=== PATIENT | female | born 1960 | race Caucasian/White ===

== ENCOUNTER 2017-01-06 10:32 | Emergency (ER) | payer OTHER ==
[~2017-01-06] VITALS: Ht 175.3 cm; Wt 92.1 kg
[~2017-01-06 10:32] MED LIST: ADVI200T PO; AMOX875T2 PO; CIPR500T89 PO; COLA100C3 PO; FLAG500T PO; HYDR-3713 PO; IRON65TA PO; LASI40TA PO; LEVO100T5 PO; METO-346 PO; MIRA33504 PO; PERC5TAB6 PO; POTA10CA PO; TESS100C PO
[2017-01-06] MEDS ORDERED: SERT1TAB16 (10:39)
[2017-01-06] MEDS ORDERED: KETOROLAC 30 MG/ML VIAL (J1885) IV ONE (11:00)
[2017-01-06] MEDS ORDERED: ONDANSETRON 4MG/2ML VIAL (J2405) IV ONE (11:00)
[2017-01-06] MEDS ORDERED: NS 1,000 ML IV ONE (11:00)
[2017-01-06] MEDS ORDERED: MORPHINE 2 MG/ML 1ML SYRINGE IV PRN (11:00)
[2017-01-06 11:27] LABS: BASO # 0.1 K/mm3 (0.0-0.2); EOS # 0.4 K/mm3 (0.0-0.50); EOS % 5.4 % (0.0-3.0); LARGE UNSTAINED CELL # 0.1 K/mm3 (0.0-0.4); LARGE UNSTAINED CELL % 1.5 % (0.0-4.0); LYMPH # 2.1 K/mm3 (1.5-4.5); LYMPH % 25.1 % (24.0-44.0); MEAN CORPUSCULAR HEMOGLOBIN 32.6 pg (27.0-33.0); MEAN CORPUSCULAR HGB CONC 33.8 g/dl (32.0-36.5); MEAN CORPUSCULAR VOLUME 96.3 fl (80.0-96.0); MONO # 0.4 K/mm3 (0.0-0.8); MONO % 4.3 % (0.0-5.0); NEUTROPHILS # 5.3 K/mm3 (1.8-7.7); NEUTROPHILS % 62.8 % (36.0-66.0); PLATELET COUNT, AUTOMATED 338 k/mm3 (150-450); RED CELL DISTRIBUTION WIDTH 12.6 % (11.5-14.5); WHITE BLOOD COUNT 8.5 K/mm3 (4.0-10.0)
[2017-01-06 11:29] LABS: INR 0.89
[2017-01-06 11:50] LABS: ALBUMIN 3.9 GM/DL (3.2-5.2); ALBUMIN/GLOBULIN RATIO 1.11 (1.00-1.93); ALKALINE PHOSPHATASE 152 U/L (45-117); ALT/SGPT 13 U/L (12-78); ANION GAP 8 MEQ/L (8-16); AST/SGOT 19 U/L (15-37); BILIRUBIN,DIRECT 0.1 MG/DL (0.0-0.2); BILIRUBIN,TOTAL 0.5 MG/DL (0.2-1.0); BLOOD UREA NITROGEN 7 MG/DL (7-18); CALCIUM LEVEL 9.5 MG/DL (8.5-10.1); CARBON DIOXIDE LEVEL 26 MEQ/L (21-32); CHLORIDE LEVEL 107 MEQ/L (98-107); CREATININE FOR GFR 0.63 MG/DL (0.55-1.02); GLOMERULAR FILTRATION RATE > 60.0 (>51); GLUCOSE, FASTING 94 MG/DL (70-105); POTASSIUM SERUM 3.7 MEQ/L (3.5-5.1); SODIUM LEVEL 141 MEQ/L (136-145); TOTAL PROTEIN 7.4 GM/DL (6.4-8.2)
[2017-01-06] MEDS ORDERED: ISOVUE-370 76% 100ML VIAL (Q9967) As Ordered ONE (12:07)
[2017-01-06] MEDS ORDERED: BENT20TA PO (13:20)
[2017-01-06] MEDS ORDERED: CIPR500T89 PO (13:20)
[2017-01-06 13:30] VITALS: BP 144/79
--- NOTE | 2017-01-06 13:52 | REP ---
CT ABDOMEN AND PELVIS WITH IV CONTRAST: TECHNIQUE: Axial contrast enhanced images from the lung bases to the pubic symphysis using 100 mL Isovue 370 intravenous contrast material with multiplanar reformations. Visualized lung bases demonstrate no evidence of infiltrate. Liver demonstrates a subcentimeter hypodense nodule in the right lobe which is unchanged since prior study of 02/19/2016 compatible with a tiny cyst or hemangioma. Gallbladder is grossly unremarkable. No biliary dilatation is seen. Spleen is unremarkable in appearance. Oval nodule in the left adrenal gland measures 2.9 cm in maximum diameter and is stable compatible with an adenoma. There is diffuse thickening of the right adrenal gland unchanged. Pancreas and kidneys appear normal. There is no hydronephrosis. There is no abdominal aortic aneurysm. There is no adenopathy, free air or free fluid. No bowel wall thickening is seen. There are diverticula of the sigmoid and left colon without evidence of acute diverticulitis. No pelvic mass is seen. Patient appears to have had a hysterectomy. Urinary bladder is not well distended and not well evaluated. IMPRESSION: Sigmoid and left colonic diverticulosis without evidence of acute diverticulitis. No free air or free fluid. Left adrenal adenoma. Stable thickening of the right adrenal gland. Signed by Jeromy Broussard MD 01/06/2017 07:49 P
== END 2017-01-06 13:40 | disposition home or self-care (01) ==
LOC: M ED 11:33
DX: R10.32 Left lower quadrant pain (principal); R11.0 Nausea; I10 Essential (primary) hypertension; Z87.19 Personal history of other diseases of the digestive system; Z79.899 Other long term (current) drug therapy; Z88.8 Allergy status to other drugs, medicaments and biological substances; F17.210 Nicotine dependence, cigarettes, uncomplicated
CPT/HCPCS: 74177; 80048; 80076; 81001; 83605; 83690; 85025; 85610; 85730; 96374; 96375; 99282; J1885; J2405; Q9967

== ENCOUNTER → 2017-01-13 | Outpatient (REF) | payer OTHER ==
[~2017-01-13] MED LIST changes: +BENT20TA PO; +SERT1TAB16
== END ==
LOC: M LAB REF 13:16
PROVIDERS: ATTEND Family Medicine Addiction Medicine
DX: R31.29 Other microscopic hematuria (principal)

== ENCOUNTER 2017-01-30 07:20 | Emergency (ER) | payer OTHER ==
[~2017-01-30] VITALS: Ht 175.3 cm; Wt 93.0 kg
[2017-01-30 09:27] LABS: BASO # 0.1 K/mm3 (0.0-0.2); BASO % 1.1 % (0.0-1.0); EOS # 0.2 K/mm3 (0.0-0.50); EOS % 2.8 % (0.0-3.0); LARGE UNSTAINED CELL # 0.1 K/mm3 (0.0-0.4); LARGE UNSTAINED CELL % 1.7 % (0.0-4.0); LYMPH % 27.1 % (24.0-44.0); MEAN CORPUSCULAR HGB CONC 34.1 g/dl (32.0-36.5); MONO # 0.5 K/mm3 (0.0-0.8); MONO % 7.1 % (0.0-5.0); NEUTROPHILS # 4.4 K/mm3 (1.8-7.7); NEUTROPHILS % 60.2 % (36.0-66.0); PLATELET COUNT, AUTOMATED 312 k/mm3 (150-450); RED CELL DISTRIBUTION WIDTH 12.5 % (11.5-14.5); WHITE BLOOD COUNT 7.2 K/mm3 (4.0-10.0)
[2017-01-30] MEDS ORDERED: KETOROLAC 30 MG/ML VIAL (J1885) IV ONE (09:30)
--- NOTE | 2017-01-30 09:32 | REP ---
Clinical: Chest pain . Comparison: 11/29/2014 . Findings: The mediastinum and cardiac silhouette are stable and within normal limits for portable technique. The lung gamboa are clear without acute consolidation, effusion, or pneumothorax. Skeletal structures are intact. Impression: Normal portable chest x-ray Signed by Johan Eagle MD 01/30/2017 09:23 A
[2017-01-30 09:48] LABS: ALBUMIN 3.4 GM/DL (3.2-5.2); ALKALINE PHOSPHATASE 136 U/L (45-117); ALT/SGPT 15 U/L (12-78); AMYLASE 45 U/L (25-115); ANION GAP 9 MEQ/L (8-16); AST/SGOT 22 U/L (15-37); BILIRUBIN,DIRECT < 0.1 MG/DL (0.0-0.2); BILIRUBIN,TOTAL 0.3 MG/DL (0.2-1.0); BLOOD UREA NITROGEN 13 MG/DL (7-18); CALCIUM LEVEL 8.5 MG/DL (8.5-10.1); CARBON DIOXIDE LEVEL 26 MEQ/L (21-32); CHLORIDE LEVEL 106 MEQ/L (98-107); CREATININE FOR GFR 0.56 MG/DL (0.55-1.02); GLOMERULAR FILTRATION RATE > 60.0 (>51); GLUCOSE, FASTING 96 MG/DL (70-105); SODIUM LEVEL 141 MEQ/L (136-145); TOTAL PROTEIN 6.5 GM/DL (6.4-8.2)
[2017-01-30 09:54] LABS: INR 0.9
--- NOTE | 2017-01-30 10:09 | REP ---
Clinical: Calf pain . Technique: Broussard scale and color Doppler evaluation using linear high frequency transducer. Findings: Ultrasound examination of the left lower extremity deep venous structures from the common femoral vein to the popliteal vein demonstrates normal compressibility flow and wave patterns in response to respiration and augmentation. There is no evidence for deep venous thrombosis. Impression: No evidence for deep venous thrombosis. Signed by Johan Eagle MD 01/30/2017 10:01 A
[2017-01-30 11:47] VITALS: BP 150/81
--- NOTE | 2017-01-30 15:14 | ECGEPIP ---
Stationary ECG Study [facility] - ED Test Date: 2017-01-30 Pat Name: PAULETTE MOORE Department: Room: - Gender: F Travel Consultant: scott : 1960 Requested By: Bailee Camargo Order Number: [id number] Reading MD: Bailee Camargo Measurements Intervals [place] Rate: 68 P: -36 TN: 136 QRS: 52 QRSD: 104 T: 43 QT: 386 QTc: 411 Interpretive Statements SINUS RHYTHM INCREASED RATE 02/02/16 21:23 Electronically Signed On 01-30-2017 15:14:16 EDT by Bailee Camargo
--- NOTE | 2017-01-30 15:25 | REP ---
Clinical: Hip pain. Technique: Neutral single view of the left hip. Comparison: 11/29/2014. Findings: Arthritic degenerative changes include increased sclerosis to the acetabulum with marginal osteophyte along the acetabular roof and mild joint space narrowing. There is associated cortical irregularity/enthesopathy along the greater trochanter of the femur. No acute fracture dislocation. Impression: Mild/early moderate arthritic degenerative changes. Signed by Johan Eagle MD 01/30/2017 10:03 A
== END 2017-01-30 12:44 | disposition home or self-care (01) ==
LOC: M ED 08:39
DX: F41.9 Anxiety disorder, unspecified (principal); R49.9 Unspecified voice and resonance disorder; M25.559 Pain in unspecified hip; M19.90 Unspecified osteoarthritis, unspecified site; R10.9 Unspecified abdominal pain; E03.9 Hypothyroidism, unspecified; F32.9 Major depressive disorder, single episode, unspecified; F17.210 Nicotine dependence, cigarettes, uncomplicated; Z79.899 Other long term (current) drug therapy

== ENCOUNTER → 2017-03-24 | Outpatient (CLI) | payer OTHER ==
[~2017-03-24] MED LIST changes: +BENT10CA PO; +CIPR-249 PO; -CIPR500T89 PO; -COLA100C3 PO; +COLA100C5 PO; +E-Z-GAS II EFFERVESCENT PACKET (SODIUM BICARB./CITRIC ACID/SIMETHICONE) As Ordered ONE; +E-Z-HD 98% w/w 340GM SUSP BTL As Ordered ONE; +E-Z-PAQUE 96% w/w SUSP 176GM BTL As Ordered ONE; +OMEP40CA2 PO; +PERC5TAB12 PO; -PERC5TAB6 PO; -SERT1TAB16; +SERT25TA88
--- NOTE | 2017-03-24 18:03 | REP ---
ESOPHAGRAM: The procedure was performed under the direct supervision of Dr. Leroy. The images were reviewed with Dr. Leroy. A single view PA chest x-ray is submitted as a airborne electronics analyst film. The superior mediastinal structures are midline. The heart size is within normal limits. The lungs are clear. Liquid barium and gas-producing granules were given in the erect position as well as liquid barium in the prone oblique position in order to perform a double-contrast esophagram examination. The oral and pharyngeal stage of deglutition are unremarkable. Note is made of osteophyte formation of the cervical spine from C5 to C7. This causes mild impression on the posterior esophagus. Esophageal transport is prompt and efficient and there is no esophagitis, stricture, mucosal ring, or hiatal hernia. There is gastroesophageal reflux demonstrated to the level of the thoracic inlet. IMPRESSION: There is osteophyte formation which causes mild impression on the posterior esophagus. There is gastroesophageal reflux demonstrated to the level of the thoracic inlet. Otherwise unremarkable double contrast esophagram examination. 56 seconds of fluoroscopic time was utilized for this procedure. Reviewed by TEAGAN Walker 03/25/2017 03:59 PEdited and Signed by Ozzie Leroy MD 03/25/2017 04:05 P
== END ==
LOC: M RAD 10:06
PROVIDERS: ATTEND Internal Medicine Gastroenterology
DX: R13.10 Dysphagia, unspecified (principal); K22.8 Other specified diseases of esophagus; K21.9 Gastro-esophageal reflux disease without esophagitis

== ENCOUNTER → 2017-03-27 | Outpatient (CLI) | payer OTHER ==
[~2017-03-27] VITALS: Ht 175.3 cm; Wt 93.0 kg
[~2017-03-27] MED LIST changes: -E-Z-GAS II EFFERVESCENT PACKET (SODIUM BICARB./CITRIC ACID/SIMETHICONE) As Ordered ONE; -E-Z-HD 98% w/w 340GM SUSP BTL As Ordered ONE; -E-Z-PAQUE 96% w/w SUSP 176GM BTL As Ordered ONE; +NS 1,000 ML IV ONE
--- NOTE | 2017-03-27 10:58 | ROOR ---
Patient Name: Maureen Gutierrez Procedure Date: 03/27/2017 10:40 AM Date of : 1960 Age: 56 Room: [facility] Gender: Female Note Status: Finalized Procedure: Upper GI endoscopy Indications: Oropharyngeal phase dysphagia, Suspected esophageal reflux, Laryngitis Providers: Scott TENA MD Referring MD: Rhett CHACKO MD Requesting Provider: Medicines: Monitored Anesthesia Care Complications: No immediate complications. Procedure: Pre-Anesthesia Assessment: - The heart rate, respiratory rate, oxygen saturations, blood pressure, adequacy of pulmonary ventilation, and response to care were monitored throughout the procedure. The Endoscope was introduced through the mouth, and advanced to the second part of duodenum. The upper GI endoscopy was accomplished without difficulty. The patient tolerated the procedure well. Findings: A small amount of food (residue) was found in the gastric antrum. The esophagus was normal. The stomach was normal. The examined duodenum was normal. No endoscopic abnormality was evident in the esophagus to explain the patient's complaint of dysphagia. It was decided, however, to proceed with dilation of the entire esophagus. The scope was withdrawn. Dilation was performed with a Pickard dilator with no resistance at 54 Fr. The dilation site was examined following endoscope reinsertion and showed no change. Impression: - A small amount of food (residue) in the stomach after 8 hour fast is c/w gastroparesis - Normal esophagus. - Normal stomach. - Normal examined duodenum. - No endoscopic esophageal abnormality to explain patient's dysphagia. Esophagus dilated with 54 F Pickard. - No specimens collected. Recommendation: - Continue present medications. - Gastroparesis diet: - Eat smaller, more frequent meals throughout the day. - Low fat diet. - Liquid/soft foods are tolerated better than solid foods. - Low fiber/well cooked vegetables are tolerated better than high fiber/fibrous foods/raw vegetables. - Avoid medications that inhibit gastric/intestinal motility such as narcotic medications. Scott Tena MD Scott TENA MD 03/27/2017 10:57:48 AM This report has been signed electronically. Number of Addenda: 0 Note Initiated On: 03/27/2017 10:40 AM Estimated Blood Loss: Estimated blood loss: none.
[2017-03-27 11:27] VITALS: BP 116/62
== END | disposition home or self-care (01) ==
LOC: M OPP 09:08
PROVIDERS: ATTEND Internal Medicine Gastroenterology
DX: R13.12 Dysphagia, oropharyngeal phase (principal); J04.0 Acute laryngitis; I10 Essential (primary) hypertension; E03.9 Hypothyroidism, unspecified; R00.1 Bradycardia, unspecified; K58.9 Irritable bowel syndrome, unspecified; R12 Heartburn; M19.90 Unspecified osteoarthritis, unspecified site; R21 Rash and other nonspecific skin eruption; Z20.1 Contact with and (suspected) exposure to tuberculosis; Z87.442 Personal history of urinary calculi; F17.210 Nicotine dependence, cigarettes, uncomplicated; Z88.8 Allergy status to other drugs, medicaments and biological substances; Z79.899 Other long term (current) drug therapy; Z80.0 Family history of malignant neoplasm of digestive organs; Z80.8 Family history of malignant neoplasm of other organs or systems

== ENCOUNTER → 2017-10-20 | Outpatient (CLI) | payer OTHER ==
[2017-10-20 08:48] LABS: APPEARANCE, URINE HAZY (CLEAR); BACTERIA, URINE AUTO NEGATIVE (NEGATIVE); BILIRUBIN, URINE AUTO NEGATIVE (NEGATIVE); BLOOD, URINE BLOOD 2+ (NEGATIVE); COLOR, URINE YELLOW (YELLOW); GLUCOSE, URINE (UA) AUTO NEGATIVE (NEGATIVE); KETONE, URINE AUTO NEGATIVE (NEGATIVE); LEUKOCYTE ESTERASE, URINE AUTO NEGATIVE (NEGATIVE); MUCUS, URINE SMALL (NEGATIVE); NITRITE, URINE AUTO NEGATIVE (NEGATIVE); PROTEIN, URINE AUTO NEGATIVE (NEGATIVE); RBC, URINE AUTO 5 /HPF (0-3); SPECIFIC GRAVITY URINE AUTO 1.019 (1.002-1.035); SQUAMOUS EPITHELIAL CELL UR AU 2 /HPF (0-6); UROBILINOGEN, URINE AUTO 0.2 mg/dL (0.0-2.0); WBC, URINE AUTO 1 /HPF (0-3)
[2017-10-20 09:01] LABS: ESTIMATED AVERAGE GLUCOSE 114 MG/DL (60-110); HEMOGLOBIN A1c 5.6 %
[2017-10-20 09:47] LABS: VITAMIN B12 LEVEL 405 PG/ML (247-911)
[2017-10-20 09:48] LABS: FOLATE 2.8 NG/ML (>5.4)
[2017-10-21 11:13] LABS: HEPATITIS B SURFACE ANTIBODY NEGATIVE (POSITIVE)
== END ==
LOC: M LAB 07:41
DX: R41.89 Other symptoms and signs involving cognitive functions and awareness (principal)
CPT/HCPCS: 82746

== ENCOUNTER → 2017-11-09 | Outpatient (REF) | payer OTHER, MEDICAID ==
[2017-11-09 19:07] LABS: ANION GAP 7 MEQ/L (8-16); BLOOD UREA NITROGEN 10 MG/DL (7-18); CALCIUM LEVEL 8.7 MG/DL (8.5-10.1); CARBON DIOXIDE LEVEL 28 MEQ/L (21-32); CHLORIDE LEVEL 106 MEQ/L (98-107); CREATININE FOR GFR 0.69 MG/DL (0.55-1.30); GLOMERULAR FILTRATION RATE > 60.0 (>51); GLUCOSE, FASTING 93 MG/DL (70-100); POTASSIUM SERUM 4.2 MEQ/L (3.5-5.1); SODIUM LEVEL 141 MEQ/L (136-145)
== END ==
LOC: M LAB REF 17:37
DX: R31.29 Other microscopic hematuria (principal)

== ENCOUNTER → 2017-11-09 | Outpatient (REF) | payer OTHER, MEDICAID ==
[2017-11-09 19:01] LABS: APPEARANCE, URINE CLEAR (CLEAR); BACTERIA, URINE AUTO NEGATIVE (NEGATIVE); BILIRUBIN, URINE AUTO NEGATIVE (NEGATIVE); BLOOD, URINE BLOOD 1+ (NEGATIVE); COLOR, URINE YELLOW (YELLOW); GLUCOSE, URINE (UA) AUTO NEGATIVE (NEGATIVE); KETONE, URINE AUTO NEGATIVE (NEGATIVE); LEUKOCYTE ESTERASE, URINE AUTO NEGATIVE (NEGATIVE); MUCUS, URINE SMALL (NEGATIVE); NITRITE, URINE AUTO NEGATIVE (NEGATIVE); PROTEIN, URINE AUTO NEGATIVE (NEGATIVE); RBC, URINE AUTO 1 /HPF (0-3); SPECIFIC GRAVITY URINE AUTO 1.014 (1.002-1.035); SQUAMOUS EPITHELIAL CELL UR AU 1 /HPF (0-6); UROBILINOGEN, URINE AUTO 0.2 mg/dL (0.0-2.0); WBC, URINE AUTO 1 /HPF (0-3)
== END ==
LOC: M LAB REF 17:15
DX: R31.29 Other microscopic hematuria (principal)

== ENCOUNTER → 2017-12-08 | Outpatient (REF) | payer OTHER ==
[2017-12-08 13:15] LABS: APPEARANCE, URINE HAZY (CLEAR); BACTERIA, URINE AUTO NEGATIVE (NEGATIVE); BILIRUBIN, URINE AUTO NEGATIVE (NEGATIVE); BLOOD, URINE BLOOD 1+ (NEGATIVE); COLOR, URINE YELLOW (YELLOW); GLUCOSE, URINE (UA) AUTO NEGATIVE (NEGATIVE); KETONE, URINE AUTO NEGATIVE (NEGATIVE); LEUKOCYTE ESTERASE, URINE AUTO NEGATIVE (NEGATIVE); MUCUS, URINE SMALL (NEGATIVE); NITRITE, URINE AUTO NEGATIVE (NEGATIVE); PROTEIN, URINE AUTO NEGATIVE (NEGATIVE); RBC, URINE AUTO 1 /HPF (0-3); SPECIFIC GRAVITY URINE AUTO 1.015 (1.002-1.035); SQUAMOUS EPITHELIAL CELL UR AU 1 /HPF (0-6); UROBILINOGEN, URINE AUTO 0.2 mg/dL (0.0-2.0); WBC, URINE AUTO 1 /HPF (0-3)
== END ==
LOC: M SMT 12:51
DX: R31.29 Other microscopic hematuria (principal)

== ENCOUNTER → 2018-02-11 | Outpatient (CLI) | payer OTHER ==
[2018-02-11 11:33] LABS: ANION GAP 7 MEQ/L (8-16); BLOOD UREA NITROGEN 6 MG/DL (7-18); CALCIUM LEVEL 8.9 MG/DL (8.5-10.1); CARBON DIOXIDE LEVEL 28 MEQ/L (21-32); CHLORIDE LEVEL 105 MEQ/L (98-107); CREATININE FOR GFR 0.64 MG/DL (0.55-1.30); GLOMERULAR FILTRATION RATE > 60.0 (>51); GLUCOSE, FASTING 95 MG/DL (70-100); POTASSIUM SERUM 3.5 MEQ/L (3.5-5.1); SODIUM LEVEL 140 MEQ/L (136-145)
[2018-02-11 14:36] LABS: FOLATE 3.8 NG/ML (>5.4)
== END ==
LOC: M RAD 08:47
DX: G90.09 Other idiopathic peripheral autonomic neuropathy (principal)
CPT/HCPCS: 70551

== ENCOUNTER → 2018-02-18 | Outpatient (REF) | payer OTHER ==
[2018-02-18 18:51] LABS: ESTIMATED AVERAGE GLUCOSE 111 MG/DL (60-110); HEMOGLOBIN A1c 5.5 %
[2018-02-18 18:53] LABS: VITAMIN B12 LEVEL 702 PG/ML
[2018-02-18 18:54] LABS: ALBUMIN 4.3 GM/DL (3.2-5.2); ALBUMIN/GLOBULIN RATIO 1.08 (1.00-1.93); ALKALINE PHOSPHATASE 197 U/L (45-117); ALT/SGPT 16 U/L (12-78); ANION GAP 10 MEQ/L (8-16); AST/SGOT 17 U/L (7-37); BILIRUBIN,TOTAL 0.4 MG/DL (0.2-1.0); BLOOD UREA NITROGEN 14 MG/DL (7-18); CALCIUM LEVEL 9.7 MG/DL (8.5-10.1); CARBON DIOXIDE LEVEL 27 MEQ/L (21-32); CHLORIDE LEVEL 101 MEQ/L (98-107); CREATININE FOR GFR 0.86 MG/DL (0.55-1.30); FREE T4 0.84 NG/DL (0.76-1.46); GLOMERULAR FILTRATION RATE > 60.0 (>51); GLUCOSE, FASTING 107 MG/DL (70-100); SODIUM LEVEL 138 MEQ/L (136-145); TOTAL PROTEIN 8.3 GM/DL (6.4-8.2)
[2018-02-18 18:55] LABS: ERYTHROCYTE SEDIMENTATION RATE 13 mm/hr (0-30)
[2018-02-18 19:03] LABS: RHEUMATOID FACTOR QUANT < 10.0 IU/ML (<15.0)
[2018-02-22 13:05] LABS: ALBUMIN 4.79 GM/DL (3.29-5.55); ALBUMIN % 57.7 % (55.8-66.1); ALPHA-1-GLOBULIN % 4.5 % (2.9-4.9); ALPHA-1-GLOBULINS 0.37 GM/DL (0.17-0.41); ALPHA-2-GLOBULINS % 12.1 % (7.1-11.8); BETA-1-GLOBULINS 0.54 GM/DL (0.28-0.60); BETA-1-GLOBULINS % 6.5 % (4.7-7.2); BETA-2-GLOBULINS % 4.8 % (3.2-6.5); GAMMA GLOBULIN % 14.4 % (11.1-18.8)
[2018-02-24 08:06] LABS: ANTINUCLEAR ANTIBODIES DIRECT Negative (Negative); VITAMIN B1 LEVEL WHOLE BLOOD 86.4 nmol/L (66.5-200.0); VITAMIN B6,PYRIDOXAL PHOSPHATE 2.7 ug/L (2.0-32.8); VITAMIN E(ALPHA TOCOPHEROL) 10.7 mg/L (7.0-25.1); VITAMIN E(GAMMA TOCOPHEROL) 1.7 mg/L (0.5-5.5)
== END ==
LOC: M LABNEURO 13:47
DX: G43.909 Migraine, unspecified, not intractable, without status migrainosus (principal); G62.9 Polyneuropathy, unspecified

== ENCOUNTER 2018-03-08 08:36 | Emergency (ER) | payer OTHER ==
[2018-03-08 10:04] LABS: BASO # 0.1 10^3/uL (0.0-0.2); BASO % 0.8 % (0.0-1.0); EOS # 0.1 10^3/uL (0.0-0.50); EOS % 1.1 % (0.0-3.0); HEMOGLOBIN 14.2 g/dl (12.0-15.5); IMMATURE GRANULOCYTE % 0.5 % (0-3.0); LYMPH # 1.8 10^3/uL (1.5-4.5); LYMPH % 14.8 % (24.0-44.0); MEAN CORPUSCULAR HEMOGLOBIN 31.3 pg (27.0-33.0); MEAN CORPUSCULAR HGB CONC 33.8 g/dl (32.0-36.5); MEAN CORPUSCULAR VOLUME 92.5 fl (80.0-96.0); MONO # 0.7 10^3/uL (0.0-0.8); NEUTROPHILS # 9.3 10^3/uL (1.8-7.7); NEUTROPHILS % 76.8 % (36.0-66.0); PLATELET COUNT, AUTOMATED 325 10^3/uL (150-450); RED BLOOD COUNT 4.54 10^6/uL (4.00-5.40); RED CELL DISTRIBUTION WIDTH 12.6 % (11.5-14.5); WHITE BLOOD COUNT 12.1 10^3/uL (4.0-10.0)
[2018-03-08 10:37] LABS: INR 0.94; PROTHROMBIN TIME 12.7 SECONDS (12.1-14.4)
[2018-03-08 10:38] LABS: PARTIAL THROMBOPLASTIN TIME 30.3 SECONDS (25.4-37.6)
[2018-03-08 10:53] LABS: ALBUMIN 4.1 GM/DL (3.2-5.2); ALBUMIN/GLOBULIN RATIO 1.03 (1.00-1.93); ALKALINE PHOSPHATASE 214 U/L (45-117); ALT/SGPT 17 U/L (12-78); ANION GAP 9 MEQ/L (8-16); AST/SGOT 17 U/L (7-37); BILIRUBIN,DIRECT 0.1 MG/DL (0.0-0.2); BILIRUBIN,TOTAL 0.5 MG/DL (0.2-1.0); BLOOD UREA NITROGEN 11 MG/DL (7-18); CALCIUM LEVEL 9.2 MG/DL (8.5-10.1); CARBON DIOXIDE LEVEL 25 MEQ/L (21-32); CHLORIDE LEVEL 105 MEQ/L (98-107); CK-MB VALUE MASS 1.1 NG/ML (<3.6); CPK CREATINE PHOSPHOKINASE 89 U/L (26-192); CREATININE FOR GFR 0.88 MG/DL (0.55-1.30); GLOMERULAR FILTRATION RATE > 60.0 (>51); GLUCOSE, FASTING 125 MG/DL (70-100); LIPASE 79 U/L (73-393); MB/CK RELATIVE INDEX 1.23 (< OR =4); POTASSIUM SERUM 3.7 MEQ/L (3.5-5.1); SODIUM LEVEL 139 MEQ/L (136-145); TOTAL PROTEIN 8.1 GM/DL (6.4-8.2); TROPONIN I < 0.02 NG/ML (< 0.10)
[2018-03-08] MEDS: ASPIRIN 81 MG CHEW TABLET PO (10:57)
[2018-03-08] MEDS: NITROGLYCERIN 0.4 MG SUBL TABLET SL (10:59)
[2018-03-08 12:21] LABS: KETONE, URINE AUTO RFX NEGATIVE (NEGATIVE); LEUKOCYTE ESTERASE UR AUTO RFX NEGATIVE (NEGATIVE); MUCUS, URINE RFX MODERATE (NEGATIVE); NITRITE, URINE AUTO RFX NEGATIVE (NEGATIVE); RBC, URINE AUTO RFX 2 /HPF (0-3); SPECIFIC GRAVITY UR AUTO RFX 1.023 (1.002-1.035); SQUAM EPITHELIAL CELL UR AURFX 1 /HPF (0-6); WBC, URINE AUTO RFX 2 /HPF (0-3)
[2018-03-08] MEDS ORDERED: ISOVUE-370 76% 100ML VIAL (Q9967) As Ordered (13:12)
== END 2018-03-08 14:30 | disposition home or self-care (01) ==
LOC: M ED 08:36
DX: R07.89 Other chest pain (principal); R06.02 Shortness of breath; R11.2 Nausea with vomiting, unspecified; I10 Essential (primary) hypertension; E07.9 Disorder of thyroid, unspecified; M51.9 Unspecified thoracic, thoracolumbar and lumbosacral intervertebral disc disorder; Z79.899 Other long term (current) drug therapy; Z79.890 Hormone replacement therapy; Z88.8 Allergy status to other drugs, medicaments and biological substances; Z87.891 Personal history of nicotine dependence
CPT/HCPCS: Q9967

== ENCOUNTER → 2018-03-09 | Outpatient (REF) | payer OTHER ==
[2018-03-09 18:13] LABS: CHOLESTEROL LEVEL 284 MG/DL (<200); CHOLESTEROL RISK RATIO 3.736 (<5); HDL CHOLESTEROL 76 MG/DL (>40); LDL CHOLESTEROL 187.8 MG/DL (<100); NON-HDL-C 208 MG/DL; TRIGLYCERIDES LEVEL 101 MG/DL (<150)
== END ==
LOC: M LAB REF 17:21
DX: Z13.220 Encounter for screening for lipoid disorders (principal)
CPT/HCPCS: 80061

== ENCOUNTER → 2018-05-13 | Outpatient (CLI) | payer OTHER, MEDICAID | LOC: M PAIN 14:00 | DX: G89.29 Other chronic pain (principal); M50.10 Cervical disc disorder with radiculopathy, unspecified cervical region; M79.1 Myalgia; M54.5 Low back pain; M51.16 Intervertebral disc disorders with radiculopathy, lumbar region; F32.9 Major depressive disorder, single episode, unspecified; F41.9 Anxiety disorder, unspecified; E03.9 Hypothyroidism, unspecified; K31.84 Gastroparesis; Z87.442 Personal history of urinary calculi; M32.9 Systemic lupus erythematosus, unspecified; F17.210 Nicotine dependence, cigarettes, uncomplicated; Z79.82 Long term (current) use of aspirin; Z79.899 Other long term (current) drug therapy; Z88.8 Allergy status to other drugs, medicaments and biological substances | CPT/HCPCS: G0463 ==

== ENCOUNTER → 2018-05-14 | Outpatient (CLI) | payer OTHER, MEDICAID ==
[~2018-05-14] MED LIST changes: -ADVI200T PO; -AMOX875T2 PO; -BENT10CA PO; -BENT20TA PO; +BUPIVACAINE HCL 0.25% 10 ML VIAL As Ordered; +BUPIVACAINE HCL 0.25% 30 ML VIAL As Ordered; -CIPR-249 PO; -COLA100C5 PO; -FLAG500T PO; -HYDR-3713 PO; -IRON65TA PO; -LASI40TA PO; -LEVO100T5 PO; -METO-346 PO; -MIRA33504 PO; -NS 1,000 ML IV ONE; -OMEP40CA2 PO; -PERC5TAB12 PO; -POTA10CA PO; -SERT25TA88; -TESS100C PO; +TRIAMCINOLONE ACETONIDE SUSP 40 MG/ML VIAL (J3301) As Ordered; +diazePAM 5 MG TAB As Ordered; +oxyCODONE 5MG TAB As Ordered
== END ==
LOC: M PAIN 10:15
DX: M79.1 Myalgia (principal); M54.2 Cervicalgia; M25.512 Pain in left shoulder; F32.9 Major depressive disorder, single episode, unspecified; F41.9 Anxiety disorder, unspecified; E03.9 Hypothyroidism, unspecified; K31.84 Gastroparesis; K40.90 Unilateral inguinal hernia, without obstruction or gangrene, not specified as recurrent; F17.200 Nicotine dependence, unspecified, uncomplicated; Z79.82 Long term (current) use of aspirin; Z79.899 Other long term (current) drug therapy; Z88.8 Allergy status to other drugs, medicaments and biological substances
CPT/HCPCS: J3301

== ENCOUNTER → 2018-06-03 | Outpatient (CLI) | payer OTHER, MEDICAID | LOC: M PAIN 09:30 | DX: M50.10 Cervical disc disorder with radiculopathy, unspecified cervical region (principal); M79.1 Myalgia; F32.9 Major depressive disorder, single episode, unspecified; F41.9 Anxiety disorder, unspecified; E03.9 Hypothyroidism, unspecified; K31.84 Gastroparesis; I67.82 Cerebral ischemia; Z79.82 Long term (current) use of aspirin; Z79.899 Other long term (current) drug therapy; Z88.8 Allergy status to other drugs, medicaments and biological substances; Z87.39 Personal history of other diseases of the musculoskeletal system and connective tissue; Z87.891 Personal history of nicotine dependence | CPT/HCPCS: G0463 ==

== ENCOUNTER → 2018-08-10 | Outpatient (REF) | payer OTHER, MEDICAID ==
[2018-08-10 19:40] LABS: BASO # 0.1 10^3/uL (0.0-0.2); BASO % 1.1 % (0.0-1.0); EOS # 0.2 10^3/uL (0.0-0.50); EOS % 2.1 % (0.0-3.0); HEMATOCRIT 40.4 % (36.0-47.0); HEMOGLOBIN 13.4 g/dl (12.0-15.5); IMMATURE GRANULOCYTE % 0.4 % (0-3.0); LYMPH # 1.9 10^3/uL (1.5-4.5); LYMPH % 21.3 % (24.0-44.0); MEAN CORPUSCULAR HEMOGLOBIN 31.9 pg (27.0-33.0); MEAN CORPUSCULAR HGB CONC 33.2 g/dl (32.0-36.5); MEAN CORPUSCULAR VOLUME 96.2 fl (80.0-96.0); MONO # 0.5 10^3/uL (0.0-0.8); NEUTROPHILS # 6.2 10^3/uL (1.8-7.7); NEUTROPHILS % 69.1 % (36.0-66.0); PLATELET COUNT, AUTOMATED 380 10^3/uL (150-450); RED CELL DISTRIBUTION WIDTH 12.7 % (11.5-14.5)
[2018-08-10 19:59] LABS: ESTIMATED AVERAGE GLUCOSE 114 MG/DL (60-110); HEMOGLOBIN A1c 5.6 %
[2018-08-10 20:01] LABS: ANION GAP 9 MEQ/L (8-16); BLOOD UREA NITROGEN 14 MG/DL (7-18); CALCIUM LEVEL 8.9 MG/DL (8.5-10.1); CARBON DIOXIDE LEVEL 28 MEQ/L (21-32); CHLORIDE LEVEL 103 MEQ/L (98-107); CREATININE FOR GFR 0.86 MG/DL (0.55-1.30); GLOMERULAR FILTRATION RATE > 60.0 (>51); GLUCOSE, FASTING 102 MG/DL (70-100); POTASSIUM SERUM 4.4 MEQ/L (3.5-5.1); SODIUM LEVEL 140 MEQ/L (136-145)
[2018-08-10 20:02] LABS: ALBUMIN 3.8 GM/DL (3.2-5.2); ALBUMIN/GLOBULIN RATIO 1.03 (1.00-1.93); ALKALINE PHOSPHATASE 197 U/L (45-117); ALT/SGPT 21 U/L (12-78); AST/SGOT 19 U/L (7-37); BILIRUBIN,TOTAL 0.2 MG/DL (0.2-1.0); CHOLESTEROL LEVEL 308 MG/DL (<200); CHOLESTEROL RISK RATIO 5.049 (<5); FOLATE 3.2 NG/ML; HDL CHOLESTEROL 61 MG/DL (>40); LDL CHOLESTEROL 207 MG/DL (<100); NON-HDL-C 247 MG/DL; TOTAL 25(OH) VITAMIN D 9.1 NG/ML (30.0-100.0); TOTAL PROTEIN 7.5 GM/DL (6.4-8.2); TRIGLYCERIDES LEVEL 201 MG/DL (<150); VITAMIN B12 LEVEL 543 PG/ML
== END ==
LOC: M LAB REF 19:17
DX: R31.29 Other microscopic hematuria (principal); E03.9 Hypothyroidism, unspecified; Z13.220 Encounter for screening for lipoid disorders
CPT/HCPCS: 82746

== ENCOUNTER → 2018-10-11 | Outpatient (CLI) | payer OTHER, MEDICAID ==
[~2018-10-11] MED LIST changes: +ADVI200T PO; +AMLO5TAB6 PO; +AMOX875T2 PO; +BENT10CA PO; +BENT20TA PO; -BUPIVACAINE HCL 0.25% 10 ML VIAL As Ordered; -BUPIVACAINE HCL 0.25% 30 ML VIAL As Ordered; +CIPR-249 PO; +COLA100C5 PO; +FLAG500T PO; +HYDR-3713 PO; +IRON65TA PO; +KLOR10TA76 PO; +LASI40TA9 PO; +LEVO100T5 PO; +METO-346 PO; +MIRA33504 PO; +OMEP40CA2 PO; +PERC5TAB12 PO; +SERT25TA88; +TESS100C PO; -TRIAMCINOLONE ACETONIDE SUSP 40 MG/ML VIAL (J3301) As Ordered; -diazePAM 5 MG TAB As Ordered; -oxyCODONE 5MG TAB As Ordered
--- NOTE | 2018-10-23 23:55 | ECWPNPC ---
PATIENT NAME: PAULETTE MOORE : 1960 GENDER: FEMALE VISIT DATE: 10/11/2018 DISCHARGE DATE: 10/11/18 1545 VISIT LOCKED DATE TIME: PHYSICIAN: DENA GILLETTE MD RESOURCE: DENA GILLETTE MD REASON FOR APPOINTMENT 1. PRE PROC F/U PER DR Mercer HISTORY OF PRESENT ILLNESS HISTORY OF PRESENT ILLNESS: PAIN THE PATIENT DESCRIBES THE PAIN... 58 YEAR OLD FEMALE PATIENT WITH A HISTORY OF CHRONIC LOW BACK AND NECK PAIN. THE PATIENT DESCRIBES THE PAIN ACHING, SHARP, AND CONTINUOUS WITH A PAIN SCORE OF 8-10/10 DEPENDING ON PHYSICAL ACTIVITY. THE PATIENT HAD A TRIGGER POINT INJECTION OVER HER NECK AND SAYS THAT IT HELPED, BUT THE PAIN IN HER LOW BACK HAS INCREASED. THE PATIENT SAYS HER PAIN STARTS IN HER LOW BACK AREA AND RADIATES DOWN HER LEFT LEG WITH SOME NUMBNESS. THE PATIENT SAYS THAT WALKING FOR AN EXTENDED PERIOD OF TIME INCREASES HER PAIN. PATIENT DENIES UNEXPLAINABLE WEIGHT LOSS, FEVER, CHILLS, NEW CHANGES ON HER URINARY OR BOWEL CONTROL. FALL RISK SCREENING: SCREENING :NO FALLS IN THE PAST YEAR CURRENT MEDICATIONS TAKING LEVOTHYROXINE SODIUM 75 MCG TABLET 1 TABLET ON AN EMPTY STOMACH IN THE MORNING ORALLY ONCE A DAY TAKING SERTRALINE HCL 25 MG TABLET 1 TABLET ORALLY ONCE A DAY TAKING ASPIR-81 81 MG TABLET DELAYED RELEASE 1 TABLET ORALLY ONCE A DAY TAKING LIPITOR 40 MG TABLET 1 TABLET ORALLY ONCE A DAY TAKING TIZANIDINE HCL 4 MG TABLET 1 TABLET NEEDED ORALLY THREE TIMES A DAY TAKING ZONISAMIDE 100 MG CAPSULE 1 CAPSULE ORALLY ONCE A DAY TAKING OMEPRAZOLE 40 MG CAPSULE DELAYED RELEASE 1 CAPSULE ORALLY ONCE A DAY NEEDEED TAKING AMLODIPINE BESYLATE 5 MG TABLET 1 TABLET ORALLY BID TAKING GABAPENTIN 100 MG TABLET ORALLY TID TAKING TYLENOL 8 HOUR ARTHRITIS PAIN 650 MG TABLET EXTENDED RELEASE 2 TABLETS NEEDED ORALLY EVERY 8 HRS NOT-TAKING AUGMENTIN 875-125 MG TABLET 1 TABLET ORALLY EVERY 12 HRS NOT-TAKING TRAMADOL HCL 50 MG TABLET 1 TABLET NEEDED ORALLY TID NOT-TAKING CHANTIX 1 MG TABLET 1 TABLET ORALLY TWICE A DAY NOT-TAKING NICOTINE 14 MG/24HR PATCH 24 HOUR 1 PATCH TO SKIN TRANSDERMAL ONCE A DAY NOT-TAKING BACTRIM DS 800-160 MG TABLET 1 TABLET ORALLY DIRECTED- 1 HOUR PRIOR TO CYSTOSCOPY DISCONTINUED ESTRACE 0.1 MG/GM CREAM DIRECTED VAGINAL APPLY MILO, THURSDAY AND THURSDAY 5 CC IN THE [facility] MEDICATION LIST REVIEWED AND RECONCILED WITH THE PATIENT PAST MEDICAL HISTORY DEPRESSION/ ANXIETY HYPOTHYROIDISM MICROSCOPIC HEMATURIA GASTROPARESIS SYNDROM DIVERTICULITIS HISTORY OF KIDNEY STONES LUPUS INGUINAL HERNIA 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 1 SON(S) - HEALTHY. SOCIAL HISTORY GENERAL: TOBACCO USE ARE YOU A:FORMER SMOKER HOW LONG HAS IT BEEN SINCE YOU LAST SMOKED?1-3 MONTHS LUNG CANCER SCREENING SMOKING STATUS: PT IS CURRENTYLY TAKING CHANTIX AND USING NICODERM THIS NURSE DID COUNCEL ON NOT WEARING THE PATCH AND SMOKING FOR THE RISK OF STROKE ALCOHOL SCREENING DID YOU HAVE A DRINK CONTAINING ALCOHOL IN THE PAST YEAR?NO POINTS0 INTERPRETATIONNEGATIVE RECREATIONAL DRUG USE SMOKING STATUS: PT IS CURRENTYLY TAKING CHANTIX AND USING NICODERM THIS NURSE DID COUNCEL ON NOT WEARING THE PATCH AND SMOKING FOR THE RISK OF STROKE. CAFFEINE CAFFEINE USE?YES DRINKS COCOLA DAILY FOR CAFFEINE LATTER DAY LATTER DAY TEMPLE LANGUAGE LANGUAGES SPOKEN:THAI EDUCATION LEVEL OF EDUCATION:NOT FINISHED COLLEGE DIET: DISABLED. EXERCISE: DISABLED MEDITERRANEAN DIET ..LOTS OI FISH. MARITAL STATUS: DISABLED MEDITERRANEAN DIET ..LOTS OI FISH, WALKS BUT THE PAIN IS PROHIBITING. OTHERS AT HOME: DISABLED MEDITERRANEAN DIET ..LOTS OI FISH, WALKS BUT THE PAIN IS PROHIBITING, SINGLE. IMMUNIZATION PROGRAM DISABLED MEDITERRANEAN DIET ..LOTS OI FISH, WALKS BUT THE PAIN IS PROHIBITING, SINGLE LIVES ALONE. PAIN CLINIC PFS, CLERGY, PUBLIC HEALTH REFERRALS PFS REFERRAL NEEDED?NO CLERGY REFERRAL NEEDED?NO PUBLIC HEALTH REFERRAL NEEDED?NO WAS THE PROVIDER NOTIFIED OF ANY PERTINENT INFO?NO HAS THE PATIENT BEEN EDUCATED REGARDING HIS/HER PLAN OF CARE?YES HAS THE PATIENT BEEN EDUCATED REGARDING PAIN, THE RISK FOR PAIN, THE IMPORTANCE OF EFFECTIVE PAIN MANAGEMENT, AND THE PAIN ASSESSMENT PROCESS?YES HOUSING: PFS REFERRAL NEEDED? NO, CLERGY REFERRAL NEEDED? NO, PUBLIC HEALTH REFERRAL NEEDED? NO, WAS THE PROVIDER NOTIFIED OF ANY PERTINENT INFO? NO, HAS THE PATIENT BEEN EDUCATED REGARDING HIS/HER PLAN OF CARE? YES, HAS THE PATIENT BEEN EDUCATED REGARDING PAIN, THE RISK FOR PAIN, THE IMPORTANCE OF EFFECTIVE PAIN MANAGEMENT, AND THE PAIN ASSESSMENT PROCESS? YES. ADVANCE DIRECTIVE ADVANCE DIRECTIVE DISCUSSED WITH PATIENT:YES DECLINED REVIEWED WITH 05/14/18 Slim HASSAN. HOSPITALIZATION/MAJOR DIAGNOSTIC PROCEDURE THYRIOD ISSUES 02/2016 SURGERY RELATED CHILD REVIEW OF SYSTEMS REVIEWED BY: PROVIDER: DENA GILLETTE MD . CONSTITUTIONAL: ANY CHANGE IN YOUR MEDICAL CONDITION? NO . CHILLS NO . FEVER NO . INFECTION: DO YOU HAVE NEW INFECTIONS? NO . DO YOU HAVE HISTORY OF MRSA? NO . MUSCULOSKELETAL: ANY NEW PATTERNS OF PAIN OR NUMBNESS? YES, LBP, LEFT HIP AND LEFT LEG PAIN X 7-8 WEEKS . GASTROENTEROLOGY: ANY NEW CHANGE IN BOWEL CONTROL? NO . GENITOURINARY: ANY NEW CHANGE IN BLADDER CONTROL? NO . IS THERE A CHANCE YOU COULD BE ? NO . HEMATOLOGY/LYMPH: DO YOU TAKE ANY BLOOD THINNERS? (FOR EXAMPLE- COUMADIN, PLAVIX, AGGRENOX, PLATEL, PRADAXA, OR XARELTO) NO . WHEN WAS YOUR LAST DOSE? DATE: TIME: . NEUROLOGY: HAVE YOU FALLEN IN THE PAST 12 MONTHS? YES, LAST WEEK FELL DOWN ICY STAIRS, PT DENIES INJURIES . ANY NEW EXTREMITY NUMBNESS OR WEAKNESS? YES, LEFT HIP AND LEFT LEG PAIN . CARDIOLOGY: DO YOU HAVE A PACEMAKER OR DEFIBRILLATOR? NO . RESPIRATORY: HAVE YOU BEEN SICK IN THE PAST WEEK? NO . FEVER NO . FLU LIKE SYMPTOMS? NO . COUGH NO . INTEGUMENTARY: DO YOU HAVE ANY RASHES OR OPEN SORES? NO . ALLERGIC/IMMUNO: ARE YOU ALLERGIC TO IV DYE? NO . ANY NEW ALLERGIES? NO . PSYCHIATRIC: DO YOU HAVE THOUGHTS OF HURTING YOURSELF OR SOMEONE ELSE? NO . ARE YOU ABUSED, NEGLECTED, OR IN AN UNSAFE ENVIRONMENT? NO . ENDOCRINOLOGY: ARE YOU DIABETIC? NO . OTHER: DO YOU NEED ANY PRESCRIPTIONS? YES, TO DISCUSS WITH DR GILLETTE . IF YES, PLEASE LIST: ____ . ANY NEW PROBLEMS WITH YOUR MEDICATIONS? NO . WHEN DID YOU LAST EAT? ____ . WHEN DID YOU LAST DRINK? ____ . WHAT DID YOU LAST DRINK? ____ . NAME OF PERSON DRIVING YOU HOME? ____ . DO YOU HAVE ANY OTHER QUESTIONS OR CONCERNS NO . VITAL SIGNS WT 253.6 LBS, HT 67 IN, BMI 39.72 INDEX, BP 139/91 MM HG, HR 100 /MIN, RR 18 /MIN, TEMP 96.1 F, OXYGEN SAT % 96%, NA INITIALS SC 14:22, REVIEWED BY: EM. EXAMINATION GENERAL EXAMINATION: PATIENT IS ALERT O X 3 AND COOPERATIVE. ANTALGIC GAIT. PATIENT IS IN A FLEXED POSITION. PRESENCE OF TRIGGER POINTS AND BANDS OF TISSUE WITH RESTRICTION OF MOVEMENT OF THE BACK. LEFT LEG IS WEAKER AT EXTENSION AND FLEXION. ASSESSMENTS MYALGIA, OTHER SITE - M79.18 (PRIMARY) TREATMENT MYALGIA, OTHER SITE CLINICAL NOTES: WE DISCUSSED SEVERAL ISSUES WITH MRS. MOORE'S PAIN MANAGEMENT CASE. DUE TO THE TRIGGER POINTS, BANDS OF TISSUE, AND RESTRICTION OF MOVEMENT, I WOULD LIKE TO MOVE FORWARD WITH A TRIGGER POINT INJECTION AT THIS TIME. WE DISCUSSED THE BENEFITS, RISKS, AND ALTERNATIVES OF THE INJECTION AND THE PATIENT WOULD LIKE TO PROCEED. I WILL GIVE THE PATIENT SOMA FOR A FEW DAYS FOLLOWING THE INJECTION FOR POST PROCEDURE PAIN. THE PATIENT WILL CONSIDER A LUMBAR EPIDURAL IN THE FUTURE. THE PATIENT WILL FOLLOW UP 3 WEEKS AFTER THE INJECTION. INSTRUCTIONS WERE GIVEN, QUESTIONS WERE ANSWERED, PATIENT REPORTS UNDERSTANDING AND AGREES WITH THE PLAN. I, YOUSUF LOWRY, DOCUMENTED THE ABOVE INFORMATION ACTING A SCRIBE FOR DR. GILLETTE. I HAVE REVIEWED THE ABOVE DOCUMENT, WRITTEN BY YOUSUF BLACKMONIBCarole AND I VERIFY THAT IT IS ACCURATE. PROCEDURE CODES FA211 ESTABILISHED PATIENT [facility] FACILITY CHARGE G8427 CURRENT MEDS W/DOSAGES DOCUMENTED G8730 PAIN ASSESS POS TOOL F/U PLAN DOC DISPOSITION & COMMUNICATION FOLLOW UP 3 WEEKS ELECTRONICALLY SIGNED BY DENA GILLETTE MD, MD ON 10/23/2018 AT 06:12 PM EST DISCLAIMER : THIS IS A VISIT SUMMARY EXTRACTED FROM THE [facility] CHART. IT IS NOT A COPY OF THE [facility] PROGRESS NOTE. RUBEND
== END ==
LOC: M PAIN 14:15
PROVIDERS: ATTEND Anesthesiology
DX: M79.18 Myalgia, other site (principal); M54.5 Low back pain; M54.2 Cervicalgia; E03.9 Hypothyroidism, unspecified; K31.84 Gastroparesis; F32.9 Major depressive disorder, single episode, unspecified; F41.9 Anxiety disorder, unspecified; Z79.82 Long term (current) use of aspirin; Z79.899 Other long term (current) drug therapy; Z88.8 Allergy status to other drugs, medicaments and biological substances; Z87.39 Personal history of other diseases of the musculoskeletal system and connective tissue; Z86.79 Personal history of other diseases of the circulatory system; Z87.891 Personal history of nicotine dependence

== ENCOUNTER → 2018-11-10 | Outpatient (REF) | payer OTHER, MEDICAID ==
[2018-11-10 19:07] LABS: BASO # 0.1 10^3/uL (0.0-0.2); BASO % 1.4 % (0.0-1.0); EOS # 0.2 10^3/uL (0.0-0.50); EOS % 2.2 % (0.0-3.0); HEMATOCRIT 40.5 % (36.0-47.0); HEMOGLOBIN 13.2 g/dl (12.0-15.5); LYMPH # 2.8 10^3/uL (1.5-4.5); LYMPH % 29.3 % (24.0-44.0); MEAN CORPUSCULAR HEMOGLOBIN 31.2 pg (27.0-33.0); MEAN CORPUSCULAR HGB CONC 32.6 g/dl (32.0-36.5); MEAN CORPUSCULAR VOLUME 95.7 fl (80.0-96.0); MONO # 0.7 10^3/uL (0.0-0.8); MONO % 6.9 % (0.0-5.0); NEUTROPHILS # 5.7 10^3/uL (1.8-7.7); NEUTROPHILS % 59.8 % (36.0-66.0); PLATELET COUNT, AUTOMATED 386 10^3/uL (150-450); RED BLOOD COUNT 4.23 10^6/uL (4.00-5.40); WHITE BLOOD COUNT 9.5 10^3/uL (4.0-10.0)
[2018-11-10 19:23] LABS: ALBUMIN 3.8 GM/DL (3.2-5.2); ALT/SGPT 21 U/L (12-78); BILIRUBIN,TOTAL 0.2 MG/DL (0.2-1.0); BLOOD UREA NITROGEN 10 MG/DL (7-18); CALCIUM LEVEL 8.6 MG/DL (8.5-10.1); CARBON DIOXIDE LEVEL 26 MEQ/L (21-32); CHLORIDE LEVEL 105 MEQ/L (98-107); CHOLESTEROL LEVEL 269 MG/DL (<200); CHOLESTEROL RISK RATIO 4.409 (<5); CREATININE FOR GFR 0.74 MG/DL (0.55-1.30); FREE T4 0.75 NG/DL (0.76-1.46); GLOMERULAR FILTRATION RATE > 60.0 (>51); GLUCOSE, FASTING 101 MG/DL (70-100); HDL CHOLESTEROL 61 MG/DL (>40); LDL CHOLESTEROL 152 MG/DL (<100); NON-HDL-C 208 MG/DL; POTASSIUM SERUM 3.8 MEQ/L (3.5-5.1); SODIUM LEVEL 139 MEQ/L (136-145); TOTAL 25(OH) VITAMIN D 5.5 NG/ML (30.0-100.0); TOTAL PROTEIN 7.4 GM/DL (6.4-8.2); TRIGLYCERIDES LEVEL 282 MG/DL (<150)
[2018-11-10 19:25] LABS: HEMOGLOBIN A1c 5.7 %
[2018-11-10 20:37] LABS: APPEARANCE, URINE CLEAR (CLEAR); BACTERIA, URINE AUTO NEGATIVE (NEGATIVE); BILIRUBIN, URINE AUTO NEGATIVE (NEGATIVE); BLOOD, URINE BLOOD NEGATIVE (NEGATIVE); COLOR, URINE YELLOW (YELLOW); GLUCOSE, URINE (UA) AUTO NEGATIVE (NEGATIVE); KETONE, URINE AUTO NEGATIVE (NEGATIVE); LEUKOCYTE ESTERASE, URINE AUTO NEGATIVE (NEGATIVE); MUCUS, URINE SMALL (NEGATIVE); NITRITE, URINE AUTO NEGATIVE (NEGATIVE); PROTEIN, URINE AUTO NEGATIVE (NEGATIVE); RBC, URINE AUTO 0 /HPF (0-3); SPECIFIC GRAVITY URINE AUTO 1.009 (1.002-1.035); SQUAMOUS EPITHELIAL CELL UR AU 1 /HPF (0-6); UROBILINOGEN, URINE AUTO 0.2 mg/dL (0.0-2.0); WBC, URINE AUTO 1 /HPF (0-3)
[2018-11-13 00:07] LABS: Lyme Disease IgG/IgM Antibodie <0.91 ISR (0.00-0.90); Lyme Disease IgM Ab Quantitati <0.80 index (0.00-0.79)
== END ==
LOC: M LAB REF 16:46
PROVIDERS: ATTEND Family Medicine
DX: Z13.228 Encounter for screening for other metabolic disorders (principal); Z00.01 Encounter for general adult medical examination with abnormal findings

== ENCOUNTER → 2019-02-18 | Outpatient (CLI) | payer OTHER, MEDICAID ==
--- NOTE | 2019-02-26 23:12 | ECWPNPC ---
PATIENT NAME: PAULETTE MOORE : 1960 GENDER: FEMALE VISIT DATE: 02/18/2019 DISCHARGE DATE: 02/18/19 1341 VISIT LOCKED DATE TIME: PHYSICIAN: DENA GILLETTE MD RESOURCE: DENA GILLETTE MD REASON FOR APPOINTMENT 1. INCREASED PAIN HISTORY OF PRESENT ILLNESS HISTORY OF PRESENT ILLNESS: PAIN THE PATIENT DESCRIBES THE PAIN... 58 YEAR OLD FEMALE PATIENT WITH A HISTORY OF CHRONIC LOW BACK AND LEG PAIN. THE PATIENT DESCRIBES THE PAIN ACHING, STABBING, SHOOTING, SHARP, SEVER, "BROKEN BONES", DAILY, NIGHTLY, AND CONTINUOUS WITH A PAIN SCORE OF 6-9/10 DEPENDING ON PHYSICAL ACTIVITY. THE PATIENT SAYS THE PAIN STARTS IN HER LOW BACK AND RADIATES TO HER HIP AND DOWN THE SIDES OF BOTH LEGS, BUT MAINLY THE LEFT LEG IS AFFECTED. THE PATIENT STATES HER FAMILY HAS A HISTORY OF MS AND SHE PLANS TO GET CHECKED FOR THIS CONDITION. THE PATIENT SAYS THE PAIN IS AFFECTING HER ABILITY TO PERFORM HER DAILY ACTIVITIES SUCH STANDING FOR MORE THAN A FEW MINUTES, WALKING UPRIGHT, WALKING TO THE GROCERY STORE, AND EXERCISING. THE PATIENT SAYS THE PAIN CAUSES HER TO WALK HUNCHED OVER. THE PATIENT SAYS SHE IS GAINING WEIGHT AND LOSING STRENGTH DUE TO INACTIVITY AND INABILITY TO PERFORM ANY PHYSICAL ACTIVITY. PATIENT DENIES UNEXPLAINABLE WEIGHT LOSS, FEVER, CHILLS, NEW CHANGES ON HER URINARY OR BOWEL CONTROL. FALL RISK SCREENING: SCREENING :NO FALLS REPORTED IN THE LAST YEAR CURRENT MEDICATIONS TAKING LEVOTHYROXINE SODIUM 75 MCG TABLET 1 TABLET ON AN EMPTY STOMACH IN THE MORNING ORALLY ONCE A DAY TAKING SERTRALINE HCL 25 MG TABLET 1 TABLET ORALLY ONCE A DAY TAKING ASPIR-81 81 MG TABLET DELAYED RELEASE 1 TABLET ORALLY ONCE A DAY TAKING LIPITOR 40 MG TABLET 1 TABLET ORALLY ONCE A DAY TAKING TIZANIDINE HCL 4 MG TABLET 1 TABLET NEEDED ORALLY THREE TIMES A DAY TAKING AMLODIPINE BESYLATE 10 MG TABLET 1 TABLET ORALLY BID TAKING GABAPENTIN 100 MG TABLET ORALLY TID TAKING TYLENOL 8 HOUR ARTHRITIS PAIN 650 MG TABLET EXTENDED RELEASE 2 TABLETS NEEDED ORALLY EVERY 8 HRS TAKING HYDROCHLOROTHIAZIDE 12.5 MG CAPSULE 1 CAPSULE IN THE MORNING ORALLY ONCE A DAY TAKING MECLIZINE HCL 25 MG TABLET CHEWABLE 1 TABLET NEEDED ORALLY ONCE A DAY TAKING NORTRIPTYLINE HCL 25 MG CAPSULE 1 CAPSULE ORALLY ONCE A DAY NOT-TAKING ZONISAMIDE 100 MG CAPSULE 1 CAPSULE ORALLY ONCE A DAY NOT-TAKING OMEPRAZOLE 40 MG CAPSULE DELAYED RELEASE 1 CAPSULE ORALLY ONCE A DAY NEEDEED NOT-TAKING AUGMENTIN 875-125 MG TABLET 1 TABLET ORALLY EVERY 12 HRS NOT-TAKING TRAMADOL HCL 50 MG TABLET 1 TABLET NEEDED ORALLY TID NOT-TAKING CHANTIX 1 MG TABLET 1 TABLET ORALLY TWICE A DAY NOT-TAKING NICOTINE 14 MG/24HR PATCH 24 HOUR 1 PATCH TO SKIN TRANSDERMAL ONCE A DAY NOT-TAKING BACTRIM DS 800-160 MG TABLET 1 TABLET ORALLY DIRECTED- 1 HOUR PRIOR TO CYSTOSCOPY MEDICATION LIST REVIEWED AND RECONCILED WITH THE PATIENT PAST MEDICAL HISTORY DEPRESSION/ ANXIETY HYPOTHYROIDISM MICROSCOPIC HEMATURIA GASTROPARESIS SYNDROM DIVERTICULITIS HISTORY OF KIDNEY STONES LUPUS INGUINAL HERNIA 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 1 SON(S) - HEALTHY. SOCIAL HISTORY GENERAL: TOBACCO USE ARE YOU A:FORMER SMOKER HOW LONG HAS IT BEEN SINCE YOU LAST SMOKED?1-3 MONTHS IMMUNIZATION PROGRAM DISABLED MEDITERRANEAN DIET ..LOTS OI FISH, WALKS BUT THE PAIN IS PROHIBITING, SINGLE LIVES ALONE. OTHERS AT HOME: DISABLED MEDITERRANEAN DIET ..LOTS OI FISH, WALKS BUT THE PAIN IS PROHIBITING, SINGLE. HOUSING: PFS REFERRAL NEEDED? NO, CLERGY REFERRAL NEEDED? NO, PUBLIC HEALTH REFERRAL NEEDED? NO, WAS THE PROVIDER NOTIFIED OF ANY PERTINENT INFO? NO, HAS THE PATIENT BEEN EDUCATED REGARDING HIS/HER PLAN OF CARE? YES, HAS THE PATIENT BEEN EDUCATED REGARDING PAIN, THE RISK FOR PAIN, THE IMPORTANCE OF EFFECTIVE PAIN MANAGEMENT, AND THE PAIN ASSESSMENT PROCESS? YES. EDUCATION LEVEL OF EDUCATION:NOT FINISHED COLLEGE DIET: DISABLED. LANGUAGE LANGUAGES SPOKEN:FILIPINO RECREATIONAL DRUG USE DRUG USE?NO EXERCISE: DISABLED MEDITERRANEAN DIET ..LOTS OI FISH. LUNG CANCER SCREENING SMOKING STATUS: PT IS CURRENTYLY TAKING CHANTIX AND USING NICODERM THIS NURSE DID COUNCEL ON NOT WEARING THE PATCH AND SMOKING FOR THE RISK OF STROKE PAIN CLINIC PFS, CLERGY, PUBLIC HEALTH REFERRALS PFS REFERRAL NEEDED?NO CLERGY REFERRAL NEEDED?NO PUBLIC HEALTH REFERRAL NEEDED?NO WAS THE PROVIDER NOTIFIED OF ANY PERTINENT INFO?NO HAS THE PATIENT BEEN EDUCATED REGARDING HIS/HER PLAN OF CARE?YES HAS THE PATIENT BEEN EDUCATED REGARDING PAIN, THE RISK FOR PAIN, THE IMPORTANCE OF EFFECTIVE PAIN MANAGEMENT, AND THE PAIN ASSESSMENT PROCESS?YES LATEX QUESTIONNAIRE LATEX ALLERGY : HAVE YOU EVER DEVELOPED ANY TYPE OF REACTION AFTER HANDLING LATEX PRODUCTS SUCH RUBBER GLOVES, CONDOMS, DIAPHRAGMS, BALLOONS, SOCKS, OR UNDERWEAR?NO LATEX ALLERGY : HAVE YOU EVER DEVELOPED ANY TYPE OF REACTION DURING OR AFTER DENTAL APPOINTMENT, VAGINAL/RECTAL EXAMINATION, SURGICAL PROCEDURE, OR ANY OTHER EXPOSURE?NO LATEX RISK : HAVE YOU EVER HAD ANY DIFFICULTY BREATHING OR HIVES AFTER EATING OR HANDLING ANY FRUITS, OR VEGETABLES; SUCH KIWI, BANANAS, STONE FRUITS, OR CHESTNUTSNO LATEX RISK : DO YOU HAVE A PREVIOUS PERSONAL HISTORY OF MORE THAN NINE SURGERIES, SPINA BIFIDA, OR REPEATED CATHERTIZATIONS? NO LATEX RISK : ARE YOU FREQUENTLY EXPOSED TO LATEX PRODUCTS IN YOUR OCCUPATION?NO DATE ASKED : 02/18/2019 CAFFEINE CAFFEINE USE?YES DRINKS COCOLA DAILY FOR CAFFEINE ADVANCE DIRECTIVE ADVANCE DIRECTIVE DISCUSSED WITH PATIENT:YES DECLINED 02/18/19 AMISH AMISH BUDDHIST MARITAL STATUS: DISABLED MEDITERRANEAN DIET ..LOTS OI FISH, WALKS BUT THE PAIN IS PROHIBITING. ALCOHOL SCREENING DID YOU HAVE A DRINK CONTAINING ALCOHOL IN THE PAST YEAR?NO POINTS0 INTERPRETATIONNEGATIVE REVIEWED WITH 05/14/18 1020 LASREVIEWED WITH PT 02/18/19 1305 BV. HOSPITALIZATION/MAJOR DIAGNOSTIC PROCEDURE THYRIOD ISSUES 02/2016 SURGERY RELATED CHILD REVIEW OF SYSTEMS REVIEWED BY: PROVIDER: DENA GILLETTE MD . CONSTITUTIONAL: ANY CHANGE IN YOUR MEDICAL CONDITION? NO . CHILLS NO . FEVER NO . INFECTION: DO YOU HAVE NEW INFECTIONS? YES, PT HAS HAD EAR INFECTION FOR A FEW WEEKS, CURRENTLY SEEING PRIMARY DOCTOR REGARDING THIS . DO YOU HAVE HISTORY OF MRSA? NO . MUSCULOSKELETAL: ANY NEW PATTERNS OF PAIN OR NUMBNESS? NO . GASTROENTEROLOGY: ANY NEW CHANGE IN BOWEL CONTROL? NO . GENITOURINARY: ANY NEW CHANGE IN BLADDER CONTROL? NO . IS THERE A CHANCE YOU COULD BE ? NO . HEMATOLOGY/LYMPH: DO YOU TAKE ANY BLOOD THINNERS? (FOR EXAMPLE- COUMADIN, PLAVIX, AGGRENOX, PLATEL, PRADAXA, OR XARELTO) NO . WHEN WAS YOUR LAST DOSE? DATE: TIME: . NEUROLOGY: HAVE YOU FALLEN IN THE PAST 12 MONTHS? YES, PT STATES SHE HAS HAD A FEW FALLS THIS PAST WINTER DUE TO WEAKNESS IN LEGS. DENIES ANY INJURIES OR ED VISIT WITH ANY FALL . ANY NEW EXTREMITY NUMBNESS OR WEAKNESS? NO . CARDIOLOGY: DO YOU HAVE A PACEMAKER OR DEFIBRILLATOR? NO . RESPIRATORY: HAVE YOU BEEN SICK IN THE PAST WEEK? NO . FEVER NO . FLU LIKE SYMPTOMS? NO . COUGH NO . INTEGUMENTARY: DO YOU HAVE ANY RASHES OR OPEN SORES? NO . ALLERGIC/IMMUNO: ARE YOU ALLERGIC TO IV DYE? NO . ANY NEW ALLERGIES? NO . PSYCHIATRIC: DO YOU HAVE THOUGHTS OF HURTING YOURSELF OR SOMEONE ELSE? NO . ARE YOU ABUSED, NEGLECTED, OR IN AN UNSAFE ENVIRONMENT? NO . ENDOCRINOLOGY: ARE YOU DIABETIC? NO, PT STATES SHE IS PRE-DIABETIC . OTHER: DO YOU NEED ANY PRESCRIPTIONS? NO . IF YES, PLEASE LIST: ____ . ANY NEW PROBLEMS WITH YOUR MEDICATIONS? NO . WHEN DID YOU LAST EAT? ____ . WHEN DID YOU LAST DRINK? ____ . WHAT DID YOU LAST DRINK? ____ . NAME OF PERSON DRIVING YOU HOME? ____ . DO YOU HAVE ANY OTHER QUESTIONS OR CONCERNS NO . VITAL SIGNS WT 258 LBS, HT 67 IN, BMI 40.40 INDEX, BP 120/100 MANUAL, HR 96 /MIN, RR 18 /MIN, TEMP 96.7 F, OXYGEN SAT % 100%, NA INITIALS AW 1249, REVIEWED BY: LET NURSE KNOW ABOUT BP. EXAMINATION GENERAL EXAMINATION: PATIENT IS ALERT O X 3 AND COOPERATIVE. ANTALGIC GAIT. PATIENT REMAINS IN FLEXED POSITION. LEFT LEG IS WEAKER AT EXTENSION AND FLEXION. MRI OF THE LUMBAR SPINE DONE ON 03/19/2018 SHOWS BULGING DISCS AT L4-L5 AND L5-S1 LEVELS, SEVERE SPINAL STENOSIS, AND NERVE COMPRESSION. ASSESSMENTS INTERVERTEBRAL DISC DISORDER WITH RADICULOPATHY OF LUMBAR REGION - M51.16 (PRIMARY) INTERVERTEBRAL DISC DISORDER WITH RADICULOPATHY OF LUMBOSACRAL REGION - M51.17 TREATMENT INTERVERTEBRAL DISC DISORDER WITH RADICULOPATHY OF LUMBAR REGION CLINICAL NOTES: WE DISCUSSED SEVERAL ISSUES WITH MS. MOORE'S PAIN MANAGEMENT CASE. DUE TO THE LUMBAR RADICULOPATHY, I WOULD LIKE TO MOVE FORWARD WITH A LUMBAR EPIDURAL STEROID INJECTION AT THIS TIME. WE DISCUSSED THE BENEFITS, RISKS, AND ALTERNATIVES OF THE INJECTION AND THE PATIENT WOULD LIKE TO PROCEED. THE PATIENT WILL FOLLOW UP IN SEVERAL WEEKS AFTER THE INJECTION. INSTRUCTIONS WERE GIVEN, QUESTIONS WERE ANSWERED, PATIENT REPORTS UNDERSTANDING AND AGREES WITH THE PLAN. I, ENRRIQUE SAUCEDO, DOCUMENTED THE ABOVE INFORMATION ACTING A SCRIBE FOR DR. GILLETTE. I HAVE REVIEWED THE ABOVE DOCUMENT, WRITTEN BY ENRRIQUE BLACKMONIBCarole AND I VERIFY THAT IT IS ACCURATE. . OTHERS NOTES: WHAT IS LUMBAR EPIDURAL INJECTION? MATERIAL WAS PRINTED,LUMBAR EPIDURAL INJECTION: YOUR PROCEDURE MATERIAL WAS PRINTED. PREVENTIVE MEDICINE PAIN CLINIC TEACHING: PROCEDURE TEACHING PT GIVEN WRITTEN AND VERBAL EDUCATION ON LUMBAR EPIDURAL INJECTION. PT ALSO GIVEN WRITTEN AND VERBAL PREPROCEDURE INSTRUCTIONS. PT VERBALIZES UNDERSTANDING OF ALL EDUCATION AND INSTRUCTIONS. HUONG DAVID 02/18/2019 1:33:18 PM > . PROCEDURE CODES FA211 ESTABILISHED PATIENT [facility] FACILITY CHARGE G8427 CURRENT MEDS W/DOSAGES DOCUMENTED G8730 PAIN ASSESS POS TOOL F/U PLAN DOC DISPOSITION & COMMUNICATION FOLLOW UP 3 WEEKS (REASON: LESI) ELECTRONICALLY SIGNED BY DENA GILLETTE MD, MD ON 02/26/2019 AT 07:00 PM EDT DISCLAIMER : THIS IS A VISIT SUMMARY EXTRACTED FROM THE [employer] CHART. IT IS NOT A COPY OF THE [employer] PROGRESS NOTE. DANIELE
== END ==
LOC: M PAIN 12:30
PROVIDERS: ATTEND Anesthesiology
DX: M51.16 Intervertebral disc disorders with radiculopathy, lumbar region (principal); M51.17 Intervertebral disc disorders with radiculopathy, lumbosacral region; G89.29 Other chronic pain; Z86.59 Personal history of other mental and behavioral disorders; E03.9 Hypothyroidism, unspecified; Z86.2 Personal history of diseases of the blood and blood-forming organs and certain disorders involving the immune mechanism; Z87.891 Personal history of nicotine dependence; Z88.8 Allergy status to other drugs, medicaments and biological substances; E66.01 Morbid (severe) obesity due to excess calories; Z68.41 Body mass index [BMI] 40.0-44.9, adult; Z79.82 Long term (current) use of aspirin; Z79.899 Other long term (current) drug therapy

== ENCOUNTER → 2019-03-29 | Outpatient (CLI) | payer OTHER, MEDICAID ==
[~2019-03-29] MED LIST changes: +ISOVUE-M 200 41% 20ML VIAL (Q9966) As Ordered ONE; +LIDOCAINE 1% SDV INJ 30 ML VIAL As Ordered ONE; +diazePAM 5 MG TAB As Ordered ONE; +methylPREDNISolone SUSP 40 MG/ML (DEPO-medrol) VIAL (J1030) As Ordered ONE; +oxyCODONE 5MG TAB As Ordered ONE
--- NOTE | 2019-03-29 16:57 | REP ---
C-ARM VIEWS LUMBAR SPINE: CLINICAL HISTORY: Pain. Three C-Arm views performed during injection by Dr. Landa. Needle is seen at L4-5. 22 seconds fluoroscopy time utilized. Electronically Signed by Jeromy Broussard MD 03/30/2019 10:08 A
--- NOTE | 2019-04-09 00:42 | ECWPNPC ---
PATIENT NAME: PAULETTE MOORE : 1960 GENDER: FEMALE VISIT DATE: 03/29/2019 DISCHARGE DATE: 03/29/19 152 VISIT LOCKED DATE TIME: PHYSICIAN: DENA GILLETTE MD RESOURCE: DENA GILLETTE MD REASON FOR APPOINTMENT 1. LESI HISTORY OF PRESENT ILLNESS HISTORY OF PRESENT ILLNESS: PAIN THE PATIENT DESCRIBES THE PAIN... FALL RISK SCREENING: SCREENING :NO FALLS REPORTED IN THE LAST YEAR CURRENT MEDICATIONS TAKING LEVOTHYROXINE SODIUM 75 MCG TABLET 1 TABLET ON AN EMPTY STOMACH IN THE MORNING ORALLY ONCE A DAY, NOTES: 03/28/19@2199 TAKING SERTRALINE HCL 25 MG TABLET 1 TABLET ORALLY ONCE A DAY, NOTES: 03/28/19 TAKING ASPIR-81 81 MG TABLET DELAYED RELEASE 1 TABLET ORALLY ONCE A DAY, NOTES: 03/28/19 TAKING TIZANIDINE HCL 4 MG TABLET 1 TABLET NEEDED ORALLY THREE TIMES A DAY, NOTES: 03/28/19 TAKING AMLODIPINE BESYLATE 10 MG TABLET 1 TABLET ORALLY BID, NOTES: 03/28/19@999 TAKING GABAPENTIN 100 MG TABLET ORALLY TID, NOTES: 03/28/19 TAKING TYLENOL 8 HOUR ARTHRITIS PAIN 650 MG TABLET EXTENDED RELEASE 2 TABLETS NEEDED ORALLY EVERY 8 HRS, NOTES: 03/28/19 TAKING HYDROCHLOROTHIAZIDE 12.5 MG CAPSULE 1 CAPSULE IN THE MORNING ORALLY ONCE A DAY, NOTES: 03/28/19@999 TAKING NORTRIPTYLINE HCL 25 MG CAPSULE 1 CAPSULE ORALLY ONCE A DAY, NOTES: 03/28/19 NOT-TAKING LIPITOR 40 MG TABLET 1 TABLET ORALLY ONCE A DAY, NOTES: 3 MONTHS AGO NOT-TAKING MECLIZINE HCL 25 MG TABLET CHEWABLE 1 TABLET NEEDED ORALLY ONCE A DAY, NOTES: 2 WEEKS AGO NOT-TAKING OMEPRAZOLE 40 MG CAPSULE DELAYED RELEASE 1 CAPSULE ORALLY ONCE A DAY NEEDEED, NOTES: 3 MONTHS AGO DISCONTINUED ZONISAMIDE 100 MG CAPSULE 1 CAPSULE ORALLY ONCE A DAY DISCONTINUED AUGMENTIN 875-125 MG TABLET 1 TABLET ORALLY EVERY 12 HRS DISCONTINUED TRAMADOL HCL 50 MG TABLET 1 TABLET NEEDED ORALLY TID DISCONTINUED CHANTIX 1 MG TABLET 1 TABLET ORALLY TWICE A DAY DISCONTINUED NICOTINE 14 MG/24HR PATCH 24 HOUR 1 PATCH TO SKIN TRANSDERMAL ONCE A DAY DISCONTINUED BACTRIM DS 800-160 MG TABLET 1 TABLET ORALLY DIRECTED- 1 HOUR PRIOR TO CYSTOSCOPY MEDICATION LIST REVIEWED AND RECONCILED WITH THE PATIENT PAST MEDICAL HISTORY DEPRESSION/ ANXIETY HYPOTHYROIDISM MICROSCOPIC HEMATURIA GASTROPARESIS SYNDROM DIVERTICULITIS HISTORY OF KIDNEY STONES LUPUS INGUINAL HERNIA 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 1 SON(S) - HEALTHY. SISTER HAS BREAST CANCER. SOCIAL HISTORY GENERAL: TOBACCO USE ARE YOU A:FORMER SMOKER HOW LONG HAS IT BEEN SINCE YOU LAST SMOKED?1-3 MONTHS IMMUNIZATION PROGRAM DISABLED MEDITERRANEAN DIET ..LOTS OI FISH, WALKS BUT THE PAIN IS PROHIBITING, SINGLE LIVES ALONE. OTHERS AT HOME: DISABLED MEDITERRANEAN DIET ..LOTS OI FISH, WALKS BUT THE PAIN IS PROHIBITING, SINGLE. HOUSING: PFS REFERRAL NEEDED? NO, CLERGY REFERRAL NEEDED? NO, PUBLIC HEALTH REFERRAL NEEDED? NO, WAS THE PROVIDER NOTIFIED OF ANY PERTINENT INFO? NO, HAS THE PATIENT BEEN EDUCATED REGARDING HIS/HER PLAN OF CARE? YES, HAS THE PATIENT BEEN EDUCATED REGARDING PAIN, THE RISK FOR PAIN, THE IMPORTANCE OF EFFECTIVE PAIN MANAGEMENT, AND THE PAIN ASSESSMENT PROCESS? YES. EDUCATION LEVEL OF EDUCATION:NOT FINISHED COLLEGE DIET: REGULAR. LANGUAGE LANGUAGES SPOKEN:SAUDI ARABIAN RECREATIONAL DRUG USE DRUG USE?NO EXERCISE: DISABLED MEDITERRANEAN DIET ..LOTS OI FISH. LUNG CANCER SCREENING SMOKING STATUS: PT IS CURRENTYLY TAKING CHANTIX AND USING NICODERM THIS NURSE DID COUNCEL ON NOT WEARING THE PATCH AND SMOKING FOR THE RISK OF STROKE PAIN CLINIC PFS, CLERGY, PUBLIC HEALTH REFERRALS PFS REFERRAL NEEDED?NO CLERGY REFERRAL NEEDED?NO PUBLIC HEALTH REFERRAL NEEDED?NO WAS THE PROVIDER NOTIFIED OF ANY PERTINENT INFO?NO HAS THE PATIENT BEEN EDUCATED REGARDING HIS/HER PLAN OF CARE?YES HAS THE PATIENT BEEN EDUCATED REGARDING PAIN, THE RISK FOR PAIN, THE IMPORTANCE OF EFFECTIVE PAIN MANAGEMENT, AND THE PAIN ASSESSMENT PROCESS?YES LATEX QUESTIONNAIRE LATEX ALLERGY : HAVE YOU EVER DEVELOPED ANY TYPE OF REACTION AFTER HANDLING LATEX PRODUCTS SUCH RUBBER GLOVES, CONDOMS, DIAPHRAGMS, BALLOONS, SOCKS, OR UNDERWEAR?NO LATEX ALLERGY : HAVE YOU EVER DEVELOPED ANY TYPE OF REACTION DURING OR AFTER DENTAL APPOINTMENT, VAGINAL/RECTAL EXAMINATION, SURGICAL PROCEDURE, OR ANY OTHER EXPOSURE?NO LATEX RISK : HAVE YOU EVER HAD ANY DIFFICULTY BREATHING OR HIVES AFTER EATING OR HANDLING ANY FRUITS, OR VEGETABLES; SUCH KIWI, BANANAS, STONE FRUITS, OR CHESTNUTSNO LATEX RISK : DO YOU HAVE A PREVIOUS PERSONAL HISTORY OF MORE THAN NINE SURGERIES, SPINA BIFIDA, OR REPEATED CATHERIZATIONS? NO LATEX RISK : ARE YOU FREQUENTLY EXPOSED TO LATEX PRODUCTS IN YOUR OCCUPATION?NO DATE ASKED : 03/29/2019 CAFFEINE CAFFEINE USE?YES DRINKS COCOLA DAILY FOR CAFFEINE ADVANCE DIRECTIVE ADVANCE DIRECTIVE DISCUSSED WITH PATIENT:YES HCP INFORMATION GIVEN TO PT. ANGLICAN ANGLICAN JAINISM MARITAL STATUS: DISABLED MEDITERRANEAN DIET ..LOTS OI FISH, WALKS BUT THE PAIN IS PROHIBITING. ALCOHOL SCREENING DID YOU HAVE A DRINK CONTAINING ALCOHOL IN THE PAST YEAR?NO POINTS0 INTERPRETATIONNEGATIVE OCCUPATION: DISABLED. REVIEWED WITH 05/14/18 1020 LASREVIEWED WITH PT 02/18/19 1305 BV. HOSPITALIZATION/MAJOR DIAGNOSTIC PROCEDURE THYRIOD ISSUES 02/2016 SURGERY RELATED CHILD REVIEW OF SYSTEMS REVIEWED BY: PROVIDER: . CONSTITUTIONAL: ANY CHANGE IN YOUR MEDICAL CONDITION? NO . CHILLS NO . FEVER NO . INFECTION: DO YOU HAVE NEW INFECTIONS? NO . DO YOU HAVE HISTORY OF MRSA? NO . MUSCULOSKELETAL: ANY NEW PATTERNS OF PAIN OR NUMBNESS? NO . GASTROENTEROLOGY: ANY NEW CHANGE IN BOWEL CONTROL? NO . GENITOURINARY: ANY NEW CHANGE IN BLADDER CONTROL? YES,BEING REFERRED TO AN UROLIGIST . IS THERE A CHANCE YOU COULD BE ? NO . HEMATOLOGY/LYMPH: DO YOU TAKE ANY BLOOD THINNERS? (FOR EXAMPLE- COUMADIN, PLAVIX, AGGRENOX, PLATEL, PRADAXA, OR XARELTO) NO . WHEN WAS YOUR LAST DOSE? DATE: TIME: . NEUROLOGY: HAVE YOU FALLEN IN THE PAST 12 MONTHS? YES, ON ICE . ANY NEW EXTREMITY NUMBNESS OR WEAKNESS? NO . CARDIOLOGY: DO YOU HAVE A PACEMAKER OR DEFIBRILLATOR? NO . RESPIRATORY: HAVE YOU BEEN SICK IN THE PAST WEEK? NO . FEVER NO . FLU LIKE SYMPTOMS? NO . COUGH NO . INTEGUMENTARY: DO YOU HAVE ANY RASHES OR OPEN SORES? NO . ALLERGIC/IMMUNO: ARE YOU ALLERGIC TO IV DYE? NO . ANY NEW ALLERGIES? NO . PSYCHIATRIC: DO YOU HAVE THOUGHTS OF HURTING YOURSELF OR SOMEONE ELSE? NO . ARE YOU ABUSED, NEGLECTED, OR IN AN UNSAFE ENVIRONMENT? NO . ENDOCRINOLOGY: ARE YOU DIABETIC? NO . OTHER: DO YOU NEED ANY PRESCRIPTIONS? NO . IF YES, PLEASE LIST: ____ . ANY NEW PROBLEMS WITH YOUR MEDICATIONS? NO . WHEN DID YOU LAST EAT? ____03/28/19 . WHEN DID YOU LAST DRINK? ____0400 . WHAT DID YOU LAST DRINK? ____WATER . NAME OF PERSON DRIVING YOU HOME? ____[employer]XI WITH NEIGHBOR GABRIELLE . DO YOU HAVE ANY OTHER QUESTIONS OR CONCERNS NO . VITAL SIGNS WT 250 LBS, HT 67 IN, BMI 39.15 INDEX, BP 123/85 MM HG, HR 80 /MIN, RR 18 /MIN, TEMP 95.3 F, OXYGEN SAT % 99%, SAFE IN ENV? (Y/N) YES, NA INITIALS AW 1048, REVIEWED BY: VD. ASSESSMENTS INTERVERTEBRAL DISC DISORDER WITH RADICULOPATHY OF LUMBAR REGION - M51.16 (PRIMARY) TREATMENT INTERVERTEBRAL DISC DISORDER WITH RADICULOPATHY OF LUMBAR REGION [facility] FLUORO GUIDE SPINE INJECTION (PAIN)[id number] PROCEDURES PRE PROCEDURE DIAGNOSIS LUMBAR DISC DISORDER WITH RADICULOPATHY POST PROCEDURE DIAGNOSIS LUMBAR DISC DISORDER WITH RADICULOPATHY PROCEDURE LUMBAR EPIDURAL STEROID INJECTION UNDER FLUOROSCOPIC GUIDANCE SURGEON DR. DENA GILLETTE PRODUCT SAFETY TESTER NONE ANESTHESIA LOCAL PRE PROCEDURE NOTE THE PATIENT HAS A HISTORY OF CHRONIC LOW BACK PAIN. I EVALUATE THE PATIENT AND REVIEWED THE CHART. I WENT OVER THE RISKS, ALTERNATIVES, AND BENEFITS ASSOCIATED WITH THIS PROCEDURE. THE PATIENT WOULD LIKE TO PROCEED AND GIVE CONSENT TO PERFORMED THE PROCEDURE. THE PATIENT DENIES UNEXPLAINABLE WEIGHT LOSS, FEVER, CHILLS, OR NEW CHANGES IN URINARY OR BOWEL CONTROL. DESCRIPTION OF PROCEDURE THE PATIENT WAS BROUGHT TO THE PROCEDURE ROOM AND PLACED IN THE PRONE POSITION. THE LUMBOSACRAL AREA WAS CLEANED WITH BETADINE SOLUTION AND DRAPED ASEPTICALLY. THE PROCEDURE WAS DONE UNDER STERILE CONDITIONS. I CHECKED LATERALITY AND THE LEVEL WHERE THE PROCEDURE WAS GOING TO BE PERFORMED WITH THE PATIENT AND THE SUPPORTING STAFF AT THE MOMENT OF THE TIME OUT IN THE PROCEDURE ROOM. UNDER FLUOROSCOPIC GUIDANCE, THE TARGET POINT WAS SELECTED AT THE INTERLAMINAR LEVEL OF L4-L5. LIDOCAINE WAS USED TO NUMB THE SKIN AND THE SUBCUTANEOUS TISSUE BELOW IT. EPIDURAL TUOHY NEEDLE, 17-GAUGE, WAS ADVANCED UNDER FLUOROSCOPIC GUIDANCE AND FOLLOWING PATIENT FEEDBACK UNTIL THE EPIDURAL SPACE WAS REACHED, 7 CM DEEP INTO THE SKIN BY THE LOSS OF RESISTANCE TECHNIQUE. ISOVUE M-200 DYE WAS INJECTED SHOWING ADEQUATE SPREAD OF THE DYE. THEN, A SOLUTION OF 3 ML OF NORMAL SALINE WITH DEPO-MEDROL 60 MG WAS INJECTED SLOWLY FOLLOWING PATIENT FEEDBACK. THERE WAS NO EVIDENCE OF BLOOD, PARESTHESIA OR CEREBROSPINAL FLUID DURING THE PROCEDURE. THE PATIENT WAS SENT TO THE RECOVERY ROOM. THE PATIENT WAS MOVING THE EXTREMITIES AND DOING WELL. THERE WAS NO COMPLICATION DURING THE PROCEDURE. FLUOROSCOPY TIME WAS 22 SECONDS. POST PROCEDURE NOTE THE PATIENT WILL BE SEEN IN A FOLLOW UP IN THE NEXT FEW WEEKS. INSTRUCTIONS WERE GIVEN, QUESTIONS WERE ANSWERED, AND THE PATIENT EXPRESSED UNDERSTANDING AND AGREES WITH THE PLAN. I, YOUSUF LOWRY, DOCUMENTED THE ABOVE INFORMATION ACTING A SCRIBE FOR DR. GILLETTE. I HAVE REVIEWED THE ABOVE DOCUMENT, WRITTEN BY YOUSUF HERNANDEZ AND I VERIFY THAT IT IS ACCURATE. PROCEDURE CODES 6045F RADXPS IN END [id number] PXD [id number] LUMBAR/SACRAL W/ IMAGING DISPOSITION & COMMUNICATION FOLLOW UP 2 WEEKS ELECTRONICALLY SIGNED BY DENA GILLETTE MD, MD ON 04/08/2019 AT 01:25 PM EDT DISCLAIMER : THIS IS A VISIT SUMMARY EXTRACTED FROM THE [employer] CHART. IT IS NOT A COPY OF THE [employer] PROGRESS NOTE. MTDD
== END ==
LOC: M PAIN 11:00
PROVIDERS: ATTEND Anesthesiology
DX: M51.16 Intervertebral disc disorders with radiculopathy, lumbar region (principal); F32.9 Major depressive disorder, single episode, unspecified; F41.9 Anxiety disorder, unspecified; E03.9 Hypothyroidism, unspecified; Z87.442 Personal history of urinary calculi; K31.84 Gastroparesis; R31.29 Other microscopic hematuria; M32.9 Systemic lupus erythematosus, unspecified; Z90.710 Acquired absence of both cervix and uterus; K40.90 Unilateral inguinal hernia, without obstruction or gangrene, not specified as recurrent; Z87.891 Personal history of nicotine dependence; Z88.8 Allergy status to other drugs, medicaments and biological substances
CPT/HCPCS: 62323; J1030; Q9966

== ENCOUNTER → 2019-04-25 | Outpatient (CLI) | payer OTHER, MEDICAID ==
[~2019-04-25] MED LIST changes: -ISOVUE-M 200 41% 20ML VIAL (Q9966) As Ordered ONE; -LIDOCAINE 1% SDV INJ 30 ML VIAL As Ordered ONE; -diazePAM 5 MG TAB As Ordered ONE; -methylPREDNISolone SUSP 40 MG/ML (DEPO-medrol) VIAL (J1030) As Ordered ONE; -oxyCODONE 5MG TAB As Ordered ONE
--- NOTE | 2019-04-27 01:38 | ECWPNPC ---
PATIENT NAME: PAULETTE MOORE : 1960 GENDER: FEMALE VISIT DATE: 04/25/2019 DISCHARGE DATE: 04/25/19 1140 VISIT LOCKED DATE TIME: PHYSICIAN: WOLFGANG DYSON RESOURCE: WOLFGANG DYSON REASON FOR APPOINTMENT 1. POST PROC HISTORY OF PRESENT ILLNESS HISTORY OF PRESENT ILLNESS: PAIN THE PATIENT DESCRIBES THE PAIN... 58 YEAR OLD FEMALE IN FOR POST LESI FOLLOW UP. SHE REPORTS THE PROCEDURE HELPED FOR ABOUT 2 WEEKS AND THAT THEN THE PAIN RETURNED. SHE RATES HER PAIN AT A 9-10/10 AND DESCRIBES IT ACHING, SHARP, STABBING, AND SHOOTING. FALL RISK SCREENING: SCREENING :NO FALLS REPORTED IN THE LAST YEAR CURRENT MEDICATIONS TAKING LEVOTHYROXINE SODIUM 75 MCG TABLET 1 TABLET ON AN EMPTY STOMACH IN THE MORNING ORALLY ONCE A DAY TAKING SERTRALINE HCL 25 MG TABLET 1 TABLET ORALLY ONCE A DAY TAKING ASPIR-81 81 MG TABLET DELAYED RELEASE 1 TABLET ORALLY ONCE A DAY TAKING TIZANIDINE HCL 4 MG TABLET 1 TABLET NEEDED ORALLY THREE TIMES A DAY TAKING AMLODIPINE BESYLATE 10 MG TABLET 1 TABLET ORALLY BID TAKING GABAPENTIN 100 MG TABLET ORALLY TID TAKING HYDROCHLOROTHIAZIDE 12.5 MG CAPSULE 1 CAPSULE IN THE MORNING ORALLY ONCE A DAY TAKING NORTRIPTYLINE HCL 25 MG CAPSULE 1 CAPSULE ORALLY ONCE A DAY TAKING ACETAMINOPHEN 325 MG TABLET 1-2 TABS ORALLY EVERY 4 HRS NEEDED NOT-TAKING TYLENOL 8 HOUR ARTHRITIS PAIN 650 MG TABLET EXTENDED RELEASE 2 TABLETS NEEDED ORALLY EVERY 8 HRS NOT-TAKING LIPITOR 40 MG TABLET 1 TABLET ORALLY ONCE A DAY NOT-TAKING MECLIZINE HCL 25 MG TABLET CHEWABLE 1 TABLET NEEDED ORALLY ONCE A DAY NOT-TAKING OMEPRAZOLE 40 MG CAPSULE DELAYED RELEASE 1 CAPSULE ORALLY ONCE A DAY NEEDEED MEDICATION LIST REVIEWED AND RECONCILED WITH THE PATIENT PAST MEDICAL HISTORY DEPRESSION/ ANXIETY HYPOTHYROIDISM MICROSCOPIC HEMATURIA GASTROPARESIS SYNDROM DIVERTICULITIS HISTORY OF KIDNEY STONES LUPUS INGUINAL HERNIA 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 1 SON(S) - HEALTHY. SISTER HAS BREAST CANCER. SOCIAL HISTORY GENERAL: TOBACCO USE ARE YOU A:FORMER SMOKER HOW LONG HAS IT BEEN SINCE YOU LAST SMOKED?1-3 MONTHS IMMUNIZATION PROGRAM DISABLED MEDITERRANEAN DIET ..LOTS OI FISH, WALKS BUT THE PAIN IS PROHIBITING, SINGLE LIVES ALONE. EDUCATION LEVEL OF EDUCATION:NOT FINISHED COLLEGE DIET: REGULAR. LANGUAGE LANGUAGES SPOKEN:[place] DOMESTIC VIOLENCE DO YOU FEEL SAFE IN YOUR ENVIRONMENT?YES RECREATIONAL DRUG USE DRUG USE?NO LEARNING BARRIERS / SPECIAL NEEDS BARRIERS TO LEARNING?NO HEARING IMPAIRED?NO VISION IMPAIRED?YES :CORRECTIVE LENSES COGNITIVELY IMPAIRED?YES : HAS MEMORY PROBLEMS, STATE SHE "ZONES OUT" READINESS TO LEARN?YES LEARNING PREFERENCES?NO LEARNING CAPABILITIES PRESENT?YES EMOTIONAL BARRIERS?NO SPECIAL DEVICES?NO SOLUTIONS SPECIALIST NEEDED?NO LUNG CANCER SCREENING SMOKING STATUS: PT IS CURRENTYLY TAKING CHANTIX AND USING NICODERM THIS NURSE DID COUNCEL ON NOT WEARING THE PATCH AND SMOKING FOR THE RISK OF STROKE PAIN CLINIC PFS, CLERGY, PUBLIC HEALTH REFERRALS HAS THE PATIENT BEEN EDUCATED REGARDING HIS/HER PLAN OF CARE?YES HAS THE PATIENT BEEN EDUCATED REGARDING PAIN, THE RISK FOR PAIN, THE IMPORTANCE OF EFFECTIVE PAIN MANAGEMENT, AND THE PAIN ASSESSMENT PROCESS?YES LATEX QUESTIONNAIRE LATEX ALLERGY : HAVE YOU EVER DEVELOPED ANY TYPE OF REACTION AFTER HANDLING LATEX PRODUCTS SUCH RUBBER GLOVES, CONDOMS, DIAPHRAGMS, BALLOONS, SOCKS, OR UNDERWEAR?NO LATEX ALLERGY : HAVE YOU EVER DEVELOPED ANY TYPE OF REACTION DURING OR AFTER DENTAL APPOINTMENT, VAGINAL/RECTAL EXAMINATION, SURGICAL PROCEDURE, OR ANY OTHER EXPOSURE?NO LATEX RISK : HAVE YOU EVER HAD ANY DIFFICULTY BREATHING OR HIVES AFTER EATING OR HANDLING ANY FRUITS, OR VEGETABLES; SUCH KIWI, BANANAS, STONE FRUITS, OR CHESTNUTSNO LATEX RISK : DO YOU HAVE A PREVIOUS PERSONAL HISTORY OF MORE THAN NINE SURGERIES, SPINA BIFIDA, OR REPEATED CATHERIZATIONS? NO LATEX RISK : ARE YOU FREQUENTLY EXPOSED TO LATEX PRODUCTS IN YOUR OCCUPATION?NO DATE ASKED : 04/25/2019 CAFFEINE CAFFEINE USE?YES DRINKS COCOLA DAILY FOR CAFFEINE ADVANCE DIRECTIVE ADVANCE DIRECTIVE DISCUSSED WITH PATIENT:YES 04/25/19 PT DOES NOT HAVE ANY ADVANCED DIRECTIVES. SHE HAS HCP INFORMATION ALREADY. HELP OFFERED IN COMPLETING FORM NEEDED ADVENTISM ADVENTISM SABIANIST MARITAL STATUS: SINGLE. ALCOHOL SCREENING DID YOU HAVE A DRINK CONTAINING ALCOHOL IN THE PAST YEAR?NO POINTS0 INTERPRETATIONNEGATIVE OCCUPATION: DISABLED. REVIEWED WITH 05/14/18 1020 LASREVIEWED WITH PT 02/18/19 1305 BV. HOSPITALIZATION/MAJOR DIAGNOSTIC PROCEDURE DIVERTICULISTIS 02/2016 SURGERY RELATED CHILD REVIEW OF SYSTEMS REVIEWED BY: PROVIDER: SHYAM TRUJILLO . CONSTITUTIONAL: ANY CHANGE IN YOUR MEDICAL CONDITION? NO . CHILLS NO . FEVER NO . INFECTION: DO YOU HAVE NEW INFECTIONS? NO . DO YOU HAVE HISTORY OF MRSA? NO . MUSCULOSKELETAL: ANY NEW PATTERNS OF PAIN OR NUMBNESS? YES, NUMBNESS LEFT LEG X 2 WEEKS . GASTROENTEROLOGY: ANY NEW CHANGE IN BOWEL CONTROL? NO . GENITOURINARY: ANY NEW CHANGE IN BLADDER CONTROL? NO . IS THERE A CHANCE YOU COULD BE ? NO . HEMATOLOGY/LYMPH: DO YOU TAKE ANY BLOOD THINNERS? (FOR EXAMPLE- COUMADIN, PLAVIX, AGGRENOX, PLATEL, PRADAXA, OR XARELTO) NO . WHEN WAS YOUR LAST DOSE? DATE: TIME: . NEUROLOGY: HAVE YOU FALLEN IN THE PAST 12 MONTHS? YES, SEVERAL TIMES--LOSES HER BALANCE. NO INJURIES . ANY NEW EXTREMITY NUMBNESS OR WEAKNESS? NO . CARDIOLOGY: DO YOU HAVE A PACEMAKER OR DEFIBRILLATOR? NO . RESPIRATORY: HAVE YOU BEEN SICK IN THE PAST WEEK? NO . FEVER NO . FLU LIKE SYMPTOMS? NO . COUGH NO . INTEGUMENTARY: DO YOU HAVE ANY RASHES OR OPEN SORES? NO . ALLERGIC/IMMUNO: ARE YOU ALLERGIC TO IV DYE? NO . ANY NEW ALLERGIES? NO . PSYCHIATRIC: DO YOU HAVE THOUGHTS OF HURTING YOURSELF OR SOMEONE ELSE? NO . ARE YOU ABUSED, NEGLECTED, OR IN AN UNSAFE ENVIRONMENT? NO . ENDOCRINOLOGY: ARE YOU DIABETIC? YES, BORDERLINE . OTHER: DO YOU NEED ANY PRESCRIPTIONS? YES . IF YES, PLEASE LIST: ANYTHING TO HELP THE PAIN . ANY NEW PROBLEMS WITH YOUR MEDICATIONS? NO . WHEN DID YOU LAST EAT? ____ . WHEN DID YOU LAST DRINK? ____ . WHAT DID YOU LAST DRINK? ____ . NAME OF PERSON DRIVING YOU HOME? ____ . DO YOU HAVE ANY OTHER QUESTIONS OR CONCERNS NO . VITAL SIGNS WT 246.8 LBS, HT 67 IN, BMI 38.65 INDEX, BP 136/98 MM HG, HR 89 /MIN, RR 18 /MIN, TEMP 97.0 F, OXYGEN SAT % 98%, SAFE IN ENV? (Y/N) Y, NA INITIALS SD 10:48, REVIEWED BY: AD. EXAMINATION GENERAL EXAMINATION: GENERALNO ACUTE DISTRESS, WELL NOURISHED AND HYDRATED. PSYCHAPPROPRIATE MOOD AND AFFECT . LUNGS:DIMINISHED NO ADVENTITIOUS SOUNDS NOTED. HEART:NO MURMURS, REGULAR RATE AND RHYTHM. BACK:POINT TENDER ALONG LOWER LUMBAR SPINE, SURROUNDING SKIN SHOWS NO ERYTHEMA, INCREASED WARMTH, ECCHYMOSIS, AND OR SKIN ERUPTIONS. + SLR ON THE RIGHT. MUSCULOSKELETAL:EQUAL STRENGTH OF THE LOWER EXTREMITIES BILATERALLY.. ASSESSMENTS INTERVERTEBRAL DISC DISORDER WITH RADICULOPATHY OF LUMBAR REGION - M51.16 (PRIMARY) TREATMENT INTERVERTEBRAL DISC DISORDER WITH RADICULOPATHY OF LUMBAR REGION NOTES: LESI L4-L5. CLINICAL NOTES: 58 YEAR OLD FEMALE IN FOR POST LESI FOLLOW UP. GIVEN PRESENTING SYMPTOMS AND RESULTS OF PHYSICAL EXAMINATION RECOMMENDED POTENTIAL INCREASE OF GABAPENTIN (WILL CONSULT WITH PCP GIVEN THEY PRESCRIBED INITIALLY) AND REPEAT LESI. PATIENT HAS EXPRESSED UNDERSTANDING OF AND WAS IN AGREEMENT WITH TREATMENT PLAN. GIVEN TIME TO ASK QUESTIONS AND EXPRESS CONCERNS. PREVENTIVE MEDICINE PAIN CLINIC TEACHING: PROCEDURE TEACHING PT. DECLINED PRINTED INFORMATION ON LUMBAR EPIDURAL STEROID INJECTION STATING SHE HAS HAD IT AND IS FAMILIAR WITH THE PROCEDURE. PRINTED PRE-PROCEDURE INSTRUCTIONS GIVEN TO AND REVIEWED WITH PT AND SHE VERBALIZED UNDERSTANDING. AD. PROCEDURE CODES FA211 ESTABILISHED PATIENT [facility] CHARGE DISPOSITION & COMMUNICATION FOLLOW UP POST PROCEDURE (PLEASE TRY TO SCHEDULE 3 MOS FROM PREVIOUS LESI (REASON: LESI L4-L5) ELECTRONICALLY SIGNED BY NICANOR GARCIA ON 04/26/2019 AT 09:21 AM EDT DISCLAIMER : THIS IS A VISIT SUMMARY EXTRACTED FROM THE [employer] CHART. IT IS NOT A COPY OF THE [employer] PROGRESS NOTE. DANIELE
== END ==
LOC: M PAIN 10:30
PROVIDERS: ATTEND Family Medicine
DX: M51.16 Intervertebral disc disorders with radiculopathy, lumbar region (principal); Z86.59 Personal history of other mental and behavioral disorders; E03.9 Hypothyroidism, unspecified; M79.18 Myalgia, other site; F17.210 Nicotine dependence, cigarettes, uncomplicated; Z88.8 Allergy status to other drugs, medicaments and biological substances; Z79.82 Long term (current) use of aspirin; Z79.899 Other long term (current) drug therapy

== ENCOUNTER → 2019-06-07 | Outpatient (REF) | payer OTHER, MEDICAID ==
[2019-06-07 19:28] LABS: BASO # 0.1 10^3/uL (0.0-0.2); BASO % 1.1 % (0.0-1.0); EOS # 0.1 10^3/uL (0.0-0.5); EOS % 1.3 % (0.0-3.0); HEMOGLOBIN 13.3 g/dl (12.0-15.5); LYMPH % 21.2 % (24.0-44.0); MEAN CORPUSCULAR HEMOGLOBIN 32.8 pg (27.0-33.0); MEAN CORPUSCULAR HGB CONC 33.3 g/dl (32.0-36.5); MEAN CORPUSCULAR VOLUME 98.8 fl (80.0-96.0); MONO # 0.6 10^3/uL (0.0-0.8); MONO % 6.7 % (0.0-5.0); NEUTROPHILS # 6.5 10^3/uL (1.5-8.5); NEUTROPHILS % 69.4 % (36.0-66.0); RED BLOOD COUNT 4.05 10^6/uL (4.00-5.40); WHITE BLOOD COUNT 9.3 10^3/uL (4.0-10.0)
[2019-06-07 19:41] LABS: ALBUMIN 3.9 GM/DL (3.2-5.2); ALT/SGPT 23 U/L (12-78); BILIRUBIN,TOTAL 0.5 MG/DL (0.2-1.0); BLOOD UREA NITROGEN 12 MG/DL (7-18); CALCIUM LEVEL 8.9 MG/DL (8.5-10.1); CARBON DIOXIDE LEVEL 24 MEQ/L (21-32); CHLORIDE LEVEL 104 MEQ/L (98-107); CHOLESTEROL LEVEL 282 MG/DL (<200); CHOLESTEROL RISK RATIO 4.086 (<5); CREATININE FOR GFR 0.93 MG/DL (0.55-1.30); FREE T4 0.74 NG/DL (0.76-1.46); GLOMERULAR FILTRATION RATE > 60.0 (>51); GLUCOSE, FASTING 134 MG/DL (70-100); HDL CHOLESTEROL 69 MG/DL (>40); LDL CHOLESTEROL 180 MG/DL (<100); NON-HDL-C 213 MG/DL; POTASSIUM SERUM 3.6 MEQ/L (3.5-5.1); SODIUM LEVEL 138 MEQ/L (136-145); TOTAL 25(OH) VITAMIN D 6.6 NG/ML (30.0-100.0); TOTAL PROTEIN 7.4 GM/DL (6.4-8.2); TRIGLYCERIDES LEVEL 164 MG/DL (<150)
[2019-06-07 19:44] LABS: HEMOGLOBIN A1c 5.6 %
== END ==
LOC: M LAB REF 17:00
PROVIDERS: ATTEND Family Medicine
DX: E55.9 Vitamin D deficiency, unspecified (principal); R73.03 Prediabetes; E78.5 Hyperlipidemia, unspecified; E03.9 Hypothyroidism, unspecified

== ENCOUNTER → 2019-06-15 | Outpatient (CLI) | payer OTHER, MEDICAID | LOC: M PAIN 13:30 | PROVIDERS: ATTEND Family Medicine | DX: M51.16 Intervertebral disc disorders with radiculopathy, lumbar region (principal); F41.9 Anxiety disorder, unspecified; F32.9 Major depressive disorder, single episode, unspecified; R31.29 Other microscopic hematuria; K31.84 Gastroparesis; Z87.442 Personal history of urinary calculi; L93.0 Discoid lupus erythematosus; M79.18 Myalgia, other site; G89.29 Other chronic pain; I67.82 Cerebral ischemia; Z87.891 Personal history of nicotine dependence; Z79.82 Long term (current) use of aspirin; Z79.899 Other long term (current) drug therapy; Z88.8 Allergy status to other drugs, medicaments and biological substances ==

== ENCOUNTER → 2019-07-27 | Outpatient (CLI) | payer OTHER, MEDICAID ==
[~2019-07-27] MED LIST changes: -OMEP40CA2 PO; +OMEP40CA97 PO; +SERT25TA21; -SERT25TA88
--- NOTE | 2019-07-29 01:15 | ECWPNPC ---
PATIENT NAME: PAULETTE MOORE : 1960 GENDER: FEMALE VISIT DATE: 07/27/2019 DISCHARGE DATE: 07/27/19 1354 VISIT LOCKED DATE TIME: PHYSICIAN: WOLFGANG DYSON RESOURCE: WOLFGANG DYSON REASON FOR APPOINTMENT 1. 4 WEEKS,MEDICATION CHANGE HISTORY OF PRESENT ILLNESS HISTORY OF PRESENT ILLNESS: PAIN THE PATIENT DESCRIBES THE PAIN... 59-YEAR-OLD FEMALE IN FOR CHRONIC PAIN FOLLOW-UP. AT LAST CLINIC VISIT HER GABAPENTIN WAS INCREASED AND SHE REPORTS TODAY THAT THIS HAS BEEN EFFECTIVE IN HELPING TO MANAGE HER SYMPTOMS. SHE RATES HER PAIN CURRENTLY AT AN 8 OUT OF 10 AND DESCRIBES IT ACHING, SHARP, BURNING, STABBING, AND TENDER. SHE FURTHER STATES THE PAIN WAKES HER FROM SLEEP IS INTERMITTENT HAPPENING MOSTLY AT NIGHT. PATIENT HAS A TRIGGER POINT INJECTIONS OF HER BILATERAL NECK AND SHOULDER IN THE PAST AND FEELS THIS HAS BEEN HELPFUL IN ALLEVIATING HER SYMPTOMS. FALL RISK SCREENING: SCREENING :NO FALLS REPORTED IN THE LAST YEAR CURRENT MEDICATIONS TAKING LEVOTHYROXINE SODIUM 75 MCG TABLET 1 TABLET ON AN EMPTY STOMACH IN THE MORNING ORALLY ONCE A DAY TAKING SERTRALINE HCL 25 MG TABLET 1 TABLET ORALLY ONCE A DAY TAKING ASPIR-81 81 MG TABLET DELAYED RELEASE 1 TABLET ORALLY ONCE A DAY TAKING TIZANIDINE HCL 4 MG TABLET 1 TABLET NEEDED ORALLY THREE TIMES A DAY TAKING AMLODIPINE BESYLATE 10 MG TABLET 1 TABLET ORALLY BID TAKING HYDROCHLOROTHIAZIDE 12.5 MG CAPSULE 1 CAPSULE IN THE MORNING ORALLY ONCE A DAY TAKING NORTRIPTYLINE HCL 25 MG CAPSULE 1 CAPSULE ORALLY ONCE A DAY TAKING ACETAMINOPHEN 325 MG TABLET 1-2 TABS ORALLY EVERY 4 HRS NEEDED TAKING GABAPENTIN 300 MG CAPSULE 1 CAPSULE ORALLY TID NOT-TAKING TYLENOL 8 HOUR ARTHRITIS PAIN 650 MG TABLET EXTENDED RELEASE 2 TABLETS NEEDED ORALLY EVERY 8 HRS NOT-TAKING LIPITOR 40 MG TABLET 1 TABLET ORALLY ONCE A DAY NOT-TAKING MECLIZINE HCL 25 MG TABLET CHEWABLE 1 TABLET NEEDED ORALLY ONCE A DAY NOT-TAKING OMEPRAZOLE 40 MG CAPSULE DELAYED RELEASE 1 CAPSULE ORALLY ONCE A DAY NEEDEED MEDICATION LIST REVIEWED AND RECONCILED WITH THE PATIENT PAST MEDICAL HISTORY DEPRESSION/ ANXIETY HYPOTHYROIDISM MICROSCOPIC HEMATURIA GASTROPARESIS SYNDROM DIVERTICULITIS HISTORY OF KIDNEY STONES LUPUS INGUINAL HERNIA 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 1 SON(S) - HEALTHY. SISTER HAS BREAST CANCER. SOCIAL HISTORY GENERAL: TOBACCO USE ARE YOU A:FORMER SMOKER HOW LONG HAS IT BEEN SINCE YOU LAST SMOKED?1-3 MONTHS IMMUNIZATION PROGRAM DISABLED MEDITERRANEAN DIET ..LOTS OI FISH, WALKS BUT THE PAIN IS PROHIBITING, SINGLE LIVES ALONE. EDUCATION LEVEL OF EDUCATION:NOT FINISHED COLLEGE DIET: REGULAR. LANGUAGE LANGUAGES SPOKEN:INDONESIAN DOMESTIC VIOLENCE DO YOU FEEL SAFE IN YOUR ENVIRONMENT?YES RECREATIONAL DRUG USE DRUG USE?NO LEARNING BARRIERS / SPECIAL NEEDS BARRIERS TO LEARNING?NO HEARING IMPAIRED?NO VISION IMPAIRED?YES COGNITIVELY IMPAIRED?YES :CORRECTIVE LENSES : HAS MEMORY PROBLEMS, STATE SHE "ZONES OUT" READINESS TO LEARN?YES LEARNING PREFERENCES?NO LEARNING CAPABILITIES PRESENT?YES EMOTIONAL BARRIERS?NO SPECIAL DEVICES?NO LAP MAKER NEEDED?NO LUNG CANCER SCREENING SMOKING STATUS: PT IS CURRENTYLY TAKING CHANTIX AND USING NICODERM THIS NURSE DID COUNCEL ON NOT WEARING THE PATCH AND SMOKING FOR THE RISK OF STROKE PAIN CLINIC PFS, CLERGY, PUBLIC HEALTH REFERRALS HAS THE PATIENT BEEN EDUCATED REGARDING HIS/HER PLAN OF CARE?YES HAS THE PATIENT BEEN EDUCATED REGARDING PAIN, THE RISK FOR PAIN, THE IMPORTANCE OF EFFECTIVE PAIN MANAGEMENT, AND THE PAIN ASSESSMENT PROCESS?YES LATEX QUESTIONNAIRE LATEX ALLERGY : HAVE YOU EVER DEVELOPED ANY TYPE OF REACTION AFTER HANDLING LATEX PRODUCTS SUCH RUBBER GLOVES, CONDOMS, DIAPHRAGMS, BALLOONS, SOCKS, OR UNDERWEAR?NO LATEX ALLERGY : HAVE YOU EVER DEVELOPED ANY TYPE OF REACTION DURING OR AFTER DENTAL APPOINTMENT, VAGINAL/RECTAL EXAMINATION, SURGICAL PROCEDURE, OR ANY OTHER EXPOSURE?NO DATE ASKED : 04/25/2019 LATEX RISK : HAVE YOU EVER HAD ANY DIFFICULTY BREATHING OR HIVES AFTER EATING OR HANDLING ANY FRUITS, OR VEGETABLES; SUCH KIWI, BANANAS, STONE FRUITS, OR CHESTNUTSNO LATEX RISK : DO YOU HAVE A PREVIOUS PERSONAL HISTORY OF MORE THAN NINE SURGERIES, SPINA BIFIDA, OR REPEATED CATHERIZATIONS? NO LATEX RISK : ARE YOU FREQUENTLY EXPOSED TO LATEX PRODUCTS IN YOUR OCCUPATION?NO CAFFEINE CAFFEINE USE?YES DRINKS COCOLA DAILY FOR CAFFEINE ADVANCE DIRECTIVE ADVANCE DIRECTIVE DISCUSSED WITH PATIENT:YES PT DOES NOT HAVE ANY ADVANCED DIRECTIVES. SHE HAS HCP INFORMATION ALREADY. HELP OFFERED IN COMPLETING FORM NEEDED, DECLINED 07/27/19 1321 PACKET GIVEN, PT STATES SHE WILL TAKE HOME AND FILL UT AND BRING BACK, DECLINES ASSISTANCE FILLING OUT PAPERWORK NLJ ANABAPTIST ANABAPTIST BAPTISM MARITAL STATUS: SINGLE. ALCOHOL SCREENING DID YOU HAVE A DRINK CONTAINING ALCOHOL IN THE PAST YEAR?NO POINTS0 INTERPRETATIONNEGATIVE OCCUPATION: DISABLED. REVIEWED WITH 05/14/18 1020 LASREVIEWED WITH PT 02/18/19 1305 BV REVIEWED WITH PATIENT 06/15/19 LAS REVIEWED WITH PATIENT 07/27/19 1312 NLJ. HOSPITALIZATION/MAJOR DIAGNOSTIC PROCEDURE DIVERTICULISTIS 02/2016 SURGERY RELATED CHILD REVIEW OF SYSTEMS REVIEWED BY: PROVIDER: SHYAM VICK-Radha . CONSTITUTIONAL: ANY CHANGE IN YOUR MEDICAL CONDITION? NO . CHILLS NO . FEVER NO . INFECTION: DO YOU HAVE NEW INFECTIONS? NO . DO YOU HAVE HISTORY OF MRSA? NO . MUSCULOSKELETAL: ANY NEW PATTERNS OF PAIN OR NUMBNESS? NO- STATES PAIN IS BETTER AFTER INCRESE IN GABAPENTIIN . GASTROENTEROLOGY: ANY NEW CHANGE IN BOWEL CONTROL? NO . GENITOURINARY: ANY NEW CHANGE IN BLADDER CONTROL? NO . IS THERE A CHANCE YOU COULD BE ? NO . HEMATOLOGY/LYMPH: DO YOU TAKE ANY BLOOD THINNERS? (FOR EXAMPLE- COUMADIN, PLAVIX, AGGRENOX, PLATEL, PRADAXA, OR XARELTO) NO . WHEN WAS YOUR LAST DOSE? DATE: TIME: . NEUROLOGY: HAVE YOU FALLEN IN THE PAST 12 MONTHS? YES- STATES SHE FELL INTO A FENCE ABOUT 4 NIGHTS AGO, STATES NO INJURY . ANY NEW EXTREMITY NUMBNESS OR WEAKNESS? NO . CARDIOLOGY: DO YOU HAVE A PACEMAKER OR DEFIBRILLATOR? NO . RESPIRATORY: HAVE YOU BEEN SICK IN THE PAST WEEK? NO . FEVER NO . FLU LIKE SYMPTOMS? NO . COUGH NO . INTEGUMENTARY: DO YOU HAVE ANY RASHES OR OPEN SORES? NO . ALLERGIC/IMMUNO: ARE YOU ALLERGIC TO IV DYE? NO . ANY NEW ALLERGIES? NO . PSYCHIATRIC: DO YOU HAVE THOUGHTS OF HURTING YOURSELF OR SOMEONE ELSE? NO . ARE YOU ABUSED, NEGLECTED, OR IN AN UNSAFE ENVIRONMENT? NO . ENDOCRINOLOGY: ARE YOU DIABETIC? NO . OTHER: DO YOU NEED ANY PRESCRIPTIONS? NO . IF YES, PLEASE LIST: ____ . ANY NEW PROBLEMS WITH YOUR MEDICATIONS? NO . WHEN DID YOU LAST EAT? ____ . WHEN DID YOU LAST DRINK? ____ . WHAT DID YOU LAST DRINK? ____ . NAME OF PERSON DRIVING YOU HOME? ____ . DO YOU HAVE ANY OTHER QUESTIONS OR CONCERNS NO . VITAL SIGNS WT 235.6 LBS, HT 67 IN, BMI 36.90 INDEX, BP 141/76 MM HG, HR 96 /MIN, RR 18 /MIN, TEMP 96.9 F, OXYGEN SAT % 98%, SAFE IN ENV? (Y/N) YES, REVIEWED BY: STANISLAW. EXAMINATION GENERAL EXAMINATION: GENERALNO ACUTE DISTRESS, WELL NOURISHED AND HYDRATED. PSYCHAPPROPRIATE MOOD AND AFFECT . NECK:POINT TENDER BILATERAL NECK AND SHOULDERS, SURROUNDING SKIN SHOWS NO ERYTHEMA, ECCHYMOSIS, INCREASED WARMTH, AND/OR SKIN ERUPTIONS NOTED. . LUNGS:CLEAR TO AUSCULTATION BILATERALLY, NO WHEEZES, RHONCHI, RALES. HEART:NO MURMURS, REGULAR RATE AND RHYTHM. ASSESSMENTS MYALGIA, OTHER SITE - M79.18 (PRIMARY) TREATMENT MYALGIA, OTHER SITE NOTES: BILATERAL NECK AND SHOULDER TPI. CLINICAL NOTES: 59-YEAR-OLD FEMALE IN FOR CHRONIC PAIN FOLLOW-UP. GIVEN PRESENTING SYMPTOMS AND RESULTS OF PHYSICAL EXAMINATION RECOMMENDED TPI OF BILATERAL NECK AND SHOULDERS WITH POST PROCEDURAL FOLLOW-UP. PATIENT HAS EXPRESSED UNDERSTANDING OF AND WAS IN AGREEMENT WITH TREATMENT PLAN. GIVEN TIME TO ASK QUESTIONS AND EXPRESS CONCERNS. PREVENTIVE MEDICINE PAIN CLINIC TEACHING: PROCEDURE TEACHING TRIGGER POINT INJECTION PREOCEDURE INFORMATION PRINTED AND REVIEWED WITH PT WELL PRE PROCEDURE INSTRUCTIONS, PT VERBALIZES UNDERSTANDING 07/27/19 1348 NLJ. PROCEDURE CODES FA211 ESTABILISHED PATIENT [facility] CHARGE DISPOSITION & COMMUNICATION FOLLOW UP POSTPROCEDURE (REASON: BILATERAL NECK AND SHOULDER TPI) ELECTRONICALLY SIGNED BY NICANOR GARCIA ON 07/28/2019 AT 01:15 PM EST DISCLAIMER : THIS IS A VISIT SUMMARY EXTRACTED FROM THE [employer] CHART. IT IS NOT A COPY OF THE [employer] PROGRESS NOTE. DANIELE
== END ==
LOC: M PAIN 13:00
PROVIDERS: ATTEND Family Medicine
DX: M79.18 Myalgia, other site (principal); Z86.59 Personal history of other mental and behavioral disorders; E03.9 Hypothyroidism, unspecified; Z87.891 Personal history of nicotine dependence; Z88.8 Allergy status to other drugs, medicaments and biological substances; Z79.82 Long term (current) use of aspirin; Z79.899 Other long term (current) drug therapy

== ENCOUNTER → 2019-09-16 | Outpatient (CLI) | payer OTHER, MEDICAID | LOC: M PAIN 13:00 | PROVIDERS: ATTEND Anesthesiology | DX: Z53.20 Procedure and treatment not carried out because of patient's decision for unspecified reasons (principal) ==

== ENCOUNTER 2019-10-31 12:45 | Emergency (ER) | payer MEDICAID, OTHER ==
[2019-10-31] MEDS ORDERED: ZOLO25TA PO (14:05)
[2019-10-31] MEDS ORDERED: ZONI100C17 PO (14:05)
[2019-10-31] MEDS ORDERED: TIZA4CAP6 PO (14:05)
[2019-10-31] MEDS ORDERED: GABA-843 PO (14:06)
[2019-10-31] MEDS ORDERED: ECOT81TA5 PO (14:06)
--- NOTE | 2019-10-31 14:28 | REP ---
Bilateral rib series: There are no rib fractures or other rib abnormalities. PA chest: Comparison is the PA and lateral chest dated 03/08/2018. There is no pneumothorax, hemothorax or pulmonary contusion. The lung gamboa are clear. The cardiac size is normal. The mitchel, mediastinum, and skeletal structures are unremarkable. Impression: Negative PA chest. There is no interval change. Electronically Signed by Jeromy Gore MD 10/31/2019 02:19 P
[2019-10-31] MEDS ORDERED: IBUP-1022 PO (14:58)
[2019-10-31] MEDS ORDERED: MAPA500C PO (14:58)
[2019-10-31 15:02] VITALS: BP 145/91
== END 2019-10-31 15:04 | disposition home or self-care (01) ==
LOC: M ED 12:45
DX: R07.81 Pleurodynia (principal); S06.0X9A Concussion with loss of consciousness of unspecified duration, initial encounter; W10.9XXA Fall (on) (from) unspecified stairs and steps, initial encounter; Y92.099 Unspecified place in other non-institutional residence as the place of occurrence of the external cause; Y93.9 Activity, unspecified; Y99.9 Unspecified external cause status; M79.673 Pain in unspecified foot; M54.9 Dorsalgia, unspecified; M25.512 Pain in left shoulder; K57.32 Diverticulitis of large intestine without perforation or abscess without bleeding; E03.9 Hypothyroidism, unspecified; F41.9 Anxiety disorder, unspecified; F32.9 Major depressive disorder, single episode, unspecified; I10 Essential (primary) hypertension; F03.90 Unspecified dementia, unspecified severity, without behavioral disturbance, psychotic disturbance, mood disturbance, and anxiety; R51 Headache; F17.200 Nicotine dependence, unspecified, uncomplicated; Z79.82 Long term (current) use of aspirin; Z79.899 Other long term (current) drug therapy; Z88.8 Allergy status to other drugs, medicaments and biological substances

== ENCOUNTER 2020-02-08 19:26 | Emergency (ER) | payer OTHER ==
[~2020-02-08] VITALS: Ht 172.7 cm; Wt 95.5 kg
[~2020-02-08 19:26] MED LIST changes: +AMLO1TAB24 PO; -AMLO5TAB6 PO; +ECOT81TA5 PO; +GABA-282 PO; +IBUP-1022 PO; +MAPA500C PO; +TIZA4CAP6 PO; +ZOLO25TA PO; +ZONI100C17 PO
[2020-02-08 20:42] LABS: HEMATOCRIT 39.4 % (36.0-47.0); HEMOGLOBIN 12.9 g/dl (12.0-15.5); MEAN CORPUSCULAR HEMOGLOBIN 30.9 pg (27.0-33.0); MEAN CORPUSCULAR HGB CONC 32.7 g/dl (32.0-36.5); MEAN CORPUSCULAR VOLUME 94.3 fl (80.0-96.0); PLATELET COUNT, AUTOMATED 325 10^3/uL (150-450); RED BLOOD COUNT 4.18 10^6/uL (4.00-5.40); WHITE BLOOD COUNT 11.5 10^3/uL (4.0-10.0)
[2020-02-08 21:08] LABS: AMPHETAMINES LEVEL URINE NEGATIVE (NEGATIVE); BARBITURATES URINE NEGATIVE (NEGATIVE); BENZODIAZEPINES URINE NEGATIVE (NEGATIVE); CANNABINOIDS URINE POSITIVE (NEGATIVE); COCAINE METABOLITE URINE NEGATIVE (NEGATIVE); METHADONE URINE NEGATIVE (NEGATIVE); OPIATES URINE NEGATIVE (NEGATIVE); PHENCYCLIDINE URINE NEGATIVE (NEGATIVE)
[2020-02-08 21:23] LABS: ACETAMINOPHEN LEVEL < 2.0 UG/ML (10.0-30.0); ALBUMIN 3.9 GM/DL (3.2-5.2); ALT/SGPT 28 U/L (12-78); BILIRUBIN,DIRECT 0.1 MG/DL (0.0-0.2); BILIRUBIN,TOTAL 0.3 MG/DL (0.2-1.0); BLOOD UREA NITROGEN 9 MG/DL (7-18); CALCIUM LEVEL 8.9 MG/DL (8.5-10.1); CARBON DIOXIDE LEVEL 30 MEQ/L (21-32); CHLORIDE LEVEL 105 MEQ/L (98-107); CREATININE FOR GFR 0.85 MG/DL (0.55-1.30); ETHYL ALCOHOL (ETHANOL) < 0.003 % (0.000-0.010); GLOMERULAR FILTRATION RATE > 60.0 (>51); GLUCOSE, FASTING 107 MG/DL (70-100); POTASSIUM SERUM 3.3 MEQ/L (3.5-5.1); SALICYLATE LEVEL 2.5 MG/DL (5.0-30.0); SODIUM LEVEL 140 MEQ/L (136-145); TOTAL PROTEIN 7.3 GM/DL (6.4-8.2)
[2020-02-09 00:01] LABS: FREE T4 0.74 NG/DL (0.76-1.46)
[2020-02-09 10:28] VITALS: BP 130/68
--- NOTE | 2020-02-09 14:38 | ECGEPIP ---
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
== END 2020-02-09 10:33 ==
LOC: M ED 19:26
DX: F29 Unspecified psychosis not due to a substance or known physiological condition (principal); K57.92 Diverticulitis of intestine, part unspecified, without perforation or abscess without bleeding; E03.9 Hypothyroidism, unspecified; F17.200 Nicotine dependence, unspecified, uncomplicated; Z79.82 Long term (current) use of aspirin; Z79.899 Other long term (current) drug therapy; Z88.8 Allergy status to other drugs, medicaments and biological substances
CPT/HCPCS: 80048; 80076; 80307; 81001; 84439; 84443; 85027; 93005; 99284; G0480; U0002

== ENCOUNTER 2021-04-20 08:33 | Emergency (ER) | payer OTHER ==
[~2021-04-20] VITALS: Ht 170.2 cm; Wt 72.4 kg
[~2021-04-20 08:33] MED LIST changes: +OMEP40CA4 PO; -OMEP40CA97 PO
[2021-04-20 09:59] LABS: BASO # 0.1 10^3/uL (0.0-0.2); BASO % 0.5 % (0.0-1.0); EOS # 0.1 10^3/uL (0.0-0.5); EOS % 0.8 % (0.0-3.0); HEMATOCRIT 36.8 % (36.0-47.0); HEMOGLOBIN 12.2 g/dl (12.0-15.5); LYMPH # 2.1 10^3/uL (1.5-5.0); LYMPH % 21.9 % (24.0-44.0); MEAN CORPUSCULAR HEMOGLOBIN 31.9 pg (27.0-33.0); MEAN CORPUSCULAR HGB CONC 33.2 g/dl (32.0-36.5); MEAN CORPUSCULAR VOLUME 96.3 fl (80.0-96.0); MONO # 0.6 10^3/uL (0.0-0.8); MONO % 5.6 % (2.0-8.0); NEUTROPHILS % 71.1 % (36.0-66.0); PLATELET COUNT, AUTOMATED 311 10^3/uL (150-450); RED BLOOD COUNT 3.82 10^6/uL (4.00-5.40); WHITE BLOOD COUNT 9.8 10^3/uL (4.0-10.0)
[2021-04-20 10:35] LABS: ALBUMIN 3.6 GM/DL (3.2-5.2); ALT/SGPT 15 U/L (12-78); BILIRUBIN,DIRECT 0.1 MG/DL (0.0-0.2); BILIRUBIN,TOTAL 0.4 MG/DL (0.2-1.0); BLOOD UREA NITROGEN 8 MG/DL (7-18); CALCIUM LEVEL 9.3 MG/DL (8.5-10.1); CARBON DIOXIDE LEVEL 33 MEQ/L (21-32); CHLORIDE LEVEL 103 MEQ/L (98-107); GLOMERULAR FILTRATION RATE > 60.0 (>51); GLUCOSE, FASTING 87 MG/DL (70-100); LIPASE 52 U/L (73-393); POTASSIUM SERUM 3.3 MEQ/L (3.5-5.1); SODIUM LEVEL 142 MEQ/L (136-145); TOTAL PROTEIN 6.6 GM/DL (6.4-8.2)
[2021-04-20 10:51] VITALS: BP 132/79
== END 2021-04-20 10:57 | disposition home or self-care (01) ==
LOC: M ED 08:33
DX: R10.9 Unspecified abdominal pain (principal); G61.0 Guillain-Barre syndrome; D35.00 Benign neoplasm of unspecified adrenal gland; F17.200 Nicotine dependence, unspecified, uncomplicated; Z79.82 Long term (current) use of aspirin; Z79.899 Other long term (current) drug therapy; Z88.8 Allergy status to other drugs, medicaments and biological substances

== ENCOUNTER 2021-05-27 20:08 | Inpatient (IN) | payer MEDICAID, OTHER ==
[~2021-05-27] VITALS: Ht 172.7 cm; Wt 68.2 kg
[~2021-05-27 20:08] MED LIST changes: -KLOR10TA76 PO; +POTA-136 PO
[2021-05-27 21:30] LABS: HEMATOCRIT 40.7 % (36.0-47.0); HEMOGLOBIN 13.6 g/dl (12.0-15.5); MEAN CORPUSCULAR HEMOGLOBIN 32.1 pg (27.0-33.0); MEAN CORPUSCULAR HGB CONC 33.4 g/dl (32.0-36.5); PLATELET COUNT, AUTOMATED 274 10^3/uL (150-450); RED BLOOD COUNT 4.24 10^6/uL (4.00-5.40); WHITE BLOOD COUNT 8.9 10^3/uL (4.0-10.0)
[2021-05-27 21:49] LABS: ACETAMINOPHEN LEVEL < 2.0 UG/ML (10.0-30.0); ALT/SGPT 14 U/L (12-78); BILIRUBIN,DIRECT 0.2 MG/DL (0.0-0.2); BILIRUBIN,TOTAL 0.9 MG/DL (0.2-1.0); BLOOD UREA NITROGEN 8 MG/DL (7-18); CALCIUM LEVEL 10.2 MG/DL (8.5-10.1); CARBON DIOXIDE LEVEL 33 MEQ/L (21-32); CHLORIDE LEVEL 103 MEQ/L (98-107); CREATININE FOR GFR 0.84 MG/DL (0.55-1.30); ETHYL ALCOHOL (ETHANOL) < 0.003 % (0.000-0.010); GLOMERULAR FILTRATION RATE > 60.0 (>51); GLUCOSE, FASTING 121 MG/DL (70-100); POTASSIUM SERUM 3.2 MEQ/L (3.5-5.1); SALICYLATE LEVEL < 1.7 MG/DL (5.0-30.0); SODIUM LEVEL 140 MEQ/L (136-145); TOTAL PROTEIN 7.1 GM/DL (6.4-8.2)
[2021-05-27 22:01] LABS: AMPHETAMINES LEVEL URINE NEGATIVE (NEGATIVE); BARBITURATES URINE NEGATIVE (NEGATIVE); BENZODIAZEPINES URINE NEGATIVE (NEGATIVE); CANNABINOIDS URINE POSITIVE (NEGATIVE); COCAINE METABOLITE URINE NEGATIVE (NEGATIVE); METHADONE URINE NEGATIVE (NEGATIVE); OPIATES URINE NEGATIVE (NEGATIVE); PHENCYCLIDINE URINE NEGATIVE (NEGATIVE)
[2021-05-28] MEDS: LEVOTHYROXINE 100MCG TABLET (0.1MG) PO SCH (07:58)
[2021-05-28] MEDS: ASPIRIN 81 MG CHEW TABLET PO SCH (08:57)
[2021-05-28] MEDS: tiZANidine 4 MG TAB PO SCH ×3 (08:57→20:26)
[2021-05-28] MEDS: GABAPENTIN 300 MG CAP PO SCH ×3 (08:57→20:26)
[2021-05-28] MEDS: SERTRALINE HCL 25 MG TABLET PO SCH (08:58)
[2021-05-28] MEDS: amLODIPine 5 MG TAB PO SCH (09:00)
[2021-05-28 12:14] LABS: RSV AMPLIFICATION NEGATIVE (NEGATIVE)
[2021-05-28] MEDS ORDERED: POTASSIUM CHLORIDE 10MEQ SR TABLET PO ONE (13:10)
[2021-05-28] MEDS ORDERED: HOME MED LIST COMPLETE! XX SCH (13:45)
[2021-05-28] MEDS ORDERED: MOM 30ML SUSPENSION UDC PO PRN (14:30)
[2021-05-28] MEDS ORDERED: ACETAMINOPHEN TAB 650MG DOSE (2X325MG) PO PRN (14:30)
[2021-05-28] MEDS ORDERED: QUEtiapine FUMARATE 50MG TAB PO ONE (14:30)
[2021-05-28] MEDS ORDERED: MAALOX 30 ML SUSP *UDC PO PRN (14:30)
[2021-05-28] MEDS ORDERED: QUEtiapine FUMARATE 50MG TAB PO PRN (15:10)
--- NOTE | 2021-05-28 15:45 | MHIPNPDOC ---
[facility] Progress Note Progress Note DATE OF SERVICE: 05/28/21 Patient presented bizarre and disorganized with grandiose delusions, grossly psychotic and communicative PSA needs admission. Vital Signs Vital Signs Date Time Temp Pulse Resp B/P (MAP) Pulse Ox O2 Delivery O2 Flow Rate FiO2 05/28/21 15:07 97.8 61 18 111/54 (73) 99 05/28/21 12:11 Room Air Laboratory Data 24H Labs Laboratory Tests 2 05/27/21 20:50: Nucleated Red Blood Cells % (auto) 0.0, Anion Gap 4L, Glomerular Filtration Rate > 60.0, Calcium Level 10.2H, Total Bilirubin 0.9, Direct Bilirubin 0.2, Aspartate Amino Transf (AST/SGOT) 16, Alanine Aminotransferase (ALT/SGPT) 14, Alkaline Phosphatase 118H, Total Protein 7.1, Albumin 4.0, Albumin/Globulin Ratio 1.3, Thyroid Stimulating Hormone (TSH) 8.790H, Salicylates Level < 1.7L, Urine Opiates Screen NEGATIVE, Urine Methadone Screen NEGATIVE, Acetaminophen Level < 2.0L, Urine Barbiturates Screen NEGATIVE, Urine Phencyclidine Screen NEGATIVE, Urine Amphetamines Screen NEGATIVE, Urine Benzodiazepines Screen NEGATIVE, Urine Cocaine Metabolite Screen NEGATIVE, Urine Cannabinoids Screen POSITIVEH, Ethyl Alcohol Level < 0.003 05/28/21 11:14: Coronavirus (COVID-19)(PCR) NEGATIVE, Influenza Type A (RT-PCR) NEGATIVE, Influenza Type B (RT-PCR) NEGATIVE, Respiratory Syncytial Virus (PCR) NEGATIVE CBC/BMP Laboratory Tests 05/27/21 20:50 Current Medications Current Medications Medications (Trade) Dose Ordered Sig/Rylan Route PRN Reason Start Time Stop Time Status Last Admin Dose Admin Acetaminophen (Tylenol Tab) 650 mg Q6HP PRN PO HEADACHE or MILD DISCOMFORT 05/28/21 14:30 Al Hydrox/Mg Hydrox/Simethicone (Mylanta) 30 ml Q4HP PRN PO HEARTBURN/INDIGESTION 05/28/21 14:30 Amlodipine Besylate (Norvasc) 5 mg DAILY PO 05/28/21 09:00 05/28/21 09:00 Aspirin (Aspirin Chewable) 81 mg DAILY PO 05/28/21 09:00 05/28/21 08:57 Gabapentin (Neurontin) 300 mg TID PO 05/28/21 09:00 05/28/21 08:57 Home Med (Home Med List Complete!) ASDIRECTED XX 05/28/21 13:45 05/28/21 13:45 DC Levothyroxine Sodium (Synthroid) 100 mcg DAILY@06 PO 05/28/21 06:00 05/28/21 07:58 Magnesium Hydroxide (Milk Of Magnesia) 30 ml DAILYPRN PRN PO CONSTIPATION 05/28/21 14:30 Quetiapine Fumarate (SEROquel) 50 mg Q6HP PRN PO ANXIETY/AGITATION 05/28/21 15:10 Sertraline HCl (Zoloft) 25 mg DAILY PO 05/28/21 09:00 05/28/21 08:58 Tizanidine HCl (Zanaflex) 4 mg TID PO 05/28/21 09:00 05/28/21 08:57 Trazodone HCl (Desyrel) 50 mg QHSP PRN PO INSOMNIA 05/28/21 14:30 Allergies Coded Allergies: MARIO Inhibitors (Verified Adverse Reaction, Intermediate, COUGH, 05/27/21) COUGH duloxetine (Verified Adverse Reaction, Intermediate, HALLUCINATIONS, ) HALLUCINATIONS DENISE GODOY MD May 28, 2021 15:45
[2021-05-28 16:21] VITALS: BP 128/59
[2021-05-28] MEDS: traZODone 50 MG TAB PO PRN (20:26)
[2021-05-29] MEDS: LEVOTHYROXINE 100MCG TABLET (0.1MG) PO SCH (05:53)
[2021-05-29] MEDS: SERTRALINE HCL 25 MG TABLET PO SCH (08:40)
[2021-05-29] MEDS: GABAPENTIN 300 MG CAP PO SCH ×3 (08:40→20:19)
[2021-05-29] MEDS: tiZANidine 4 MG TAB PO SCH ×3 (08:40→20:19)
[2021-05-29] MEDS: ASPIRIN 81 MG CHEW TABLET PO SCH (08:40)
[2021-05-29] MEDS: amLODIPine 5 MG TAB PO SCH (08:44)
[2021-05-29] MEDS ORDERED: FLUBLOK(EGG FREE)(QUAD)INFLUENZA VACC 0.5ML SYRINGE 18YRS & OLDER IM ONE (09:00)
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
[2021-05-29 16:02] VITALS: BP 123/63
[2021-05-29 16:06] LABS: APPEARANCE, URINE CLEAR (CLEAR); BACTERIA, URINE AUTO NEGATIVE (NEGATIVE); BILIRUBIN, URINE AUTO NEGATIVE (NEGATIVE); BLOOD, URINE BLOOD NEGATIVE (NEGATIVE); COLOR, URINE YELLOW (YELLOW); GLUCOSE, URINE (UA) AUTO NEGATIVE (NEGATIVE); KETONE, URINE AUTO TRACE mg/dL (NEGATIVE); LEUKOCYTE ESTERASE, URINE AUTO 1+ (NEGATIVE); MUCUS, URINE SMALL (NEGATIVE); NITRITE, URINE AUTO NEGATIVE (NEGATIVE); PROTEIN, URINE AUTO NEGATIVE (NEGATIVE); RBC, URINE AUTO 1 /HPF (0-3); SPECIFIC GRAVITY URINE AUTO 1.028 (1.002-1.035); SQUAMOUS EPITHELIAL CELL UR AU 4 /HPF (0-6); UROBILINOGEN, URINE AUTO 0.2 mg/dL (0.0-2.0); WBC, URINE AUTO 2 /HPF (0-3)
[2021-05-29 16:18] LABS: BLOOD UREA NITROGEN 13 MG/DL (7-18); CALCIUM LEVEL 9.1 MG/DL (8.5-10.1); CARBON DIOXIDE LEVEL 32 MEQ/L (21-32); CHLORIDE LEVEL 105 MEQ/L (98-107); CREATININE FOR GFR 0.88 MG/DL (0.55-1.30); FREE T4 0.86 NG/DL (0.76-1.46); GLOMERULAR FILTRATION RATE > 60.0 (>51); GLUCOSE, FASTING 102 MG/DL (70-100); POTASSIUM SERUM 4.4 MEQ/L (3.5-5.1); SODIUM LEVEL 140 MEQ/L (136-145)
[2021-05-29] MEDS: traZODone 50 MG TAB PO PRN (20:19)
[2021-05-29] MEDS ORDERED: QUEtiapine FUMARATE 50MG TAB PO SCH (21:00)
[2021-05-30] MEDS: LEVOTHYROXINE 100MCG TABLET (0.1MG) PO SCH (05:47)
[2021-05-30 06:39] VITALS: BP 137/63
[2021-05-30 09:00] VITALS: BP 106/56
[2021-05-30] MEDS: amLODIPine 5 MG TAB PO SCH (09:00)
[2021-05-30] MEDS: ASPIRIN 81 MG CHEW TABLET PO SCH (09:32)
[2021-05-30] MEDS: GABAPENTIN 300 MG CAP PO SCH ×2 (09:32→15:36)
[2021-05-30] MEDS: tiZANidine 4 MG TAB PO SCH ×2 (09:33→15:36)
[2021-05-30] MEDS: SERTRALINE HCL 25 MG TABLET PO SCH (09:33)
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
[2021-05-30 18:49] VITALS: BP 100/60
--- NOTE | 2021-05-31 07:25 | ECGEPIP ---
[facility] Test Date: 2021-05-30 Pat Name: PAULETTE MOORE Department: Room: [place] [address] Gender: Female Borematic Operator: ZEINAB : 1960 Requested By: FANI Koch Order Number: [id number] Reading MD: Holly Shannon Measurements Intervals [place] Rate: 49 P: 38 NH: 122 QRS: 71 QRSD: 98 T: 63 QT: 440 QTc: 397 Interpretive Statements Sinus bradyca/ATRIAL BIGEMINY SUSPECTED RHYTHM CHANGE C/W 02/08/20 Electronically Signed on 05-31-2021 7:25:33 EDT by Holly Shannon
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
== END 2021-05-30 22:09 | disposition short-term general hospital (02) | DRG 751 ==
LOC: M ED 20:08 → M ED INP 05-28 14:29 → M PSY 05-28 16:06
PROVIDERS: ADMIT Student in an Organized Health Care Education/Training Program; ATTEND Psychiatry & Neurology Psychiatry
DX: F29 Unspecified psychosis not due to a substance or known physiological condition (principal); F17.210 Nicotine dependence, cigarettes, uncomplicated; F12.10 Cannabis abuse, uncomplicated; Z88.8 Allergy status to other drugs, medicaments and biological substances; R00.1 Bradycardia, unspecified; I10 Essential (primary) hypertension; E03.9 Hypothyroidism, unspecified; Z90.49 Acquired absence of other specified parts of digestive tract; Z90.79 Acquired absence of other genital organ(s); N80.9 Endometriosis, unspecified; E87.6 Hypokalemia; R26.81 Unsteadiness on feet; Z20.822 Contact with and (suspected) exposure to COVID-19; Z56.0 Unemployment, unspecified

== ENCOUNTER 2021-05-30 19:41 | Observation (INO) | payer MEDICAID ==
[~2021-05-30] VITALS: Ht 172.7 cm; Wt 67.7 kg
[2021-05-30] MEDS ORDERED: NS 1,000 ML IV SCH (19:45)
--- NOTE | 2021-05-30 19:56 | HPEPDOC ---
[facility] Medical History & Physical Date of Admission May 30, 2021 Date of Service: May 30, 2021 History and Physical CHIEF COMPLAINT: Bradycardia HISTORY OF PRESENT ILLNESS: 58-year-old transferred from [facility] with Paranoid delusions with some visual hallucinations having been found to have sinus bradycardia with low BP and unsteady gait. Admitted for observation to medical service. Suspected to be medication induced. REVIEW OF SYSTEMS: 10 point review of systems completed and negative except as in HPI. ALLERGIES: See chart PAST MEDICAL/SURGICAL HISTORY: Hypertension Hypothyroidism Endometriosis History of kidney stones History of GI bleed Hysterectomy Appendectomy SOCIAL HISTORY: Drinks alcohol socially Cannabis use FAMILY HISTORY: Mother DM PHYSICAL EXAMINATION: Constitutional: Awake and alert ENT: Sclera are clear. Mucosa is moist. Respiratory: Lungs CTA bilaterally. Cardiovascular: Sinus bradycardia Gastrointestinal: Abdomen is soft, non distended, non tender, BS present. Musculoskeletal: No edema. Neurologic: No focal neurological deficit. Mental Status: A&O x3 LABORATORY DATA: As noted above IMAGING: None MICROBIOLOGY: Please see below. ASSESSMENT: 58-year-old transferred from [facility] with Paranoid delusions with some visual hallucinations having been found to have sinus bradycardia with low BP and unsteady gait. Admitted for observation to medical service. Suspected to be medication induced. PLAN: # Symptomatic bradycardia: hypotensive, unsteady on feet. Likely from medications, hold gabapentin and tizanidine. Ok for sertraline and Zoloft for now. IVFs. Tele monitoring. Repeat EKG in AM. PT eval. # Hypotension: IVFs. Monitor on tele. Hold antihypertensives. Obtain orthostats. # Paranoid delusions with some visual hallucinations: per psych # Hypothyroidism: continue 100mg levothyroxine. # HTN: currently borderline BP. Hold amlodipine. Start IVFs. # DVT ppx: lovenox Dispo: back to [facility] once medically stable A [facility] Hospitalist Home Medications No Active Prescriptions or Reported Meds Allergies Coded Allergies: MARIO Inhibitors (Verified Adverse Reaction, Intermediate, COUGH, 05/27/21) COUGH duloxetine (Verified Adverse Reaction, Intermediate, HALLUCINATIONS, 05/27/21) HALLUCINATIONS MARITZA GURROLA MD May 30, 2021 19:56
[2021-05-30] MEDS ORDERED: HOME MED LIST COMPLETE! XX SCH (20:00)
[2021-05-30 22:11] VITALS: BP 112/56
[2021-05-30 22:59] LABS: HEMATOCRIT 33.4 % (36.0-47.0); HEMOGLOBIN 10.9 g/dl (12.0-15.5); MEAN CORPUSCULAR HEMOGLOBIN 32.6 pg (27.0-33.0); MEAN CORPUSCULAR HGB CONC 32.6 g/dl (32.0-36.5); PLATELET COUNT, AUTOMATED 172 10^3/uL (150-450); RED BLOOD COUNT 3.34 10^6/uL (4.00-5.40); WHITE BLOOD COUNT 7.1 10^3/uL (4.0-10.0)
[2021-05-30 23:23] LABS: BLOOD UREA NITROGEN 19 MG/DL (7-18); CARBON DIOXIDE LEVEL 30 MEQ/L (21-32); CHLORIDE LEVEL 105 MEQ/L (98-107); GLOMERULAR FILTRATION RATE > 60.0 (>51); GLUCOSE, FASTING 96 MG/DL (70-100); POTASSIUM SERUM 4.4 MEQ/L (3.5-5.1); SODIUM LEVEL 139 MEQ/L (136-145)
[2021-05-31 00:30] VITALS: BP_SYST 112; BP_SYST 113; BP_DIAS 56; BP_DIAS 57
[2021-05-31 06:00] VITALS: BP 125/60
[2021-05-31 06:42] LABS: HEMATOCRIT 33.5 % (36.0-47.0); HEMOGLOBIN 10.9 g/dl (12.0-15.5); MEAN CORPUSCULAR HEMOGLOBIN 32.2 pg (27.0-33.0); MEAN CORPUSCULAR HGB CONC 32.5 g/dl (32.0-36.5); MEAN CORPUSCULAR VOLUME 99.1 fl (80.0-96.0); PLATELET COUNT, AUTOMATED 181 10^3/uL (150-450); RED BLOOD COUNT 3.38 10^6/uL (4.00-5.40)
[2021-05-31 07:09] LABS: BLOOD UREA NITROGEN 17 MG/DL (7-18); CALCIUM LEVEL 9.1 MG/DL (8.5-10.1); CARBON DIOXIDE LEVEL 31 MEQ/L (21-32); CHLORIDE LEVEL 107 MEQ/L (98-107); CREATININE FOR GFR 0.78 MG/DL (0.55-1.30); GLOMERULAR FILTRATION RATE > 60.0 (>51); GLUCOSE, FASTING 80 MG/DL (70-100); POTASSIUM SERUM 4.4 MEQ/L (3.5-5.1); SODIUM LEVEL 141 MEQ/L (136-145)
--- NOTE | 2021-05-31 07:33 | ECGEPIP ---
[facility] Test Date: 2021-05-31 Pat Name: PAULETTE MOORE Department: Room: [place] [address] Gender: Female Hand Surgeon: gianna : 1960 Requested By: MARITZA Jin Order Number: [id number] Reading MD: Holly Shannon Measurements Intervals [place] Rate: 58 P: 56 SC: 136 QRS: 65 QRSD: 98 T: 43 QT: 404 QTc: 396 Interpretive Statements Sinus bradycardia// GENERALIZED LOW VOLT NEW // PACS ABSENT C/W 05/30/21 NEW STTW ABN PROB NONSPECIFIC Electronically Signed on 05-31-2021 7:33:46 EDT by Holly Shannon
[2021-05-31] MEDS ORDERED: ENOXAPARIN 40MG/0.4ML SYRINGE (J1650 PER 10MG) SC SCH (09:00)
[2021-05-31 14:00] VITALS: BP 121/59
--- NOTE | 2021-05-31 14:21 | DS.PDOC ---
Discharge Summary General Date of Admission May 30, 2021 at 22:13 Date of Discharge 05/31/21 Discharge Summary PROCEDURES PERFORMED DURING STAY: [None]. DISCHARGE DIAGNOSES: Sinus bradycardia Secondary diagnosis: History of hypertension now resolved Subclinical hypothyroidism Endometriosis History of kidney stones History of GI bleed Hysterectomy Appendectomy COMPLICATIONS/CHIEF COMPLAINT: Bradycardia. HOSPITAL COURSE: 58-year-old was transferred from [facility] to [facility] for sinus bradycardia with low BP and unsteady gait. Was admitted for observation to medical service. Observation overnight and telemetry shows sinus bradycardia lowest in mid 40s during sleep as symptomatic. Patient does report that she was not alert when she was young and her pulse has always been low for the past 30 years. EKG sinus bradycardia without any signs of acute ischemia. Her blood pressure was normal without any orthostatic drop. No gait instability was noted here. Her symptoms from last night was thought to be most like related to medication. Chart review shows that she has lost 25 kg in the past 1 year. I think with her weight loss her blood pressure has improved and she does not need any blood pressure medication at this time. Her TSH shows that she is has subclinical hypothyroidism and not sure if she was taking her Synthroid at home or not. If she was taking Synthroid at home regularly her dose should be reduced to half. If she was not taking any Synthroid at home she does not need it at this time. DISCHARGE MEDICATIONS: Please see below. ALLERGIES: Please see below. PHYSICAL EXAMINATION ON DISCHARGE: VITAL SIGNS: Please see below. GENERAL: Awake alert oriented x3 lying down in bed in no acute distress HEENT: Normocephalic atraumatic moist mucous membranes anicteric eyes NECK: Supple no JVD CARDIOVASCULAR EXAMINATION: S1-S2 regular rate reduced no rub murmur gallop RESPIRATORY EXAMINATION: Bilateral vesicular breath sounds no added sounds ABDOMINAL EXAMINATION: Soft nontender bowel sounds regular EXTREMITIES: No edema LABORATORY DATA: Please see below. ACTIVITY: [As tolerated]. DIET: Regular DISCHARGE PLAN: Inpatient mental health DISCHARGE CONDITION: [Stable]. TIME SPENT ON DISCHARGE: 35 minutes. Vital Signs/I&Os Vital Signs Date Time Temp Pulse Resp B/P (MAP) Pulse Ox O2 Delivery O2 Flow Rate FiO2 05/31/21 06:00 97.9 58 18 125/60 (81) 97 Room Air I&O- Last 24 Hours up to 6 AM 05/31/21 05:59 Intake Total 150 ml Output Total 0 ml Balance 150 ml Laboratory Data Labs 24H Laboratory Tests 2 05/30/21 22:47: Nucleated Red Blood Cells % (auto) 0.0, Anion Gap 4L, Glomerular Filtration Rate > 60.0, Calcium Level 9.0 05/31/21 05:58: Nucleated Red Blood Cells % (auto) 0.0, Anion Gap 3L, Glomerular Filtration Rate > 60.0, Calcium Level 9.1 CBC/BMP Laboratory Tests 05/30/21 22:47 05/31/21 05:58 Discharge Medications No Active Prescriptions or Reported Meds Allergies Coded Allergies: MARIO Inhibitors (Verified Adverse Reaction, Intermediate, COUGH, 05/27/21) COUGH duloxetine (Verified Adverse Reaction, Intermediate, HALLUCINATIONS, 05/27/21) HALLUCINATIONS Argenis Dugan MD May 31, 2021 14:21
--- NOTE | 2021-05-31 17:05 | MHIPNPDOC ---
[facility] Progress Note Progress Note DATE OF SERVICE: 05/31/21 Patient was evaluated, she is still delusional, she has been medically cleared by Medicine, can go back to [facility] Vital Signs Vital Signs Date Time Temp Pulse Resp B/P (MAP) Pulse Ox O2 Delivery O2 Flow Rate FiO2 05/31/21 14:00 97.6 55 17 121/59 (79) 99 Room Air Laboratory Data 24H Labs Laboratory Tests 2 05/30/21 22:47: Nucleated Red Blood Cells % (auto) 0.0, Anion Gap 4L, Glomerular Filtration Rate > 60.0, Calcium Level 9.0 05/31/21 05:58: Nucleated Red Blood Cells % (auto) 0.0, Anion Gap 3L, Glomerular Filtration Rate > 60.0, Calcium Level 9.1 CBC/BMP Laboratory Tests 05/30/21 22:47 05/31/21 05:58 Current Medications Current Medications Medications (Trade) Dose Ordered Sig/Rylan Route PRN Reason Start Time Stop Time Status Last Admin Dose Admin Enoxaparin Sodium (Lovenox) 40 mg DAILY SC 05/31/21 09:00 05/31/21 10:11 Home Med (Home Med List Complete!) ASDIRECTED XX 05/30/21 20:00 05/30/21 22:14 DC Sodium Chloride 1,000 ml @ 120 mls/hr Q8H20M IV 05/30/21 19:45 05/31/21 10:10 DC 05/31/21 00:38 Allergies Coded Allergies: MARIO Inhibitors (Verified Adverse Reaction, Intermediate, COUGH, 05/27/21) COUGH duloxetine (Verified Adverse Reaction, Intermediate, HALLUCINATIONS, 05/27/21) HALLUCINATIONS GINI KRUEGER MD May 31, 2021 17:05
== END 2021-05-31 18:15 ==
LOC: INTOOBSV 22:13 → M MSPAV 22:13
PROVIDERS: ADMIT Family Medicine; ATTEND Family Medicine
DX: R00.1 Bradycardia, unspecified (principal); E03.9 Hypothyroidism, unspecified; N80.9 Endometriosis, unspecified; Z88.8 Allergy status to other drugs, medicaments and biological substances; Z79.899 Other long term (current) drug therapy
CPT/HCPCS: 36415; 80048; 85027; 93005; 96360; 96361; 96372; 97116; 97161; J1650

== ENCOUNTER 2021-05-31 14:48 | Inpatient (IN) | payer MEDICAID ==
[~2021-05-31] VITALS: Ht 172.7 cm; Wt 74.5 kg
[2021-05-31] MEDS ORDERED: MOM 30ML SUSPENSION UDC PO PRN (17:05)
[2021-05-31] MEDS ORDERED: MAALOX 30 ML SUSP *UDC PO PRN (17:05)
[2021-05-31] MEDS ORDERED: HOME MED LIST COMPLETE! XX SCH (19:20)
[2021-05-31] MEDS: QUEtiapine FUMARATE 25 MG TAB PO SCH (20:19)
[2021-05-31] MEDS: ACETAMINOPHEN TAB 650MG DOSE (2X325MG) PO PRN (20:21)
[2021-06-01 06:00] VITALS: BP 120/52
[2021-06-01] MEDS: LEVOTHYROXINE 100MCG TABLET (0.1MG) PO SCH (06:10)
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
[2021-06-01 19:01] VITALS: BP 120/74
[2021-06-01] MEDS: GABAPENTIN 100 MG CAP PO SCH (20:31)
[2021-06-01] MEDS: QUEtiapine FUMARATE 25 MG TAB PO SCH (20:31)
[2021-06-02 06:00] VITALS: BP 112/50
[2021-06-02] MEDS: LEVOTHYROXINE 100MCG TABLET (0.1MG) PO SCH (06:25)
--- NOTE | 2021-06-02 11:44 | MHIPNPDOC ---
[facility] Progress Note Progress Note DATE OF SERVICE: 06/02/21 HISTORY: Patient is a 60 -year-old , female, who was admitted to [facility] a few days ago and shortly after she became hypotensive and bradycardic. She was transferred to the Medical floor for treatment and yesterday she was discharged from the Medical floor because she was medically clear. When this writer editor spoke with her, she said that she would not oppse to go back to [facility] even when she was still very worried about " a whole bunch of homeless people living at her house" ( she was still delusional). Her medications were adjusted once re admitted. Please refer to previous notes for previous history VITAL SIGNS: See below. NEW TEST RESULTS: See below CURRENT MEDICATIONS: See below. MENTAL STATUS EXAMINATION: General Appearance: well groomed, ds/not appear stated age (appears to be older), hospital scrubs/clothing Build: thin Demeanor: average Eye Contact: average Activity: calm, cooperative Behavior: cooperative Speech: clear, spontaneous Mood: anxious ( about the people she says are living in her house) Affect: anxious, congruent with mood Thought Process: incoherent Thought Content (Delusions): persecutory, bizarre, paranoia, delusions Thought Content (Other): preoccupied, ideas of reference, appears paranoid, has bizarre delusions about "mean people" living at her house Thought Content (Aggressive): none reported Perception (Hallucinations): none reported Perception (Other): none reported Cognition (Impairment of): none reported Cognition(Intelligence Est.): average Oriented: Awake, Alert (She's not fully oriented to date and time) Insight: poor Judgment: Poor Psychosis: Associations, Psychotic Perceptions Diagnoses 1. Unspecified psychotic disorder 2. R/O delusional disorder ASSESSMENT: She is still psychotic, today she will recieve Abilify 5 mgs PO BID. I'm slowly increasing it because her blood pressure and heart rate tend to get low. MANAGEMENT PLAN: Continue with the same treatment plan TIME SPENT: 20 minutes. Vital Signs Vital Signs Date Time Temp Pulse Resp B/P (MAP) Pulse Ox O2 Delivery O2 Flow Rate FiO2 06/02/21 06:00 98.6 62 16 112/50 (70) 97 Current Medications Current Medications Medications (Trade) Dose Ordered Sig/Rylan Route PRN Reason Start Time Stop Time Status Last Admin Dose Admin Acetaminophen (Tylenol Tab) 650 mg Q6HP PRN PO HEADACHE or MILD DISCOMFORT 05/31/21 17:05 05/31/21 20:21 Al Hydrox/Mg Hydrox/Simethicone (Mylanta) 30 ml Q4HP PRN PO HEARTBURN/INDIGESTION 05/31/21 17:05 Aripiprazole (AbiLIFY) 5 mg DAILY PO 06/01/21 09:00 06/02/21 09:17 Gabapentin (Neurontin) 100 mg QHS PO 06/01/21 21:00 06/01/21 20:31 Home Med (Home Med List Complete!) ASDIRECTED XX 05/31/21 19:20 05/31/21 19:22 DC Levothyroxine Sodium (Synthroid) 100 mcg DAILY@06 PO 06/01/21 06:00 06/02/21 06:25 Magnesium Hydroxide (Milk Of Magnesia) 30 ml DAILYPRN PRN PO CONSTIPATION 05/31/21 17:05 Miscellaneous (Unresolved Clarification Entry) SEE LABEL COMMENTS DAILY@2100 XX 05/31/21 21:00 06/01/21 22:28 DC 05/31/21 21:00 Quetiapine Fumarate (SEROquel) 25 mg QHS PO 05/31/21 21:00 06/01/21 20:31 Allergies Coded Allergies: MARIO Inhibitors (Verified Adverse Reaction, Intermediate, COUGH, 05/27/21) COUGH duloxetine (Verified Adverse Reaction, Intermediate, HALLUCINATIONS, 05/27/21) HALLUCINATIONS GINI KRUEGER MD Jun 02, 2021 11:37
[2021-06-02 16:55] VITALS: BP 112/53
[2021-06-02] MEDS: GABAPENTIN 100 MG CAP PO SCH (20:25)
[2021-06-02] MEDS: QUEtiapine FUMARATE 25 MG TAB PO SCH (20:26)
[2021-06-03] MEDS: LEVOTHYROXINE 100MCG TABLET (0.1MG) PO SCH (05:28)
[2021-06-03 06:11] VITALS: BP 120/56
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
[2021-06-03] MEDS: ACETAMINOPHEN TAB 650MG DOSE (2X325MG) PO PRN ×2 (09:28→20:58)
[2021-06-03 16:25] VITALS: BP 140/71
[2021-06-03] MEDS: GABAPENTIN 100 MG CAP PO SCH (20:56)
[2021-06-03] MEDS: QUEtiapine FUMARATE 25 MG TAB PO SCH (20:56)
[2021-06-04] MEDS: LEVOTHYROXINE 100MCG TABLET (0.1MG) PO SCH (05:38)
[2021-06-04 05:53] VITALS: BP 102/60
[2021-06-04] MEDS: ACETAMINOPHEN TAB 650MG DOSE (2X325MG) PO PRN (09:13)
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
[2021-06-04] MEDS: GABAPENTIN 100 MG CAP PO SCH ×3 (10:22→21:02)
[2021-06-04 16:06] VITALS: BP 138/67
[2021-06-04] MEDS: QUEtiapine FUMARATE 25 MG TAB PO SCH (21:01)
[2021-06-05] MEDS: LEVOTHYROXINE 100MCG TABLET (0.1MG) PO SCH (05:48)
[2021-06-05 06:51] VITALS: BP 128/60
[2021-06-05] MEDS: GABAPENTIN 100 MG CAP PO SCH ×3 (08:18→20:16)
--- NOTE | 2021-06-05 12:21 | MHIPNPDOC ---
[facility] Progress Note Progress Note DATE OF SERVICE: 06/05/21 HISTORY: Patient is a 60 -year-old , female, who was admitted to [facility] a few days ago and shortly after she became hypotensive and bradycardic. She was transferred to the Medical floor for treatment and yesterday she was discharged from the Medical floor because she was medically clear. When this program writer spoke with her, she said that she would not oppse to go back to [facility] even when she was still very worried about " a whole bunch of homeless people living at her house" ( she was still delusional). Her medications were adjusted once re admitted. Please refer to previous notes for previous history VITAL SIGNS: See below. NEW TEST RESULTS: See below CURRENT MEDICATIONS: See below. MENTAL STATUS EXAMINATION: General Appearance: well groomed, ds/not appear stated age (appears to be older), hospital scrubs/clothing Build: thin Demeanor: cooperatibe/pleasant Eye Contact: average Activity: calm, cooperative Behavior: cooperative Speech: clear, spontaneous, conversant Mood: euthymic Affect: euthymic Thought Process: delusional Thought Content (Delusions): delusions Thought Content (Other): preoccupied,continues to have has delusions about people living at her house and making methamphetamine in the basement Thought Content (Aggressive): none reported Perception (Hallucinations): none reported Perception (Other): none reported Cognition (Impairment of): none reported Cognition(Intelligence Est.): average Oriented: Awake, Alert (She's not fully oriented to date and time) Insight: fair Judgment: fair Psychosis: fixed delusions Diagnoses 1. Unspecified psychotic disorder 2. R/O delusional disorder ASSESSMENT: Patient is pleasant and cooperative. She has a lengthy conversation about the scuttlebutt between male and female peers on the unit. She denies depression and anxiety and is social with peers, attends group and participates in the milieu. She has no complaints about sleep or appetite. Denies auditory hallucinations. Continues with her fixed delusions. Encouraged patient to accept case management services and when this is completed we will discharge patient. She is requesting to be moved to a new apartment. Have reinforced with patient that hospital staff cannot provide this service but case management can be utilized. MANAGEMENT PLAN: Continue with medications and supportive therapy. Will discharge when stable. TIME SPENT: 25 minutes. Vital Signs Vital Signs Date Time Temp Pulse Resp B/P (MAP) Pulse Ox O2 Delivery O2 Flow Rate FiO2 06/05/21 06:51 97.5 58 18 128/60 (82) 98 Room Air Current Medications Current Medications Medications (Trade) Dose Ordered Sig/Rylan Route PRN Reason Start Time Stop Time Status Last Admin Dose Admin Acetaminophen (Tylenol Tab) 650 mg Q6HP PRN PO HEADACHE or MILD DISCOMFORT 05/31/21 17:05 06/04/21 10:07 DC 06/04/21 09:13 Al Hydrox/Mg Hydrox/Simethicone (Mylanta) 30 ml Q4HP PRN PO HEARTBURN/INDIGESTION 05/31/21 17:05 Aripiprazole (AbiLIFY) 5 mg BID PO 06/02/21 21:00 06/05/21 08:19 Aripiprazole (AbiLIFY) 5 mg DAILY PO 06/01/21 09:00 06/02/21 11:42 DC 06/02/21 09:17 Gabapentin (Neurontin) 100 mg QHS PO 06/01/21 21:00 06/04/21 10:07 DC 06/03/21 20:56 Gabapentin (Neurontin) 100 mg TID PO 06/04/21 09:00 06/05/21 08:18 Home Med (Home Med List Complete!) ASDIRECTED XX 05/31/21 19:20 05/31/21 19:22 DC Ibuprofen (Advil) 600 mg Q6HP PRN PO MODERATE PAIN (PS 5-7) 06/04/21 10:05 Levothyroxine Sodium (Synthroid) 100 mcg DAILY@06 PO 06/01/21 06:00 06/05/21 05:48 Magnesium Hydroxide (Milk Of Magnesia) 30 ml DAILYPRN PRN PO CONSTIPATION 05/31/21 17:05 Miscellaneous (Unresolved Clarification Entry) SEE LABEL COMMENTS DAILY@2100 XX 05/31/21 21:00 06/01/21 22:28 DC 05/31/21 21:00 Quetiapine Fumarate (SEROquel) 25 mg QHS PO 05/31/21 21:00 06/04/21 21:01 Allergies Coded Allergies: MARIO Inhibitors (Verified Adverse Reaction, Intermediate, COUGH, 05/27/21) COUGH duloxetine (Verified Adverse Reaction, Intermediate, HALLUCINATIONS, 05/27/21) HALLUCINATIONS MELGAR,SHANTI STEMHOLE BORER Jun 05, 2021 12:21
[2021-06-05 16:14] VITALS: BP 145/65
[2021-06-05] MEDS: IBUPROFEN 600MG TAB PO PRN (20:16)
[2021-06-05] MEDS: QUEtiapine FUMARATE 25 MG TAB PO SCH (20:16)
[2021-06-06] MEDS: LEVOTHYROXINE 100MCG TABLET (0.1MG) PO SCH (05:39)
[2021-06-06 06:52] VITALS: BP 146/66
[2021-06-06] MEDS: GABAPENTIN 100 MG CAP PO SCH ×3 (08:35→20:16)
[2021-06-06 14:00] VITALS: BP 158/74
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
[2021-06-06 16:00] VITALS: BP 158/74
[2021-06-06] MEDS: IBUPROFEN 600MG TAB PO PRN (20:16)
[2021-06-06] MEDS: QUEtiapine FUMARATE 25 MG TAB PO SCH (20:16)
[2021-06-07] MEDS: LEVOTHYROXINE 100MCG TABLET (0.1MG) PO SCH (05:48)
[2021-06-07 06:17] VITALS: BP 105/51
[2021-06-07] MEDS: GABAPENTIN 100 MG CAP PO SCH ×3 (08:38→20:25)
[2021-06-07] MEDS: IBUPROFEN 600MG TAB PO PRN ×2 (08:39→20:25)
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
[2021-06-07 16:11] VITALS: BP 125/59
[2021-06-07] MEDS: QUEtiapine FUMARATE 25 MG TAB PO SCH (20:25)
[2021-06-08] MEDS: LEVOTHYROXINE 100MCG TABLET (0.1MG) PO SCH (05:47)
[2021-06-08 06:13] VITALS: BP 141/62
[2021-06-08] MEDS: GABAPENTIN 100 MG CAP PO SCH ×3 (09:12→20:24)
[2021-06-08] MEDS: IBUPROFEN 600MG TAB PO PRN (11:43)
[2021-06-08 16:28] VITALS: BP 123/58
[2021-06-08] MEDS: QUEtiapine FUMARATE 25 MG TAB PO SCH (20:24)
[2021-06-09] MEDS: LEVOTHYROXINE 100MCG TABLET (0.1MG) PO SCH (05:54)
[2021-06-09 05:59] VITALS: BP 132/50
[2021-06-09] MEDS: GABAPENTIN 100 MG CAP PO SCH ×3 (08:56→20:44)
[2021-06-09] MEDS: IBUPROFEN 600MG TAB PO PRN (08:57)
[2021-06-09 16:32] VITALS: BP 127/60
[2021-06-09] MEDS: QUEtiapine FUMARATE 25 MG TAB PO SCH (20:44)
[2021-06-10] MEDS: LEVOTHYROXINE 100MCG TABLET (0.1MG) PO SCH (05:50)
[2021-06-10 07:07] VITALS: BP 142/74
[2021-06-10] MEDS: GABAPENTIN 100 MG CAP PO SCH ×3 (09:27→20:17)
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
[2021-06-10 17:38] VITALS: BP 152/72
[2021-06-10 17:41] VITALS: BP 152/72
[2021-06-10] MEDS: ARIPiprazole 10 MG TAB PO SCH (20:17)
[2021-06-10] MEDS: QUEtiapine FUMARATE 25 MG TAB PO SCH (20:17)
[2021-06-11 06:00] VITALS: BP 135/61
[2021-06-11] MEDS: LEVOTHYROXINE 100MCG TABLET (0.1MG) PO SCH (06:05)
[2021-06-11] MEDS ORDERED: QUET1TAB17 PO (09:15)
[2021-06-11] MEDS ORDERED: LEVO100T5 PO (09:15)
[2021-06-11] MEDS ORDERED: GABA-1171 PO (09:15)
[2021-06-11] MEDS ORDERED: ABIL10TA9 PO (09:15)
[2021-06-11] MEDS: GABAPENTIN 100 MG CAP PO SCH ×3 (09:24→20:10)
[2021-06-11] MEDS: ARIPiprazole 10 MG TAB PO SCH ×2 (09:24→20:10)
--- NOTE | 2021-06-11 19:00 | HPEPDOC ---
General Date of Admission May 31, 2021 at 18:50 Date of Service: Jun 01, 2021 Chief Complaint The patient is a 60-year-old female admitted with a reason for visit of Unspecified Psychotic D/O. Source: Patient History of Present Illness 60 year old male was admitted to [facility] initially on 05/28/21 for unspecified psychotic disorder, Marihuana use disorder. While in Mental health she was noted to be bradycardic and was having low bps and difficulty in ambulating so was transferred to Medicine for evaluation. She was monitored on telemetry and found to have asymptomatic sinus bradycardia with lowest in 40s during sleep. EKG was normal with sinus bradycardia. She was given some IVF and her blood pressures were normal. Her symptoms were felt to be medication related and had resolved. She was transferred back to [facility] for her psychosis , persistent delusions. Home Medications Scheduled Aripiprazole (Abilify) 10 Mg Tablet, 20 MG PO QHS for Psychosis Gabapentin (Gabapentin) 100 Mg Capsule, 100 MG PO TID for Nerve Pain Levothyroxine Sodium (Levothyroxine Sodium) 100 Mcg Tablet, 100 MCG PO DAILY@06 for Thyroid Take one tablet in the morning one hour before breakfast. Quetiapine Fumarate (Quetiapine Fumarate) 25 Mg Tablet, 25 MG PO QHS for Sleep Take one tablet at bedtime Allergies Coded Allergies: MARIO Inhibitors (Verified Adverse Reaction, Intermediate, COUGH, 05/27/21) COUGH duloxetine (Verified Adverse Reaction, Intermediate, HALLUCINATIONS, 05/27/21) HALLUCINATIONS Past Medical History Medical History H/O Hypertension. H/O Hypothyroidism. Endometriosis. History of GI bleed and polyps on colonoscopy. History of kidney stones. Sinus bradycardia Surgical History Hysterectomy. Appendectomy. Family History Mother had type 2 diabetes and osteoporosis. Social History * Smoker: Denies Alcohol: occationally Drugs: marijuana A-FIB/CHADSVASC A-FIB History Current/History of A-Fib/PAF?: No Review of Systems Constitutional: Denies: Chills, Fever, Night Sweats Eyes: Denies: Pain, Vision change ENT: Denies: Head Aches, Ear Pain, Dysphagia Skin: Denies: Rash, Lesions, Breakdown Pulmonary: Denies: Dyspnea, Cough Cardiovascular: Denies: Chest Pain, Palpitations, Orthopnea, Paroxysmal Noc. Dyspnea, Lt Headedness Gastrointestinal: Denies: Nausea, Vomiting, Abdominal Pain, Diarrhea Genitourinary: Denies: Dysuria, Frequency, Incontinence, Retention Physical Examination General Exam: Positive: Alert, Cooperative, No Acute Distress Eye Exam: Positive: PERRLA, Conjunctiva & lids normal, EOMI; Negative: Sclera icteric ENT Exam: Positive: Atraumatic, Mucous membr. moist/pink, Pharynx Normal Neck Exam: Positive: Supple; Negative: JVD, thyromegaly Chest Exam: Positive: Clear to auscultation, Normal air movement Heart Exam: Positive: Rate Normal, Regular Rhythm, Normal S1, Normal S2; Negative: Murmurs, Rubs Abdomen Exam: Positive: Normal bowel sounds, Soft; Negative: Tenderness Extremity Exam: Positive: Normal pulses; Negative: Clubbing, Cyanosis, Edema Assessment/Plan 60 year old male was admitted to [facility] initially on 05/28/21 for unspecified psychotic disorder, Marihuana use disorder. While in Mental health she was noted to be bradycardic and was having low bps and difficulty in ambulating so was transferred to Medicine for evaluation. She was monitored on telemetry and found to have asymptomatic sinus bradycardia with lowest in 40s during sleep. EKG was normal with sinus bradycardia. She was given some IVF and her blood pressures were normal. Her symptoms were felt to be medication related and had resolved. She was transferred back to [facility] for her psychosis , persistent delusions. Psychosis/persistent delusion As per [facility] you Hypotension Now resolved Thought to be due to medications gabapentin and tizanidine. Tizanidine was stopped. Gabapentin dose was reduced from 300 tid to 100 tid. Sinus bradycardia As symptomatic Patient is not on any medication that can cause bradycardia. Hypothyroid Continue Synthroid 100 MCG for now Recheck TSH in 2-week and adjust dose. Plan / VTE VTE Prophylaxis Ordered?: No (Fully ambulatory) Argenis Dugan MD Jun 01, 2021 07:31
[2021-06-11 19:20] VITALS: BP 133/62
[2021-06-11] MEDS: QUEtiapine FUMARATE 25 MG TAB PO SCH (20:10)
[2021-06-12] MEDS: LEVOTHYROXINE 100MCG TABLET (0.1MG) PO SCH (05:45)
[2021-06-12 06:00] VITALS: BP 143/66
[2021-06-12] MEDS: GABAPENTIN 100 MG CAP PO SCH (08:44)
[2021-06-12] MEDS: ARIPiprazole 10 MG TAB PO SCH (08:44)
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
== END 2021-06-12 13:10 | disposition home or self-care (01) | DRG 751 ==
LOC: M PSY 18:50
PROVIDERS: ADMIT Psychiatry & Neurology Psychiatry; ATTEND Psychiatry & Neurology Psychiatry
DX: F29 Unspecified psychosis not due to a substance or known physiological condition (principal); F22 Delusional disorders; Z88.8 Allergy status to other drugs, medicaments and biological substances; F17.210 Nicotine dependence, cigarettes, uncomplicated; F12.10 Cannabis abuse, uncomplicated; I10 Essential (primary) hypertension; E03.9 Hypothyroidism, unspecified; Z90.49 Acquired absence of other specified parts of digestive tract; Z90.79 Acquired absence of other genital organ(s); N80.9 Endometriosis, unspecified; R26.81 Unsteadiness on feet; I95.9 Hypotension, unspecified; R00.1 Bradycardia, unspecified

== ENCOUNTER 2021-06-22 01:58 | Emergency (ER) | payer MEDICAID, OTHER ==
[~2021-06-22] VITALS: Ht 175.3 cm; Wt 74.6 kg
[~2021-06-22 01:58] MED LIST changes: +ABIL10TA9 PO; +GABA-1171 PO; +QUET1TAB17 PO
--- OUTSIDE RECORDS SUMMARY | 2021-06-22 02:07 | CCD ---
Author Author [facility] Address Unknown Phone Unavailable Support Name Relationship Address Phone THOMPSONJOCELYNE Next Of Kin Unknown Allan Thompson Next Of Kin Unknown Unavailable SULEMAN THOMPSON Next Of Kin [address] [place] [id number] Danette LUU, Scott Next Of Kin [address] [place] [id number] Vega VICK, Johana Next Of Kin [address] [place] [address] Tonia Whelan Next Of Kin [address] [place] [phone] NO, CONTACT Next Of Kin [address] [place] [address] Joanne LUU, Paulette Next Of Kin [address] [place] [phone] Rhett Dawson MD Next Of Kin [address] [place] [address] DISABLED Next Of Kin Unknown Unavailable UE Next Of Kin Unknown Unavailable UMER STAHL Next Of Kin [address] [place] [address] [place] [address] VAL STAHL Next Of Kin [address] [place] [phone] TRINA STAHL Next Of Kin [address] [place] [phone] STREAM Next Of Kin [address] [id number] SULEMAN THOMPSON ECON [address] [place] [phone] Unavailable NO EMERGENCY, CONTACT E[place] [address] [place] [address] Unavailable no, [place] [id number] Care Team Providers Care Assembling Motor Builder Name Role Phone Tomas Palominoja LABORATORY CHEMICAL ASSISTANT Unavailable Unavailable Kocan, J Geno LABORATORY CHEMICAL ASSISTANT Unavailable Unavailable Kocan, J Geno LABORATORY CHEMICAL ASSISTANT Unavailable Unavailable Kocan, J Geno LABORATORY CHEMICAL ASSISTANT Unavailable Unavailable Kocan, J Geno LABORATORY CHEMICAL ASSISTANT Unavailable Unavailable Kocan, J Geno LABORATORY CHEMICAL ASSISTANT Unavailable Unavailable Kocan, J Geno LABORATORY CHEMICAL ASSISTANT Unavailable Unavailable Kocan, J Geno LABORATORY CHEMICAL ASSISTANT Unavailable Unavailable Kocan, J Geno LABORATORY CHEMICAL ASSISTANT Unavailable Unavailable Kocan, J Geno LABORATORY CHEMICAL ASSISTANT Unavailable Unavailable Kocan, J Geno LABORATORY CHEMICAL ASSISTANT Unavailable Unavailable Kocan, J Geno LABORATORY CHEMICAL ASSISTANT Unavailable Unavailable Kocan, J Geno LABORATORY CHEMICAL ASSISTANT Unavailable Unavailable Tameka, Ivan MD Unavailable Unavailable Tameka, Ivan MD Unavailable Unavailable Tameka, Ivan MD Unavailable Unavailable Tameka, Ivan MD Unavailable Unavailable Tameka, Ivan MD Unavailable Unavailable Tameka, Ivan MD Unavailable Unavailable Tameka, Ivan MD Unavailable Unavailable Tameka, Ivan MD Unavailable Unavailable Tameka, Ivan MD Unavailable Unavailable Tameka, Ivan MD Unavailable Unavailable Tameka, Ivan MD Unavailable Unavailable Tameka, Ivan MD Unavailable Unavailable Tameka, Ivan MD Unavailable Unavailable Tameka, Ivan MD Unavailable Unavailable Tameka, Ivan MD Unavailable Unavailable Tameka, Ivan MD Unavailable Unavailable Tameka, Ivan MD Unavailable Unavailable Tameka, Ivan MD Unavailable Unavailable Tameka, Ivan MD Unavailable Unavailable Tameka, Ivan MD Unavailable Unavailable Tameka, Ivan MD Unavailable Unavailable Tameka, Ivan MD Unavailable Unavailable Tameka, Ivan MD Unavailable Unavailable Tameka, Ivan MD Unavailable Unavailable Tameka, Ivan MD Unavailable Unavailable Tameka, Ivan MD Unavailable Unavailable Tameka, Ivan MD Unavailable Unavailable Tameka, Ivan MD Unavailable Unavailable Tameka, Ivan MD Unavailable Unavailable Tameka, Ivan MD Unavailable Unavailable Tameka, Ivan MD Unavailable Unavailable Tameka, Ivan MD Unavailable Unavailable Tameka, Ivan MD Unavailable Unavailable Tameka, Ivan MD Unavailable Unavailable Tameka, Ivan MD Unavailable Unavailable Tameka, Ivan MD Unavailable Unavailable Tameka, Ivan MD Unavailable Unavailable Tameka, Ivan MD Unavailable Unavailable Tameka, Ivan MD Unavailable Unavailable Tameka, Ivan MD Unavailable Unavailable Tameka, Ivan MD Unavailable Unavailable Tameka, Ivan MD Unavailable Unavailable Tameka, Ivan MD Unavailable Unavailable Tameka, Ivan MD Unavailable Unavailable Taemka, Ivan MD Unavailable Unavailable Tameka, Ivan MD Unavailable Unavailable Tameka, Ivan MD Unavailable Unavailable Tameka, Ivan MD Unavailable Unavailable Tameka, Ivan MD Unavailable Unavailable Tameka, Ivan MD Unavailable Unavailable Tameka, Ivan MD Unavailable Unavailable Tameka, Ivan MD Unavailable Unavailable Tameka, Ivan MD Unavailable Unavailable Tameka, Ivan MD Unavailable Unavailable Tameka, Ivan MD Unavailable Unavailable Tameka, Ivan MD Unavailable Unavailable Tameka, Ivan MD Unavailable Unavailable Tameka, Ivan MD Unavailable Unavailable Tameka, Ivan MD Unavailable Unavailable Tameka, Ivan MD Unavailable Unavailable Tameka, Ivan MD Unavailable Unavailable Tameka, Ivan MD Unavailable Unavailable Jane Dawson MD Unavailable Unavailable Jane Dawson MD Unavailable Unavailable Jane Dawson MD Unavailable Unavailable Jane Dawson MD Unavailable Unavailable Jane Dawson MD Unavailable Unavailable Jane Dawson MD Unavailable Unavailable Jane Dawson MD Unavailable Unavailable Jane Dawson MD Unavailable Unavailable Jane Dawson MD Unavailable Unavailable Jane Dawson MD Unavailable Unavailable Jane Dawson MD Unavailable Unavailable Jane Dawson MD Unavailable Unavailable Jane Dawson MD Unavailable Unavailable Jane Dawson MD Unavailable Unavailable Jane Dawson MD Unavailable Unavailable Jane Dawson MD Unavailable Unavailable Jane Dawson MD Unavailable Unavailable Jane Dawson MD Unavailable Unavailable Jane Dawson MD Unavailable Unavailable Jane Dawson MD Unavailable Unavailable Jane Dawson MD Unavailable Unavailable Jane Dawson MD Unavailable Unavailable Jane Dawson MD Unavailable Unavailable Jane Dawson MD Unavailable Unavailable Jane Dawson MD Unavailable Unavailable Jane Dawson MD Unavailable Unavailable Jane Dawson MD Unavailable Unavailable Jane Dawson MD Unavailable Unavailable Jane Dawson MD Unavailable Unavailable Jane Dawson MD Unavailable Unavailable Jane Dawson MD Unavailable Unavailable Jane Dawson MD Unavailable Unavailable Jane Dawson MD Unavailable Unavailable Jane Dawson MD Unavailable Unavailable Jane Dawson MD Unavailable Unavailable Jane Dawson MD Unavailable Unavailable Jane Dawson MD Unavailable Unavailable Jane Dawson MD Unavailable Unavailable Jane Dawson MD Unavailable Unavailable Jane Dawson MD Unavailable Unavailable Jane Dawson MD Unavailable Unavailable Jane Dawson MD Unavailable Unavailable Jane Dawson MD Unavailable Unavailable Jane Dawson MD Unavailable Unavailable Jane Dawson MD Unavailable Unavailable Jane Dawson MD Unavailable Unavailable Jane Dawson MD Unavailable Unavailable Jane Dawson MD Unavailable Unavailable Jane Dawson MD Unavailable Unavailable Jane Dawson MD Unavailable Unavailable Jane Dawson MD Unavailable Unavailable Jane Dawson MD Unavailable Unavailable Jane Dawson MD Unavailable Unavailable Jane Dawson MD Unavailable Unavailable Jane Dawson MD Unavailable Unavailable Jane Dawson MD Unavailable Unavailable Jane Dawson MD Unavailable Unavailable Jane Dawson MD Unavailable Unavailable Jane Dawson MD Unavailable Unavailable Jane Dawson MD Unavailable Unavailable Jane Dawson MD Unavailable Unavailable Jane Dawson MD Unavailable Unavailable Jane Dawson MD Unavailable Unavailable Jane Dawson MD Unavailable Unavailable Jane Dawson MD Unavailable Unavailable Jane Dawson MD Unavailable Unavailable Jane Dawson MD Unavailable Unavailable Jane Dawson MD Unavailable Unavailable Jane Dawson MD Unavailable Unavailable Jane Dawson MD Unavailable Unavailable Jane Dawson MD Unavailable Unavailable Jane Dawson MD Unavailable Unavailable Jane Dawson MD Unavailable Unavailable Jane Dawson MD Unavailable Unavailable Jane Dawson MD Unavailable Unavailable Jane Dawson MD Unavailable Unavailable Jane Dawson MD Unavailable Unavailable Jane Dawson MD Unavailable Unavailable Jane Dawson MD Unavailable Unavailable Jane Dawson MD Unavailable Unavailable Jane Dawson MD Unavailable Unavailable Jane Dawson MD Unavailable Unavailable Jane Dawson MD Unavailable Unavailable Jane Dawson MD Unavailable Unavailable Jane Dawson MD Unavailable Unavailable Jane Dawson MD Unavailable Unavailable Jane Dawson MD Unavailable Unavailable Jane Dawson MD Unavailable Unavailable Jane Dawson MD Unavailable Unavailable Jane Dawson MD Unavailable Unavailable Jane Dawson MD Unavailable Unavailable Jane Dawson MD Unavailable Unavailable Jane Dawson MD Unavailable Unavailable Jane Dawson MD Unavailable Unavailable Jane Dawson MD Unavailable Unavailable Jane Dawson MD Unavailable Unavailable Jane Dawson MD Unavailable Unavailable Jane Dawson MD Unavailable Unavailable Jane Dawson MD Unavailable Unavailable Jane Dawson MD Unavailable Unavailable Jane Dawson MD Unavailable Unavailable Jane Dawson MD Unavailable Unavailable Jane Dawson MD Unavailable Unavailable Jane Dawson MD Unavailable Unavailable Jane Dawson MD Unavailable Unavailable Jane Dawson MD Unavailable Unavailable Jane Dawson MD Unavailable Unavailable Jane Dawson MD Unavailable Unavailable Jane Dawson MD Unavailable Unavailable Jane Dawson MD Unavailable Unavailable Jane Dawson MD Unavailable Unavailable Jane Dawson MD Unavailable Unavailable Jane Dawson MD Unavailable Unavailable Jane Dawson MD Unavailable Unavailable Jane Dawson MD Unavailable Unavailable Jane Dawson MD Unavailable Unavailable Jane Dawson MD Unavailable Unavailable Jane Dawson MD Unavailable Unavailable Jane Dawson MD Unavailable Unavailable Jane Dawson MD Unavailable Unavailable Jane Dawson MD Unavailable Unavailable Jane Dawson MD Unavailable Unavailable Jane Dawson MD Unavailable Unavailable Jane Dawson MD Unavailable Unavailable Jane Dawson MD Unavailable Unavailable Jane Dawson MD Unavailable Unavailable Jane Dawson MD Unavailable Unavailable Jane Dawson MD Unavailable Unavailable Jane Dawson MD Unavailable Unavailable Jane Dawson MD Unavailable Unavailable Jane Dawson MD Unavailable Unavailable Jane Dawson MD Unavailable Unavailable Jane Dawson MD Unavailable Unavailable Jane Dawson MD Unavailable Unavailable Jane Dawson MD Unavailable Unavailable Jane Dawson MD Unavailable Unavailable Jane Dawson MD Unavailable Unavailable Jane Dawson MD Unavailable Unavailable Jane Dawson MD Unavailable Unavailable Jane Dawson MD Unavailable Unavailable Jane Dawson MD Unavailable Unavailable Jane Dawson MD Unavailable Unavailable Jane Dawson MD Unavailable Unavailable Jane Dawson MD Unavailable Unavailable Jane Dawson MD Unavailable Unavailable Jane Dawson MD Unavailable Unavailable Jane Dawson MD Unavailable Unavailable Jane Dawson MD Unavailable Unavailable Jane Dawson MD Unavailable Unavailable Jane Dawson MD Unavailable Unavailable Jane Dawson MD Unavailable Unavailable Jane Dawson MD Unavailable Unavailable Jane Dawson MD Unavailable Unavailable Jane Dawson MD Unavailable Unavailable Jane Dawson MD Unavailable Unavailable Jane Dawson MD Unavailable Unavailable Jane Dawson MD Unavailable Unavailable Jane Dawson MD Unavailable Unavailable Jane Dawson MD Unavailable Unavailable Jane Dawson MD Unavailable Unavailable Jane Dawson MD Unavailable Unavailable Jane Dawson MD Unavailable Unavailable Jane Dawson MD Unavailable Unavailable Jane Dawson MD Unavailable Unavailable Jane Dawson MD Unavailable Unavailable Jane Dawson MD Unavailable Unavailable Jane Dawson MD Unavailable Unavailable Jane Dawson MD Unavailable Unavailable Jane Dawson MD Unavailable Unavailable Jane Dawson MD Unavailable Unavailable Jane Dawson MD Unavailable Unavailable Jane Dawson MD Unavailable Unavailable Jane Dawson MD Unavailable Unavailable Jane Dawson MD Unavailable Unavailable Jane Dawson MD Unavailable Unavailable Jane Dawson MD Unavailable Unavailable Jane Dawson MD Unavailable Unavailable Jane Dawson MD Unavailable Unavailable Jane Dawson MD Unavailable Unavailable Jane Dawson MD Unavailable Unavailable Jane Dawson MD Unavailable Unavailable Jane Dawson MD Unavailable Unavailable Jane Dawson MD Unavailable Unavailable Jane Dawson MD Unavailable Unavailable Jane Dawson MD Unavailable Unavailable Jane Dawson MD Unavailable Unavailable Annabel Barone MD Unavailable Unavailable Annabel Barone MD Unavailable Unavailable Annabel Barone MD Unavailable Unavailable Barone, A Nik MD Unavailable Unavailable Barone, A Nik MD Unavailable Unavailable Barone, A Nik MD Unavailable Unavailable Barone, A Nik MD Unavailable Unavailable Barone, A Nik MD Unavailable Unavailable Barone, A Nik MD Unavailable Unavailable Barone, A Nik MD Unavailable Unavailable Barone, A Nik MD Unavailable Unavailable Barone, A Nik MD Unavailable Unavailable Barone, A Nik MD Unavailable Unavailable Barone, A Nik MD Unavailable Unavailable Barone, A Nik MD Unavailable Unavailable Barone, A Nik MD Unavailable Unavailable Barone, A Nik MD Unavailable Unavailable Barone, A Nik MD Unavailable Unavailable Barone, A Nik MD Unavailable Unavailable Barone, A Nik MD Unavailable Unavailable Barone, A Nik MD Unavailable Unavailable Barone, A Nik MD Unavailable Unavailable Barone, A Nik MD Unavailable Unavailable Barone, A Nik MD Unavailable Unavailable Barone, A Nik MD Unavailable Unavailable Barone, A Nik MD Unavailable Unavailable Barone, A Nik MD Unavailable Unavailable Barone, A Nik MD Unavailable Unavailable Barone, A Nik MD Unavailable Unavailable Barone, A Nik MD Unavailable Unavailable Barone, A Nik MD Unavailable Unavailable Barone, A Nik MD Unavailable Unavailable Barone, A Nik MD Unavailable Unavailable Barone, A Nik MD Unavailable Unavailable Barone, A Nik MD Unavailable Unavailable Barone, A Nik MD Unavailable Unavailable Barone, A Nik MD Unavailable Unavailable Barone, A Nik MD Unavailable Unavailable Barone, A Nik MD Unavailable Unavailable Barone, A Nik MD Unavailable Unavailable Barone, A Nik MD Unavailable Unavailable Barone, A Nik MD Unavailable Unavailable Barone, A Nik MD Unavailable Unavailable Barone, A Nik MD Unavailable Unavailable Barone, A Nik MD Unavailable Unavailable Barone, A Nik MD Unavailable Unavailable Barone, A Nik MD Unavailable Unavailable Barone, A Nik MD Unavailable Unavailable Barone, A Nik MD Unavailable Unavailable Barone, A Nik MD Unavailable Unavailable Barone, A Nik MD Unavailable Unavailable Barone, A Nik MD Unavailable Unavailable Barone, A Nik MD Unavailable Unavailable Barone, A Nik MD Unavailable Unavailable Barone, A Nik MD Unavailable Unavailable Barone, A Nik MD Unavailable Unavailable Barone, A Nik MD Unavailable Unavailable Barone, A Nik MD Unavailable Unavailable Barone, A Nik MD Unavailable Unavailable Barone, A Nik MD Unavailable Unavailable Barone, A Nik MD Unavailable Unavailable Barone, A Nik MD Unavailable Unavailable Barone, A Nik MD Unavailable Unavailable Barone, A Nik MD Unavailable Unavailable Barone, A Nik MD Unavailable Unavailable Barone, A Nik MD Unavailable Unavailable Barone, A Nik MD Unavailable Unavailable Barone, A Nik MD Unavailable Unavailable Barone, A Nik MD Unavailable Unavailable Barone, A Nik MD Unavailable Unavailable Barone, A Nik MD Unavailable Unavailable Barone, A Nik MD Unavailable Unavailable Barone, A Nik MD Unavailable Unavailable Barone, A Nik MD Unavailable Unavailable Barone, A Nik MD Unavailable Unavailable Barone, A Nik MD Unavailable Unavailable Barone, A Nik MD Unavailable Unavailable Barone, A Nik MD Unavailable Unavailable Barone, A Nik MD Unavailable Unavailable Barone, A Nik MD Unavailable Unavailable Barone, A Nik MD Unavailable Unavailable Barone, A Nik MD Unavailable Unavailable Barone, A Nik MD Unavailable Unavailable Barone, A Nik MD Unavailable Unavailable Penobscot, K Ava PMH-ASSET PROTECTION PROFESSIONAL Unavailable Unavailable Iliana, K Ava PMH-ASSET PROTECTION PROFESSIONAL Unavailable Unavailable Iliana, K Ava PMH-ASSET PROTECTION PROFESSIONAL Unavailable Unavailable Iliana, K Ava PMH-ASSET PROTECTION PROFESSIONAL Unavailable Unavailable [place], K Ava PMH-ASSET PROTECTION PROFESSIONAL Unavailable Unavailable Iliana, K Ava PMH-ASSET PROTECTION PROFESSIONAL Unavailable Unavailable Iliana, K Ava PMH-ASSET PROTECTION PROFESSIONAL Unavailable Unavailable Iliana, K Ava PMH-ASSET PROTECTION PROFESSIONAL Unavailable Unavailable Re-disclosure Warning The records that you are about to access may contain information from federally-assisted alcohol or drug abuse programs. If such information is present, then the following federally mandated warning applies: This information has been disclosed to you from records protected by federal confidentiality rules (42 CFR part 2). The federal rules prohibit you from making any further disclosure of this information unless further disclosure is expressly permitted by the written consent of the person to whom it pertains or as otherwise permitted by 42 CFR part 2. A general authorization for the release of medical or other information is NOT sufficient for this purpose. The Federal rules restrict any use of the information to criminally investigate or prosecute any alcohol or drug abuse patient.The records that you are about to access may contain highly sensitive health information, the redisclosure of which is protected by Article 27-F of the [place] State Public Health law. If you continue you may have access to information: Regarding HIV / AIDS; Provided by facilities licensed or operated by the [facility] Office of Mental Health; or Provided by the [facility] Office for People With Developmental Disabilities. If such information is present, then the following [facility] mandated warning applies: This information has been disclosed to you from confidential records which are protected by state law. State law prohibits you from making any further disclosure of this information without the specific written consent of the person to whom it pertains, or as otherwise permitted by law. Any unauthorized further disclosure in violation of state law may result in a fine or senior living sentence or both. A general authorization for the release of medical or other information is NOT sufficient authorization for further disc losure. Allergies and Adverse Reactions Type Description Substance Reaction Status Data Source(s ) Propensity to adverse reactions to substance MARIO Inhibitors MARIO Inhibitors Cough Active [facility] ([facility]) Propensity to adverse reactions DULOXETINE HCL Duloxetine Hcl Active [facility] Drug allergy DULOXETINE HCL DULOXETINE HCL [facility] Propensity to adverse reactions MARIO INHIBITORS MARIO INHIBITORS [facility] Family History Family Member Name Family Member Gender Family Member Status Date o f Status Description Data Source(s) Unknown Unknown Problem [facility] ([facility]) Encounters Encounter Providers Location Date Indications Data Source(s ) Outpatient Attender: Geno CORCORAN [email or web address] 10/10/2020 1 0:40:57 AM EST [facility] Outpatient Attender: Geno CORCORAN [email or web address] 2020 12:00:00 AM EST - 09/12/2020 02:43:34 PM EST [facility] Outpatient Attender: Nik Barone MD 08/23/2020 12:00:00 AM [facility] Outpatient Referrer: Rhett Dawson MD 08/06/2020 12:00 :00 AM EST Encounter for screening mammogram for malignant neoplasm of breast [facility] Encounter for screening mammogram for ma lignant neoplasm of breast Outpatient Attender: Nik Barone MD 07/31/2020 12:00:00 AM EST [facility] Outpatient Attender: Ivan English MD Main office - [place] 07/23/2020 11:45:00 AM EST [facility] ([facility] Outpatient Attender: Ava Barrientos [facility]-ASSET PROTECTION PROFESSIONAL Emmanuel Count y [facility] 07/17/2020 02:30:00 AM EST - 07/17/2020 02:30:00 AM EST [facility] ([facility]) Attender: Ava Barrientos PM-ASSET PROTECTION PROFESSIONAL 07/17/2020 12: 00:00 AM EST [facility] ([facility]) Outpatient Attender: Nik Barone MD 07/05/2020 12:00:00 AM [facility] Outpatient Attender: Ava Barrientos [facility]-ASSET PROTECTION PROFESSIONAL Emmanuel Ferreira y [facility] 06/20/2020 01:00:00 AM EDT - 06/20/2020 01:00:00 AM EDT [facility] ([facility]) Attender: Ava Barrientos PM-ASSET PROTECTION PROFESSIONAL 06/20/2020 12: 00:00 AM EDT [facility] ([facility]) Outpatient Attender: Rhett Dawson MD FP 06/19/2020 11:22:02 AM EDT [facility] Outpatient Attender: Rhett Dawson MD FP 06/18/2020 10:51:02 AM EDT [facility] Outpatient Attender: Rhett Dawson MD FP 05/26/2020 12:02:10 AM EDT [facility] Outpatient Attender: Rhett Dawson MD FP 05/25/2020 11:14:01 AM EDT [facility] Outpatient Attender: Rhett Dawson MD FP 05/25/2020 09:26:01 AM EDT [facility] Outpatient Attender: Rhett Dawson MD FP 05/25/2020 09:19:00 AM EDT [facility] Outpatient Attender: Rhett Dawson MD FP 05/25/2020 09:17:00 AM EDT [facility] Outpatient Attender: Rhett Dawson MD FP 05/24/2020 12:54:01 PM EDT [facility] Outpatient Attender: Rhett Dawson MD FP 05/24/2020 12:10:01 PM EDT [facility] Outpatient Attender: Rhett Dawson MD FP 05/17/2020 02:50:01 PM EDT [facility] Outpatient Attender: Ava Barrientos [facility] Kelly 05/15/2020 02:00:00 AM EDT - 05/15/2020 02:00:00 AM EDT [facility] ([facility]) Attender: Ava Barrientos PM-ASSET PROTECTION PROFESSIONAL 05/15/2020 12: 00:00 AM EDT [facility] ([facility]) Outpatient Attender: Ivan English MD Main office - [place] 05/01/2020 11:15:00 AM EDT [facility] ([facility]) Outpatient Attender: Rhett CLEVELAND 04/27/2020 09:47:00 AM EDT [facility] Outpatient [email or web address] 07/16/2019 01:04:07 PM EST [facility] Functional Status Immunizations Vaccine Date Status Description Data Source(s) COVID-19 VACCINE Moderna 12/10/2020 12:00:00 AM EDT completed [facility] Vaccine Series Complete: NOThis Data was Submitted to [facility] Via [employer]. Medications Medication Brand Name Start Date Product Form Dose Route Admi nistrative Instructions Pharmacy Instructions Status Indications Reaction Description Data Source(s) gabapentin 100 MG Oral Capsule gabapentin (NEURONTIN) 100 MG capsule gabapentin (NEURONTIN) 100 MG capsule 09/11/2020 12:00:00 AM EST 1 {capsule} Oral active Take 1 capsule by mouth 3 (three ) times a day [facility] Sertraline 50 MG Oral Tablet sertraline (ZOLOFT) 50 MG tablet sertraline (ZOLOFT) 50 MG tablet 09/11/2020 12:00:00 AM EST 1 {tbl} Oral active Take 1 tablet by mouth daily [facility] Nortriptyline 25 MG Oral Capsule nortriptyline (PAMELO R) 25 MG capsule nortriptyline (PAMELOR) 25 MG capsule 09/11/2020 12:00:00 AM EST 1 {capsule} Oral active Take 1 capsule by mo [facility] daily [facility] zonisamide 100 MG Oral Capsule zonisamide (ZONEGRAN) 1 00 MG capsule zonisamide (ZONEGRAN) 100 MG capsule 09/11/2020 12:00:00 AM EST 1 {capsule} Oral active Take 1 capsule by mouth daily [facility] tramadol hydrochloride 50 MG Oral Tablet traMADol (ULT USHA) 50 MG tablet traMADol (ULTRAM) 50 MG tablet 08/16/2020 12:00:00 AM EST 1 {tbl} Oral active Take 1 tablet by mouth daily as needed [facility] tizanidine 4 MG Oral Tablet tiZANidine (ZANAFLEX) 4 MG tablet tiZANidine (ZANAFLEX) 4 MG tablet 08/06/2020 12:00:00 AM EST 4 mg Oral active Take 4 mg by mouth 3 (three) times a day [facility] tramadol hydrochloride 50 MG Oral Tablet Tramadol HCL 07/23/2020 12:00:00 AM EST ORAL active [facility] ([facility]) Levothyroxine Sodium 0.1 MG Oral Tablet levothyroxine (SYNTHROID, LEVOTHROID) 100 MCG tablet levothyroxine (SYNTHROID, LEVOTHROID) 100 MCG tablet 1 09/19/2019 12:00:00 AM EST 100 ug Oral active Take 100 mcg by mouth daily [facility] Sertraline 50 MG Oral Tablet sertraline 07/17/2020 12:00:00 AM EST 50 mg by mouth completed <td ID="Medica tionRxNorm_1">988579</td><td ID="MedicationMedication_1">sertraline</td><td ID="MedicationRoute_1">by mouth</td><td ID="MedicationRouteConcept_1">T91444</td><td ID="MedicationStartDate_1">07/17/2020</td><td ID="MedicationStopDate_1"></td><td ID="MedicationDosageFrequency_1">once a day</td><td ID="MedicationDuration_1"></td><td ID="MedicationFormulaStrength_1">50 mg</td><td ID="MedicationDosageForm_1">tablet</td><td ID="MedicationDosageFormCode_1"></td><td ID="MedicationDosageDescription_1"></td><td ID="MedicationMedicationId_1">[id number]</td><td ID="MedicationAccount_1">[id number]</td><td ID="MedicationNpid_1">[id number]</td><td ID="MedicationAuthorFirstName_1">Ava</td><td ID="MedicationAuthorLastName_1">Iliana</td><td ID="MedicationTaxonomyCode_1">[id number]</td><td ID="MedicationTaxonomyDesc_1">Psychiatric/Mental Health</td><td ID="MedicationPhoneNumber_1">[phone]</td> [facility] ([facility]) Sertraline 50 MG Oral Tablet sertraline 07/17/2020 12:00:00 AM EST 50 mg completed <td ID="Medicati onRxNorm_2">[id number]</td><td ID="MedicationMedication_2">sertraline</td><td ID="MedicationRoute_2"></td><td ID="MedicationRouteConcept_2"></td><td ID="MedicationStartDate_2">07/17/2020</td><td ID="MedicationStopDate_2">07/17/2020</td><td ID="MedicationDosageFrequency_2"></td><td ID="MedicationDuration_2"></td><td ID="MedicationFormulaStrength_2">50 mg</td><td ID="MedicationDosageForm_2">tablet</td><td ID="MedicationDosageFormCode_2"></td><td ID="MedicationDosageDescription_2"></td><td ID="MedicationMedicationId_2">[id number]</td><td ID="MedicationAccount_2">[id number]</td><td ID="MedicationNpid_2"></td><td ID="MedicationAuthorFirstName_2"></td><td ID="MedicationAuthorLastName_2"></td><td ID="MedicationTaxonomyCode_2"></td><td ID="MedicationTaxonomyDesc_2"></td><td ID="MedicationPhoneNumber_2"></td> [facility] ([facility]) 25 mg 05/18/2020 12:00:00 AM EDT capsule 30 TAKE ONE CAPSULE BY MOUTH EVERY DAY TAKE ONE CAPSULE BY MOUTH EVERY DAY SOLD: 05/18/2020 [facility] Sertraline 50 MG Oral Tablet sertraline 05/15/2020 12:00:00 AM EDT 50 mg by mouth completed <td ID="Medica tionRxNorm_2">[id number]</td><td ID="MedicationMedication_2">sertraline</td><td ID="MedicationRoute_2">by mouth</td><td ID="MedicationRouteConcept_2">B85070</td><td ID="MedicationStartDate_2">05/15/2020</td><td ID="MedicationStopDate_2">07/14/2020</td><td ID="MedicationDosageFrequency_2">every morning</td><td ID="MedicationDuration_2">30</td><td ID="MedicationFormulaStrength_2">50 mg</td><td ID="MedicationDosageForm_2">tablet</td><td ID="MedicationDosageFormCode_2"></td><td ID="MedicationDosageDescription_2"> </td><td ID="MedicationMedicationId_2">[id number]</td><td ID="MedicationAccount_2">[id number]</td><td ID="MedicationNpid_2">[id number]</td><td ID="MedicationAuthorFirstName_2">Ava</td><td ID="MedicationAuthorLastName_2">Iliana</td><td ID="MedicationTaxonomyCode_2">[id number]</td><td ID="MedicationTaxonomyDesc_2">Psychiatric/Mental Health</td><td ID="MedicationPhoneNumber_2">[phone]</td> [facility] ([facility]) Amlodipine 10 MG Oral Tablet amLODIPine (NORVASC) 10 M G tablet amLODIPine (NORVASC) 10 MG tablet 04/27/2020 12:00:00 AM EDT 10 mg Oral active Take 1 tablet (10 mg total) by mouth daily [facility] Sertraline 25 MG Oral Tablet sertraline 03/05/2020 12:00:00 AM EDT 25 mg completed <td ID="Medicati onRxNorm_1">[id number]</td><td ID="MedicationMedication_1">sertraline</td><td ID="MedicationRoute_1"></td><td ID="MedicationRouteConcept_1"></td><td ID="MedicationStartDate_1">03/05/2020</td><td ID="MedicationStopDate_1">05/15/2020</td><td ID="MedicationDosageFrequency_1"></td><td ID="MedicationDuration_1"></td><td ID="MedicationFormulaStrength_1">25 mg</td><td ID="MedicationDosageForm_1">tablet</td><td ID="MedicationDosageFormCode_1"></td><td ID="MedicationDosageDescription_1"></td><td ID="MedicationMedicationId_1">[id number]</td><td ID="MedicationAccount_1">[id number]</td><td ID="MedicationNpid_1">[id number]</td><td ID="MedicationAuthorFirstName_1">Ava</td><td ID="MedicationAuthorLastName_1">[place]</td><td ID="MedicationTaxonomyCode_1">[id number]</td><td ID="MedicationTaxonomyDesc_1">Psychiatric/Mental Health</td><td ID="MedicationPhoneNumber_1">[phone]</td> [facility] ([facility]) Hydrochlorothiazide 12.5 MG Oral Tablet hydrochlorothiazide (HYDRODIURIL) 12.5 MG tablet hydrochlorothiazide (HYDRODIURIL) 12.5 MG tablet 01/26 12:00:00 AM EDT 1 {tbl} Oral aborted Take 1 tablet b y mouth daily [facility] atorvastatin 10 MG Oral Tablet atorvastatin (LIPITOR) 10 MG tablet atorvastatin (LIPITOR) 10 MG tablet 05/19/2018 12:00:00 AM EDT 1 {tbl} Oral aborted Take 1 tablet by mouth daily [facility] Levothyroxine Sodium 0.075 MG Oral Tablet levothyroxin e (LEVO-T) 75 MCG tablet levothyroxine (LEVO-T) 75 MCG tablet 06/18/2016 12:00:00 AM EDT 1 { tbl} Oral aborted Take 1 tablet by mouth da marissa [facility] Insurance Providers Payer name Policy type / Coverage type Policy ID Covered green party ID Covered green party's relationship to oconnell Policy Oconnell Plan Information Medicaid S [id number] S [id number] Managed Care - Community Plan [facility] P [id number] S [id number] [facility] COMMUNITY [facility]AN [facility] [id number] SP [id number] Medicaid S [id number] S [id number] Managed Care - Community Plan [facility] P [id number] S [id number] [facility] COMMUNITY [facility]AN [facility] [id number] SP [id number] Medicaid S [id number] S [id number] Managed Care - [facility] Community Plan P [id number] S [id number] Managed Care - Community Plan [facility] P [id number] S [id number] Medicaid S [id number] S [id number] Managed Care - [facility] Community Plan P [id number] S [id number] Medicaid S [id number] S [id number] [facility] I [id number] Self [id number] [facility] I [id number] Self [id number] [facility] MEDICAID [id number] Alondra [id number] [facility] MEDICAID [id number] xxxxxxxxx [id number] ANSI-Medicaid [id number] [facility] [place] [place] Health Maintenance Organization (HMO) [id number] Self [id number] [facility] Health Maintenance Organization (O) [id number] Self [id number] MEDICAID [id number] SP [id number] [facility] Health Maintenance Organization (HMO) [id number] Self [id number] [facility] Health Maintenance Organization (O) [id number] Self [id number] MEDICAID M [id number] S [id number] [facility] Health Maintenance Organization (O) [id number] Self MEDICAID [id number] SP [id number] SELF PAY UNAVAILABLE SP UNAVAILA BLE [facility] [id number] SP [id number] SELF PAY ONLY UNAVAILABLE UNAV AILABLE [facility] [id number] SP [id number] [employer] COMMUNITY PLAN MCDO [id number] SP [id number] [facility] O [id number] S [id number] [employer] COMMUNITY PLAN MCDO [id number] SP [id number] MEDICAID [id number] SP [id number] MEDICAID M [id number] S [id number] ANSI-Medicaid [id number] ANSI-Medicaid [id number] ANSI-Medicaid [id number] ANSI-Medicaid [id number] ANSI-Medicaid [id number] ANSI-Medicaid [id number] ANSI-Medicaid [id number] ANSI-Medicaid [id number] ANSI-Medicaid [id number] Problems, Conditions, and Diagnoses Code Display Name Description Problem Type Effective Dates Data Source(s) R94.31 Abnormal electrocardiogram [ECG] [EKG] A bnormal electrocardiogram (ECG) (EKG) Diagnosis 09/12/2020 11:19:45 AM EST [facility] R55 Syncope and collapse Syncope and collapse Diagnosis 09/12/2020 11:19:45 AM EST [facility] R07.9 Chest pain, unspecified Chest pain, unspecified Diagno sis 09/12/2020 11:19:45 AM EST [facility] Z72.0 Tobacco use Tobacco use Diagnosis 09/12/2020 11:19:45 AM [facility] I05.9 Rheumatic mitral valve disease, unspecif ied Rheumatic mitral valve disease, unspecif Diagnosis 09/12/2020 11:19:45 AM [facility] E78.5 Hyperlipidemia, unspecified Hyperlipidemia, unspecifie d Diagnosis 09/12/2020 11:19:45 AM [facility] E03.9 Hypothyroidism, unspecified Hypothyroidism, unspecifie d Diagnosis 09/12/2020 11:19:45 AM [facility] I10 Essential (primary) hypertension Essential (primary) h ypertension Diagnosis 09/12/2020 11:19:45 AM [facility] Z12.31 Encounter for screening mammogram for ma lignant neoplasm of breast Encounter for screening mammogram for malignant neoplasm of breast Diagnosis 08/06/2020 01:33:19 PM [facility] F43.23 Adjustment disorder with mixed anxiety a nd depressed mood Adjustment Disorder, With mixed anxiety and depressed mood Condition 2019 12:00:00 AM EST [facility] ([facility]) Surgeries/Procedures Procedure Description Date Indications Data Source(s) [facility] Telemed E/M Lvl 3--Est pt 07/17/2020 12:00:00 AM EST - 07/17/2020 12:00:00 AM EST [facility] ([facility]) Telemed A/O 30" 07/17/2020 12:00:00 AM EST [facility] ([facility]) [facility] Telemed E/M Lvl 3--Est pt 07/17/2020 12:00:[address] [facility] ([facility]) [facility] Telemed E/M Lvl 3--Est pt 06/20/2020 12:00:00 AM EDT - 06/20/2020 12:00:00 AM EDT [facility] ([facility]) [facility] Telemed E/M Lvl 3--Est pt 06/20/2020 12:00:00 AM E DT [facility] ([facility]) [facility] Telemed E/M Lvl 3--Est pt 05/15/2020 12:00:00 AM EDT - 05/15/2020 12:00:00 AM EDT [facility] ([facility]) Telemed A/O 30" 05/15/2020 12:00:00 AM EDT [facility] ([facility]) [facility] Telemed E/M Lvl 3--Est pt 05/15/2020 12:00:00 AM E DT [facility] ([facility]) Results ID Date Data Source [id number] 05/28/2021 11:14:00 AM EDT [facility] Name Value Range Interpretation Code Description Data Cammie rce(s) Supporting Document(s) SARS coronavirus 2 RNA [Presence] in Res piratory specimen by ELBA with probe detection NEGATIVE [facility] This lab was ordered by [facility] a nd reported by [facility]. ID Date Data Source [id number] 08/13/2020 04:21:06 PM EST [facility] MAMMO DIGITAL SCREENING BILATERAL [id number] INAL RESULTInterpreted by:Luciano Ceja MDBILATERAL DIGITAL MAMMOGRAM WITH COMPUTER-AIDED DETECTIONHISTORY: Screening mammogram. The patient reports her mother (52) and maternal grandmother (late 50s) diagnosed with breast cancer. Patient denies prior breast procedures. [facility] RISK ASSESSMENT MODEL: - 5 year calculated risk: 2.7% - Average patient 5 year risk: 1.7% - Lifetime risk: 15.1% - Average patient lifetime risk: 9.5%COMPARISON: Mammograms dated 12/15/2017 and 06/08/2010LAST REPORTED CLINICAL BREAST EXAM: UnknownTECHNIQUE: C raniocaudal and mediolateral oblique digital mammograms were obtained with tomosynthesis. Computer-aided detection was utilized. Exam was performed on the mobile unit.FINDINGS: There are scattered areas of fibroglandular density (category B). An asymmetric density in the right upper outer quadrant appears stable. No abnormal mass, calcification or architectural distortion is seen. No significant change from prior studies is noted.IMPRESSION: 1. Benign mammogram. 2. No evidence for malignancy. 3. Recommend routine followup examination in one year. BI-RADS 2 - BENIGN FINDINGSThis document has been electronically signed by Luciano Ceja MD on 08/13/2020 4:18 PM Name Value Range Interpretation Code Description Data Cammie rce(s) Supporting Document(s) ID Date Data Source [id number] 05/25/2020 09:35:19 AM EDT [facility] Measurements & CalculationsHeight: 67 inches (5 ft. 7 in.) 170.18 cm Weight: 202 pounds 91.82 kg Body Mass Index (BMI): 31.75BMI Interpretation: ObeseBody Surface Area (BSA): 2.03Weight Management Education Done (Nutrition/Physical Activity)Vital SignsTemperature: 97.7F 36.50C tympanic Pulse Rate: 90 beats/minuteRespiratory Rate: 12 respirations/minuteBlood Pressure: 112/60 left arm sitting manualO2 Saturation: 95% room air sittingVital Signs performed by: Luisa Russell MA, May 25, 2020 10:01 AMVital Signs performed by: Luisa Russell MA, May 25, 2020 10:01 AMInitial Intake Information From: patientRoom #: 14Infectious Disease / Travel ScreeningRecent travel for you or any close contacts? NoHave you had any close contact with anyone diagnosed with or under investigation for COVID-19 (coronavirus)? NoFever? NoRespiratory symptoms: cough, cold, congestion, shortness of breath, difficulty breathing? NoLoss of smell? NoLoss of taste? NoSmoking, Tobacco, Vaping or Smoke Exposure StatusSmoke Status: current every day smokerTobacco Use: YesAdv to Quit: YesDo you vape? NoPassive Smoke Exposure: YesMenstrual HistoryAny possibility of ? NoComments: total hysterectomyHealthcare HistorySince your last office visit...Have you been admitted to the hospital? Yes - MH inpatient in [facility] you been to an emergency room (ER) or urgent care clinic? No - before hospitilizationHave you seen another healthcare provider? Yes - Dr Contreras, Dr villegas, Dr fatimaHave you seen a dentist? Yes - no teethDental exam date reported today: 07/2016Intake performed by: Luisa Russell MA, May 25, 2020 9:43 AMRate Your HealthIn general, would you say your health is? PoorPain AssessmentAre you currently having any pain which... You would like your provider to address? Yes Affects your activity level? NoDepression Screening - PHQ-2Over the last two weeks, have you... Had little interest or pleasure in doing things? Not at all Been feeling down, depressed, or hopeless? Not at all PHQ-2 Score: 0Food InsecurityWithin the past year...Did you worry whether your food would run out before you got money to buy more? Never trueWas there a time when the food you bought didn't last and you didn't have money to get more? Never truePain AssessmentPain ScaleNumeric Rating Scale: 9 / 10Location: Lower legsDuration: chronicFrequency: DailyCharacter/Quality: aching, burning, sharp, dull, pinching and stingingIs the pain radiating? YesTo what body part(s) is the pain radiating? from feet upScreening, Brief Intervention, & Referral to Treatment (SBIRT)Pre-Screening Questions How many times have you have 4 or more drinks in a day? 0How many times have you used an illegal drug or used a prescription medication for a non-medical reason? 0Performed by: Luisa Russell MA, May 25, 2020 9:44 AMPatient History Medical History:TBIDiverticulitisHypothyroidismPartiallly collapsed bladdergastroparesisperipheral neuropathySurgical History:AppendectomyLaporscopyHysterectomyFamily History:Heart disease (Mother)Cancer - Colorectal (Mother)Father- Liver disease, Hep Calzheimers- motherSocial/Personal History: Advised to Quit/Tobacco Education: YesChief Complaintfollow-up [facility] / [facility] hospitalization room 14History of Present Illness (HPI)59 YO female here for follow up hospital discharge / [facility]. Patient wishes to discuss pain. She has been seeeing neurology for a while for chronic upper and lower back and leg pain. Gets muscle spasms sometimes as well. They have her on muscle relaxers for this. 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 Brings in multiple pill bottles today from different prescribers.HPI performed by: Rhett Dawson MD, May 25, 2020 10:13 AMTransitions of Care InboundProblem ReviewProblem List was reviewed and/or updated during this visit.Medication Reconciliation & ReviewMedication List was reviewed and/or updated during this visit, including review of any [id number] medications, herbal therapies, and/or supplements.Allergy ReviewAllergy List was reviewed and/or updated during this visit.Adult Preventive CareProvider Calculated and Reviewed all Clinical Protocols for patient today. Screening Tobacco Screening: Smoking Status: current every day smoker (05/25/2020) Tobacco Use: Currently (05/25/2020) Advised to Quit: Yes (05/25/2020)Labs/Meds/Other Counseling- Nutrition and Physical Activity:BMI Interpretation: Obese (05/25/2020) Counseling: Done (05/25/2020) Physical Activity: Done (05/25/2020)Cancer Screening Mammogram Reviewed: Previous Comments: been couple years ago [facility], will get records (02/24/2020)Review of Systems General: Denies chills, dizziness, fatigue, fever. Cardiovascular: Denies chest pain. Respiratory: Denies shortness of breath. Physical ExamGeneral Appearance: well nourished, well hydrated, no acute distressRespiratory, Auscultation: clear to auscultation bilaterally; no rales, rhonchi, or wheezesRespiratory, Effort: no intercostal retractions or use of accessory musclesCardiovascular, Auscultation: S1, S2 audible; no murmur, rub, or gallop; RRRPeripheral Circulation: no clubbing, cyanosis, edema, or varicositiesGait & Station: normalSkin, Inspection: no rashes, lesions, or ulcerationsOrientation: oriented to time, place, and personMood & Affect: no depression, anxiety, or agitationJudgment & Insight: intactCare Management Plan Transitions of CareInboundRate Your HealthIn general, would you say your health is? 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 Had Prevnar 13 a year ago. Will give Upazruxas20 and will defer discussion of flu shot to neuro due to history of [place].I am going to defer her questions about the gabapentin to them. She will give them a call.Recheck 3 months and sooner as needed. Plan developed in collabora tion with patient and/or familyMedications:ZONEGRAN 100 MG ORAL CAPSULETIZANIDINE HCL 4 MG ORAL TABLETLEVO-T 100 MCG ORAL TABLETPAMELOR 25 MG ORAL CAPSULESERTRALINE HCL 50 MG ORAL TABLETASPIRIN EC 81 MG ORAL TABLET DELAYED RELEASEAMLODIPINE BESYLATE 10 MG ORAL TABLET (AMLODIPINE BESYLATE)GABAPENTIN 100 MG ORAL CAPSULEMedication Changes:Removed:QUETIAPINE FUMARATE 25 MG ORAL TABLET-take one tab po at bedtime once daily, ATORVASTATIN CALCIUM 40 MG ORAL TABLET-take one tablet every other day for a month and then once dailyChanged:From: ORAL SERTRALINE HCL 25 MG ORAL TABLET Qty: [id number] Refills: 30[Tablet] To: SERTRALINE HCL 50 MG ORAL TABLET-once a dayAllergies:* CYMBALTA (Critical)MARIO INHIBITORS (Mild)Orders:Pneumovax 23 [CPT-09719] Adult - Ofc Vst, EST, Level III [CPT-28347] 73403 - Immo Admin (over 19 yrs), 1st Vaccine [CPT-89164] The patient was counseled by the physician on immunizations due, and on the risks and benefits of immunizations.Vaccines Administered/Entered:Vaccination Group: Pneumococcal [id number]: 1Vaccination: [id number] - AdulltMfr / Lot# / Exp.Date: / [id number] 1Amt. Given / Route / Site: 0.5 mL / IM / Left DeltoidNDC / CVX: [id number] / 33Administer ed Date: 05/25/2020 11:10VFC Eligibility: Not VFC EligibleVIS Date: 07/06/2019VIS Given / VIS Given On: Yes / 05/25/2020Comments: Administered by: Yesica Castillo Name Value Range Interpretation Code Description Data Cammie rce(s) Supporting Document(s) Procedure Social History Code Duration Value Status Description Data Source(s ) Alcohol intake 09/22/2020 12:00:00 AM EST Never completed [facility] Smoking 09/22/2020 12:00:00 AM EST Current every day smoker co mpleted Current every day smoker [facility] Smoking 08/06/2020 12:00:00 AM EST Unknown if ever smoked comp leted Unknown if ever smoked [facility] Smoking 07/17/2020 12:00:00 AM EST Unknown if ever smoked comp leted Unknown if ever smoked [facility] ([facility]) Smoking 06/20/2020 12:00:00 AM EDT Unknown if ever smoked comp leted Unknown if ever smoked [facility] ([facility]) Smoking 05/15/2020 12:00:00 AM EDT Unknown if ever smoked comp leted Unknown if ever smoked [facility] ([facility]) Vital Signs ID Date Data Source UNK Name Value Range Interpretation Code Description Data Source(s) Body height 0.00 in Normal (applies to non-numeric resu lts) 0.00 in [facility] ([facility]) Body weight Measured 0.00 lbs Normal (applies to n on-numeric results) 0.00 lbs [facility] ([facility]) Body mass index (BMI) [Ratio] 0.00 kg/m2 No rmal (applies to non-numeric results) 0.00 kg/m2 [facility] ([facility]) Systolic blood pressure 0 mm[Hg] Normal (applies t o non-numeric results) 0 mm[Hg] [facility] Diastolic blood pressure 0 mm[Hg] Normal (applies to non-numeric results) 0 mm[Hg] [facility] ([facility]) Body height 0.00 in Normal (applies to non-numeric resu lts) 0.00 in [facility] ([facility]) Systolic blood pressure 0 mm[Hg] Normal (applies t o non-numeric results) 0 mm[Hg] [facility] ([facility]) Diastolic blood pressure 0 mm[Hg] Normal (applies to non-numeric results) 0 mm[Hg] [facility] Body weight Measured 0.00 lbs Normal (applies to n on-numeric results) 0.00 lbs [facility] Body mass index (BMI) [Ratio] 0.00 kg/m2 No rmal (applies to non-numeric results) 0.00 kg/m2 [facility] ([facility]) ID Date Data Source [id number] 08/13/2020 04:21:06 PM [facility] Name Value Range Interpretation Code Description Data Source(s) WEIGHT RECORDED 210 lb 210 lb [facility] Body height Measured 69 in 69 in [facility] Patient Treatment Plan of Care Planned Activity Planned Date Details Description Data Source (s) zonisamide 100 MG Oral Capsule 09/11/2020 12:00:00 AM [facility] Sertraline 50 MG Oral Tablet 09/11/2020 12:00:00 AM [facility] Nortriptyline 25 MG Oral Capsule 09/11/2020 12:00:00 AM [facility] gabapentin 100 MG Oral Capsule 09/11/2020 12:00:00 AM [facility] tramadol hydrochloride 50 MG Oral Tablet 08/16/2020 12:00:00 AM EST [facility] tizanidine 4 MG Oral Tablet 08/06/2020 12:00:00 AM EST [facility] Levothyroxine Sodium 0.1 MG Oral Tablet 07/20/2020 12:00:00 AM EST [facility] Amlodipine 10 MG Oral Tablet 04/27/2020 12:00:00 AM EDT [facility] Hydrochlorothiazide 12.5 MG Oral Tablet 01/26/2019 12:00:00 AM EDT [facility] atorvastatin 10 MG Oral Tablet 05/19/2018 12:00:00 AM EDT [facility] Levothyroxine Sodium 0.075 MG Oral Tablet 06/18/2016 12:00:00 AM ED T [facility]
--- OUTSIDE RECORDS SUMMARY | 2021-06-22 07:33 | CCD ---
Author Author [facility] Address Unknown Phone Unavailable Support Name Relationship Address Phone THOMPSONJOCELYNE Next Of Kin Unknown Allan Thompson Next Of Kin Unknown Unavailable SULEMAN THOMPSON Next Of Kin [address] [place] [phone] Danette LUU, Scott Next Of Kin [address] [place] [address] Vega VICK, Johana Next Of Kin [address] [place] [address] Tonia Whelan Next Of Kin [address] [place] [phone] NO, CONTACT Next Of Kin [address] [place] [address] Joanne LUU, Paulette Next Of Kin [address] [place] [phone] Rhett Dawson MD Next Of Kin [address] [place] [address] DISABLED Next Of Kin Unknown Unavailable UE Next Of Kin Unknown Unavailable UMER STAHL Next Of Kin [address] [place] [address] [place] [address] VAL STAHL Next Of Kin [address] [place] [address] TRINA STAHL Next Of Kin [address] [place] [address] STREAM Next Of Kin [address] [place] [phone] SULEMAN THOMPSON ECON [address] [place] [address] Unavailable NO EMERGENCY, CONTACT [place] [address] [place] [address] Unavailable no, [place] [address] Care Team Providers Care Restorative Aide Name Role Phone Tomas Palominoja KINDER TEACHER Unavailable Unavailable Kocan, J Geno KINDER TEACHER Unavailable Unavailable Kocan, J Geno KINDER TEACHER Unavailable Unavailable Kocan, J Geno KINDER TEACHER Unavailable Unavailable Kocan, J Geno KINDER TEACHER Unavailable Unavailable Kocan, J Geno KINDER TEACHER Unavailable Unavailable Kocan, J Geno KINDER TEACHER Unavailable Unavailable Kocan, J Geno KINDER TEACHER Unavailable Unavailable Kocan, J Geno KINDER TEACHER Unavailable Unavailable Kocan, J Geno KINDER TEACHER Unavailable Unavailable Kocan, J Geno KINDER TEACHER Unavailable Unavailable Kocan, J Geno KINDER TEACHER Unavailable Unavailable Kocan, J Geno KINDER TEACHER Unavailable Unavailable Tameka, Ivan MD Unavailable Unavailable [...] Unavailable Tameka, Ivan MD Unavailable Unavailable Tameka, Iavn MD Unavailable Unavailable Tameka, Ivan MD Unavailable [...] Unavailable Unavailable Jane Dawson MD Unavailable Unavailable Jnae Dawson MD Unavailable Unavailable Jane Dawson MD [...] Unavailable Barone, A Nik MD Unavailable Unavailable Proctor, K Ava PMH-COTTON EXPERT Unavailable Unavailable Iliana, K Ava PMH-COTTON EXPERT Unavailable Unavailable Iliana, K Ava PMH-COTTON EXPERT Unavailable Unavailable Iliana, K Ava PMH-COTTON EXPERT Unavailable Unavailable Proctor, K Ava PMH-COTTON EXPERT Unavailable Unavailable Iliana, K Ava PMH-COTTON EXPERT Unavailable Unavailable Iliana, K Ava PMH-COTTON EXPERT Unavailable Unavailable Iliana, K Ava PMH-COTTON EXPERT Unavailable Unavailable Re-disclosure Warning The records that [...] is protected by Article 27-F of the [place] State Public Health law. If you continue you may have access to information: Regarding HIV / AIDS; Provided by facilities licensed or operated by the [facility] Office of Mental Health; or Provided by the [facility] Office for People With Developmental Disabilities. If such information is present, then the following [facility] mandated warning applies: This information has [...] law may result in a fine or detention sentence or both. A general authorization for the release of medical or other information is NOT sufficient authorization for further disc losure. Allergies and Adverse Reactions Type Description Substance Reaction Status Data Source(s ) Propensity to adverse reactions to substance MARIO Inhibitors MARIO Inhibitors Cough Active [facility] ([facility]) Propensity to adverse reactions DULOXETINE HCL Duloxetine Hcl Active [facility] Drug allergy DULOXETINE HCL DULOXETINE HCL [facility] Propensity to adverse reactions MARIO INHIBITORS MARIO INHIBITORS [facility] Family History Family Member Name Family Member Gender Family Member Status Date o f Status Description Data Source(s) Unknown Unknown Problem [facility] ([facility]) Encounters Encounter Providers Location Date Indications Data Source(s ) Outpatient Attender: Geno CORCORAN SJP.HANK-SJP.HANK 10/10/2020 1 0:40:57 AM EST [facility] Outpatient Attender: Geno CORCORAN SJP.HANK-SJP.HANK 2020 12:00:00 AM EST - 09/12/2020 02:43:[address] [facility] Outpatient Attender: Nik Barone MD 08/23/2020 12:00:00 AM [facility] Outpatient Referrer: Rhett Dawson MD 08/06/2020 12:00 :00 AM EST Encounter for screening mammogram for malignant neoplasm of breast [facility] Encounter for screening mammogram for ma lignant neoplasm of breast Outpatient Attender: Nik Barone MD 07/31/2020 12:00:00 AM EST [facility] Outpatient Attender: Ivan English MD Main office - [place] 07/23/2020 11:45:00 AM EST [facility] ([facility] Outpatient Attender: Ava Barrientos [facility] Emmanuel Count y Correction 07/17/2020 02:30:00 AM EST - 07/17/2020 02:30:00 AM EST [facility] ([facility]) Attender: Ava Barrientos PM-COTTON EXPERT 07/17/2020 12: 00:00 AM EST [facility] ([facility]) Outpatient Attender: Nik Barone MD 07/05/2020 12:00:00 AM [facility] Outpatient Attender: Ava Barrientos [facility] Emmanuel Ferreira y Correction 06/20/2020 01:00:00 AM EDT - 06/20/2020 01:00:00 AM EDT [facility] ([facility]) Attender: Ava Barrientos PM-COTTON EXPERT 06/20/2020 12: 00:00 AM EDT [facility] ([facility]) Outpatient Attender: Rhett Dawson MD FP 06/19/2020 11:22:02 AM EDT [facility] Outpatient Attender: Rhett Dawson MD FP 06/18/2020 10:51:02 AM EDT [facility] Outpatient Attender: Rhett Dawson MD FP 05/26/2020 12:02:10 AM EDT [facility] Outpatient Attender: Rhett Dawson MD FP 05/25/2020 11:14:01 AM EDT [facility] Outpatient Attender: Rhett Dawson MD FP 05/25/2020 09:26:01 AM EDT [facility] Outpatient Attender: Rhett Dawson MD FP 05/25/2020 09:19:00 AM EDT [facility] Outpatient Attender: Rhett Dawson MD FP 05/25/2020 09:17:00 AM EDT [facility] Outpatient Attender: Rhett Dawson MD FP 05/24/2020 12:54:01 PM EDT [facility] Outpatient Attender: Rhett Dawson MD FP 05/24/2020 12:10:01 PM EDT [facility] Outpatient Attender: Rhett Dawson MD FP 05/17/2020 02:50:01 PM EDT [facility] Outpatient Attender: Ava Barrientos [facility] 05/15/2020 02:00:00 AM EDT - 05/15/2020 02:00:00 AM EDT [facility] ([facility]) Attender: Ava Barrientos PM-COTTON EXPERT 05/15/2020 12: 00:00 AM EDT [facility] ([facility]) Outpatient Attender: Ivan English MD Main office - [place] 05/01/2020 11:15:00 AM EDT [facility] ([facility] TERE[facility]undy) Outpatient Attender: Rhett CLEVELAND 04/27/2020 09:47:00 AM EDT [facility] Outpatient SJP.CT-SJP.SYR 07/16/2019 01:04:07 PM EST [facility] Functional Status Immunizations Vaccine Date Status Description Data Source(s) COVID-19 VACCINE Moderna 12/10/2020 12:00:00 AM EDT completed [facility] Vaccine Series Complete: NOThis Data was Submitted to [facility] Via [employer]. Medications Medication Brand Name Start Date Product Form Dose Route Admi nistrative Instructions Pharmacy Instructions Status Indications Reaction Description Data Source(s) gabapentin 100 MG Oral Capsule gabapentin (NEURONTIN) 100 MG capsule gabapentin (NEURONTIN) 100 MG capsule 09/11/2020 12:00:00 AM EST 1 {capsule} Oral active Take 1 capsule by mouth 3 (three ) times a day [facility] Sertraline 50 MG Oral Tablet sertraline (ZOLOFT) 50 MG tablet sertraline (ZOLOFT) 50 MG tablet 09/11/2020 12:00:00 AM EST 1 {tbl} Oral active Take 1 tablet by mouth daily [facility] Nortriptyline 25 MG Oral Capsule nortriptyline (PAMELO R) 25 MG capsule nortriptyline (PAMELOR) 25 MG capsule 09/11/2020 12:00:00 AM EST 1 {capsule} Oral active Take 1 capsule by mo [facility] daily [facility] zonisamide 100 MG Oral Capsule zonisamide (ZONEGRAN) 1 00 MG capsule zonisamide (ZONEGRAN) 100 MG capsule 09/11/2020 12:00:00 AM EST 1 {capsule} Oral active Take 1 capsule by mouth daily [facility] tramadol hydrochloride 50 MG Oral Tablet traMADol (ULT USHA) 50 MG tablet traMADol (ULTRAM) 50 MG tablet 08/16/2020 12:00:00 AM EST 1 {tbl} Oral active Take 1 tablet by mouth daily as needed [facility] tizanidine 4 MG Oral Tablet tiZANidine (ZANAFLEX) 4 MG tablet tiZANidine (ZANAFLEX) 4 MG tablet 08/06/2020 12:00:00 AM EST 4 mg Oral active Take 4 mg by mouth 3 (three) times a day [facility] tramadol hydrochloride 50 MG Oral Tablet Tramadol HCL 07/23/2020 12:00:00 AM EST ORAL active [facility] ([facility]) Levothyroxine Sodium 0.1 MG Oral Tablet levothyroxine (SYNTHROID, LEVOTHROID) 100 MCG tablet levothyroxine (SYNTHROID, LEVOTHROID) 100 MCG tablet 1 09/19/2019 12:00:00 AM EST 100 ug Oral active Take 100 mcg by mouth daily [facility] Sertraline 50 MG Oral Tablet sertraline 07/17/2020 12:00:00 AM EST 50 mg by mouth completed <td ID="Medica tionRxNorm_1">881631</td><td ID="MedicationMedication_1">sertraline</td><td ID="MedicationRoute_1">by mouth</td><td ID="MedicationRouteConcept_1">I51389</td><td ID="MedicationStartDate_1">07/17/2020</td><td ID="MedicationStopDate_1"></td><td ID="MedicationDosageFrequency_1">once a day</td><td ID="MedicationDuration_1"></td><td ID="MedicationFormulaStrength_1">50 mg</td><td ID="MedicationDosageForm_1">tablet</td><td ID="MedicationDosageFormCode_1"></td><td ID="MedicationDosageDescription_1"></td><td ID="MedicationMedicationId_1">[id number]</td><td ID="MedicationAccount_1">[id number]</td><td ID="MedicationNpid_1">[id number]</td><td ID="MedicationAuthorFirstName_1">Ava</td><td ID="MedicationAuthorLastName_1">Iliana</td><td ID="MedicationTaxonomyCode_1">[id number]</td><td ID="MedicationTaxonomyDesc_1">Psychiatric/Mental Health</td><td ID="MedicationPhoneNumber_1">[phone]</td> [facility] ([facility]) Sertraline 50 MG Oral Tablet sertraline 07/17/2020 12:00:00 AM EST 50 mg completed <td ID="Medicati onRxNorm_2">[id number]</td><td ID="MedicationMedication_2">sertraline</td><td ID="MedicationRoute_2"></td><td ID="MedicationRouteConcept_2"></td><td ID="MedicationStartDate_2">07/17/2020</td><td ID="MedicationStopDate_2">07/17/2020</td><td ID="MedicationDosageFrequency_2"></td><td ID="MedicationDuration_2"></td><td ID="MedicationFormulaStrength_2">50 mg</td><td ID="MedicationDosageForm_2">tablet</td><td ID="MedicationDosageFormCode_2"></td><td ID="MedicationDosageDescription_2"></td><td ID="MedicationMedicationId_2">[id number]</td><td ID="MedicationAccount_2">[id number]</td><td ID="MedicationNpid_2"></td><td ID="MedicationAuthorFirstName_2"></td><td ID="MedicationAuthorLastName_2"></td><td ID="MedicationTaxonomyCode_2"></td><td ID="MedicationTaxonomyDesc_2"></td><td ID="MedicationPhoneNumber_2"></td> [facility] ([facility]) 25 mg 05/18/2020 12:00:00 AM EDT capsule 30 TAKE ONE CAPSULE BY MOUTH EVERY DAY TAKE ONE CAPSULE BY MOUTH EVERY DAY SOLD: 05/18/2020 [facility] Sertraline 50 MG Oral Tablet sertraline 05/15/2020 12:00:00 AM EDT 50 mg by mouth completed <td ID="Medica tionRxNorm_2">555645</td><td ID="MedicationMedication_2">sertraline</td><td ID="MedicationRoute_2">by mouth</td><td ID="MedicationRouteConcept_2">K48457</td><td ID="MedicationStartDate_2">05/15/2020</td><td ID="MedicationStopDate_2">07/14/2020</td><td ID="MedicationDosageFrequency_2">every morning</td><td ID="MedicationDuration_2">30</td><td ID="MedicationFormulaStrength_2">50 mg</td><td ID="MedicationDosageForm_2">tablet</td><td ID="MedicationDosageFormCode_2"></td><td ID="MedicationDosageDescription_2"> </td><td ID="MedicationMedicationId_2">[id number]</td><td ID="MedicationAccount_2">[id number]</td><td ID="MedicationNpid_2">[id number]</td><td ID="MedicationAuthorFirstName_2">Ava</td><td ID="MedicationAuthorLastName_2">Iliana</td><td ID="MedicationTaxonomyCode_2">[id number]</td><td ID="MedicationTaxonomyDesc_2">Psychiatric/Mental Health</td><td ID="MedicationPhoneNumber_2">[phone]</td> [facility] ([facility]) Amlodipine 10 MG Oral Tablet amLODIPine (NORVASC) 10 M G tablet amLODIPine (NORVASC) 10 MG tablet 04/27/2020 12:00:00 AM EDT 10 mg Oral active Take 1 tablet (10 mg total) by mouth daily [facility] Sertraline 25 MG Oral Tablet sertraline 03/05/2020 12:00:00 AM EDT 25 mg completed <td ID="Medicati onRxNorm_1">[id number]</td><td ID="MedicationMedication_1">sertraline</td><td ID="MedicationRoute_1"></td><td ID="MedicationRouteConcept_1"></td><td ID="MedicationStartDate_1">03/05/2020</td><td ID="MedicationStopDate_1">05/15/2020</td><td ID="MedicationDosageFrequency_1"></td><td ID="MedicationDuration_1"></td><td ID="MedicationFormulaStrength_1">25 mg</td><td ID="MedicationDosageForm_1">tablet</td><td ID="MedicationDosageFormCode_1"></td><td ID="MedicationDosageDescription_1"></td><td ID="MedicationMedicationId_1">[id number]</td><td ID="MedicationAccount_1">[id number]</td><td ID="MedicationNpid_1">[id number]</td><td ID="MedicationAuthorFirstName_1">Ava</td><td ID="MedicationAuthorLastName_1">Proctor</td><td ID="MedicationTaxonomyCode_1">[id number]</td><td ID="MedicationTaxonomyDesc_1">Psychiatric/Mental Health</td><td ID="MedicationPhoneNumber_1">[phone]</td> [facility] ([facility]) Hydrochlorothiazide 12.5 MG Oral Tablet hydrochlorothiazide (HYDRODIURIL) 12.5 MG tablet hydrochlorothiazide (HYDRODIURIL) 12.5 MG tablet 01/26 12:00:00 AM EDT 1 {tbl} Oral aborted Take 1 tablet b y mouth daily [facility] atorvastatin 10 MG Oral Tablet atorvastatin (LIPITOR) 10 MG tablet atorvastatin (LIPITOR) 10 MG tablet 05/19/2018 12:00:00 AM EDT 1 {tbl} Oral aborted Take 1 tablet by mouth daily [facility] Levothyroxine Sodium 0.075 MG Oral Tablet levothyroxin e (LEVO-T) 75 MCG tablet levothyroxine (LEVO-T) 75 MCG tablet 06/18/2016 12:00:00 AM EDT 1 { tbl} Oral aborted Take 1 tablet by mouth da marissa [facility] Insurance Providers Payer name Policy type / Coverage type Policy ID Covered democrat ID Covered democrat's relationship to oconnell Policy Oconnell Plan Information Medicaid S [id number] S [id number] Managed Care - Community Plan [facility] P [id number] S [id number] [facility] [id number] SP [id number] Medicaid S [id number] S [id number] Managed Care - Community Plan [facility] P [id number] S [id number] [facility] [id number] SP [id number] Medicaid S [id number] S [id number] Managed Care - [facility] Community Plan P [id number] S [id number] Managed Care - Community Plan [facility] P [id number] S [id number] Medicaid S [id number] S [id number] Managed Care - [facility] Community Plan P [id number] S [id number] Medicaid S [id number] S [id number] [facility] I [id number] Self [id number] [facility] I [id number] Self [id number] [facility] MEDICAID [id number] Alondra [id number] [facility] MEDICAID [id number] xxxxxxxxx [id number] ANSI-Medicaid [id number] [facility] [place] [place] Health Maintenance Organization (HMO) [id number] Self [id number] [facility] Health Maintenance Organization (HMO) [id number] Self [id number] MEDICAID [id number] SP [id number] [facility] Health Maintenance Organization (HMO) [id number] Self [id number] [facility] Health Maintenance Organization (HMO) [id number] Self [id number] MEDICAID M [id number] S [id number] [facility] Health Maintenance Organization (HMO) [id number] Self MEDICAID [id number] SP [id number] SELF PAY UNAVAILABLE SP UNAVAILA BLE [employer] MCDO [id number] SP [id number] SELF PAY ONLY UNAVAILABLE UNAV AILABLE [facility] JAYNE [id number] SP [id number] [facility] JAYNE [id number] SP [id number] [facility](MCAID) O [id number] S [id number] UN COMMUNITY PLAN MCDO [id number] SP [id number] MEDICAID [id number] SP [id number] MEDICAID M [id number] S [id number] ANSI-Medicaid [id number] ANSI-Medicaid [id number] ANSI-Medicaid [id number] ANSI-Medicaid [id number] ANSI-Medicaid [id number] ANSI-Medicaid [id number] ANSI-Medicaid [id number] ANSI-Medicaid [id number] ANSI-Medicaid [id number] Problems, Conditions, and Diagnoses Code Display Name Description Problem Type Effective Dates Data Source(s) R94.31 Abnormal electrocardiogram [ECG] [EKG] A bnormal electrocardiogram (ECG) (EKG) Diagnosis 09/12/2020 11:19:45 AM EST [facility] R55 Syncope and collapse Syncope and collapse Diagnosis 09/12/2020 11:19:45 AM EST [facility] R07.9 Chest pain, unspecified Chest pain, unspecified Diagno sis 09/12/2020 11:19:45 AM EST [facility] Z72.0 Tobacco use Tobacco use Diagnosis 09/12/2020 11:19:45 AM [facility] I05.9 Rheumatic mitral valve disease, unspecif ied Rheumatic mitral valve disease, unspecif Diagnosis 09/12/2020 11:19:45 AM [facility] E78.5 Hyperlipidemia, unspecified Hyperlipidemia, unspecifie d Diagnosis 09/12/2020 11:19:45 AM [facility] E03.9 Hypothyroidism, unspecified Hypothyroidism, unspecifie d Diagnosis 09/12/2020 11:19:45 AM [facility] I10 Essential (primary) hypertension Essential (primary) h ypertension Diagnosis 09/12/2020 11:19:45 AM [facility] Z12.31 Encounter for screening mammogram for ma lignant neoplasm of breast Encounter for screening mammogram for malignant neoplasm of breast Diagnosis 08/06/2020 01:33:19 PM [facility] F43.23 Adjustment disorder with mixed anxiety a nd depressed mood Adjustment Disorder, With mixed anxiety and depressed mood Condition 2019 12:00:00 AM EST [facility] ([facility]) Surgeries/Procedures Procedure Description Date Indications Data Source(s) [facility] Telemed E/M Lvl 3--Est pt 07/17/2020 12:00:00 AM EST - 07/17/2020 12:00:00 AM EST [facility] ([facility]) Telemed A/O 30" 07/17/2020 12:00:00 AM EST [facility] ([facility]) [facility] Telemed E/M Lvl 3--Est pt 07/17/2020 12:00:[address] [facility] ([facility]) [facility] Telemed E/M Lvl 3--Est pt 06/20/2020 12:00:00 AM EDT - 06/20/2020 12:00:00 AM EDT [facility] ([facility]) [facility] Telemed E/M Lvl 3--Est pt 06/20/2020 12:00:00 AM E DT [facility] ([facility]) [facility] Telemed E/M Lvl 3--Est pt 05/15/2020 12:00:00 AM EDT - 05/15/2020 12:00:00 AM EDT [facility] ([facility]) Telemed A/O 30" 05/15/2020 12:00:00 AM EDT [facility] ([facility]) [facility] Telemed E/M Lvl 3--Est pt 05/15/2020 12:00:00 AM E DT [facility] ([facility]) Results ID Date Data Source [id number] 05/28/2021 11:14:00 AM EDT [facility] Name Value Range Interpretation Code Description Data Cammie rce(s) Supporting Document(s) SARS coronavirus 2 RNA [Presence] in Res piratory specimen by ELBA with probe detection NEGATIVE [facility] This lab was ordered by [facility] a nd reported by [facility]. ID Date Data Source [id number] 08/13/2020 04:21:06 PM EST [facility] MAMMO DIGITAL SCREENING BILATERAL [id number] INAL RESULTInterpreted by:Luciano Ceja MDBILATERAL DIGITAL MAMMOGRAM [...] rce(s) Supporting Document(s) ID Date Data Source [id number] 05/25/2020 09:35:19 AM EDT [facility] Measurements & CalculationsHeight: 67 inches (5 [...] the hospital? Yes - MH inpatient in [facility] you been to an emergency room (ER) [...] Advised to Quit/Tobacco Education: YesChief Complaintfollow-up [facility] / [facility] hospitalization room 14History of Present Illness (HPI)59 YO female here for follow up hospital discharge / [facility]. Patient wishes to discuss pain. [...] her to see a pain specialist in [place] for this.She has been on gabapentin in [...] during this visit, including review of any [id number] medications, herbal therapies, and/or supplements.Allergy ReviewAllergy List [...] Previous Comments: been couple years ago at [facility], will get records (02/24/2020)Review of Systems General: [...] lower limb affecting unspecified side (ICD- 728.87) (KAX82-U22.10) Assessment: Instructions: Tethered cord and possible [place].Seeing neurology for this and they are referring her to a Pain specialist.She will follow up with them as scheduled.I am going to defer her questions about the gabapentin to them. 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 Had Prevnar 13 a year ago. Will give [id number] and will defer discussion of flu shot to neuro due to history of [place].I am going to defer her questions about [...] SERTRALINE HCL 25 MG ORAL TABLET Qty: [id number] Refills: 30[Tablet] To: SERTRALINE HCL 50 MG ORAL TABLET-once a dayAllergies:* CYMBALTA (Critical)MARIO INHIBITORS (Mild)Orders:Pneumovax 23 [CPT-82349] Adult - Ofc Vst, EST, Level III [CPT-30548] 86877 - Immo Admin (over 19 yrs), 1st Vaccine [CPT-85594] The patient was counseled by the physician on immunizations due, and on the risks and benefits of immunizations.Vaccines Administered/Entered:Vaccination Group: Pneumococcal [id number]: 1Vaccination: [id number] - AdulltMfr / Lot# / Exp.Date: / [id number] 1Amt. Given / Route / Site: 0.5 mL / IM / Left DeltoidNDC / CVX: [id number] / 33Administer ed Date: 05/25/2020 11:10VFC Eligibility: Not VFC EligibleVIS Date: 07/06/2019VIS Given / VIS Given On: Yes / 05/25/2020Comments: Administered by: Yesica Castillo Name Value Range Interpretation Code Description Data Cammie rce(s) Supporting Document(s) Procedure Social History Code Duration Value Status Description Data Source(s ) Alcohol intake 09/22/2020 12:00:00 AM EST [facility] completed [facility] [facility] Sm[facility] 09/22/2020 12:00:00 AM EST Current every day smoker co mpleted Current every day smoker [facility] Smoking 08/06/2020 12:00:00 AM EST Unknown if ever smoked comp leted Unknown if ever smoked [facility] Smoking 07/17/2020 12:00:00 AM EST Unknown if ever smoked comp leted Unknown if ever smoked [facility] ([facility]) Smoking 06/20/2020 12:00:00 AM EDT Unknown if ever smoked comp leted Unknown if ever smoked [facility] ([facility]) Smoking 05/15/2020 12:00:00 AM EDT Unknown if ever smoked comp leted Unknown if ever smoked [facility] ([facility]) Vital Signs ID Date Data Source UNK Name Value Range Interpretation Code Description Data Source(s) Body height 0.00 in Normal (applies to non-numeric resu lts) 0.00 in [facility] ([facility]) Body weight Measured 0.00 lbs Normal (applies to n on-numeric results) 0.00 lbs [facility] ([facility]) Body mass index (BMI) [Ratio] 0.00 kg/m2 No rmal (applies to non-numeric results) 0.00 kg/m2 [facility] ([facility]) Systolic blood pressure 0 mm[Hg] Normal (applies t o non-numeric results) 0 mm[Hg] [facility] ([facility]) Diastolic blood pressure 0 mm[Hg] Normal (applies to non-numeric results) 0 mm[Hg] [facility] ([facility]) Body height 0.00 in Normal (applies to non-numeric resu lts) 0.00 in [facility] ([facility]) Body weight Measured 0.00 lbs Normal (applies to n on-numeric results) 0.00 lbs [facility] ([facility]) Body mass index (BMI) [Ratio] 0.00 kg/m2 No rmal (applies to non-numeric results) 0.00 kg/m2 [facility] ([facility]) Systolic blood pressure 0 mm[Hg] Normal (applies t o non-numeric results) 0 mm[Hg] [facility] ([facility]) Diastolic blood pressure 0 mm[Hg] Normal (applies to non-numeric results) 0 mm[Hg] [facility] ([facility]) ID Date Data Source [id number] 08/13/2020 04:21:06 PM [facility] Name Value Range Interpretation Code Description Data Source(s) WEIGHT RECORDED 210 lb 210 lb [facility] Body height Measured [address] [facility] Patient Treatment Plan of Care Planned Activity Planned Date Details Description Data Source (s) zonisamide 100 MG Oral Capsule 09/11/2020 12:00:00 AM [facility] Sertraline 50 MG Oral Tablet 09/11/2020 12:00:00 AM [facility] Nortriptyline 25 MG Oral Capsule 09/11/2020 12:00:00 AM [facility] gabapentin 100 MG Oral Capsule 09/11/2020 12:00:00 AM [facility] tramadol hydrochloride 50 MG Oral Tablet 08/16/2020 12:00:00 AM EST [facility] tizanidine 4 MG Oral Tablet 08/06/2020 12:00:00 AM EST [facility] Levothyroxine Sodium 0.1 MG Oral Tablet 07/20/2020 12:00:00 AM EST [facility] Amlodipine 10 MG Oral Tablet 04/27/2020 12:00:00 AM EDT [facility] Hydrochlorothiazide 12.5 MG Oral Tablet 01/26/2019 12:00:00 AM EDT [facility] atorvastatin 10 MG Oral Tablet 05/19/2018 12:00:00 AM EDT [facility] Levothyroxine Sodium 0.075 MG Oral Tablet 06/18/2016 12:00:00 AM ED T [facility]
[2021-06-22] MEDS ORDERED: ACETAMINOPHEN 325 MG TAB PO ONE (07:50)
[2021-06-22] MEDS ORDERED: IBUPROFEN 600MG TAB PO ONE (07:50)
[2021-06-22 09:01] VITALS: BP 105/51
[2021-06-22] MEDS ORDERED: NAPR-837 PO (09:33)
== END 2021-06-22 10:00 | disposition home or self-care (01) ==
LOC: M ED 01:58
DX: M54.9 Dorsalgia, unspecified (principal); F17.200 Nicotine dependence, unspecified, uncomplicated; G61.0 Guillain-Barre syndrome; Z86.73 Personal history of transient ischemic attack (TIA), and cerebral infarction without residual deficits; F03.90 Unspecified dementia, unspecified severity, without behavioral disturbance, psychotic disturbance, mood disturbance, and anxiety; R00.1 Bradycardia, unspecified; K57.32 Diverticulitis of large intestine without perforation or abscess without bleeding; K31.84 Gastroparesis; Z87.442 Personal history of urinary calculi; E03.9 Hypothyroidism, unspecified; F41.9 Anxiety disorder, unspecified; F32.9 Major depressive disorder, single episode, unspecified; R44.3 Hallucinations, unspecified; Z79.899 Other long term (current) drug therapy; Z88.8 Allergy status to other drugs, medicaments and biological substances

== ENCOUNTER 2021-06-27 01:58 | Emergency (ER) | payer OTHER ==
[~2021-06-27] VITALS: Ht 172.7 cm; Wt 77.9 kg
[~2021-06-27 01:58] MED LIST changes: +NAPR-837 PO
--- OUTSIDE RECORDS SUMMARY | 2021-06-27 02:07 | CCD ---
Author Author [facility] Address Unknown Phone Unavailable Support Name Relationship Address Phone THOMPSONJOCELYNE Next Of Kin Unknown Allan Thompson Next Of Kin Unknown Unavailable SULEMAN THOMPSON Next Of Kin [address] [place] [phone] Danette LUU, Scott Next Of Kin [address] [place] [address] Vega VICK, Johana Next Of Kin [address] [place] [address] Tonia Whelan Next Of Kin [address] [place] [phone] NO, CONTACT Next Of Kin [address] [place] [address] Joanne LUU, Paulette Next Of Kin [address] [place] [phone] Rhett Dawson MD Next Of Kin [address] [place] [address] DISABLED Next Of Kin Unknown Unavailable UE Next Of Kin Unknown Unavailable UMER STAHL Next Of Kin [address] [place] [address] [place] [address] VAL STAHL Next Of Kin [address] [place] [address] TRINA STAHL Next Of Kin [address] [place] [address] STREAM Next Of Kin [address] [phone] SULEMAN THOMPSON ECON [address] [place] [address] Unavailable NO EMERGENCY, CONTACT [place] [address] [place] [address] Unavailable no, [place] [address] Care Team Providers Care Truck Jumper Name Role Phone Tomas Palominoja ASSOCIATE DIRECTOR CAREER SERVICES Unavailable Unavailable Kocan, J Geno ASSOCIATE DIRECTOR CAREER SERVICES Unavailable Unavailable Kocan, J Geno ASSOCIATE DIRECTOR CAREER SERVICES Unavailable Unavailable Kocan, J Geno ASSOCIATE DIRECTOR CAREER SERVICES Unavailable Unavailable Kocan, J Geno ASSOCIATE DIRECTOR CAREER SERVICES Unavailable Unavailable Kocan, J Geno ASSOCIATE DIRECTOR CAREER SERVICES Unavailable Unavailable Kocan, J Geno ASSOCIATE DIRECTOR CAREER SERVICES Unavailable Unavailable Kocan, J Geno ASSOCIATE DIRECTOR CAREER SERVICES Unavailable Unavailable Kocan, J Geno ASSOCIATE DIRECTOR CAREER SERVICES Unavailable Unavailable Kocan, J Geno ASSOCIATE DIRECTOR CAREER SERVICES Unavailable Unavailable Kocan, J Geno ASSOCIATE DIRECTOR CAREER SERVICES Unavailable Unavailable Kocan, J Geno ASSOCIATE DIRECTOR CAREER SERVICES Unavailable Unavailable Kocan, J Geno ASSOCIATE DIRECTOR CAREER SERVICES Unavailable Unavailable Tameka, Ivan MD Unavailable Unavailable [...] Unavailable Unavailable Jane Dawson MD Unavailable Unavailable Dawson, Jane Delaney MD Unavailable Unavailable Dawson, Jane Delaney MD Unavailable Unavailable Dawson, Jane Dleaney MD Unavailable Unavailable Dawson, Jane Delaney MD Unavailable Unavailable Dawson, Jane Delaney MD Unavailable Unavailable Dawson, Jane Delaney MD Unavailable Unavailable Dawson, Jane Delaney MD Unavailable Unavailable Dawson, Jane Delaney MD Unavailable Unavailable Dawson, Jane Delaney MD Unavailable Unavailable Dawson, Jane Delaney MD Unavailable Unavailable Dawson, Jane Delaney MD Unavailable Unavailable Dawson, Jane Delaney MD Unavailable Unavailable Dawson, Jane Delaney MD Unavailable Unavailable Dawson, Jane Delaney MD Unavailable Unavailable Dawson, Jane Delaney MD Unavailable Unavailable Dawson, Jane Delaney MD Unavailable Unavailable Dawson, Jane Delaney MD Unavailable Unavailable Dawson, Jane Delaney MD Unavailable Unavailable Dawson, Jane Delaney MD Unavailable Unavailable Dawson, Jane Delaney MD Unavailable Unavailable Dawson, Jane Delaney MD Unavailable Unavailable Dawson, Jane Delaney MD Unavailable Unavailable Dawson, Jane Delaney MD Unavailable Unavailable Dawson, Jane Delaney MD Unavailable Unavailable Dawson, Jane Delaney MD Unavailable Unavailable Dawson, Jane Delaney MD Unavailable Unavailable Dawson, Jane Delaney MD Unavailable Unavailable Dawson, Jane Delaney MD Unavailable Unavailable Dawson, Jane Delaney MD Unavailable Unavailable Dawson, Jane Delaney MD Unavailable Unavailable Dawson, Jane Delaney MD Unavailable Unavailable Dawson, Jane Delaney MD Unavailable Unavailable Dawson, Jane Delaney MD Unavailable Unavailable Dawson, Jane Delaney MD Unavailable Unavailable Dawson, Jane Delaney MD Unavailable Unavailable Dawson, Jane Delaney MD Unavailable Unavailable Dawson, Jane Delaney MD Unavailable Unavailable Dawson, Jane Delaney MD Unavailable Unavailable Dawson, Jane Delaney MD Unavailable Unavailable Dawson, Jane Delaney MD Unavailable Unavailable Dawson, Jane Delaney MD Unavailable Unavailable Dawson, Jane Delaney MD Unavailable Unavailable Dawson, Jane Delaney MD Unavailable Unavailable Dawson, Jane Delaney MD Unavailable Unavailable Dawson, Jane Delaney MD Unavailable Unavailable Barone, Annabel Zaragoza MD Unavailable Unavailable Barone, A Nik LUU Unavailable Unavailable Barone, Annabel Zaragoza MD Unavailable Unavailable Barone, Annabel Zaragoza MD Unavailable Unavailable Barone, Annabel Nik MD Unavailable Unavailable Barone, A Nik Unavailable Unavailable Barone, A Nik Unavailable Unavailable Barone, A Nik Unavailable Unavailable Barone, A Nik Unavailable Unavailable Barone, A Nik Unavailable Unavailable Barone, A Nik Unavailable Unavailable Barone, A Nik Unavailable Unavailable Barone, A Nik Unavailable Unavailable Barone, A Nik Unavailable Unavailable Barone, A Nik Unavailable Unavailable Barone, A Nik Unavailable Unavailable Barone, A Nik Unavailable Unavailable Barone, A Nik Unavailable Unavailable Barone, A Nik Unavailable Unavailable Barone, A Nik Unavailable Unavailable Barone, A Nik Unavailable Unavailable Barone, A Nik Unavailable Unavailable Barone, A Nik MD Unavailable [...] Unavailable Barone, A Nik MD Unavailable Unavailable Abrone, A Nik MD Unavailable Unavailable Barone, A Nik MD Unavailable Unavailable Barone, A Nik MD Unavailable Unavailable Barone, A Nik MD Unavailable Unavailable Barone, A Nik MD Unavailable Unavailable Barone, A Nik MD Unavailable Unavailable Barone, A Nik MD Unavailable Unavailable Barone, A Nik MD Unavailable Unavailable Samir, Jane Delaney MD Unavailable Unavailable SamirJane MD Unavailable Unavailable Jane Dawson MD Unavailable [...] Unavailable Unavailable Jane Dawson MD Unavailable Unavailable Samir, Jane Delaney MD Unavailable Unavailable Samir, Jane Delaney MD Unavailable Unavailable Samir, aJne Delaney MD Unavailable Unavailable Samir, Jane Delaney MD Unavailable Unavailable Samir, Jane Delaney MD Unavailable Unavailable Samir, Jane Delaney MD Unavailable Unavailable Dawson, Jane Delaney MD Unavailable Unavailable Samir, Jane Delaney MD Unavailable Unavailable Samir, Jane Delaney MD Unavailable Unavailable Dawson, Jane Delaney MD Unavailable Unavailable Dawson, Jane Delaney MD Unavailable Unavailable Dawson, Jane Delaney MD Unavailable Unavailable Dawson, Jane Delaney MD Unavailable Unavailable Dawson, Jane Delaney MD Unavailable Unavailable Dawson, Jane Delaney MD Unavailable Unavailable Dawson, Jane Delaney MD Unavailable Unavailable Dawson, Jane Delaney MD Unavailable Unavailable Samir, Jane Delaney MD Unavailable Unavailable [place], K Ava [facility] Unavailable Unavailable Iliana, K Ava [facility] Unavailable Unavailable Iliana, K Ava [facility] Unavailable Unavailable Iliana, K Ava [facility] Unavailable Unavailable [place], K Ava [facility] Unavailable Unavailable Iliana, K Ava [facility] Unavailable Unavailable Iliana, K Ava [facility] Unavailable Unavailable Iliana, K Ava [facility] Unavailable Unavailable Re-disclosure Warning The records that [...] is protected by Article 27-F of the [facility] Public Health law. If you continue you may have access to information: Regarding HIV / AIDS; Provided by facilities licensed or operated by the [facility] Office of Mental Health; or Provided by the [facility] Office for People With Developmental Disabilities. If such information is present, then the following [facility] mandated warning applies: This information has [...] law may result in a fine or half-way sentence or both. A general authorization for the release of medical or other information is NOT sufficient authorization for further disc losure. Allergies and Adverse Reactions Type Description Substance Reaction Status Data Source(s ) Propensity to adverse reactions to substance MARIO Inhibitors MARIO Inhibitors Cough Active [facility] ([facility]) Propensity to adverse reactions DULOXETINE HCL Duloxetine Hcl Active [facility] Drug allergy DULOXETINE HCL DULOXETINE HCL [facility] Propensity to adverse reactions MARIO INHIBITORS MARIO INHIBITORS [facility] Family History Family Member Name Family Member Gender Family Member Status Date o f Status Description Data Source(s) Unknown Unknown Problem [facility] ([facility]) Encounters Encounter Providers Location Date Indications Data Source(s ) Outpatient Attender: Geno CORCORAN SJP.HANK-SJP.HANK 10/10/2020 1 0:40:57 AM EST [facility] Outpatient Attender: Geno CORCORAN SJP.HANK-SJP.HANK 2020 12:00:00 AM EST - 09/12/2020 02:43:34 PM EST [facility] Outpatient Attender: Nik Barone MD 08/23/2020 12:00:[address] [facility] Outpatient Referrer: Rhett Dawson MD 08/06/2020 12:00 :00 AM EST Encounter for screening mammogram for malignant neoplasm of breast [facility] Encounter for screening mammogram for ma lignant neoplasm of breast Outpatient Attender: Nik Barone MD 07/31/2020 12:00:00 AM EST [facility] Outpatient Attender: Ivan English MD Main office - [place] 07/23/2020 11:45:00 AM EST [facility] ([facility] Outpatient Attender: Ava Barrientos [facility] 07/17/2020 02:30:00 AM EST - 07/17/2020 02:30:00 AM EST [facility] ([facility]) Attender: Ava Barrientos [facility] 07/17/2020 12: 00:00 AM EST [facility] ([facility]) Outpatient Attender: Nik Barone MD 07/05/2020 12:00:00 AM [facility] Outpatient Attender: Ava Barrientos [facility] 06/20/2020 01:00:00 AM EDT - 06/20/2020 01:00:00 AM EDT [facility] ([facility]) Attender: Ava Barrientos [facility] 06/20/2020 12: 00:00 AM EDT [facility] ([facility]) Outpatient Attender: Rhett Dawson MD FP 06/19/2020 11:22:02 AM EDT [facility] Outpatient Attender: Rhett Dawson MD FP 06/18/2020 10:51:02 AM EDT [facility] Outpatient Attender: Rhett Dawson MD FP 05/26/2020 12:02:10 AM EDT [facility] Outpatient Attender: Rhett Dawson MD FP 05/25/2020 11:14:01 AM EDT [facility] Outpatient Attender: Rhett Dawson MD FP 05/25/2020 09:26:01 AM EDT [facility] Outpatient Attender: Rhett Dawson MD FP 05/25/2020 09:19:00 AM EDT [facility] Outpatient Attender: Rhett Dawson MD FP 05/25/2020 09:17:00 AM EDT [facility] Outpatient Attender: Rhett Dawsno MD FP 05/24/2020 12:54:01 PM EDT [facility] Outpatient Attender: Rhett Dawson MD FP 05/24/2020 12:10:01 PM EDT [facility] Outpatient Attender: Rhett Dawson MD FP 05/17/2020 02:50:01 PM EDT [facility] Outpatient Attender: Ava Barrientos [facility] 05/15/2020 02:00:00 AM EDT - 05/15/2020 02:00:00 AM EDT [facility] ([facility]) Attender: Ava Barrientos [facility] 05/15/2020 12: 00:00 AM EDT [facility] ([facility]) Outpatient Attender: Ivan English MD Main office - [place] 05/01/2020 11:15:00 AM EDT [facility] ([facility]) Outpatient Attender: Rhett CLEVELAND 04/27/2020 09:47:00 AM EDT [facility] Outpatient SJP.CT-SJP.SYR 07/16/2019 01:04:07 PM EST [facility] Functional Status Immunizations Vaccine Date Status Description Data Source(s) COVID-19 VACCINE Moderna 12/10/2020 12:00:00 AM EDT completed [facility] Vaccine Series Complete: NOThis Data was Submitted to [facility] Via [employer]. Medications Medication Brand Name Start Date Product Form Dose Route Admi nistrative Instructions Pharmacy Instructions Status Indications Reaction Description Data Source(s) gabapentin 100 MG Oral Capsule gabapentin (NEURONTIN) 100 MG capsule gabapentin (NEURONTIN) 100 MG capsule 09/11/2020 12:00:00 AM EST 1 {capsule} Oral active Take 1 capsule by mouth 3 (three ) times a day [facility] Sertraline 50 MG Oral Tablet sertraline (ZOLOFT) 50 MG tablet sertraline (ZOLOFT) 50 MG tablet 09/11/2020 12:00:00 AM EST 1 {tbl} Oral active Take 1 tablet by mouth daily [facility] Nortriptyline 25 MG Oral Capsule nortriptyline (PAMELO R) 25 MG capsule nortriptyline (PAMELOR) 25 MG capsule 09/11/2020 12:00:00 AM EST 1 {capsule} Oral active Take 1 capsule by mo [facility] daily [facility] zonisamide 100 MG Oral Capsule zonisamide (ZONEGRAN) 1 00 MG capsule zonisamide (ZONEGRAN) 100 MG capsule 09/11/2020 12:00:00 AM EST 1 {capsule} Oral active Take 1 capsule by mouth daily [facility] tramadol hydrochloride 50 MG Oral Tablet traMADol (ULT USHA) 50 MG tablet traMADol (ULTRAM) 50 MG tablet 08/16/2020 12:00:00 AM EST 1 {tbl} Oral active Take 1 tablet by mouth daily as needed [facility] tizanidine 4 MG Oral Tablet tiZANidine (ZANAFLEX) 4 MG tablet tiZANidine (ZANAFLEX) 4 MG tablet 08/06/2020 12:00:00 AM EST 4 mg Oral active Take 4 mg by mouth 3 (three) times a day [facility] tramadol hydrochloride 50 MG Oral Tablet Tramadol HCL 07/23/2020 12:00:00 AM EST ORAL active [facility] ([facility]) Levothyroxine Sodium 0.1 MG Oral Tablet levothyroxine (SYNTHROID, LEVOTHROID) 100 MCG tablet levothyroxine (SYNTHROID, LEVOTHROID) 100 MCG tablet 1 09/19/2019 12:00:00 AM EST 100 ug Oral active Take 100 mcg by mouth daily [facility] Sertraline 50 MG Oral Tablet sertraline 07/17/2020 12:00:00 AM EST 50 mg by mouth completed <td ID="Medica tionRxNorm_1">398896</td><td ID="MedicationMedication_1">sertraline</td><td ID="MedicationRoute_1">by mouth</td><td ID="MedicationRouteConcept_1">Y61134</td><td ID="MedicationStartDate_1">07/17/2020</td><td ID="MedicationStopDate_1"></td><td ID="MedicationDosageFrequency_1">once a day</td><td ID="MedicationDuration_1"></td><td ID="MedicationFormulaStrength_1">50 mg</td><td ID="MedicationDosageForm_1">tablet</td><td ID="MedicationDosageFormCode_1"></td><td ID="MedicationDosageDescription_1"></td><td ID="MedicationMedicationId_1">[id number]</td><td ID="MedicationAccount_1">[id number]</td><td ID="MedicationNpid_1">[id number]</td><td ID="MedicationAuthorFirstName_1">Ava</td><td ID="MedicationAuthorLastName_1">Iliana</td><td ID="MedicationTaxonomyCode_1">[id number]</td><td ID="MedicationTaxonomyDesc_1">Psychiatric/Mental Health</td><td ID="MedicationPhoneNumber_1">[phone]</td> [facility] ([facility]) Sertraline 50 MG Oral Tablet sertraline 07/17/2020 12:00:00 AM EST 50 mg completed <td ID="Medicati onRxNorm_2">[id number]</td><td ID="MedicationMedication_2">sertraline</td><td ID="MedicationRoute_2"></td><td ID="MedicationRouteConcept_2"></td><td ID="MedicationStartDate_2">07/17/2020</td><td ID="MedicationStopDate_2">07/17/2020</td><td ID="MedicationDosageFrequency_2"></td><td ID="MedicationDuration_2"></td><td ID="MedicationFormulaStrength_2">50 mg</td><td ID="MedicationDosageForm_2">tablet</td><td ID="MedicationDosageFormCode_2"></td><td ID="MedicationDosageDescription_2"></td><td ID="MedicationMedicationId_2">[id number]</td><td ID="MedicationAccount_2">[id number]</td><td ID="MedicationNpid_2"></td><td ID="MedicationAuthorFirstName_2"></td><td ID="MedicationAuthorLastName_2"></td><td ID="MedicationTaxonomyCode_2"></td><td ID="MedicationTaxonomyDesc_2"></td><td ID="MedicationPhoneNumber_2"></td> [facility] ([facility]) 25 mg 05/18/2020 12:00:00 AM EDT capsule 30 TAKE ONE CAPSULE BY MOUTH EVERY DAY TAKE ONE CAPSULE BY MOUTH EVERY DAY SOLD: 05/18/2020 [facility] Sertraline 50 MG Oral Tablet sertraline 05/15/2020 12:00:00 AM EDT 50 mg by mouth completed <td ID="Medica tionRxNorm_2">[id number]</td><td ID="MedicationMedication_2">sertraline</td><td ID="MedicationRoute_2">by mouth</td><td ID="MedicationRouteConcept_2">[id number]</td><td ID="MedicationStartDate_2">05/15/2020</td><td ID="MedicationStopDate_2">07/14/2020</td><td ID="MedicationDosageFrequency_2">every morning</td><td ID="MedicationDuration_2">30</td><td ID="MedicationFormulaStrength_2">50 mg</td><td ID="MedicationDosageForm_2">tablet</td><td ID="MedicationDosageFormCode_2"></td><td ID="MedicationDosageDescription_2"> </td><td ID="MedicationMedicationId_2">[id number]</td><td ID="MedicationAccount_2">[id number]</td><td ID="MedicationNpid_2">[id number]</td><td ID="MedicationAuthorFirstName_2">Ava</td><td ID="MedicationAuthorLastName_2">Iliana</td><td ID="MedicationTaxonomyCode_2">[id number]</td><td ID="MedicationTaxonomyDesc_2">Psychiatric/Mental Health</td><td ID="MedicationPhoneNumber_2">[phone]</td> [facility] ([facility]) Sertraline 25 MG Oral Tablet sertraline 03/05/2020 12:00:00 AM EDT 25 mg completed <td ID="Medicati onRxNorm_1">[id number]</td><td ID="MedicationMedication_1">sertraline</td><td ID="MedicationRoute_1"></td><td ID="MedicationRouteConcept_1"></td><td ID="MedicationStartDate_1">03/05/2020</td><td ID="MedicationStopDate_1">05/15/2020</td><td ID="MedicationDosageFrequency_1"></td><td ID="MedicationDuration_1"></td><td ID="MedicationFormulaStrength_1">25 mg</td><td ID="MedicationDosageForm_1">tablet</td><td ID="MedicationDosageFormCode_1"></td><td ID="MedicationDosageDescription_1"></td><td ID="MedicationMedicationId_1">[id number]</td><td ID="MedicationAccount_1">[id number]</td><td ID="MedicationNpid_1">[id number]</td><td ID="MedicationAuthorFirstName_1">Ava</td><td ID="MedicationAuthorLastName_1">[place]</td><td ID="MedicationTaxonomyCode_1">[id number]</td><td ID="MedicationTaxonomyDesc_1">Psychiatric/Mental Health</td><td ID="MedicationPhoneNumber_1">[phone]</td> [facility] ([facility]) Hydrochlorothiazide 12.5 MG Oral Tablet hydrochlorothiazide (HYDRODIURIL) 12.5 MG tablet hydrochlorothiazide (HYDRODIURIL) 12.5 MG tablet 01/26 12:00:00 AM EDT 1 {tbl} Oral aborted Take 1 tablet b y mouth daily [facility] atorvastatin 10 MG Oral Tablet atorvastatin (LIPITOR) 10 MG tablet atorvastatin (LIPITOR) 10 MG tablet 05/19/2018 12:00:00 AM EDT 1 {tbl} Oral aborted Take 1 tablet by mouth daily [facility] Levothyroxine Sodium 0.075 MG Oral Tablet levothyroxin e (LEVO-T) 75 MCG tablet levothyroxine (LEVO-T) 75 MCG tablet 06/18/2016 12:00:00 AM EDT 1 { tbl} Oral aborted Take 1 tablet by mouth da marissa [facility] Insurance Providers Payer name Policy type / Coverage type Policy ID Covered republican ID Covered republican's relationship to oconnell Policy Oconnell Plan Information Medicaid S [id number] S [id number] Managed Care - Community Plan [facility] P [id number] S [id number] [facility] [id number] SP [id number] Medicaid S [id number] S [id number] Managed Care - Community Plan [facility] P [id number] S [id number] [facility] [id number] SP [id number] Medicaid S [id number] S [id number] Managed Care - [facility] Community Plan P [id number] S [id number] Managed Care - Community Plan [facility] P [id number] S [id number] Medicaid S [id number] S [id number] Managed Care - [facility] Community Plan P [id number] S [id number] Medicaid S [id number] S [id number] [facility] I [id number] Self [id number] [facility] I [id number] Self [id number] [facility] MEDICAID [id number] Alondra [id number] [facility] MEDICAID [id number] xxxxxxxxx [id number] [facility] [id number] [facility]/Community [facility] Health Maintenance Organization (HMO) [id number] Self [id number] [facility] Health Maintenance Organization (O) [id number] Self [id number] MEDICAID [id number] SP [id number] [facility] Health Maintenance Organization (HMO) [id number] Self [id number] [facility] Health Maintenance Organization (O) [id number] Self [id number] MEDICAID M [id number] S [id number] [facility] Health Maintenance Organization (HMO) [id number] Self MEDICAID [id number] SP [id number] SELF PAY UNAVAILABLE SP UNAVAILA BLE [employer] PLAN MCDO [id number] SP [id number] SELF PAY ONLY UNAVAILABLE UNAV AILABLE [facility] [id number] SP [id number] [facility] [id number] SP [id number] [facility] O [id number] S [id number] UN COMMUNITY PLAN MCDO [id number] SP [id number] MEDICAID [id number] SP [id number] MEDICAID M [id number] S [id number] ANSI-Medicaid [id number] ANSI-Medicaid [id number] ANSI-Medicaid [id number] ANSI-Medicaid [id number] ANSI-Medicaid [id number] ANSI-Medicaid [id number] ANSI-Medicaid [id number] ANSI-Medicaid [id number] ANSI-Medicaid [id number] Problems, Conditions, and Diagnoses Code Display Name Description Problem Type Effective Dates Data Source(s) R94.31 Abnormal electrocardiogram [ECG] [EKG] A bnormal electrocardiogram (ECG) (EKG) Diagnosis 09/12/2020 11:19:45 AM EST [facility] R55 Syncope and collapse Syncope and collapse Diagnosis 09/12/2020 11:19:45 AM EST [facility] R07.9 Chest pain, unspecified Chest pain, unspecified Diagno sis 09/12/2020 11:19:45 AM EST [facility] Z72.0 Tobacco use Tobacco use Diagnosis 09/12/2020 11:19:45 AM EST [facility] I05.9 Rheumatic mitral valve disease, unspecif ied Rheumatic mitral valve disease, unspecif Diagnosis 09/12/2020 11:19:45 AM [facility] E78.5 Hyperlipidemia, unspecified Hyperlipidemia, unspecifie d Diagnosis 09/12/2020 11:19:45 AM [facility] E03.9 Hypothyroidism, unspecified Hypothyroidism, unspecifie d Diagnosis 09/12/2020 11:19:45 AM [facility] I10 Essential (primary) hypertension Essential (primary) h ypertension Diagnosis 09/12/2020 11:19:45 AM [facility] Z12.31 Encounter for screening mammogram for ma lignant neoplasm of breast Encounter for screening mammogram for malignant neoplasm of breast Diagnosis 08/06/2020 01:33:[address] [facility] F43.23 Adjustment disorder with mixed anxiety a nd depressed mood Adjustment Disorder, With mixed anxiety and depressed mood Condition 2019 12:00:00 AM EST [facility] ([facility]) Surgeries/Procedures Procedure Description Date Indications Data Source(s) [facility] Telemed E/M Lvl 3--Est pt 07/17/2020 12:00:00 AM EST - 07/17/2020 12:00:00 AM EST [facility] ([facility]) Telemed A/O 30" 07/17/2020 12:00:00 AM EST [facility] ([facility]) [facility] Telemed E/M Lvl 3--Est pt 07/17/2020 12:00:[address] [facility] ([facility]) [facility] Telemed E/M Lvl 3--Est pt 06/20/2020 12:00:00 AM EDT - 06/20/2020 12:00:00 AM EDT [facility] ([facility]) [facility] Telemed E/M Lvl 3--Est pt 06/20/2020 12:00:00 AM E DT [facility] ([facility]) [facility] Telemed E/M Lvl 3--Est pt 05/15/2020 12:00:00 AM EDT - 05/15/2020 12:00:00 AM EDT [facility] ([facility]) Telemed A/O 30" 05/15/2020 12:00:00 AM EDT [facility] ([facility]) [facility] Telemed E/M Lvl 3--Est pt 05/15/2020 12:00:00 AM E DT [facility] ([facility]) Results ID Date Data Source [id number] 05/28/2021 11:14:00 AM EDT [facility] Name Value Range Interpretation Code Description Data Cammie rce(s) Supporting Document(s) SARS coronavirus 2 RNA [Presence] in Res piratory specimen by ELBA with probe detection NEGATIVE [facility] This lab was ordered by [facility] a nd reported by [facility]. ID Date Data Source [id number] 08/13/2020 04:21:06 PM EST [facility] MAMMO DIGITAL SCREENING BILATERAL [id number] INAL RESULTInterpreted by:Luciano Ceja MDBILATERAL DIGITAL MAMMOGRAM [...] rce(s) Supporting Document(s) ID Date Data Source [id number] 05/25/2020 09:35:19 AM EDT [facility] Measurements & CalculationsHeight: 67 inches (5 [...] been admitted to the hospital? Yes - inpatient in [facility] you been to an emergency room (ER) or urgent care clinic? No - before hospitilizationHave you seen another healthcare provider? Yes - Dr Contreras, Dr villegas, Dr fatimaHaedwin you seen a dentist? Yes - no [...] Advised to Quit/Tobacco Education: YesChief Complaintfollow-up [facility] / [facility] hospitalization room 14History of Present Illness (HPI)59 YO female here for follow up hospital discharge / [facility]. Patient wishes to discuss pain. She has been seeeing neurology for a while for chronic upper and lower back and leg pain. Gets muscle spasms sometimes as well. They have her on muscle relaxers for this. 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 Had Prevnar 13 a year ago. Will give [id number] and will defer discussion of flu shot to neuro due to history of Umaña-Tsaile.I am going to defer her questions about [...] SERTRALINE HCL 25 MG ORAL TABLET Qty: [id number] Refills: 30[Tablet] To: SERTRALINE HCL 50 MG ORAL TABLET-once a dayAllergies:* CYMBALTA (Critical)MARIO INHIBITORS (Mild)Orders:Pneumovax 23 [CPT-42807] Adult - Ofc Vst, EST, Level III [CPT-02948] 33469 - Immo Admin (over 19 yrs), 1st Vaccine [CPT-15437] The patient was counseled by the physician on immunizations due, and on the risks and benefits of immunizations.Vaccines Administered/Entered:Vaccination Group: Pneumococcal [id number]: 1Vaccination: [id number] - AdulltMfr / Lot# / Exp.Date: [facility] / [id number] 1Amt. Given / Route / Site: 0.5 mL / IM / Left DeltoidNDC / CVX: [id number] / 33Administer ed Date: 05/25/2020 11:10VFC Eligibility: Not VFC EligibleVIS Date: 07/06/2019VIS Given / VIS Given On: 05/25/2020Comments: Administered by: Yesica Castillo Name Value Range Interpretation Code Description Data Cammie rce(s) Supporting Document(s) Procedure Social History Code Duration Value Status Description Data Source(s ) Alcohol intake 09/22/2020 12:00:00 AM EST Never completed [facility] Smoking 09/22/2020 12:00:00 AM EST Current every day smoker co mpleted Current every day smoker [facility] Smoking 08/06/2020 12:00:00 AM EST Unknown if ever smoked comp leted Unknown if ever smoked [facility] Smoking 07/17/2020 12:00:00 AM EST Unknown if ever smoked comp leted Unknown if ever smoked [facility] ([facility]) Smoking 06/20/2020 12:00:00 AM EDT Unknown if ever smoked comp leted Unknown if ever smoked [facility] ([facility]) Smoking 05/15/2020 12:00:00 AM EDT Unknown if ever smoked comp leted Unknown if ever smoked [facility] ([facility]) Vital Signs ID Date Data Source UNK Name Value Range Interpretation Code Description Data Source(s) Body height 0.00 in Normal (applies to non-numeric resu lts) 0.00 in [facility] ([facility]) Body weight Measured 0.00 lbs Normal (applies to n on-numeric results) 0.00 lbs [facility] ([facility]) Body mass index (BMI) [Ratio] 0.00 kg/m2 No rmal (applies to non-numeric results) 0.00 kg/m2 [facility] ([facility]) Systolic blood pressure 0 mm[Hg] Normal (applies t o non-numeric results) 0 mm[Hg] [facility] ([facility]) Diastolic blood pressure 0 mm[Hg] Normal (applies to non-numeric results) 0 mm[Hg] [facility] ([facility]) Body height 0.00 in Normal (applies to non-numeric resu lts) 0.00 in [facility] ([facility]) Systolic blood pressure 0 mm[Hg] Normal (applies t o non-numeric results) 0 mm[Hg] [facility] ([facility]) Body weight Measured 0.00 lbs Normal (applies to n on-numeric results) 0.00 lbs [facility] ([facility]) Diastolic blood pressure 0 mm[Hg] Normal (applies to non-numeric results) 0 mm[Hg] [facility] ([facility]) Body mass index (BMI) [Ratio] 0.00 kg/m2 No rmal (applies to non-numeric results) 0.00 kg/m2 [facility] ([facility]) ID Date Data Source [id number] 08/13/2020 04:21:06 PM [facility] Name Value Range Interpretation Code Description Data Source(s) WEIGHT RECORDED 210 lb 210 lb [facility] Body height Measured 69 in 69 in [facility] Patient Treatment Plan of Care Planned Activity Planned Date Details Description Data Source (s) zonisamide 100 MG Oral Capsule 09/11/2020 12:00:00 AM [facility] Sertraline 50 MG Oral Tablet 09/11/2020 12:00:00 AM [facility] Nortriptyline 25 MG Oral Capsule 09/11/2020 12:00:00 AM [facility] gabapentin 100 MG Oral Capsule 09/11/2020 12:00:00 AM [facility] tramadol hydrochloride 50 MG Oral Tablet 08/16/2020 12:00:00 AM [facility] tizanidine 4 MG Oral Tablet 08/06/2020 12:00:00 AM [facility] Levothyroxine Sodium 0.1 MG Oral Tablet 07/20/2020 12:00:00 AM EST [facility] Hydrochlorothiazide 12.5 MG Oral Tablet 01/26/2019 12:00:00 AM EDT [facility] atorvastatin 10 MG Oral Tablet 05/19/2018 12:00:00 AM EDT [facility] Levothyroxine Sodium 0.075 MG Oral Tablet 06/18/2016 12:00:00 AM ED T [facility]
--- OUTSIDE RECORDS SUMMARY | 2021-06-27 04:09 | CCD ---
Author Author [facility] Organization [facility] Address Unknown Phone Unavailable Support Name Relationship Address Phone JAY JOCELYNE Next Of Kin Unknown Allan Thompson Next Of Kin Unknown Unavailable SULEMAN THOMPSON Next Of Kin [address] [place] [address] Danette LUU, Scott Next Of Kin [address] [place] [address] Johana Graham Next Of Kin [address] [place] [address] Tonia Whelan Next Of Kin [address] [place] [address] [phone] NO, CONTACT Next Of Kin [address] [place] [address] Paulette Rubio MD Next Of Kin [address] [place] [address] [phone] Rhett Dawson MD Next Of Kin [address] [place] [address] DISABLED Next Of Kin Unknown Unavailable UE Next Of Kin Unknown Unavailable UMER STAHL Next Of Kin [address] [place] [phone] [place] [address] VAL STAHL Next Of Kin [address] [place], [place] [phone] TRINA STAHL Next Of Kin [address] [place] [address] STREAM Next Of Kin [address] [place] [address] SULEMAN THOMPSON ECON [address] [place] [address] Unavailable NO EMERGENCY, CONTACT ECON [address] [place] [address] Unavailable no, [place] [address] Care Team Providers Care Edger Operator Name Role Phone Komakayla, Tomas Geno VEHICLE ASSEMBLER Unavailable Unavailable Kocan, J Geno VEHICLE ASSEMBLER Unavailable Unavailable Kocan, J Geno VEHICLE ASSEMBLER Unavailable Unavailable Kocan, J Geno VEHICLE ASSEMBLER Unavailable Unavailable Kocan, J Geno VEHICLE ASSEMBLER Unavailable Unavailable Kocan, J Geno VEHICLE ASSEMBLER Unavailable Unavailable Kocan, J Geno VEHICLE ASSEMBLER Unavailable Unavailable Kocan, J Geno VEHICLE ASSEMBLER Unavailable Unavailable Kocan, J Geno VEHICLE ASSEMBLER Unavailable Unavailable Kocan, J Geno VEHICLE ASSEMBLER Unavailable Unavailable Kocan, J Geno VEHICLE ASSEMBLER Unavailable Unavailable Kocan, J Geno VEHICLE ASSEMBLER Unavailable Unavailable Kocan, J Geno VEHICLE ASSEMBLER Unavailable Unavailable Tameka, Ivan MD Unavailable Unavailable [...] Unavailable Unavailable Tameka, Ivan MD Unavailable Unavailable Tameak, Ivan MD Unavailable Unavailable Tameka, Ivan MD [...] Barone, Annabel Nik MD Unavailable Unavailable Barone, Annabel Zaragoza MD Unavailable Unavailable Barone, Annabel Nik MD Unavailable Unavailable Barone, A Nik Unavailable Unavailable Barone, Annabel Nik MD Unavailable Unavailable Barone, Annabel Zaragoza MD Unavailable Unavailable Barone, Annabel AllenNik Unavailable Unavailable Barone, A Nik Unavailable Unavailable Barone, A Nik Unavailable Unavailable Barone, A Nik Unavailable Unavailable Barone, A Nik LUU Unavailable Unavailable Barone, A Nik MD Unavailable Unavailable Barone, A Nik LUU Unavailable Unavailable Barone, Annabel Zaragoza MD Unavailable Unavailable Barone, A Nik LUU Unavailable Unavailable Barone, A Nik Unavailable Unavailable [...] Unavailable Barone, A Nik MD Unavailable Unavailable Braone, A Nik MD Unavailable Unavailable Barone, A Nik MD Unavailable Unavailable Barone, A Nik MD Unavailable Unavailable Baroen, A Nik MD Unavailable Unavailable Barone, A [...] Unavailable Samir, Jane Delaney MD Unavailable Unavailable Saimr, Jane Delaney MD Unavailable Unavailable Jane Dawson MD Unavailable [...] Unavailable Unavailable Jane Dawson MD Unavailable Unavailable Jaen Dawson MD Unavailable Unavailable Jane Dawson MD [...] Unavailable Samir, Jane Delaney MD Unavailable Unavailable [place], K Ava PMH-CLINICAL RESEARCH SPEC Unavailable Unavailable [place], K Ava PMH-CLINICAL RESEARCH SPEC Unavailable Unavailable Iliana, K Ava PMH-CLINICAL RESEARCH SPEC Unavailable Unavailable [place], K Ava PMH-CLINICAL RESEARCH SPEC Unavailable Unavailable [place], K Ava PMH-CLINICAL RESEARCH SPEC Unavailable Unavailable [place], K Ava PMH-CLINICAL RESEARCH SPEC Unavailable Unavailable [place], K Ava PMH-CLINICAL RESEARCH SPEC Unavailable Unavailable [place], K Ava PMH-CLINICAL RESEARCH SPEC Unavailable Unavailable Re-disclosure Warning The records that [...] is protected by Article 27-F of the [place] State Public Health law. If you continue you may have access to information: Regarding HIV / AIDS; Provided by facilities licensed or operated by the [facility] of Mental Health; or Provided by the [facility] Office for People With Developmental Disabilities. If such information is present, then the following [facility] mandated warning applies: This information has been [...] law may result in a fine or mcfp sentence or both. A general authorization for the release of medical or other information is NOT sufficient authorization for further disc losure. Allergies and Adverse Reactions Type Description Substance Reaction Status Data Source(s ) Propensity to adverse reactions to substance MARIO Inhibitors MARIO Inhibitors Cough Active [facility] ([facility]) Propensity to adverse reactions DULOXETINE HCL Duloxetine Hcl Active [facility] Drug allergy DULOXETINE HCL DULOXETINE HCL [facility] Propensity to adverse reactions MARIO INHIBITORS MARIO INHIBITORS [facility] Family History Family Member Name Family Member Gender Family Member Status Date o f Status Description Data Source(s) Unknown Unknown Problem [facility] ([facility]) Encounters Encounter Providers Location Date Indications Data Source(s ) Outpatient Attender: Geno CORCORAN SJP.HANK-SJP.HANK 10/10/2020 1 0:40:57 AM EST [facility] Outpatient Attender: Geno CORCORAN SJP.HANK-SJP.HANK 2020 12:00:00 AM EST - 09/12/2020 02:43:34 PM EST [facility] Outpatient Attender: Nik Barone MD 08/23/2020 12:00:00 AM [facility] Outpatient Referrer: Rhett Dawson MD 08/06/2020 12:00 :00 AM EST Encounter for screening mammogram for malignant neoplasm of breast [facility] Encounter for screening mammogram for ma lignant neoplasm of breast Outpatient Attender: Nik Barone MD 07/31/2020 12:00:00 AM [facility] Outpatient Attender: Ivan English MD Main office - [place] 07/23/2020 11:45:00 AM EST [facility] ([facility] Outpatient Attender: Ava Barrientos [facility]-CLINICAL RESEARCH SPEC [facility] 07/17/2020 02:30:00 AM EST - 07/17/2020 02:30:00 AM EST [facility] ([facility]) Attender: Ava Barrientos PM-CLINICAL RESEARCH SPEC 07/17/2020 12: 00:00 AM EST [facility] ([facility]) Outpatient Attender: Nik Barone MD 07/05/2020 12:00:00 AM [facility] Outpatient Attender: Ava Barrientos [facility]-CLINICAL RESEARCH SPEC [facility] 06/20/2020 01:00:00 AM EDT - 06/20/2020 01:00:00 AM EDT [facility] ([facility]) Attender: Ava Barrientos [facility]-CLINICAL RESEARCH SPEC 06/20/2020 12: 00:00 AM EDT [facility] ([facility]) Outpatient Attender: Rhett Dawson MD FP 06/19/2020 11:22:02 AM EDT [facility] Outpatient Attender: Rhett Dawson MD FP 06/18/2020 10:51:02 AM EDT [facility] Outpatient Attender: Rhett Dawson MD FP 05/26/2020 12:02:10 AM EDT [facility] Outpatient Attender: Rhett Dawson MD FP 05/25/2020 11:14:01 AM EDT [facility] Outpatient Attender: Rhett Dawson MD FP 05/25/2020 09:26:01 AM EDT [facility] Outpatient Attender: Rhett Dawson MD FP 05/25/2020 09:19:00 AM EDT [facility] Outpatient Attender: Rhett Dawson MD FP 05/25/2020 09:17:00 AM EDT [facility] Outpatient Attender: Rhett Dawson MD FP 05/24/2020 12:54:01 PM EDT [facility] Outpatient Attender: Rhett Dawson MD FP 05/24/2020 12:10:01 PM EDT [facility] Outpatient Attender: Rhett Dawson MD FP 05/17/2020 02:50:01 PM EDT [facility] Outpatient Attender: Ava Barrientos [facility] 05/15/2020 02:00:00 AM EDT - 05/15/2020 02:00:00 AM EDT [facility] ([facility]) Attender: Ava Barrientos PM-CLINICAL RESEARCH SPEC 05/15/2020 12: 00:00 AM EDT [facility] ([facility]) Outpatient Attender: Ivan English MD Main office - [place] 05/01/2020 11:15:00 AM EDT MED[facility] ([facility] TERE[facility] Ferguson) Outpatient Attender: Rhett CLEVELAND 04/27/2020 09:47:00 AM EDT [facility] Outpatient SJP.CT-SJP.SYR 07/16/2019 01:04:07 PM EST [facility] Functional Status Immunizations Vaccine Date Status Description Data Source(s) COVID-19 VACCINE Moderna 12/10/2020 12:00:00 AM EDT completed NY[facility]IS Vaccine Series Complete: NOThis Data was Submitted to [facility] Via [employer]. Medications Medication Brand Name Start Date Product Form Dose Route Admi nistrative Instructions Pharmacy Instructions Status Indications Reaction Description Data Source(s) gabapentin 100 MG Oral Capsule gabapentin (NEURONTIN) 100 MG capsule gabapentin (NEURONTIN) 100 MG capsule 09/11/2020 12:00:00 AM EST 1 {capsule} Oral active Take 1 capsule by mouth 3 (three ) times a day [facility] Sertraline 50 MG Oral Tablet sertraline (ZOLOFT) 50 MG tablet sertraline (ZOLOFT) 50 MG tablet 09/11/2020 12:00:00 AM EST 1 {tbl} Oral active Take 1 tablet by mouth daily [facility] Nortriptyline 25 MG Oral Capsule nortriptyline (PAMELO R) 25 MG capsule nortriptyline (PAMELOR) 25 MG capsule 09/11/2020 12:00:00 AM EST 1 {capsule} Oral active Take 1 capsule by mo uth daily [facility] zonisamide 100 MG Oral Capsule zonisamide (ZONEGRAN) 1 00 MG capsule zonisamide (ZONEGRAN) 100 MG capsule 09/11/2020 12:00:00 AM EST 1 {capsule} Oral active Take 1 capsule by mouth daily [facility] tramadol hydrochloride 50 MG Oral Tablet traMADol (ULT USHA) 50 MG tablet traMADol (ULTRAM) 50 MG tablet 08/16/2020 12:00:00 AM EST 1 {tbl} Oral active Take 1 tablet by mouth daily as needed [facility] tizanidine 4 MG Oral Tablet tiZANidine (ZANAFLEX) 4 MG tablet tiZANidine (ZANAFLEX) 4 MG tablet 08/06/2020 12:00:00 AM EST 4 mg Oral active Take 4 mg by mouth 3 (three) times a day [facility] tramadol hydrochloride 50 MG Oral Tablet Tramadol HCL 07/23/2020 12:00:00 AM EST ORAL active [facility] ([facility]) Levothyroxine Sodium 0.1 MG Oral Tablet levothyroxine (SYNTHROID, LEVOTHROID) 100 MCG tablet levothyroxine (SYNTHROID, LEVOTHROID) 100 MCG tablet 1 09/19/2019 12:00:00 AM EST 100 ug Oral active Take 100 mcg by mouth daily [facility] Sertraline 50 MG Oral Tablet sertraline 07/17/2020 12:00:00 AM EST 50 mg by mouth completed <td ID="Medica tionRxNorm_1">426322</td><td ID="MedicationMedication_1">sertraline</td><td ID="MedicationRoute_1">by mouth</td><td ID="MedicationRouteConcept_1">H70189</td><td ID="MedicationStartDate_1">07/17/2020</td><td ID="MedicationStopDate_1"></td><td ID="MedicationDosageFrequency_1">once a day</td><td ID="MedicationDuration_1"></td><td ID="MedicationFormulaStrength_1">50 mg</td><td ID="MedicationDosageForm_1">tablet</td><td ID="MedicationDosageFormCode_1"></td><td ID="MedicationDosageDescription_1"></td><td ID="MedicationMedicationId_1">[id number]</td><td ID="MedicationAccount_1">[id number]</td><td ID="MedicationNpid_1">[id number]</td><td ID="MedicationAuthorFirstName_1">Ava</td><td ID="MedicationAuthorLastName_1">Iliana</td><td ID="MedicationTaxonomyCode_1">[id number]</td><td ID="MedicationTaxonomyDesc_1">Psychiatric/Mental Health</td><td ID="MedicationPhoneNumber_1">[phone]</td> [facility] ([facility]) Sertraline 50 MG Oral Tablet sertraline 07/17/2020 12:00:00 AM EST 50 mg completed <td ID="Medicati onRxNorm_2">280099</td><td ID="MedicationMedication_2">sertraline</td><td ID="MedicationRoute_2"></td><td ID="MedicationRouteConcept_2"></td><td ID="MedicationStartDate_2">07/17/2020</td><td ID="MedicationStopDate_2">07/17/2020</td><td ID="MedicationDosageFrequency_2"></td><td ID="MedicationDuration_2"></td><td ID="MedicationFormulaStrength_2">50 mg</td><td ID="MedicationDosageForm_2">tablet</td><td ID="MedicationDosageFormCode_2"></td><td ID="MedicationDosageDescription_2"></td><td ID="MedicationMedicationId_2">[id number]</td><td ID="MedicationAccount_2">[id number]</td><td ID="MedicationNpid_2"></td><td ID="MedicationAuthorFirstName_2"></td><td ID="MedicationAuthorLastName_2"></td><td ID="MedicationTaxonomyCode_2"></td><td ID="MedicationTaxonomyDesc_2"></td><td ID="MedicationPhoneNumber_2"></td> [facility] ([facility]) 25 mg 05/18/2020 12:00:00 AM EDT capsule 30 TAKE ONE CAPSULE BY MOUTH EVERY DAY TAKE ONE CAPSULE BY MOUTH EVERY DAY SOLD: 05/18/2020 [facility] Sertraline 50 MG Oral Tablet sertraline 05/15/2020 12:00:00 AM EDT 50 mg by mouth completed <td ID="Medica tionRxNorm_2">[id number]</td><td ID="MedicationMedication_2">sertraline</td><td ID="MedicationRoute_2">by mouth</td><td ID="MedicationRouteConcept_2">Q88076</td><td ID="MedicationStartDate_2">05/15/2020</td><td ID="MedicationStopDate_2">07/14/2020</td><td ID="MedicationDosageFrequency_2">every morning</td><td ID="MedicationDuration_2">30</td><td ID="MedicationFormulaStrength_2">50 mg</td><td ID="MedicationDosageForm_2">tablet</td><td ID="MedicationDosageFormCode_2"></td><td ID="MedicationDosageDescription_2"> </td><td ID="MedicationMedicationId_2">[id number]</td><td ID="MedicationAccount_2">[id number]</td><td ID="MedicationNpid_2">[id number]</td><td ID="MedicationAuthorFirstName_2">Ava</td><td ID="MedicationAuthorLastName_2">[place]</td><td ID="MedicationTaxonomyCode_2">[id number]</td><td ID="MedicationTaxonomyDesc_2">Psychiatric/Mental Health</td><td ID="MedicationPhoneNumber_2">[phone]</td> [facility] ([facility]) Sertraline 25 MG Oral Tablet sertraline 03/05/2020 12:00:00 AM EDT 25 mg completed <td ID="Medicati onRxNorm_1">[id number]</td><td ID="MedicationMedication_1">sertraline</td><td ID="MedicationRoute_1"></td><td ID="MedicationRouteConcept_1"></td><td ID="MedicationStartDate_1">03/05/2020</td><td ID="MedicationStopDate_1">05/15/2020</td><td ID="MedicationDosageFrequency_1"></td><td ID="MedicationDuration_1"></td><td ID="MedicationFormulaStrength_1">25 mg</td><td ID="MedicationDosageForm_1">tablet</td><td ID="MedicationDosageFormCode_1"></td><td ID="MedicationDosageDescription_1"></td><td ID="MedicationMedicationId_1">[id number]</td><td ID="MedicationAccount_1">[id number]</td><td ID="MedicationNpid_1">[id number]</td><td ID="MedicationAuthorFirstName_1">Ava</td><td ID="MedicationAuthorLastName_1">Iliana</td><td ID="MedicationTaxonomyCode_1">[id number]</td><td ID="MedicationTaxonomyDesc_1">Psychiatric/Mental Health</td><td ID="MedicationPhoneNumber_1">[phone]</td> [facility] ([facility]) Hydrochlorothiazide 12.5 MG Oral Tablet hydrochlorothiazide (HYDRODIURIL) 12.5 MG tablet hydrochlorothiazide (HYDRODIURIL) 12.5 MG tablet 01/26 12:00:00 AM EDT 1 {tbl} Oral aborted Take 1 tablet b y mouth daily [facility] atorvastatin 10 MG Oral Tablet atorvastatin (LIPITOR) 10 MG tablet atorvastatin (LIPITOR) 10 MG tablet 05/19/2018 12:00:00 AM EDT 1 {tbl} Oral aborted Take 1 tablet by mouth daily [facility] Levothyroxine Sodium 0.075 MG Oral Tablet levothyroxin e (LEVO-T) 75 MCG tablet levothyroxine (LEVO-T) 75 MCG tablet 06/18/2016 12:00:00 AM EDT 1 { tbl} Oral aborted Take 1 tablet by mouth da marissa [facility] Insurance Providers Payer name Policy type / Coverage type Policy ID Covered democrat ID Covered democrat's relationship to oconnell Policy [place] Plan Information Medicaid S [id number] S [id number] Managed Care - Community Plan [facility] P [id number] S [id number] [facility] COMMUNITY PLAN [facility] [id number] SP [id number] Medicaid S [id number] S [id number] Managed Care - Community Plan [facility] P [id number] S [id number] [facility] COMMUNITY PLAN [facility] [id number] SP [id number] Medicaid S [id number] S [id number] Managed Care - [facility] Community Plan P [id number] S [id number] Managed Care - Community Plan [facility] P [id number] S [id number] Medicaid S [id number] S [id number] Managed Care - [facility] Community Plan P [id number] S [id number] Medicaid S [id number] S [id number] [facility] I [id number] Self [id number] [facility] I [id number] Self [id number] [facility] MEDICAID [id number] Alondra [id number] [facility] MEDICAID [id number] xxxxxxxxx [id number] ANSI-Medicaid [id number] [facility] Health Maintenance Organization (HMO) [id number] Self [id number] [facility] Health Maintenance Organization (O) [id number] Self [id number] MEDICAID [id number] SP [id number] [facility] Health Maintenance Organization (HMO) [id number] [facility] Health Maintenance Organization (O) [id number] Self [id number] MEDICAID M [id number] S [id number] [facility] Health Maintenance Organization (HMO) [id number] Self MEDICAID [id number] SP [id number] SELF PAY UNAVAILABLE SP UNAVAILA BLE UN COMMUNITY PLAN MCDO [id number] SP [id number] SELF PAY ONLY UNAVAILABLE UNAV AILABLE [facility] JAYNE [id number] SP [id number] [facility] JAYNE [id number] SP [id number] [facility] O [id number] S [id number] UN COMMUNITY PLAN MCDO [id number] SP [id number] MEDICAID [id number] SP [id number] MEDICAID M [id number] S [id number] ANSI-Medicaid [id number] ANSI-Medicaid [id number] ANSI-Medicaid [id number] ANSI-Medicaid [id number] ANSI-Medicaid [id number] ANSI-Medicaid [id number] ANSI-Medicaid [id number] ANSI-Medicaid [id number] ANSI-Medicaid [id number] Problems, Conditions, and Diagnoses Code Display Name Description Problem Type Effective Dates Data Source(s) R94.31 Abnormal electrocardiogram [ECG] [EKG] A bnormal electrocardiogram (ECG) (EKG) Diagnosis 09/12/2020 11:19:45 AM EST [facility] R55 Syncope and collapse Syncope and collapse Diagnosis 09/12/2020 11:19:45 AM EST [facility] R07.9 Chest pain, unspecified Chest pain, unspecified Diagno sis 09/12/2020 11:19:45 AM EST [facility] Z72.0 Tobacco use Tobacco use Diagnosis 09/12/2020 11:19:45 AM EST [facility] I05.9 Rheumatic mitral valve disease, unspecif ied Rheumatic mitral valve disease, unspecif Diagnosis 09/12/2020 11:19:45 AM [facility] E78.5 Hyperlipidemia, unspecified Hyperlipidemia, unspecifie d Diagnosis 09/12/2020 11:19:45 AM [facility] E03.9 Hypothyroidism, unspecified Hypothyroidism, unspecifie d Diagnosis 09/12/2020 11:19:45 AM [facility] I10 Essential (primary) hypertension Essential (primary) h ypertension Diagnosis 09/12/2020 11:19:45 AM [facility] Z12.31 Encounter for screening mammogram for ma lignant neoplasm of breast Encounter for screening mammogram for malignant neoplasm of breast Diagnosis 08/06/2020 01:33:19 PM [facility] F43.23 Adjustment disorder with mixed anxiety a nd depressed mood Adjustment Disorder, With mixed anxiety and depressed mood Condition 2019 12:00:00 AM EST [facility] ([facility]) Surgeries/Procedures Procedure Description Date Indications Data Source(s) [facility] Telemed E/M Lvl 3--Est pt 07/17/2020 12:00:00 AM EST - 07/17/2020 12:00:00 AM EST [facility] ([facility]) Telemed A/O 30" 07/17/2020 12:00:00 AM EST [facility] ([facility]) MHC Telemed E/M Lvl 3--Est pt 07/17/2020 12:00:[address] [facility] ([facility]) MHC Telemed E/M Lvl 3--Est pt 06/20/2020 12:00:00 AM EDT - 06/20/2020 12:00:00 AM EDT [facility] ([facility]) MHC Telemed E/M Lvl 3--Est pt 06/20/2020 12:00:00 AM E DT [facility] ([facility]) [facility] Telemed E/M Lvl 3--Est pt 05/15/2020 12:00:00 AM EDT - 05/15/2020 12:00:00 AM EDT [facility] ([facility]) Telemed A/O 30" 05/15/2020 12:00:00 AM EDT [facility] ([facility]) MHC Telemed E/M Lvl 3--Est pt 05/15/2020 12:00:00 AM E DT [facility] ([facility]) Results ID Date Data Source [id number] 05/28/2021 11:14:00 AM EDT [facility] Name Value Range Interpretation Code Description Data Cammie rce(s) Supporting Document(s) SARS coronavirus 2 RNA [Presence] in Res piratory specimen by ELBA with probe detection NEGATIVE [facility] This lab was ordered by [facility] a nd reported by [facility]. ID Date Data Source [id number] 08/13/2020 04:21:06 PM EST [facility] MAMMO DIGITAL SCREENING BILATERAL [id number] INAL RESULTInterpreted by:Luciano Ceja MDBILATERAL DIGITAL MAMMOGRAM [...] rce(s) Supporting Document(s) ID Date Data Source [id number] 05/25/2020 09:35:19 AM EDT [facility] Measurements & CalculationsHeight: 67 inches (5 ft. [...] to the hospital? Yes - inpatient in [facility] you been to an emergency room (ER) [...] Advised to Quit/Tobacco Education: YesChief Complaintfollow-up visit [facility] / recent hospitalization room 14History of Present Illness (HPI)59 YO female here for follow up hospital discharge / [facility]. Patient wishes to discuss pain. She has been seeeing neurology for a while for chronic upper and lower back and leg pain. Gets muscle spasms sometimes as well. They have her on muscle relaxers for this. 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 and per patient her neurologist is sending her to see a pain specialist in [place] for this.She has been on gabapentin in [...] during this visit, including review of any [id number] medications, herbal therapies, and/or supplements.Allergy ReviewAllergy List [...] Previous Comments: been couple years ago at [facility], will get records (02/24/2020)Review of Systems General: [...] lower limb affecting unspecified side (ICD- 728.87) (TAR71-Y64.10) Assessment: Instructions: Tethered cord and possible [place].Seeing neurology for this and they are referring her to a Pain specialist.She will follow up with them as scheduled.I am going to defer her questions about the gabapentin to them. 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 Had Prevnar 13 a year ago. Will give [id number] and will defer discussion of flu shot to neuro due to history of [place].I am going to defer her questions about [...] SERTRALINE HCL 25 MG ORAL TABLET Qty: [id number] Refills: 30[Tablet] To: SERTRALINE HCL 50 MG ORAL TABLET-once a dayAllergies:* CYMBALTA (Critical)MARIO INHIBITORS (Mild)Orders:Pneumovax 23 [CPT-50712] Adult - Ofc Vst, EST, Level III [CPT-23274] 98534 - Immo Admin (over 19 yrs), 1st Vaccine [CPT-99395] The patient was counseled by the physician on immunizations due, and on the risks and benefits of immunizations.Vaccines Administered/Entered:Vaccination Group: Pneumococcal [id number]: 1Vaccination: [id number] - AdulltMfr / Lot# / Exp.Date: [facility] / [id number] 1Amt. Given / Route / Site: 0.5 mL / IM / Left DeltoidNDC / CVX: [id number] / 33Administer ed Date: 05/25/2020 11:10VFC Eligibility: Not VFC EligibleVIS Date: 07/06/2019VIS Given / VIS Given On: Yes / 05/25/2020Comments: Administered by: Yesica Castillo Name Value Range Interpretation Code Description Data Cammie rce(s) Supporting Document(s) Procedure Social History Code Duration Value Status Description Data Source(s ) Alcohol intake 09/22/2020 12:00:00 AM EST Never completed [facility] Smoking 09/22/2020 12:00:00 AM EST Current every day smoker co mpleted Current every day smoker [facility] Smoking 08/06/2020 12:00:00 AM EST Unknown if ever smoked comp leted Unknown if ever smoked [facility] Smoking 07/17/2020 12:00:00 AM EST Unknown if ever smoked comp leted Unknown if ever smoked [facility] Smoking 06/20/2020 12:00:00 AM EDT Unknown if ever smoked comp leted Unknown if ever smoked [facility] ([facility]) Smoking 05/15/2020 12:00:00 AM EDT Unknown if ever smoked comp leted Unknown if ever smoked [facility] ([facility]) Vital Signs ID Date Data Source UNK Name Value Range Interpretation Code Description Data Source(s) Body height 0.00 in Normal (applies to non-numeric resu lts) 0.00 in [facility] ([facility]) Body weight Measured 0.00 lbs Normal (applies to n on-numeric results) 0.00 lbs [facility] ([facility]) Body mass index (BMI) [Ratio] 0.00 kg/m2 No rmal (applies to non-numeric results) 0.00 kg/m2 [facility] ([facility]) Systolic blood pressure 0 mm[Hg] Normal (applies t o non-numeric results) 0 mm[Hg] [facility] ([facility]) Diastolic blood pressure 0 mm[Hg] Normal (applies to non-numeric results) 0 mm[Hg] [facility] ([facility]) Body height 0.00 in Normal (applies to non-numeric resu lts) 0.00 in [facility] ([facility]) Systolic blood pressure 0 mm[Hg] Normal (applies t o non-numeric results) 0 mm[Hg] [facility] ([facility]) Body weight Measured 0.00 lbs Normal (applies to n on-numeric results) 0.00 lbs [facility] ([facility]) Diastolic blood pressure 0 mm[Hg] Normal (applies to non-numeric results) 0 mm[Hg] [facility] ([facility]) Body mass index (BMI) [Ratio] 0.00 kg/m2 No rmal (applies to non-numeric results) 0.00 kg/m2 [facility] ([facility]) ID Date Data Source [id number] 08/13/2020 04:21:06 PM [facility] Name Value Range Interpretation Code Description Data Source(s) WEIGHT RECORDED 210 lb 210 lb [facility] Body height Measured 69 in 69 in [facility] Patient Treatment Plan of Care Planned Activity Planned Date Details Description Data Source (s) zonisamide 100 MG Oral Capsule 09/11/2020 12:00:00 AM [facility] Sertraline 50 MG Oral Tablet 09/11/2020 12:00:00 AM [facility] Nortriptyline 25 MG Oral Capsule 09/11/2020 12:00:00 AM [facility] gabapentin 100 MG Oral Capsule 09/11/2020 12:00:00 AM [facility] tramadol hydrochloride 50 MG Oral Tablet 08/16/2020 12:00:00 AM [facility] tizanidine 4 MG Oral Tablet 08/06/2020 12:00:00 AM [facility] Levothyroxine Sodium 0.1 MG Oral Tablet 07/20/2020 12:00:00 AM EST [facility] Hydrochlorothiazide 12.5 MG Oral Tablet 01/26/2019 12:00:00 AM EDT [facility] atorvastatin 10 MG Oral Tablet 05/19/2018 12:00:00 AM EDT [facility] Levothyroxine Sodium 0.075 MG Oral Tablet 06/18/2016 12:00:00 AM ED T [facility]
[2021-06-27 05:30] VITALS: BP 107/53
--- NOTE | 2021-06-27 19:01 | ECGEPIP ---
[facility] - ED Test Date: 2021-06-27 Pat Name: PAULETTE MOORE Department: Room: - Gender: Female [employer]: DEE : [id number] Requested By: Chai Lopez Order Number: [id number] Reading MD: Bailee Camargo Measurements Intervals [place] Rate: 61 P: 35 TX: 118 QRS: 69 QRSD: 104 T: 54 QT: 440 QTc: 442 Interpretive Statements Normal sinus rhythm Cannot rule out Anterior infarct , age undetermined NSTTW abnormalities similar 05/31/21 Electronically Signed on 06-27-2021 19:01:40 EDT by Bailee Camargo
== END 2021-06-27 05:52 | disposition home or self-care (01) ==
LOC: M ED 01:58
DX: F22 Delusional disorders (principal); I10 Essential (primary) hypertension; E03.9 Hypothyroidism, unspecified; Z87.442 Personal history of urinary calculi; F12.10 Cannabis abuse, uncomplicated; Z79.899 Other long term (current) drug therapy; Z88.8 Allergy status to other drugs, medicaments and biological substances

== ENCOUNTER 2021-07-05 22:51 | Emergency (ER) | payer OTHER ==
[~2021-07-05] VITALS: Ht 175.3 cm; Wt 80.6 kg
--- OUTSIDE RECORDS SUMMARY | 2021-07-05 23:01 | CCD ---
Author Author [facility] Address Unknown Phone Unavailable Support Name Relationship Address Phone JAYJOCELYNE Next Of Kin Unknown Allan Thompson Next Of Kin Unknown Unavailable SULEMAN THOMPSON Next Of Kin [address] [place] [address] Danette LUU, Scott Next Of Kin [address] [place] [address] Johana Graham Next Of Kin [address] [place] [address] Tonia Whelan Next Of Kin [address] [place] [address] [phone] NO, CONTACT Next Of Kin [address] [place] [address] Paulette Rubio MD Next Of Kin [address] [place] [phone] Rhett Dawson MD Next Of Kin [address] [place] [address] DISABLED Next Of Kin Unknown Unavailable UE Next Of Kin Unknown Unavailable UMER STAHL Next Of Kin [address] [place] [id number] [place] [address] VAL STAHL Next Of Kin [address] [place] [address] TRINA STAHL Next Of Kin [address] [place], [place] [id number] STREAM Next Of Kin [address] [place] [address] SULEMAN THOMPSON [address] [place] [address] Unavailable NO EMERGENCY, CONTACT E[facility] [address] [place] [address] Unavailable no, [place] [address] Care Team Providers Care Miter Operator Name Role Phone Kocan, Tomas Geno CHRISTIAN COUNSELOR Unavailable Unavailable Kocan, J Geno CHRISTIAN COUNSELOR Unavailable Unavailable Kocan, J Geno CHRISTIAN COUNSELOR Unavailable Unavailable Kocan, J Geno CHRISTIAN COUNSELOR Unavailable Unavailable Kocan, J Geno CHRISTIAN COUNSELOR Unavailable Unavailable Kocan, J Geno CHRISTIAN COUNSELOR Unavailable Unavailable Kocan, J Geno CHRISTIAN COUNSELOR Unavailable Unavailable Kocan, J Geno CHRISTIAN COUNSELOR Unavailable Unavailable Kocan, J Geno CHRISTIAN COUNSELOR Unavailable Unavailable Kocan, J Geno CHRISTIAN COUNSELOR Unavailable Unavailable Kocan, J Geno CHRISTIAN COUNSELOR Unavailable Unavailable Kocan, J Geno CHRISTIAN COUNSELOR Unavailable Unavailable Kocan, J Geno CHRISTIAN COUNSELOR Unavailable Unavailable Tameka, Ivan MD Unavailable Unavailable [...] Unavailable Tameka, Ivan MD Unavailable Unavailable Tameka, Ivna MD Unavailable Unavailable Tameka, Ivan MD Unavailable [...] Unavailable Dawson, Jane Delaney MD Unavailable Unavailable Daswon, Jane Delaney MD Unavailable Unavailable Dawson, Jane [...] Unavailable Jane Dawson MD Unavailable Unavailable Jane Dawosn MD Unavailable Unavailable Jane Dawson MD Unavailable [...] Unavailable Samir, Jane Delaney MD Unavailable Unavailable Weir, K Ava PMH-IT HELP DESK ANALYST Unavailable Unavailable Weir, K Ava PMH-IT HELP DESK ANALYST Unavailable Unavailable Weir, K Ava PMH-IT HELP DESK ANALYST Unavailable Unavailable Iliana, K Ava PMH-IT HELP DESK ANALYST Unavailable Unavailable Weir, K Ava PMH-IT HELP DESK ANALYST Unavailable Unavailable Weir, K Ava PMH-IT HELP DESK ANALYST Unavailable Unavailable Weir, K Ava PMH-IT HELP DESK ANALYST Unavailable Unavailable Iliana, K Ava PMH-IT HELP DESK ANALYST Unavailable Unavailable Re-disclosure Warning The records that [...] is protected by Article 27-F of the [facility] Public Health law. If you continue you may have access to information: Regarding HIV / AIDS; Provided by facilities licensed or operated by the [facility] Office of Mental Health; or Provided by the [facility] Office for People With Developmental Disabilities. If such information is present, then the following [facility] mandated warning applies: This information has [...] law may result in a fine or correction sentence or both. A general authorization for the release of medical or other information is NOT sufficient authorization for further disc losure. Allergies and Adverse Reactions Type Description Substance Reaction Status Data Source(s ) Propensity to adverse reactions to substance MARIO Inhibitors MARIO Inhibitors Cough Active [facility] ([facility]) Propensity to adverse reactions DULOXETINE HCL Duloxetine Hcl Active [facility] Drug allergy DULOXETINE HCL DULOXETINE HCL [facility] Propensity to adverse reactions MARIO INHIBITORS MARIO INHIBITORS [facility] Family History Family Member Name Family Member Gender Family Member Status Date o f Status Description Data Source(s) Unknown Unknown Problem [facility] ([facility]) Encounters Encounter Providers Location Date Indications Data Source(s ) Outpatient Attender: Geno CORCORAN SJP.HANK-SJP.HANK 10/10/2020 1 0:40:57 AM EST [facility] Outpatient Attender: Geno CORCORAN SJP.HANK-SJP.HANK 2020 12:00:00 AM EST - 09/12/2020 02:43:34 PM EST [facility] Outpatient Attender: Nik Barone MD 08/23/2020 12:00:00 AM [facility] Outpatient Referrer: Rhett Dawson MD 08/06/2020 12:00 :00 AM EST Encounter for screening mammogram for malignant neoplasm of breast [facility] Encounter for screening mammogram for ma lignant neoplasm of breast Outpatient Attender: Nik Barone MD 07/31/2020 12:00:00 AM EST [facility] Outpatient Attender: Ivan English MD Main office - [place] 07/23/2020 11:45:00 AM EST [facility] ([facility] Outpatient Attender: Ava Barrientos [facility] HELP DESK ANALYST Emmanuel Count y Usp 07/17/2020 02:30:00 AM EST - 07/17/2020 02:30:00 AM EST [facility] ([facility]) Attender: Ava Barrientos PM-IT HELP DESK ANALYST 07/17/2020 12: 00:00 AM EST [facility] ([facility]) Outpatient Attender: Nik Barone MD 07/05/2020 12:00:00 AM [facility] Outpatient Attender: Ava Barrientos [facility]-IT HELP DESK ANALYST Emmanuel Ferreira y Usp 06/20/2020 01:00:00 AM EDT - 06/20/2020 01:00:00 AM EDT [facility] ([facility]) Attender: Ava Barrientos PM-IT HELP DESK ANALYST 06/20/2020 12: 00:00 AM EDT [facility] ([facility]) Outpatient Attender: Rhett Dawson MD FP 06/19/2020 11:22:02 AM EDT [facility] Outpatient Attender: Rhett Dawson MD FP 06/18/2020 10:51:02 AM EDT [facility] Outpatient Attender: Rhett Dawson MD FP 05/26/2020 12:02:10 AM EDT [facility] Outpatient Attender: Rhett Dawson MD FP 05/25/2020 11:14:01 AM EDT [facility] Outpatient Attender: Rhett Dawson MD FP 05/25/2020 09:26:01 AM EDT [facility] Outpatient Attender: Rhett Dawson MD FP 05/25/2020 09:19:00 AM EDT [facility] Outpatient Attender: Rhett Dawson MD FP 05/25/2020 09:17:00 AM EDT [facility] Outpatient Attender: Rhett Dawson MD FP 05/24/2020 12:54:01 PM EDT [facility] Outpatient Attender: Rhett Dawson MD FP 05/24/2020 12:10:01 PM EDT [facility] Outpatient Attender: Rhett Dawson MD FP 05/17/2020 02:50:01 PM EDT [facility] Outpatient Attender: Ava Barrientos [facility] Emmanuel y Usp 05/15/2020 02:00:00 AM EDT - 05/15/2020 02:00:00 AM EDT [facility] ([facility]) Attender: Ava Barrientos PM-IT HELP DESK ANALYST 05/15/2020 12: 00:00 AM EDT [facility] ([facility]) Outpatient SJP.CT-SJP.SYR 07/16/2019 01:04:07 PM EST [facility] Functional Status Immunizations Vaccine Date Status Description Data Source(s) COVID-19 VACCINE Moderna 12/10/2020 12:00:00 AM EDT completed NYSIIS Vaccine Series Complete: NOThis Data was Submitted to [facility] Via BringShare. Medications Medication Brand Name Start Date Product Form Dose Route Admi nistrative Instructions Pharmacy Instructions Status Indications Reaction Description Data Source(s) gabapentin 100 MG Oral Capsule gabapentin (NEURONTIN) 100 MG capsule gabapentin (NEURONTIN) 100 MG capsule 09/11/2020 12:00:00 AM EST 1 {capsule} Oral active Take 1 capsule by mouth 3 (three ) times a day [facility] Sertraline 50 MG Oral Tablet sertraline (ZOLOFT) 50 MG tablet sertraline (ZOLOFT) 50 MG tablet 09/11/2020 12:00:00 AM EST 1 {tbl} Oral active Take 1 tablet by mouth daily [facility] Nortriptyline 25 MG Oral Capsule nortriptyline (PAMELO R) 25 MG capsule nortriptyline (PAMELOR) 25 MG capsule 09/11/2020 12:00:00 AM EST 1 {capsule} Oral active Take 1 capsule by mo uth daily [facility] zonisamide 100 MG Oral Capsule zonisamide (ZONEGRAN) 1 00 MG capsule zonisamide (ZONEGRAN) 100 MG capsule 09/11/2020 12:00:00 AM EST 1 {capsule} Oral active Take 1 capsule by mouth daily [facility] tramadol hydrochloride 50 MG Oral Tablet traMADol (ULT USHA) 50 MG tablet traMADol (ULTRAM) 50 MG tablet 08/16/2020 12:00:00 AM EST 1 {tbl} Oral active Take 1 tablet by mouth daily as needed [facility] tizanidine 4 MG Oral Tablet tiZANidine (ZANAFLEX) 4 MG tablet tiZANidine (ZANAFLEX) 4 MG tablet 08/06/2020 12:00:00 AM EST 4 mg Oral active Take 4 mg by mouth 3 (three) times a day [facility] tramadol hydrochloride 50 MG Oral Tablet Tramadol HCL 07/23/2020 12:00:00 AM EST ORAL active [facility] ([facility]) Levothyroxine Sodium 0.1 MG Oral Tablet levothyroxine (SYNTHROID, LEVOTHROID) 100 MCG tablet levothyroxine (SYNTHROID, LEVOTHROID) 100 MCG tablet 1 09/19/2019 12:00:00 AM EST 100 ug Oral active Take 100 mcg by mouth daily [facility] Sertraline 50 MG Oral Tablet sertraline 07/17/2020 12:00:00 AM EST 50 mg by mouth completed <td ID="Medica tionRxNorm_1">284899</td><td ID="MedicationMedication_1">sertraline</td><td ID="MedicationRoute_1">by mouth</td><td ID="MedicationRouteConcept_1">S07965</td><td ID="MedicationStartDate_1">07/17/2020</td><td ID="MedicationStopDate_1"></td><td ID="MedicationDosageFrequency_1">once a day</td><td ID="MedicationDuration_1"></td><td ID="MedicationFormulaStrength_1">50 mg</td><td ID="MedicationDosageForm_1">tablet</td><td ID="MedicationDosageFormCode_1"></td><td ID="MedicationDosageDescription_1"></td><td ID="MedicationMedicationId_1">[id number]</td><td ID="MedicationAccount_1">[id number]</td><td ID="MedicationNpid_1">[id number]</td><td ID="MedicationAuthorFirstName_1">Ava</td><td ID="MedicationAuthorLastName_1">Weir</td><td ID="MedicationTaxonomyCode_1">[id number]</td><td ID="MedicationTaxonomyDesc_1">Psychiatric/Mental Health</td><td ID="MedicationPhoneNumber_1">[phone]</td> [facility] ([facility]) Sertraline 50 MG Oral Tablet sertraline 07/17/2020 12:00:00 AM EST 50 mg completed <td ID="Medicati onRxNorm_2">619952</td><td ID="MedicationMedication_2">sertraline</td><td ID="MedicationRoute_2"></td><td ID="MedicationRouteConcept_2"></td><td ID="MedicationStartDate_2">07/17/2020</td><td ID="MedicationStopDate_2">07/17/2020</td><td ID="MedicationDosageFrequency_2"></td><td ID="MedicationDuration_2"></td><td ID="MedicationFormulaStrength_2">50 mg</td><td ID="MedicationDosageForm_2">tablet</td><td ID="MedicationDosageFormCode_2"></td><td ID="MedicationDosageDescription_2"></td><td ID="MedicationMedicationId_2">[id number]</td><td ID="MedicationAccount_2">[id number]</td><td ID="MedicationNpid_2"></td><td ID="MedicationAuthorFirstName_2"></td><td ID="MedicationAuthorLastName_2"></td><td ID="MedicationTaxonomyCode_2"></td><td ID="MedicationTaxonomyDesc_2"></td><td ID="MedicationPhoneNumber_2"></td> [facility] ([facility]) 25 mg 05/18/2020 12:00:00 AM EDT capsule 30 TAKE ONE CAPSULE BY MOUTH EVERY DAY TAKE ONE CAPSULE BY MOUTH EVERY DAY SOLD: 05/18/2020 [facility] Sertraline 50 MG Oral Tablet sertraline 05/15/2020 12:00:00 AM EDT 50 mg by mouth completed <td ID="Medica tionRxNorm_2">154526</td><td ID="MedicationMedication_2">sertraline</td><td ID="MedicationRoute_2">by mouth</td><td ID="MedicationRouteConcept_2">Z79257</td><td ID="MedicationStartDate_2">05/15/2020</td><td ID="MedicationStopDate_2">07/14/2020</td><td ID="MedicationDosageFrequency_2">every morning</td><td ID="MedicationDuration_2">30</td><td ID="MedicationFormulaStrength_2">50 mg</td><td ID="MedicationDosageForm_2">tablet</td><td ID="MedicationDosageFormCode_2"></td><td ID="MedicationDosageDescription_2"> </td><td ID="MedicationMedicationId_2">[id number]</td><td ID="MedicationAccount_2">[id number]</td><td ID="MedicationNpid_2">[id number]</td><td ID="MedicationAuthorFirstName_2">Ava</td><td ID="MedicationAuthorLastName_2">Iliana</td><td ID="MedicationTaxonomyCode_2">[id number]</td><td ID="MedicationTaxonomyDesc_2">Psychiatric/Mental Health</td><td ID="MedicationPhoneNumber_2">[phone]</td> [facility] ([facility]) Sertraline 25 MG Oral Tablet sertraline 03/05/2020 12:00:00 AM EDT 25 mg completed <td ID="Medicati onRxNorm_1">436257</td><td ID="MedicationMedication_1">sertraline</td><td ID="MedicationRoute_1"></td><td ID="MedicationRouteConcept_1"></td><td ID="MedicationStartDate_1">03/05/2020</td><td ID="MedicationStopDate_1">05/15/2020</td><td ID="MedicationDosageFrequency_1"></td><td ID="MedicationDuration_1"></td><td ID="MedicationFormulaStrength_1">25 mg</td><td ID="MedicationDosageForm_1">tablet</td><td ID="MedicationDosageFormCode_1"></td><td ID="MedicationDosageDescription_1"></td><td ID="MedicationMedicationId_1">[id number]</td><td ID="MedicationAccount_1">[id number]</td><td ID="MedicationNpid_1">[id number]</td><td ID="MedicationAuthorFirstName_1">Ava</td><td ID="MedicationAuthorLastName_1">Iliana</td><td ID="MedicationTaxonomyCode_1">[id number]</td><td ID="MedicationTaxonomyDesc_1">Psychiatric/Mental Health</td><td ID="MedicationPhoneNumber_1">[phone]</td> [facility] ([facility]) Hydrochlorothiazide 12.5 MG Oral Tablet hydrochlorothiazide (HYDRODIURIL) 12.5 MG tablet hydrochlorothiazide (HYDRODIURIL) 12.5 MG tablet 01/26 12:00:00 AM EDT 1 {tbl} Oral aborted Take 1 tablet b y mouth daily [facility] atorvastatin 10 MG Oral Tablet atorvastatin (LIPITOR) 10 MG tablet atorvastatin (LIPITOR) 10 MG tablet 05/19/2018 12:00:00 AM EDT 1 {tbl} Oral aborted Take 1 tablet by mouth daily [facility] Levothyroxine Sodium 0.075 MG Oral Tablet levothyroxin e (LEVO-T) 75 MCG tablet levothyroxine (LEVO-T) 75 MCG tablet 06/18/2016 12:00:00 AM EDT 1 { tbl} Oral aborted Take 1 tablet by mouth da marissa [facility] Insurance Providers Payer name Policy type / Coverage type Policy ID Covered democrat ID Covered democrat's relationship to oconnell Policy Oconnell Plan Information Medicaid S [id number] S [id number] Managed Care - [facility] P [id number] S [id number] [facility] [id number] SP [id number] Medicaid S [id number] S [id number] [facility] - [facility] P [id number] S [id number] [facility] [id number] SP [id number] Medicaid S [id number] S [id number] Managed Care - [facility] Community Plan P [id number] S [id number] Managed Care - [facility] P [id number] S [id number] Medicaid S [id number] S [id number] Managed Care - [facility] Community Plan P [id number] S [id number] Medicaid S [id number] [facility] I [id number] Self [id number] [facility] I [id number] Self [id number] [facility] MEDICAID [id number] Alondra [id number] [facility] MEDICAID [id number] xxxxxxxxx [id number] ANSI-Medicaid [id number] [facility] Health Maintenance Organization (HMO) [id number] Self [id number] [facility] Health Maintenance Organization (O) [id number] Self [id number] MEDICAID [id number] SP [id number] [facility] Health Maintenance Organization (O) [id number] Self [id number] [facility] Health Maintenance Organization ([facility]) [id number] Self [id number] MEDICAID M [id number] S [id number] [facility] Health Maintenance Organization (O) [id number] Self MEDICAID [id number] SP [id number] SELF PAY UNAVAILABLE SP UNAVAILA BLE [employer] COMMUNITY PLAN MCDO [id number] SP [id number] SELF PAY ONLY UNAVAILABLE UNAV AILABLE [facility] [id number] SP [id number] [facility] [id number] SP [id number] [facility](MCA[facility]) O [id number] S [id number] UN COMMUNITY PLAN MCDO [id number] SP [id number] MEDICAID [id number] SP [id number] MEDICAID M [id number] S [id number] [facility] [id number] [facility]-Medicaid [id number] [facility]-Medicaid [id number] [facility]-Medicaid [id number] ANSI-Medicaid [id number] ANSI-Medicaid [id number] ANSI-Medicaid [id number] ANSI-Medicaid [id number] ANSI-Medicaid [id number] Problems, Conditions, and Diagnoses Code Display Name Description Problem Type Effective Dates Data Source(s) R94.31 Abnormal electrocardiogram [ECG] [EKG] A bnormal electrocardiogram (ECG) (EKG) Diagnosis 09/12/2020 11:19:45 AM [facility] R55 Syncope and collapse Syncope and collapse Diagnosis 09/12/2020 11:19:45 AM [facility] R07.9 Chest pain, unspecified Chest pain, unspecified Diagno sis 09/12/2020 11:19:45 AM [facility] Z72.0 Tobacco use Tobacco use Diagnosis 09/12/2020 11:19:45 AM [facility] I05.9 Rheumatic mitral valve disease, unspecif ied Rheumatic mitral valve disease, unspecif Diagnosis 09/12/2020 11:19:45 AM [facility] E78.5 Hyperlipidemia, unspecified Hyperlipidemia, unspecifie d Diagnosis 09/12/2020 11:19:45 AM [facility] E03.9 Hypothyroidism, unspecified Hypothyroidism, unspecifie d Diagnosis 09/12/2020 11:19:45 AM EST [facility] I10 Essential (primary) hypertension Essential (primary) h ypertension Diagnosis 09/12/2020 11:19:45 AM EST [facility] Z12.31 Encounter for screening mammogram for ma lignant neoplasm of breast Encounter for screening mammogram for malignant neoplasm of breast Diagnosis 08/06/2020 01:33:19 PM EST [facility] F43.23 Adjustment disorder with mixed anxiety a nd depressed mood Adjustment Disorder, With mixed anxiety and depressed mood Condition 2019 12:00:00 AM EST [facility] ([facility]) Surgeries/Procedures Procedure Description Date Indications Data Source(s) MHC Telemed E/M Lvl 3--Est pt 07/17/2020 12:00:00 AM EST - 07/17/2020 12:00:00 AM EST [facility] ([facility]) Telemed A/O 30" 07/17/2020 12:00:00 AM EST [facility] ([facility]) MHC Telemed E/M Lvl 3--Est pt 07/17/2020 12:00:[address] [facility] ([facility]) MHC Telemed E/M Lvl 3--Est pt 06/20/2020 12:00:00 AM EDT - 06/20/2020 12:00:00 AM EDT [facility] ([facility]) MHC Telemed E/M Lvl 3--Est pt 06/20/2020 12:00:00 AM E DT [facility] ([facility]) MHC Telemed E/M Lvl 3--Est pt 05/15/2020 12:00:00 AM EDT - 05/15/2020 12:00:00 AM EDT [facility] ([facility]) Telemed A/O 30" 05/15/2020 12:00:00 AM EDT [facility] ([facility]) MHC Telemed E/M Lvl 3--Est pt 05/15/2020 12:00:00 AM E DT [facility] ([facility]) Results ID Date Data Source [id number] 05/28/2021 11:14:00 AM EDT [facility] Name Value Range Interpretation Code Description Data Cammie rce(s) Supporting Document(s) SARS coronavirus 2 RNA [Presence] in Res piratory specimen by ELBA with probe detection NEGATIVE NYSDOH This lab was ordered by [facility] a nd reported by [facility]. ID Date Data Source [id number] 08/13/2020 04:21:06 PM [facility] MAMMO DIGITAL SCREENING BILATERAL [id number] INAL RESULTInterpreted by:Luciano Ceja MDBILATERAL DIGITAL MAMMOGRAM [...] rce(s) Supporting Document(s) ID Date Data Source [id number] 05/25/2020 09:35:19 AM EDT [facility] Measurements & CalculationsHeight: 67 inches (5 ft. 7 in.) 170.18 cm Weight: 202 pounds 91.82 kg Body Mass Index (BMI): 31.75BMI Interpretation: ObeseBody Surface Area (BSA): 2.03Weight Management Education Done (Nutrition/Physical Activity)Vital SignsTemperature: 97.7F 36.50C tympanic Pulse Rate: 90 beats/minuteRespiratory Rate: 12 respirations/minuteBlood Pressure: 112/60 left arm sitting manualO2 Saturation: 95% room air sittingVital Signs performed by: uLisa Russell MA, May 25, 2020 10:01 AMVital [...] the hospital? Yes - MH inpatient in [facility] you been to an emergency room [...] Advised to Quit/Tobacco Education: YesChief Complaintfollow-up [facility] / [facility] room 14History of Present Illness (HPI)59 YO female here for follow up hospital discharge / [facility]. Patient wishes to discuss pain. She has been seeeing neurology for a while for chronic upper and lower back and leg pain. Gets muscle spasms sometimes as well. They have her on muscle relaxers for this. 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 and per patient her neurologist is sending her to see a pain specialist in [place] for this.She has been on gabapentin in [...] during this visit, including review of any qrrn-gho-baczyxs medications, herbal therapies, and/or supplements.Allergy ReviewAllergy List [...] Previous Comments: been couple years ago at [facility], will get records (02/24/2020)Review of Systems General: [...] lower limb affecting unspecified side (ICD- 728.87) (LBG67-O38.10) Assessment: Instructions: Tethered cord and possible [place].Seeing neurology for this and they are referring her to a Pain specialist.She will follow up with them as scheduled.I am going to defer her questions about the gabapentin to them. 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 Had Prevnar 13 a year ago. Will give [id number] and will defer discussion of flu shot to neuro due to history of [place].I am going to defer her questions about [...] SERTRALINE HCL 25 MG ORAL TABLET Qty: [id number] Refills: 30[Tablet] To: SERTRALINE HCL 50 MG ORAL TABLET-once a dayAllergies:* CYMBALTA (Critical)MARIO INHIBITORS (Mild)Orders:Pneumovax 23 [CPT-36069] Adult - Ofc Vst, EST, Level III [CPT-46057] 91366 - Immo Admin (over 19 yrs), 1st Vaccine [CPT-75029] The patient was counseled by the physician on immunizations due, and on the risks and benefits of immunizations.Vaccines Administered/Entered:Vaccination Group: Pneumococcal [id number]: 1Vaccination: [id number] - AdulltMfr / Lot# / Exp.Date: [facility] / [id number] / 1Amt. Given / Route / Site: 0.5 mL / IM / Left DeltoidNDC / CVX: [id number] / 33Administer ed Date: 05/25/2020 11:10VFC Eligibility: Not VFC EligibleVIS Date: 07/06/2019VIS Given / VIS Given On: Yes / 05/25/2020Comments: Administered by: Yesica Castillo Name Value Range Interpretation Code Description Data Cammie rce(s) Supporting Document(s) Procedure Social History Code Duration Value Status Description Data Source(s ) Alcohol intake 09/22/2020 12:00:00 AM EST Never completed [facility] Smoking 09/22/2020 12:00:00 AM EST Current every day smoker co mpleted Current every day smoker [facility] Smoking 08/06/2020 12:00:00 AM EST Unknown if ever smoked comp leted Unknown if ever smoked [facility] Smoking 07/17/2020 12:00:00 AM EST Unknown if ever smoked comp leted Unknown if ever smoked [facility] ([facility]) Smoking 06/20/2020 12:00:00 AM EDT Unknown if ever smoked comp leted Unknown if ever smoked [facility] ([facility]) Smoking 05/15/2020 12:00:00 AM EDT Unknown if ever smoked comp leted Unknown if ever smoked [facility] ([facility]) Vital Signs ID Date Data Source UNK Name Value Range Interpretation Code Description Data Source(s) Body height 0.00 in Normal (applies to non-numeric resu lts) 0.00 in [facility] ([facility]) Body weight Measured 0.00 lbs Normal (applies to n on-numeric results) 0.00 lbs [facility] ([facility]) Body mass index (BMI) [Ratio] 0.00 kg/m2 No rmal (applies to non-numeric results) 0.00 kg/m2 [facility] Systolic blood pressure 0 mm[Hg] Normal (applies t o non-numeric results) 0 mm[Hg] [facility] ([facility]) Diastolic blood pressure 0 mm[Hg] Normal (applies to non-numeric results) 0 mm[Hg] [facility] ([facility]) Body height 0.00 in Normal (applies to non-numeric resu lts) 0.00 in [facility] ([facility]) Systolic blood pressure 0 mm[Hg] Normal (applies t o non-numeric results) 0 mm[Hg] [facility] ([facility]) Body weight Measured 0.00 lbs Normal (applies to n on-numeric results) 0.00 lbs [facility] ([facility]) Diastolic blood pressure 0 mm[Hg] Normal (applies to non-numeric results) 0 mm[Hg] [facility] ([facility]) Body mass index (BMI) [Ratio] 0.00 kg/m2 No rmal (applies to non-numeric results) 0.00 kg/m2 [facility] ([facility]) ID Date Data Source [id number] 08/13/2020 04:21:06 PM [facility] Name Value Range Interpretation Code Description Data Source(s) WEIGHT RECORDED 210 lb 210 lb [facility] Body height Measured 69 in 69 in [facility] Patient Treatment Plan of Care Planned Activity Planned Date Details Description Data Source (s) zonisamide 100 MG Oral Capsule 09/11/2020 12:00:00 AM [facility] Sertraline 50 MG Oral Tablet 09/11/2020 12:00:00 AM EST [facility] Nortriptyline 25 MG Oral Capsule 09/11/2020 12:00:00 AM [facility] gabapentin 100 MG Oral Capsule 09/11/2020 12:00:00 AM EST [facility] tramadol hydrochloride 50 MG Oral Tablet 08/16/2020 12:00:00 AM EST [facility] tizanidine 4 MG Oral Tablet 08/06/2020 12:00:00 AM EST [facility] Levothyroxine Sodium 0.1 MG Oral Tablet 07/20/2020 12:00:00 AM EST [facility] Hydrochlorothiazide 12.5 MG Oral Tablet 01/26/2019 12:00:00 AM EDT [facility] atorvastatin 10 MG Oral Tablet 05/19/2018 12:00:00 AM EDT [facility] Levothyroxine Sodium 0.075 MG Oral Tablet 06/18/2016 12:00:00 AM ED T [facility]
[2021-07-06 03:48] VITALS: BP 124/61
--- OUTSIDE RECORDS SUMMARY | 2021-07-06 06:12 | CCD ---
Author Author [facility] Organization [facility] Address Unknown Phone Unavailable Support Name Relationship Address Phone JAY JOCELYNE Next Of Kin Unknown ThompsonAllan Next Of Kin Unknown Unavailable SULEMAN THOMPSON Next Of Kin [address] [place] [address] Danette LUU, Scott Next Of Kin [address] [place] [address] Johana Graham Next Of Kin [address] [place] [address] Tonia Whelan Next Of Kin [address] [place] [address] [phone] NO, CONTACT Next Of Kin [address] [place] [address] Paulette Rubio MD Next Of Kin [address] [place] [address] [phone] Rhett Dawson MD Next Of Kin [address] [place] [address] DISABLED Next Of Kin Unknown Unavailable UE Next Of Kin Unknown Unavailable UMER STAHL Next Of Kin [address] [place] [id number] [place] [address] VAL STAHL Next Of Kin [address] [place] [address] TRINA STAHL Next Of Kin [address] [place], [place] [id number] STREAM Next Of Kin [address] [place] [address] SULEMAN THOMPSON ECON [address] [place] [address] Unavailable NO EMERGENCY, CONTACT ECON [address] [place] [address] Unavailable no, [place] [address] Care Team Providers Care Passport Application Examiner Name Role Phone Kocan, Tomas Geno FABRICATION TECHNICIAN Unavailable Unavailable Kocan, J Geno FABRICATION TECHNICIAN Unavailable Unavailable Kocan, J Geno FABRICATION TECHNICIAN Unavailable Unavailable Kocan, J Geno FABRICATION TECHNICIAN Unavailable Unavailable Kocan, J Geno FABRICATION TECHNICIAN Unavailable Unavailable Kocan, J Geno FABRICATION TECHNICIAN Unavailable Unavailable Kocan, J Geno FABRICATION TECHNICIAN Unavailable Unavailable Kocan, J Geno FABRICATION TECHNICIAN Unavailable Unavailable Kocan, J Geno FABRICATION TECHNICIAN Unavailable Unavailable Kocan, J Geno FABRICATION TECHNICIAN Unavailable Unavailable Kocan, J Geno FABRICATION TECHNICIAN Unavailable Unavailable Kocan, J Geno FABRICATION TECHNICIAN Unavailable Unavailable Kocan, J Geno FABRICATION TECHNICIAN Unavailable Unavailable Tameka, Ivan MD Unavailable Unavailable Tameka, Ivan MD Unavailable Unavailable Tameka, Ivan MD Unavailable Unavailable Tameka, Ivan MD Unavailable Unavailable Tameka, Ivan MD Unavailable Unavailable Tameka, Ivan MD Unavailable Unavailable Tameka, Ivan MD Unavailable Unavailable Tameka, Ivan MD Unavailable Unavailable Tameka, Ivan MD Unavailable Unavailable Atmeka, Ivan MD Unavailable Unavailable Tameka, Ivan MD [...] Unavailable Unavailable Jane Dawson MD Unavailable Unavailable aJne Dawson MD Unavailable Unavailable Jane Dawson MD [...] Unavailable Samir, Jane Delaney MD Unavailable Unavailable Pleasant Unity, K Ava PMH-JUDO INSTRUCTOR Unavailable Unavailable Pleasant Unity, K Ava PMH-JUDO INSTRUCTOR Unavailable Unavailable Pleasant Unity, K Ava PMH-JUDO INSTRUCTOR Unavailable Unavailable Iliana, K Ava PMH-JUDO INSTRUCTOR Unavailable Unavailable Pleasant Unity, K Ava PMH-JUDO INSTRUCTOR Unavailable Unavailable Pleasant Unity, K Ava PMH-JUDO INSTRUCTOR Unavailable Unavailable Pleasant Unity, K Ava PMH-JUDO INSTRUCTOR Unavailable Unavailable Iliana, K Ava PMH-JUDO INSTRUCTOR Unavailable Unavailable Re-disclosure Warning The records that [...] is protected by Article 27-F of the [facility] Public Health law. If you continue you may have access to information: Regarding HIV / AIDS; Provided by facilities licensed or operated by the [facility] Office of Mental Health; or Provided by the [facility] Office for People With Developmental Disabilities. If such information is present, then the following [facility] mandated warning applies: This information has been [...] law may result in a fine or retirement sentence or both. A general authorization for the release of medical or other information is NOT sufficient authorization for further disc losure. Allergies and Adverse Reactions Type Description Substance Reaction Status Data Source(s ) Propensity to adverse reactions to substance MARIO Inhibitors MARIO Inhibitors Cough Active [facility] ([facility]) Propensity to adverse reactions DULOXETINE HCL Duloxetine Hcl Active [facility] Drug allergy DULOXETINE HCL DULOXETINE HCL [facility] Propensity to adverse reactions MARIO INHIBITORS MARIO INHIBITORS [facility] Family History Family Member Name Family Member Gender Family Member Status Date o f Status Description Data Source(s) Unknown Unknown Problem [facility] ([facility]) Encounters Encounter Providers Location Date Indications Data Source(s ) Outpatient Attender: Geno CORCORAN SJP.HANK-SJP.HANK 10/10/2020 1 0:40:57 AM EST [facility] Outpatient Attender: Geno CORCORAN SJP.HANK-SJP.HANK 2020 12:00:00 AM EST - 09/12/2020 02:43:34 PM EST [facility] Outpatient Attender: Nik Barone MD 08/23/2020 12:00:[address] [facility] Outpatient Referrer: Rhett Dawson MD 08/06/2020 12:00 :00 AM EST Encounter for screening mammogram for malignant neoplasm of breast [facility] Encounter for screening mammogram for ma lignant neoplasm of breast Outpatient Attender: Nik Barone MD 07/31/2020 12:00:00 AM EST [facility] Outpatient Attender: Ivan English MD Main office - [place] 07/23/2020 11:45:00 AM EST [facility] ([facility] Outpatient Attender: Ava Barrientos [facility]-JUD[facility] INSTRUCTOR Emmanuel Count y [facility] 07/17/2020 02:30:00 AM EST - 07/17/2020 02:30:00 AM EST [facility] ([facility]) Attender: Ava Barrientos PM-JUDO INSTRUCTOR 07/17/2020 12: 00:00 AM EST [facility] ([facility]) Outpatient Attender: Nik Barone MD 07/05/2020 12:00:[address] [facility] Outpatient Attender: Ava Barrientos [facility]-JUDO INSTRUCTOR Emmanuel Ferreira y [facility]pc 06/20/2020 01:00:00 AM EDT - 06/20/2020 01:00:00 AM EDT [facility] ([facility]) Attender: Ava Barrientos PM-JUDO INSTRUCTOR 06/20/2020 12: 00:00 AM EDT [facility] ([facility]) Outpatient Attender: Rhett Dawson MD FP 06/19/2020 11:22:02 AM EDT [facility] Outpatient Attender: Rhett Dawson MD FP 06/18/2020 10:51:02 AM EDT [facility] Outpatient Attender: Rhett Dawson MD FP 05/26/2020 12:02:10 AM EDT [facility] Outpatient Attender: Rhett Dawson MD FP 05/25/2020 11:14:01 AM EDT [facility] Outpatient Attender: Rhett Dawson MD FP 05/25/2020 09:26:01 AM EDT [facility] Outpatient Attender: Rhett Dawson MD FP 05/25/2020 09:19:00 AM EDT [facility] Outpatient Attender: Rhett Dawson MD FP 05/25/2020 09:17:00 AM EDT [facility] Outpatient Attender: Rhett Dawson MD FP 05/24/2020 12:54:01 PM EDT [facility] Outpatient Attender: Rhett Dawson MD FP 05/24/2020 12:10:01 PM EDT [facility] Outpatient Attender: Rhett Dawson MD FP 05/17/2020 02:50:01 PM EDT [facility] Outpatient Attender: Ava Barrientos [facility]-CAROLYN Emmanuel y Fpc 05/15/2020 02:00:00 AM EDT - 05/15/2020 02:00:00 AM EDT [facility] ([facility]) Attender: Ava Barrientos PM-JUDO INSTRUCTOR 05/15/2020 12: 00:00 AM EDT [facility] ([facility]) Outpatient SJP.CT-SJP.SYR 07/16/2019 01:04:07 PM EST [facility] Functional Status Immunizations Vaccine Date Status Description Data Source(s) COVID-19 VACCINE Moderna 12/10/2020 12:00:00 AM EDT completed NYSIIS Vaccine Series Complete: NOThis Data was Submitted to [facility] [employer]. Medications Medication Brand Name Start Date Product Form Dose Route Admi nistrative Instructions Pharmacy Instructions Status Indications Reaction Description Data Source(s) gabapentin 100 MG Oral Capsule gabapentin (NEURONTIN) 100 MG capsule gabapentin (NEURONTIN) 100 MG capsule 09/11/2020 12:00:00 AM EST 1 {capsule} Oral active Take 1 capsule by mouth 3 (three ) times a day [facility] Sertraline 50 MG Oral Tablet sertraline (ZOLOFT) 50 MG tablet sertraline (ZOLOFT) 50 MG tablet 09/11/2020 12:00:00 AM EST 1 {tbl} Oral active Take 1 tablet by mouth daily [facility] Nortriptyline 25 MG Oral Capsule nortriptyline (PAMELO R) 25 MG capsule nortriptyline (PAMELOR) 25 MG capsule 09/11/2020 12:00:00 AM EST 1 {capsule} Oral active Take 1 capsule by mo uth daily [facility] zonisamide 100 MG Oral Capsule zonisamide (ZONEGRAN) 1 00 MG capsule zonisamide (ZONEGRAN) 100 MG capsule 09/11/2020 12:00:00 AM EST 1 {capsule} Oral active Take 1 capsule by mouth daily [facility] tramadol hydrochloride 50 MG Oral Tablet traMADol (ULT USHA) 50 MG tablet traMADol (ULTRAM) 50 MG tablet 08/16/2020 12:00:00 AM EST 1 {tbl} Oral active Take 1 tablet by mouth daily as needed [facility] tizanidine 4 MG Oral Tablet tiZANidine (ZANAFLEX) 4 MG tablet tiZANidine (ZANAFLEX) 4 MG tablet 08/06/2020 12:00:00 AM EST 4 mg Oral active Take 4 mg by mouth 3 (three) times a day [facility] tramadol hydrochloride 50 MG Oral Tablet Tramadol HCL 07/23/2020 12:00:00 AM EST ORAL active [facility] ([facility]) Levothyroxine Sodium 0.1 MG Oral Tablet levothyroxine (SYNTHROID, LEVOTHROID) 100 MCG tablet levothyroxine (SYNTHROID, LEVOTHROID) 100 MCG tablet 1 09/19/2019 12:00:00 AM EST 100 ug Oral active Take 100 mcg by mouth daily [facility] Sertraline 50 MG Oral Tablet sertraline 07/17/2020 12:00:00 AM EST 50 mg by mouth completed <td ID="Medica tionRxNorm_1">289185</td><td ID="MedicationMedication_1">sertraline</td><td ID="MedicationRoute_1">by mouth</td><td ID="MedicationRouteConcept_1">[id number]</td><td ID="MedicationStartDate_1">07/17/2020</td><td ID="MedicationStopDate_1"></td><td ID="MedicationDosageFrequency_1">once a day</td><td ID="MedicationDuration_1"></td><td ID="MedicationFormulaStrength_1">50 mg</td><td ID="MedicationDosageForm_1">tablet</td><td ID="MedicationDosageFormCode_1"></td><td ID="MedicationDosageDescription_1"></td><td ID="MedicationMedicationId_1">[id number]</td><td ID="MedicationAccount_1">[id number]</td><td ID="MedicationNpid_1">[id number]</td><td ID="MedicationAuthorFirstName_1">Ava</td><td ID="MedicationAuthorLastName_1">Pleasant Unity</td><td ID="MedicationTaxonomyCode_1">[id number]</td><td ID="MedicationTaxonomyDesc_1">Psychiatric/Mental Health</td><td ID="MedicationPhoneNumber_1">[phone]</td> [facility] ([facility]) Sertraline 50 MG Oral Tablet sertraline 07/17/2020 12:00:00 AM EST 50 mg completed <td ID="Medicati onRxNorm_2">[id number]</td><td ID="MedicationMedication_2">sertraline</td><td ID="MedicationRoute_2"></td><td ID="MedicationRouteConcept_2"></td><td ID="MedicationStartDate_2">07/17/2020</td><td ID="MedicationStopDate_2">07/17/2020</td><td ID="MedicationDosageFrequency_2"></td><td ID="MedicationDuration_2"></td><td ID="MedicationFormulaStrength_2">50 mg</td><td ID="MedicationDosageForm_2">tablet</td><td ID="MedicationDosageFormCode_2"></td><td ID="MedicationDosageDescription_2"></td><td ID="MedicationMedicationId_2">[id number]</td><td ID="MedicationAccount_2">[id number]</td><td ID="MedicationNpid_2"></td><td ID="MedicationAuthorFirstName_2"></td><td ID="MedicationAuthorLastName_2"></td><td ID="MedicationTaxonomyCode_2"></td><td ID="MedicationTaxonomyDesc_2"></td><td ID="MedicationPhoneNumber_2"></td> [facility] ([facility]) 25 mg 05/18/2020 12:00:00 AM EDT capsule 30 TAKE ONE CAPSULE BY MOUTH EVERY DAY TAKE ONE CAPSULE BY MOUTH EVERY DAY SOLD: 05/18/2020 [facility] Sertraline 50 MG Oral Tablet sertraline 05/15/2020 12:00:00 AM EDT 50 mg by mouth completed <td ID="Medica tionRxNorm_2">[id number]</td><td ID="MedicationMedication_2">sertraline</td><td ID="MedicationRoute_2">by mouth</td><td ID="MedicationRouteConcept_2">W37677</td><td ID="MedicationStartDate_2">05/15/2020</td><td ID="MedicationStopDate_2">07/14/2020</td><td ID="MedicationDosageFrequency_2">every morning</td><td ID="MedicationDuration_2">30</td><td ID="MedicationFormulaStrength_2">50 mg</td><td ID="MedicationDosageForm_2">tablet</td><td ID="MedicationDosageFormCode_2"></td><td ID="MedicationDosageDescription_2"> </td><td ID="MedicationMedicationId_2">[id number]</td><td ID="MedicationAccount_2">[id number]</td><td ID="MedicationNpid_2">[id number]</td><td ID="MedicationAuthorFirstName_2">Ava</td><td ID="MedicationAuthorLastName_2">Iliana</td><td ID="MedicationTaxonomyCode_2">[id number]</td><td ID="MedicationTaxonomyDesc_2">Psychiatric/Mental Health</td><td ID="MedicationPhoneNumber_2">[phone]</td> [facility] ([facility]) Sertraline 25 MG Oral Tablet sertraline 03/05/2020 12:00:00 AM EDT 25 mg completed <td ID="Medicati onRxNorm_1">[id number]</td><td ID="MedicationMedication_1">sertraline</td><td ID="MedicationRoute_1"></td><td ID="MedicationRouteConcept_1"></td><td ID="MedicationStartDate_1">03/05/2020</td><td ID="MedicationStopDate_1">05/15/2020</td><td ID="MedicationDosageFrequency_1"></td><td ID="MedicationDuration_1"></td><td ID="MedicationFormulaStrength_1">25 mg</td><td ID="MedicationDosageForm_1">tablet</td><td ID="MedicationDosageFormCode_1"></td><td ID="MedicationDosageDescription_1"></td><td ID="MedicationMedicationId_1">[id number]</td><td ID="MedicationAccount_1">[id number]</td><td ID="MedicationNpid_1">[id number]</td><td ID="MedicationAuthorFirstName_1">Ava</td><td ID="MedicationAuthorLastName_1">Iliana</td><td ID="MedicationTaxonomyCode_1">[id number]</td><td ID="MedicationTaxonomyDesc_1">Psychiatric/Mental Health</td><td ID="MedicationPhoneNumber_1">[phone]</td> [facility] ([facility]) Hydrochlorothiazide 12.5 MG Oral Tablet hydrochlorothiazide (HYDRODIURIL) 12.5 MG tablet hydrochlorothiazide (HYDRODIURIL) 12.5 MG tablet 01/26 12:00:00 AM EDT 1 {tbl} Oral aborted Take 1 tablet b y mouth daily [facility] atorvastatin 10 MG Oral Tablet atorvastatin (LIPITOR) 10 MG tablet atorvastatin (LIPITOR) 10 MG tablet 05/19/2018 12:00:00 AM EDT 1 {tbl} Oral aborted Take 1 tablet by mouth daily [facility] Levothyroxine Sodium 0.075 MG Oral Tablet levothyroxin e (LEVO-T) 75 MCG tablet levothyroxine (LEVO-T) 75 MCG tablet 06/18/2016 12:00:00 AM EDT 1 { tbl} Oral aborted Take 1 tablet by mouth da marissa [facility] Insurance Providers Payer name Policy type / Coverage type Policy ID Covered green party ID Covered green party's relationship to oconnell Policy Oconnell Plan Information Medicaid S [id number] S [id number] Managed Care - [facility] P [id number] S [id number] [facility] [id number] SP [id number] Medicaid S [id number] S [id number] [facility] - [facility] P [id number] S [id number] [facility] [id number] SP [id number] Medicaid S [id number] S [id number] Managed Care - [facility] Community Plan P [id number] S [id number] Managed Care - [facility] P [id number] S [id number] Medicaid S [id number] S [id number] Managed Care - [facility] Community Plan P [id number] S [id number] Medicaid S [id number] S [id number] [facility] I [id number] Self [id number] [facility] I [id number] Self [id number] [facility] MEDICAID [id number] Alondra [id number] [facility] MEDICAID [id number] xxxxxxxxx [id number] ANSI-Medicaid [id number] [facility] Maintenance Organization (HMO) [id number] Self [id number] [facility] Health Maintenance Organization (O) [id number] Self [id number] MEDICAID [id number] SP [id number] [facility] Health Maintenance Organization (O) [id number] Self [id number] [facility] Health Maintenance Organization ([facility]) [id number] Self [id number] MEDICAID M [id number] S [id number] [facility] Health Maintenance Organization (O) [id number] Self MEDICAID [id number] SP [id number] SELF PAY UNAVAILABLE SP UNAVAILA BLE [employer] COMMUNITY PLAN MCDO [id number] SP [id number] SELF PAY ONLY UNAVAILABLE UNAV AILABLE [facility] [id number] SP [id number] [facility] [id number] SP [id number] [facility](MCAID) O [id number] S [id number] UN COMMUNITY PLAN MCDO [id number] SP [id number] MEDICAID [id number] SP [id number] MEDICAID M [id number] S [id number] [facility] [id number] [facility]-Medicaid [id number] [facility]-Medicaid [id number] [facility]-Medicaid [id number] ANSI-Medicaid [id number] ANSI-Medicaid [id number] ANSI-Medicaid [id number] ANSI-Medicaid [id number] ANSI-Medicaid [id number] Problems, Conditions, and Diagnoses Code Display Name Description Problem Type Effective Dates Data Source(s) R94.31 Abnormal electrocardiogram [ECG] [EKG] A bnormal electrocardiogram (ECG) (EKG) Diagnosis 09/12/2020 11:19:45 AM [facility] R55 Syncope and collapse Syncope and collapse Diagnosis 09/12/2020 11:19:45 AM [facility] R07.9 Chest pain, unspecified Chest pain, unspecified Diagno sis 09/12/2020 11:19:45 AM [facility] Z72.0 Tobacco use Tobacco use Diagnosis 09/12/2020 11:19:45 AM [facility] I05.9 Rheumatic mitral valve disease, unspecif ied Rheumatic mitral valve disease, unspecif Diagnosis 09/12/2020 11:19:45 AM [facility] E78.5 Hyperlipidemia, unspecified Hyperlipidemia, unspecifie d Diagnosis 09/12/2020 11:19:45 AM [facility] E03.9 Hypothyroidism, unspecified Hypothyroidism, unspecifie d Diagnosis 09/12/2020 11:19:45 AM EST [facility] I10 Essential (primary) hypertension Essential (primary) h ypertension Diagnosis 09/12/2020 11:19:45 AM EST [facility] Z12.31 Encounter for screening mammogram for ma lignant neoplasm of breast Encounter for screening mammogram for malignant neoplasm of breast Diagnosis 08/06/2020 01:33:19 PM EST [facility] F43.23 Adjustment disorder with mixed anxiety a nd depressed mood Adjustment Disorder, With mixed anxiety and depressed mood Condition 2019 12:00:00 AM EST [facility] ([facility]) Surgeries/Procedures Procedure Description Date Indications Data Source(s) [facility] Telemed E/M Lvl 3--Est pt 07/17/2020 12:00:00 AM EST - 07/17/2020 12:00:00 AM EST [facility] ([facility]) Telemed A/O 30" 07/17/2020 12:00:00 AM EST [facility] ([facility]) MHC Telemed E/M Lvl 3--Est pt 07/17/2020 12:00:[address] [facility] ([facility]) MHC Telemed E/M Lvl 3--Est pt 06/20/2020 12:00:00 AM EDT - 06/20/2020 12:00:00 AM EDT [facility] ([facility]) MHC Telemed E/M Lvl 3--Est pt 06/20/2020 12:00:00 AM E DT [facility] ([facility]) MHC Telemed E/M Lvl 3--Est pt 05/15/2020 12:00:00 AM EDT - 05/15/2020 12:00:00 AM EDT [facility] ([facility]) Telemed A/O 30" 05/15/2020 12:00:00 AM EDT [facility] ([facility]) MHC Telemed E/M Lvl 3--Est pt 05/15/2020 12:00:00 AM E DT [facility] ([facility]) Results ID Date Data Source [id number] 05/28/2021 11:14:00 AM EDT [facility] Name Value Range Interpretation Code Description Data Cammie rce(s) Supporting Document(s) SARS coronavirus 2 RNA [Presence] in Res piratory specimen by ELBA with probe detection NEGATIVE [facility] This lab was ordered by [facility] a nd reported by [facility]. ID Date Data Source [id number] 08/13/2020 04:21:06 PM [facility] MAMMO DIGITAL SCREENING BILATERAL [id number] INAL RESULTInterpreted by:Luciano Ceja MDBILATERAL DIGITAL MAMMOGRAM [...] rce(s) Supporting Document(s) ID Date Data Source [id number] 05/25/2020 09:35:19 AM EDT [facility] Measurements & CalculationsHeight: 67 [...] the hospital? Yes - MH inpatient in [facility] you been to an emergency room [...] Advised to Quit/Tobacco Education: YesChief Complaintfollow-[facility] 14History of Present Illness (HPI)59 YO female here for follow up hospital discharge / [facility]. Patient wishes to discuss pain. She has been seeeing neurology for a while for chronic upper and lower back and leg pain. Gets muscle spasms sometimes as well. They have her on muscle relaxers for this. 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 and per patient her neurologist is sending her to see a pain specialist in [place] for this.She has been on gabapentin in [...] during this visit, including review of any evec-yzp-sqefuzg medications, herbal therapies, and/or supplements.Allergy ReviewAllergy List [...] Previous Comments: been couple years ago at [facility], will get records (02/24/2020)Review of Systems [...] lower limb affecting unspecified side (ICD- 728.87) (LKX90-L25.10) Assessment: Instructions: Tethered cord and possible Umaña-Arabi.Seeing neurology for this and they are referring her to a Pain specialist.She will follow up with them as scheduled.I am going to defer her questions about the gabapentin to them. 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 Had Prevnar 13 a year ago. Will give [id number] and will defer discussion of flu shot to neuro due to history of Umaña-Arabi.I am going to defer her questions about [...] SERTRALINE HCL 25 MG ORAL TABLET Qty: [id number] Refills: 30[Tablet] To: SERTRALINE HCL 50 MG ORAL TABLET-once a dayAllergies:* CYMBALTA (Critical)MARIO INHIBITORS (Mild)Orders:Pneumovax 23 [CPT-74548] Adult - Ofc Vst, EST, Level III [CPT-62478] 56136 - Immo Admin (over 19 yrs), 1st Vaccine [CPT-17565] The patient was counseled by the physician on immunizations due, and on the risks and benefits of immunizations.Vaccines Administered/Entered:Vaccination Group: Pneumococcal [id number]: 1Vaccination: [id number] - AdulltMfr / Lot# / Exp.Date: [facility] / [id number] / 1Amt. Given / Route / Site: 0.5 mL / IM / Left DeltoidNDC / CVX: [id number] / 33Administer ed Date: 05/25/2020 11:10VFC Eligibility: Not VFC EligibleVIS Date: 07/06/2019VIS Given / VIS Given On: Yes / 05/25/2020Comments: Administered by: Yesica Castillo Name Value Range Interpretation Code Description Data Cammie rce(s) Supporting Document(s) Procedure Social History Code Duration Value Status Description Data Source(s ) Alcohol intake 09/22/2020 12:00:00 AM EST Never completed [facility] Smoking 09/22/2020 12:00:00 AM EST Current every day smoker co mpleted Current every day smoker [facility] Smoking 08/06/2020 12:00:00 AM EST Unknown if ever smoked comp leted Unknown if ever smoked [facility] Smoking 07/17/2020 12:00:00 AM EST Unknown if ever smoked comp leted Unknown if ever smoked [facility] ([facility]) Smoking 06/20/2020 12:00:00 AM EDT Unknown if ever smoked comp leted Unknown if ever smoked [facility] ([facility]) Smoking 05/15/2020 12:00:00 AM EDT Unknown if ever smoked comp leted Unknown if ever smoked [facility] ([facility]) Vital Signs ID Date Data Source UNK Name Value Range Interpretation Code Description Data Source(s) Body height 0.00 in Normal (applies to non-numeric resu lts) 0.00 in [facility] ([facility]) Body weight Measured 0.00 lbs Normal (applies to n on-numeric results) 0.00 lbs [facility] ([facility]) Body mass index (BMI) [Ratio] 0.00 kg/m2 No rmal (applies to non-numeric results) 0.00 kg/m2 [facility] Systolic blood pressure 0 mm[Hg] Normal (applies t o non-numeric results) 0 mm[Hg] [facility] ([facility]) Diastolic blood pressure 0 mm[Hg] Normal (applies to non-numeric results) 0 mm[Hg] [facility] ([facility]) Systolic blood pressure 0 mm[Hg] Normal (applies t o non-numeric results) 0 mm[Hg] [facility] ([facility]) Body height 0.00 in Normal (applies to non-numeric resu lts) 0.00 in [facility] ([facility]) Body weight Measured 0.00 lbs Normal (applies to n on-numeric results) 0.00 lbs [facility] ([facility]) Diastolic blood pressure 0 mm[Hg] Normal (applies to non-numeric results) 0 mm[Hg] [facility] ([facility]) Body mass index (BMI) [Ratio] 0.00 kg/m2 No rmal (applies to non-numeric results) 0.00 kg/m2 [facility] ([facility]) ID Date Data Source [id number] 08/13/2020 04:21:06 PM [facility] Name Value Range Interpretation Code Description Data Source(s) WEIGHT RECORDED 210 lb 210 lb [facility] Body height Measured 69 in 69 in [facility] Patient Treatment Plan of Care Planned Activity Planned Date Details Description Data Source (s) zonisamide 100 MG Oral Capsule 09/11/2020 12:00:00 AM [facility] Sertraline 50 MG Oral Tablet 09/11/2020 12:00:00 AM EST [facility] Nortriptyline 25 MG Oral Capsule 09/11/2020 12:00:00 AM [facility] gabapentin 100 MG Oral Capsule 09/11/2020 12:00:00 AM EST [facility] tramadol hydrochloride 50 MG Oral Tablet 08/16/2020 12:00:00 AM EST [facility] tizanidine 4 MG Oral Tablet 08/06/2020 12:00:00 AM EST [facility] Levothyroxine Sodium 0.1 MG Oral Tablet 07/20/2020 12:00:00 AM EST [facility] Hydrochlorothiazide 12.5 MG Oral Tablet 01/26/2019 12:00:00 AM EDT [facility] atorvastatin 10 MG Oral Tablet 05/19/2018 12:00:00 AM EDT [facility] Levothyroxine Sodium 0.075 MG Oral Tablet 06/18/2016 12:00:00 AM ED T [facility]
[2021-07-06 07:29] LABS: BASO # 0.1 10^3/uL (0.0-0.2); BASO % 1.2 % (0.0-1.0); EOS # 0.2 10^3/uL (0.0-0.5); EOS % 2.1 % (0.0-3.0); HEMATOCRIT 35.4 % (36.0-47.0); HEMOGLOBIN 11.4 g/dl (12.0-15.5); MEAN CORPUSCULAR HEMOGLOBIN 31.4 pg (27.0-33.0); MEAN CORPUSCULAR HGB CONC 32.2 g/dl (32.0-36.5); MEAN CORPUSCULAR VOLUME 97.5 fl (80.0-96.0); MONO # 0.7 10^3/uL (0.0-0.8); MONO % 8.7 % (2.0-8.0); NEUTROPHILS # 4.7 10^3/uL (1.5-8.5); NEUTROPHILS % 61.6 % (36.0-66.0); PLATELET COUNT, AUTOMATED 253 10^3/uL (150-450); RED BLOOD COUNT 3.63 10^6/uL (4.00-5.40); WHITE BLOOD COUNT 7.7 10^3/uL (4.0-10.0)
[2021-07-06 08:03] LABS: ACETAMINOPHEN LEVEL < 2.0 UG/ML (10.0-30.0); ALBUMIN 3.4 GM/DL (3.2-5.2); ALT/SGPT 17 U/L (12-78); BILIRUBIN,DIRECT 0.1 MG/DL (0.0-0.2); BILIRUBIN,TOTAL 0.3 MG/DL (0.2-1.0); BLOOD UREA NITROGEN 12 MG/DL (7-18); CALCIUM LEVEL 9.4 MG/DL (8.5-10.1); CARBON DIOXIDE LEVEL 28 MEQ/L (21-32); CHLORIDE LEVEL 106 MEQ/L (98-107); CK-MB VALUE MASS 4.4 NG/ML (<3.6); CPK CREATINE PHOSPHOKINASE 238 U/L (26-192); CREATININE FOR GFR 0.71 MG/DL (0.55-1.30); ETHYL ALCOHOL (ETHANOL) < 0.003 % (0.000-0.010); FREE T4 0.76 NG/DL (0.76-1.46); GLOMERULAR FILTRATION RATE > 60.0 (>51); GLUCOSE, FASTING 92 MG/DL (70-100); MB/CK RELATIVE INDEX 1.85 (< OR =4); NT-PRO BNP 45 PG/ML (<125); POTASSIUM SERUM 4.3 MEQ/L (3.5-5.1); SALICYLATE LEVEL < 1.7 MG/DL (5.0-30.0); SODIUM LEVEL 139 MEQ/L (136-145); TOTAL PROTEIN 6.7 GM/DL (6.4-8.2); TROPONIN I < 0.02 NG/ML (< 0.10)
--- NOTE | 2021-07-06 08:14 | REPVR ---
PROCEDURE INFORMATION: Exam: US Duplex Lower Extremity Veins, Bilateral Exam date and time: 07/06/2021 7:46 AM Age: 60 years old Clinical indication: Edema, localized; Lower extremity, bilateral; Additional info: B/l le edema, R/O dvt TECHNIQUE: Imaging protocol: Real-time duplex ultrasound of the extremities with 2-D deras scale, color Doppler flow and spectral waveform analysis with image documentation. Complete exam focused on the bilateral lower extremity veins. COMPARISON: US Duplex, Ext,LOWER veins,unilat 01/30/2017 9:46 AM FINDINGS: Right deep veins: Unremarkable. The common femoral, femoral, proximal profunda femoral and popliteal veins are patent without thrombus. Normal Doppler waveforms. Normal compressibility and/or augmentation response. Right superficial veins: Saphenofemoral junction is patent without thrombus. Left deep veins: Unremarkable. The common femoral, femoral, proximal profunda femoral and popliteal veins are patent without thrombus. Normal Doppler waveforms. Normal compressibility and/or augmentation response. Left superficial veins: Saphenofemoral junction is patent without thrombus. Soft tissues: Bilateral lower extremity soft tissue edema. IMPRESSION: No evidence of deep vein thrombosis. Electronically signed by: Johan Browne On 07/06/2021 08:13:45 AM
[2021-07-06 08:36] LABS: AMORPHOUS SEDIMENT SMALL (NEGATIVE); APPEARANCE, URINE CLEAR (CLEAR); BACTERIA, URINE AUTO NEGATIVE (NEGATIVE); BILIRUBIN, URINE AUTO NEGATIVE (NEGATIVE); BLOOD, URINE BLOOD NEGATIVE (NEGATIVE); COLOR, URINE STRAW (YELLOW); GLUCOSE, URINE (UA) AUTO NEGATIVE (NEGATIVE); KETONE, URINE AUTO NEGATIVE (NEGATIVE); LEUKOCYTE ESTERASE, URINE AUTO 2+ (NEGATIVE); NITRITE, URINE AUTO NEGATIVE (NEGATIVE); PROTEIN, URINE AUTO NEGATIVE (NEGATIVE); RBC, URINE AUTO 2 /HPF (0-3); SPECIFIC GRAVITY URINE AUTO 1.006 (1.002-1.035); SQUAMOUS EPITHELIAL CELL UR AU 4 /HPF (0-6); UROBILINOGEN, URINE AUTO 0.2 mg/dL (0.0-2.0); WBC, URINE AUTO 4 /HPF (0-3)
[2021-07-06 08:55] LABS: AMPHETAMINES LEVEL URINE NEGATIVE (NEGATIVE); BARBITURATES URINE NEGATIVE (NEGATIVE); BENZODIAZEPINES URINE NEGATIVE (NEGATIVE); CANNABINOIDS URINE NEGATIVE (NEGATIVE); COCAINE METABOLITE URINE NEGATIVE (NEGATIVE); METHADONE URINE NEGATIVE (NEGATIVE); OPIATES URINE NEGATIVE (NEGATIVE); PHENCYCLIDINE URINE NEGATIVE (NEGATIVE)
--- NOTE | 2021-07-06 09:31 | REPVR ---
PROCEDURE INFORMATION: Exam: XR Chest Exam date and time: 07/06/2021 7:54 AM Age: 60 years old Clinical indication: Other: Le edema; Additional info: B/l le edema TECHNIQUE: Imaging protocol: XR of the chest. Views: 2 views. COMPARISON: 1. CR Ribs Bilat w-PA CHEST 10/31/2019 1:42 PM 2. CR Chest, 2 view PA, Lat 03/08/2018 10:45:39 AM FINDINGS: Lungs: Lungs are well aerated. No consolidation. Breast attenuation at the lung bases. Pleural spaces: No pleural effusions. No pneumothorax. Heart/Mediastinum: Cardiac size is normal and mediastinal contour stable. Pulmonary vasculature is unremarkable. No edema. Bones/joints: Bones are stable. Mild spinal degenerative changes. IMPRESSION: No acute abnormalities are identified. Electronically signed by: Johan Browne On 07/06/2021 09:31:08 AM
[2021-07-06] MEDS ORDERED: BACI500O21 TOP (11:17)
--- NOTE | 2021-07-06 20:02 | ECGEPIP ---
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
== END 2021-07-06 11:35 | disposition home or self-care (01) ==
LOC: M ED 22:51
DX: S90.811A Abrasion, right foot, initial encounter (principal); S90.812A Abrasion, left foot, initial encounter; R22.43 Localized swelling, mass and lump, lower limb, bilateral; F22 Delusional disorders; X58.XXXA Exposure to other specified factors, initial encounter; Y92.9 Unspecified place or not applicable; Y93.9 Activity, unspecified; Y99.9 Unspecified external cause status; F41.9 Anxiety disorder, unspecified; F32.9 Major depressive disorder, single episode, unspecified; E03.9 Hypothyroidism, unspecified; F29 Unspecified psychosis not due to a substance or known physiological condition; G61.0 Guillain-Barre syndrome; Z86.73 Personal history of transient ischemic attack (TIA), and cerebral infarction without residual deficits; F03.90 Unspecified dementia, unspecified severity, without behavioral disturbance, psychotic disturbance, mood disturbance, and anxiety; K31.84 Gastroparesis; Z87.442 Personal history of urinary calculi; Z87.891 Personal history of nicotine dependence

== ENCOUNTER 2021-10-24 03:12 | Emergency (ER) | payer OTHER ==
[~2021-10-24] VITALS: Ht 175.3 cm; Wt 82.1 kg
[~2021-10-24 03:12] MED LIST changes: +BACI500O21 TOP
[2021-10-24] MEDS ORDERED: AMLO1TAB25 PO (03:49)
[2021-10-24 04:03] LABS: BASO # 0.1 10^3/uL (0.0-0.2); EOS # 0.1 10^3/uL (0.0-0.5); EOS % 1.2 % (0.0-3.0); HEMATOCRIT 39.6 % (36.0-47.0); HEMOGLOBIN 13.2 g/dl (12.0-15.5); LYMPH # 2.2 10^3/uL (1.5-5.0); LYMPH % 19.6 % (24.0-44.0); MEAN CORPUSCULAR HEMOGLOBIN 30.3 pg (27.0-33.0); MEAN CORPUSCULAR HGB CONC 33.3 g/dl (32.0-36.5); MONO # 0.8 10^3/uL (0.0-0.8); MONO % 6.9 % (2.0-8.0); NEUTROPHILS # 7.9 10^3/uL (1.5-8.5); PLATELET COUNT, AUTOMATED 283 10^3/uL (150-450); RED BLOOD COUNT 4.35 10^6/uL (4.00-5.40); WHITE BLOOD COUNT 11.1 10^3/uL (4.0-10.0)
[2021-10-24 05:13] LABS: ALBUMIN 3.4 GM/DL (3.2-5.2); ALT/SGPT 11 U/L (12-78); BLOOD UREA NITROGEN 12 MG/DL (7-18); CALCIUM LEVEL 8.9 MG/DL (8.5-10.1); CARBON DIOXIDE LEVEL 27 MEQ/L (21-32); CHLORIDE LEVEL 104 MEQ/L (98-107); CREATININE FOR GFR 0.67 MG/DL (0.55-1.30); GLOMERULAR FILTRATION RATE > 60.0 (>51); GLUCOSE, FASTING 91 MG/DL (70-100); SODIUM LEVEL 139 MEQ/L (136-145); TOTAL PROTEIN 6.3 GM/DL (6.4-8.2)
[2021-10-24] MEDS ORDERED: FLOM0.4C39 PO (05:53)
[2021-10-24] MEDS ORDERED: MACR100C43 PO (05:53)
[2021-10-24 06:00] VITALS: BP 122/55
[2021-10-24] MEDS ORDERED: NITROFURANTOIN (MACROBID) 100 MG CAP PO ONE (06:00)
== END 2021-10-24 06:15 | disposition home or self-care (01) ==
LOC: M ED 03:12
DX: N10 Acute pyelonephritis (principal); N20.0 Calculus of kidney; K57.30 Diverticulosis of large intestine without perforation or abscess without bleeding; I10 Essential (primary) hypertension; F17.200 Nicotine dependence, unspecified, uncomplicated; Z79.899 Other long term (current) drug therapy; Z88.8 Allergy status to other drugs, medicaments and biological substances

== ENCOUNTER 2023-05-06 09:00 | Emergency (ER) | payer MEDICAID, OTHER ==
[~2023-05-06] VITALS: Ht 175.3 cm; Wt 76.3 kg
[~2023-05-06 09:00] MED LIST changes: +AMLO1TAB25 PO; +FLOM0.4C39 PO; +MACR100C43 PO; -ZONI100C17 PO; +ZONI100C67 PO
[2023-05-06 09:11] VITALS: TEMP 98
[2023-05-06] MEDS ORDERED: ASPIRIN 81MG CHEW TABLET PO ONE (09:15)
[2023-05-06 09:36] LABS: BASO # 0.1 10^3/uL (0.0-0.2); BASO % 0.9 % (0.0-1.0); EOS # 0.1 10^3/uL (0.0-0.5); HEMATOCRIT 40.5 % (36.0-47.0); HEMOGLOBIN 13.4 g/dl (12.0-15.5); LYMPH # 1.5 10^3/uL (1.5-5.0); LYMPH % 20.9 % (24.0-44.0); MEAN CORPUSCULAR HEMOGLOBIN 31.8 pg (27.0-33.0); MEAN CORPUSCULAR HGB CONC 33.1 g/dl (32.0-36.5); MEAN CORPUSCULAR VOLUME 96.2 fl (80.0-96.0); MONO # 0.5 10^3/uL (0.0-0.8); MONO % 6.6 % (2.0-8.0); NEUTROPHILS # 4.8 10^3/uL (1.5-8.5); NEUTROPHILS % 69.3 % (36.0-66.0); PLATELET COUNT, AUTOMATED 272 10^3/uL (150-450); RED BLOOD COUNT 4.21 10^6/uL (4.00-5.40)
[2023-05-06 10:04] LABS: CK-MB VALUE MASS < 1.0 NG/ML (<3.6); LIPASE 24 U/L (12-53)
[2023-05-06 10:07] LABS: ALBUMIN 3.6 G/DL (3.2-5.2); ALKALINE PHOSPHATASE 123 U/L (46-116); ALT/SGPT < 9 U/L (7.0-40); AST/SGOT 13 U/L (<34); BILIRUBIN,DIRECT 0.2 MG/DL (<0.4); BILIRUBIN,TOTAL 0.5 MG/DL (0.3-1.2); BLOOD UREA NITROGEN 7 MG/DL (9-23); CALCIUM LEVEL 9.4 MG/DL (8.3-10.6); CARBON DIOXIDE LEVEL 27 MMOL/L (20-31); CHLORIDE LEVEL 106 MMOL/L (98-107); CREATININE FOR GFR 0.67 MG/DL (0.55-1.30); GLOMERULAR FILTRATION RATE > 60.0 (>45); GLUCOSE, FASTING 97 MG/DL (74-106); POTASSIUM SERUM 3.3 MMOL/L (3.5-5.1); SODIUM LEVEL 141 MMOL/L (136-145); THYROID STIMULATING HORMONE 5.415 uIU/ML (0.55-4.78); TOTAL PROTEIN 6.6 G/DL (5.7-8.2)
[2023-05-06 10:10] LABS: CPK CREATINE PHOSPHOKINASE 69 U/L (34-145); MB/CK RELATIVE INDEX 1.44 (< OR =4)
[2023-05-06] MEDS ORDERED: ISOVUE-370 76% 100ML VIAL As Ordered ONE (10:34)
[2023-05-06 11:07] LABS: CK-MB VALUE MASS < 1.0 NG/ML (<3.6); ETHYL ALCOHOL (ETHANOL) < 0.003 % (0.000-0.010)
[2023-05-06 11:08] LABS: ACETAMINOPHEN LEVEL < 2.0 UG/ML (10.0-20.0)
[2023-05-06 11:09] LABS: SALICYLATE LEVEL < 3.0 MG/DL (<30)
[2023-05-06 11:13] LABS: CPK CREATINE PHOSPHOKINASE 69 U/L (34-145); MB/CK RELATIVE INDEX 1.44 (< OR =4)
[2023-05-06] MEDS ORDERED: POTASSIUM CHLORIDE 10MEQ SR TABLET PO ONE (11:15)
[2023-05-06 11:31] VITALS: BP 119/59; O2SAT 99
[2023-05-06 12:41] LABS: AMPHETAMINES LEVEL URINE NEGATIVE (NEGATIVE); BARBITURATES URINE NEGATIVE (NEGATIVE); BENZODIAZEPINES URINE NEGATIVE (NEGATIVE); CANNABINOIDS URINE NEGATIVE (NEGATIVE); COCAINE METABOLITE URINE NEGATIVE (NEGATIVE); METHADONE URINE NEGATIVE (NEGATIVE); OPIATES URINE NEGATIVE (NEGATIVE); PHENCYCLIDINE URINE NEGATIVE (NEGATIVE)
== END 2023-05-06 16:03 | disposition home or self-care (01) ==
LOC: EDBD 09:00 → M ED 09:00
DX: F22 Delusional disorders (principal); R07.9 Chest pain, unspecified; D35.02 Benign neoplasm of left adrenal gland; I10 Essential (primary) hypertension; Z87.19 Personal history of other diseases of the digestive system; F17.200 Nicotine dependence, unspecified, uncomplicated; Z79.899 Other long term (current) drug therapy; Z88.8 Allergy status to other drugs, medicaments and biological substances
CPT/HCPCS: 71045; 71275; 80048; 80076; 80143; 80307; 82077; 82550; 82553; 83690; 84443; 85025; 85379; 87635; 93005; 93041; 94760; 99285; Q9967

== ENCOUNTER 2023-06-17 11:00 | Inpatient (IN) | payer MEDICAID, OTHER ==
[~2023-06-17] VITALS: Ht 172.7 cm; Wt 74.7 kg
[2023-06-17 12:11] LABS: BASO # 0.1 10^3/uL (0.0-0.2); BASO % 0.7 % (0.0-1.0); EOS % 0.6 % (0.0-3.0); HEMATOCRIT 43.5 % (36.0-47.0); HEMOGLOBIN 14.2 g/dl (12.0-15.5); LYMPH # 1.6 10^3/uL (1.5-5.0); LYMPH % 23.4 % (24.0-44.0); MEAN CORPUSCULAR HEMOGLOBIN 31.8 pg (27.0-33.0); MEAN CORPUSCULAR HGB CONC 32.6 g/dl (32.0-36.5); MEAN CORPUSCULAR VOLUME 97.5 fl (80.0-96.0); MONO # 0.3 10^3/uL (0.0-0.8); MONO % 4.8 % (2.0-8.0); NEUTROPHILS # 4.8 10^3/uL (1.5-8.5); NEUTROPHILS % 70.4 % (36.0-66.0); PLATELET COUNT, AUTOMATED 301 10^3/uL (150-450); RED BLOOD COUNT 4.46 10^6/uL (4.00-5.40); WHITE BLOOD COUNT 6.9 10^3/uL (4.0-10.0)
[2023-06-17 12:26] LABS: ETHYL ALCOHOL (ETHANOL) < 0.003 % (0.000-0.010)
[2023-06-17 12:28] LABS: ALKALINE PHOSPHATASE 134 U/L (46-116); ALT/SGPT 10 U/L (7.0-40); AST/SGOT 14 U/L (<34); BILIRUBIN,DIRECT 0.1 MG/DL (<0.4); BILIRUBIN,TOTAL 0.4 MG/DL (0.3-1.2); BLOOD UREA NITROGEN 11 MG/DL (9-23); CALCIUM LEVEL 9.9 MG/DL (8.3-10.6); CARBON DIOXIDE LEVEL 32 MMOL/L (20-31); CHLORIDE LEVEL 104 MMOL/L (98-107); CK-MB VALUE MASS < 1.0 NG/ML (<3.6); CREATININE FOR GFR 0.69 MG/DL (0.55-1.30); GLOMERULAR FILTRATION RATE > 60.0 (>45); GLUCOSE, FASTING 105 MG/DL (74-106); POTASSIUM SERUM 3.7 MMOL/L (3.5-5.1); SALICYLATE LEVEL < 3.0 MG/DL (<30); SODIUM LEVEL 140 MMOL/L (136-145); TOTAL PROTEIN 7.1 G/DL (5.7-8.2)
[2023-06-17 12:30] LABS: THYROID STIMULATING HORMONE 3.088 uIU/ML (0.55-4.78)
[2023-06-17 12:32] LABS: CPK CREATINE PHOSPHOKINASE 56 U/L (34-145); MB/CK RELATIVE INDEX 1.78 (< OR =4)
[2023-06-17 12:40] LABS: RSV AMPLIFICATION NEGATIVE (NEGATIVE)
[2023-06-17 13:29] LABS: CK-MB VALUE MASS < 1.0 NG/ML (<3.6)
[2023-06-17 13:34] LABS: CPK CREATINE PHOSPHOKINASE 63 U/L (34-145); MB/CK RELATIVE INDEX 1.58 (< OR =4)
[2023-06-17] MEDS ORDERED: LIDOCAINE 2% 5ML JELLY UROJET TOP ONE (13:50)
[2023-06-17 14:45] LABS: AMPHETAMINES LEVEL URINE NEGATIVE (NEGATIVE); BARBITURATES URINE NEGATIVE (NEGATIVE); BENZODIAZEPINES URINE NEGATIVE (NEGATIVE); COCAINE METABOLITE URINE NEGATIVE (NEGATIVE)
[2023-06-17 14:46] LABS: CANNABINOIDS URINE NEGATIVE (NEGATIVE); METHADONE URINE NEGATIVE (NEGATIVE); OPIATES URINE NEGATIVE (NEGATIVE); PHENCYCLIDINE URINE NEGATIVE (NEGATIVE)
[2023-06-17] MEDS: BACTRIM 160MG/800MG DS TAB PO SCH ×2 (14:56→21:24)
[2023-06-17] MEDS ORDERED: SERT25TA85 PO (16:17)
[2023-06-17] MEDS ORDERED: AMLO25TA PO (16:17)
[2023-06-17] MEDS ORDERED: NORT25CA2 PO (16:17)
[2023-06-17] MEDS ORDERED: MED REC CURRENTLY UNOBTAINABLE XX SCH (23:10)
[2023-06-18] MEDS: BACTRIM 160MG/800MG DS TAB PO SCH ×2 (10:11→20:15)
[2023-06-18] MEDS ORDERED: HOME MED LIST COMPLETE! XX SCH (12:40)
[2023-06-18] MEDS ORDERED: MOM 30ML SUSPENSION UDC PO PRN (15:00)
[2023-06-18] MEDS ORDERED: MAALOX 30 ML SUSP *UDC PO PRN (15:00)
[2023-06-18] MEDS ORDERED: OLANZapine ORAL DISINTEGRATING TAB 5MG PO PRN (15:00)
[2023-06-18] MEDS ORDERED: ACETAMINOPHEN TAB 650MG DOSE (2X325MG) PO PRN (15:00)
[2023-06-18] MEDS: traZODone 50 MG TAB PO PRN (20:14)
[2023-06-19 05:59] VITALS: BP 91/55; TEMP 98; O2SAT 97
[2023-06-19] MEDS: BACTRIM 160MG/800MG DS TAB PO SCH ×2 (09:14→21:38)
[2023-06-19 16:30] VITALS: BP 116/54; TEMP 98.7; O2SAT 98
[2023-06-19] MEDS: traZODone 50 MG TAB PO PRN (21:38)
[2023-06-20 06:42] VITALS: BP 113/58; TEMP 97.9; O2SAT 97
[2023-06-20] MEDS: BACTRIM 160MG/800MG DS TAB PO SCH ×2 (09:11→21:00)
[2023-06-20 16:14] VITALS: BP 110/56; TEMP 98.6; O2SAT 97
[2023-06-21 06:36] VITALS: BP 102/47; TEMP 97.6; O2SAT 97
[2023-06-21] MEDS: BACTRIM 160MG/800MG DS TAB PO SCH ×2 (09:14→21:27)
[2023-06-21 15:31] VITALS: BP 122/59; TEMP 97.9; O2SAT 98
[2023-06-21] MEDS: traZODone 50 MG TAB PO PRN (21:27)
[2023-06-22 05:43] VITALS: BP 99/58; TEMP 98.4; O2SAT 96
[2023-06-22] MEDS: BACTRIM 160MG/800MG DS TAB PO SCH ×2 (09:02→21:35)
[2023-06-22] MEDS ORDERED: IBUPROFEN 800 MG TAB PO ONE (11:20)
[2023-06-22] MEDS: NICOTINE 14 MG/24 HR TRANSDERMAL TD SCH (16:16)
[2023-06-22 18:21] VITALS: BP 102/53; TEMP 97.6; O2SAT 100
[2023-06-22] MEDS: ARIPiprazole 10 MG TAB PO SCH (21:35)
[2023-06-22] MEDS: traZODone 50 MG TAB PO PRN (21:35)
[2023-06-23 06:33] VITALS: BP 102/61; TEMP 98.2; O2SAT 96
[2023-06-23] MEDS: ARIPiprazole 10 MG TAB PO SCH ×2 (08:13→20:45)
[2023-06-23] MEDS: BACTRIM 160MG/800MG DS TAB PO SCH ×2 (08:13→20:46)
[2023-06-23] MEDS: NICOTINE 14 MG/24 HR TRANSDERMAL TD SCH (08:16)
[2023-06-23] MEDS: IBUPROFEN 400MG TAB PO PRN (15:41)
[2023-06-23 18:54] VITALS: BP 133/59; TEMP 97.9; O2SAT 97
[2023-06-23] MEDS: traZODone 50 MG TAB PO PRN (20:45)
[2023-06-24 06:27] VITALS: BP 104/53; TEMP 96.8; O2SAT 99
[2023-06-24] MEDS: NICOTINE 14 MG/24 HR TRANSDERMAL TD SCH (09:00)
[2023-06-24] MEDS: ARIPiprazole 10 MG TAB PO SCH ×2 (09:33→20:36)
[2023-06-24] MEDS: BACTRIM 160MG/800MG DS TAB PO SCH (09:33)
[2023-06-24 15:56] VITALS: BP 125/59; TEMP 97; O2SAT 99
[2023-06-24] MEDS: traZODone 50 MG TAB PO PRN (20:35)
[2023-06-25 06:42] VITALS: BP_SYST 123; BP_SYST 137; BP_DIAS 58; BP_DIAS 79; TEMP 97.3; O2SAT 97; O2SAT 98
[2023-06-25] MEDS: ARIPiprazole 10 MG TAB PO SCH ×2 (10:03→20:32)
[2023-06-25] MEDS: NICOTINE 14 MG/24 HR TRANSDERMAL TD SCH (10:04)
[2023-06-25] MEDS: IBUPROFEN 400MG TAB PO PRN (13:33)
[2023-06-25 18:22] VITALS: BP 133/63; TEMP 98.2; O2SAT 96
[2023-06-25] MEDS: traZODone 50 MG TAB PO PRN (20:32)
[2023-06-26 06:16] VITALS: BP 118/63; TEMP 98.2; O2SAT 99
[2023-06-26] MEDS ORDERED: ARIP1TAB43 PO (08:03)
[2023-06-26] MEDS ORDERED: TRAZ-252 PO (08:03)
[2023-06-26] MEDS ORDERED: NICO14PA TD (08:03)
[2023-06-26] MEDS: NICOTINE 14 MG/24 HR TRANSDERMAL TD SCH (09:00)
[2023-06-26] MEDS: ARIPiprazole 10 MG TAB PO SCH (09:36)
== END 2023-06-26 14:00 | disposition home or self-care (01) | DRG 751 ==
LOC: M ED 11:00 → M ED INP 06-18 15:00 → M PSY 06-18 17:15
PROVIDERS: ADMIT Student in an Organized Health Care Education/Training Program; ATTEND Student in an Organized Health Care Education/Training Program
DX: F29 Unspecified psychosis not due to a substance or known physiological condition (principal); I10 Essential (primary) hypertension; E03.9 Hypothyroidism, unspecified; N80.9 Endometriosis, unspecified; M54.9 Dorsalgia, unspecified; F32.A Depression, unspecified; Z90.49 Acquired absence of other specified parts of digestive tract; Z90.79 Acquired absence of other genital organ(s); Z83.3 Family history of diabetes mellitus; Z88.8 Allergy status to other drugs, medicaments and biological substances; Z20.822 Contact with and (suspected) exposure to COVID-19

== ENCOUNTER 2023-07-28 17:26 | Inpatient (IN) | payer MEDICAID, OTHER ==
[~2023-07-28] VITALS: Ht 175.3 cm; Wt 71.5 kg
[~2023-07-28 17:26] MED LIST changes: +AMLO25TA PO; +ARIP1TAB43 PO; +NICO14PA TD; +NORT25CA2 PO; +SERT25TA85 PO; +TRAZ-252 PO
[2023-07-28] MEDS ORDERED: MED REC IN PROGRESS XX SCH (21:40)
[2023-07-28 22:04] LABS: AMPHETAMINES LEVEL URINE NEGATIVE (NEGATIVE); BARBITURATES URINE NEGATIVE (NEGATIVE); COCAINE METABOLITE URINE NEGATIVE (NEGATIVE)
[2023-07-28 22:05] LABS: BENZODIAZEPINES URINE NEGATIVE (NEGATIVE); CANNABINOIDS URINE NEGATIVE (NEGATIVE); METHADONE URINE NEGATIVE (NEGATIVE); OPIATES URINE NEGATIVE (NEGATIVE); PHENCYCLIDINE URINE NEGATIVE (NEGATIVE)
[2023-07-28] MEDS ORDERED: TRAZ1TAB10 PO (22:18)
[2023-07-28] MEDS ORDERED: ARIP1TAB43 PO (22:18)
[2023-07-28] MEDS ORDERED: HOME MED LIST COMPLETE! XX SCH (22:20)
[2023-07-28 23:03] LABS: BASO # 0.1 10^3/uL (0.0-0.2); BASO % 0.9 % (0.0-1.0); EOS # 0.1 10^3/uL (0.0-0.5); EOS % 1.4 % (0.0-3.0); HEMATOCRIT 38.8 % (36.0-47.0); HEMOGLOBIN 13.2 g/dl (12.0-15.5); LYMPH # 2.3 10^3/uL (1.5-5.0); LYMPH % 32.7 % (24.0-44.0); MEAN CORPUSCULAR VOLUME 93.9 fl (80.0-96.0); MONO # 0.5 10^3/uL (0.0-0.8); MONO % 7.4 % (2.0-8.0); NEUTROPHILS % 57.5 % (36.0-66.0); PLATELET COUNT, AUTOMATED 256 10^3/uL (150-450); RED BLOOD COUNT 4.13 10^6/uL (4.00-5.40)
[2023-07-28 23:22] LABS: ETHYL ALCOHOL (ETHANOL) 0.003 % (0.000-0.010)
[2023-07-28 23:24] LABS: ALKALINE PHOSPHATASE 123 U/L (46-116); ALT/SGPT 11 U/L (7.0-40); AST/SGOT 15 U/L (<34); BILIRUBIN,DIRECT 0.2 MG/DL (<0.4); BILIRUBIN,TOTAL 0.5 MG/DL (0.3-1.2); BLOOD UREA NITROGEN 11 MG/DL (9-23); CALCIUM LEVEL 9.8 MG/DL (8.3-10.6); CARBON DIOXIDE LEVEL 29 MMOL/L (20-31); CHLORIDE LEVEL 105 MMOL/L (98-107); CREATININE FOR GFR 0.68 MG/DL (0.55-1.30); GLOMERULAR FILTRATION RATE > 60.0 (>45); GLUCOSE, FASTING 104 MG/DL (74-106); POTASSIUM SERUM 3.8 MMOL/L (3.5-5.1); SALICYLATE LEVEL < 3.0 MG/DL (<30); SODIUM LEVEL 141 MMOL/L (136-145)
[2023-07-28 23:26] LABS: THYROID STIMULATING HORMONE 6.417 uIU/ML (0.55-4.78)
[2023-07-29] MEDS ORDERED: MAALOX 30 ML SUSP *UDC PO PRN (01:15)
[2023-07-29] MEDS ORDERED: MOM 30ML SUSPENSION UDC PO PRN (01:15)
[2023-07-29] MEDS ORDERED: IBUPROFEN 400MG TAB PO PRN (01:15)
[2023-07-29] MEDS ORDERED: diphenhydrAMINE 25MG CAP PO PRN (01:15)
[2023-07-29] MEDS ORDERED: OLANZapine 5 MG TAB PO PRN (01:20)
[2023-07-29 04:25] VITALS: BP 130/59; TEMP 97.5; O2SAT 100
[2023-07-29] MEDS ORDERED: PILL CUTTER 1 EACH XX PRN (10:00)
[2023-07-29] MEDS: ARIPiprazole 15 MG TAB (AbiLIFY) PO SCH ×2 (10:41→20:35)
[2023-07-29 16:06] VITALS: BP 114/56; TEMP 97.9; O2SAT 98
[2023-07-29] MEDS: traZODone 50 MG TAB PO PRN (20:35)
[2023-07-29] MEDS: CEFDINIR 300 MG CAP (OMNICEF) PO SCH (20:35)
[2023-07-29] MEDS: PHENAZOPYRIDINE 100 MG TAB PO SCH (21:19)
[2023-07-30] MEDS: PHENAZOPYRIDINE 100 MG TAB PO SCH (06:00)
[2023-07-30 06:15] VITALS: BP 139/75; TEMP 98.2; O2SAT 100
[2023-07-30] MEDS: CEFDINIR 300 MG CAP (OMNICEF) PO SCH ×2 (08:58→21:05)
[2023-07-30] MEDS: ARIPiprazole 15 MG TAB (AbiLIFY) PO SCH ×2 (08:58→21:06)
[2023-07-30] MEDS ORDERED: PHENAZOPYRIDINE 100 MG TAB PO PRN (10:35)
[2023-07-30 18:00] VITALS: BP 130/60; TEMP 96.5; O2SAT 98
[2023-07-31 06:29] VITALS: BP 129/56; TEMP 97.6; O2SAT 100
[2023-07-31] MEDS: ARIPiprazole 15 MG TAB (AbiLIFY) PO SCH (08:36)
[2023-07-31] MEDS: CEFDINIR 300 MG CAP (OMNICEF) PO SCH ×2 (08:36→20:45)
[2023-07-31 18:45] VITALS: BP 136/61; TEMP 99.2
[2023-07-31] MEDS: traZODone 50 MG TAB PO PRN (20:45)
[2023-07-31] MEDS: ARIPiprazole 10 MG TAB PO SCH (20:45)
[2023-08-01 06:33] VITALS: BP 133/71; TEMP 97.7; O2SAT 100
[2023-08-01] MEDS: CEFDINIR 300 MG CAP (OMNICEF) PO SCH (08:53)
[2023-08-01] MEDS: ACETAMINOPHEN TAB 650MG DOSE (2X325MG) PO PRN (10:13)
[2023-08-01 16:08] VITALS: BP 119/70; TEMP 97.9; O2SAT 99
[2023-08-01] MEDS: traZODone 50 MG TAB PO PRN (21:03)
[2023-08-01] MEDS: ARIPiprazole 10 MG TAB PO SCH (21:06)
[2023-08-02 06:42] VITALS: BP 119/58; TEMP 96; O2SAT 100
[2023-08-02] MEDS: LIDOCAINE 5% (LIDODERM) PATCH TD SCH (09:16)
[2023-08-02 16:12] VITALS: BP 116/54; TEMP 98.4; O2SAT 99
[2023-08-02] MEDS: ACETAMINOPHEN TAB 650MG DOSE (2X325MG) PO PRN (21:29)
[2023-08-02] MEDS: ARIPiprazole 10 MG TAB PO SCH (21:29)
[2023-08-02] MEDS: traZODone 50 MG TAB PO PRN (21:30)
[2023-08-03 05:23] VITALS: BP 106/58; TEMP 96.8; O2SAT 96
[2023-08-03] MEDS: LIDOCAINE 5% (LIDODERM) PATCH TD SCH (09:00)
[2023-08-03 16:16] VITALS: BP 124/60; TEMP 100.5; O2SAT 100
[2023-08-03] MEDS: ARIPiprazole 10 MG TAB PO SCH (21:17)
[2023-08-03] MEDS: traZODone 50 MG TAB PO PRN (21:17)
[2023-08-04 06:40] VITALS: BP 120/57; TEMP 97.3; O2SAT 98
[2023-08-04] MEDS: LIDOCAINE 5% (LIDODERM) PATCH TD SCH (09:00)
[2023-08-04 18:54] VITALS: BP 128/54; TEMP 98.4
[2023-08-04] MEDS: ARIPiprazole 10 MG TAB PO SCH (21:05)
[2023-08-05 06:22] VITALS: BP 122/63; TEMP 97.1; O2SAT 96
[2023-08-05] MEDS: LIDOCAINE 5% (LIDODERM) PATCH TD SCH (09:32)
[2023-08-05 17:42] VITALS: BP 130/58; TEMP 97.4; O2SAT 99
[2023-08-05] MEDS: ARIPiprazole 10 MG TAB PO SCH (20:19)
[2023-08-05] MEDS: traZODone 50 MG TAB PO PRN (20:20)
[2023-08-05] MEDS: OLANZapine 5 MG TAB PO SCH (20:20)
[2023-08-06 06:49] VITALS: BP 129/50; TEMP 97.9; O2SAT 100
[2023-08-06 07:19] LABS: CHOLESTEROL RISK RATIO 2.67 (<5); HDL CHOLESTEROL 70.3 MG/DL (>40); LDL CHOLESTEROL 97.3 MG/DL (<100); NON-HDL-C 117.7 MG/DL
[2023-08-06] MEDS: LIDOCAINE 5% (LIDODERM) PATCH TD SCH (08:40)
[2023-08-06 16:27] VITALS: BP 123/60; TEMP 98.3; O2SAT 99
[2023-08-06] MEDS: traZODone 50 MG TAB PO PRN (20:47)
[2023-08-06] MEDS: OLANZapine 5 MG TAB PO SCH (20:47)
[2023-08-06] MEDS: ARIPiprazole 10 MG TAB PO SCH (20:48)
[2023-08-07 06:33] VITALS: BP 148/57; TEMP 98.9; O2SAT 99
[2023-08-07] MEDS: LIDOCAINE 5% (LIDODERM) PATCH TD SCH (08:18)
[2023-08-07] MEDS ORDERED: LIDO5TD TD (09:05)
[2023-08-07] MEDS ORDERED: TRAZ1TAB10 PO (09:05)
[2023-08-07] MEDS ORDERED: OLAN1TAB16 PO (09:05)
[2023-08-07] MEDS ORDERED: ARIP1TAB43 PO (09:05)
== END 2023-08-07 14:30 | disposition home or self-care (01) | DRG 757 ==
LOC: M ED 17:26 → M ED INP 07-29 01:13 → M PSY 07-29 04:08
PROVIDERS: ADMIT Student in an Organized Health Care Education/Training Program; ATTEND Student in an Organized Health Care Education/Training Program
DX: F06.2 Psychotic disorder with delusions due to known physiological condition (principal); M32.9 Systemic lupus erythematosus, unspecified; N30.90 Cystitis, unspecified without hematuria; K31.84 Gastroparesis; R41.9 Unspecified symptoms and signs involving cognitive functions and awareness; I10 Essential (primary) hypertension; E03.9 Hypothyroidism, unspecified; M16.12 Unilateral primary osteoarthritis, left hip; M25.552 Pain in left hip; N80.9 Endometriosis, unspecified; F17.210 Nicotine dependence, cigarettes, uncomplicated; F32.A Depression, unspecified; F41.9 Anxiety disorder, unspecified; K44.9 Diaphragmatic hernia without obstruction or gangrene; Z90.49 Acquired absence of other specified parts of digestive tract; Z90.79 Acquired absence of other genital organ(s); Z83.3 Family history of diabetes mellitus; Z79.899 Other long term (current) drug therapy; Z88.8 Allergy status to other drugs, medicaments and biological substances; Z20.822 Contact with and (suspected) exposure to COVID-19

== ENCOUNTER 2023-10-12 16:03 | Observation (INO) | payer MEDICAID, MEDICARE, OTHER ==
[~2023-10-12] VITALS: Ht 175.3 cm; Wt 74.2 kg
[~2023-10-12 16:03] MED LIST changes: +LIDO5TD TD; +OLAN1TAB16 PO; +TIZA4CAP3 PO; -TIZA4CAP6 PO; +TRAZ1TAB10 PO
[2023-10-12 18:05] LABS: HEMATOCRIT 43.5 % (36.0-47.0); HEMOGLOBIN 14.4 g/dl (12.0-15.5); MEAN CORPUSCULAR HEMOGLOBIN 31.2 pg (27.0-33.0); MEAN CORPUSCULAR HGB CONC 33.1 g/dl (32.0-36.5); MEAN CORPUSCULAR VOLUME 94.2 fl (80.0-96.0); PLATELET COUNT, AUTOMATED 298 10^3/uL (150-450); RED BLOOD COUNT 4.62 10^6/uL (4.00-5.40); WHITE BLOOD COUNT 8.5 10^3/uL (4.0-10.0)
[2023-10-12 18:35] LABS: AMPHETAMINES LEVEL URINE NEGATIVE (NEGATIVE)
[2023-10-12 18:36] LABS: BARBITURATES URINE NEGATIVE (NEGATIVE); BENZODIAZEPINES URINE NEGATIVE (NEGATIVE); COCAINE METABOLITE URINE NEGATIVE (NEGATIVE)
[2023-10-12 18:37] LABS: CANNABINOIDS URINE NEGATIVE (NEGATIVE); ETHYL ALCOHOL (ETHANOL) 0.003 % (0.000-0.010); METHADONE URINE NEGATIVE (NEGATIVE); OPIATES URINE NEGATIVE (NEGATIVE); PHENCYCLIDINE URINE NEGATIVE (NEGATIVE)
[2023-10-12 18:38] LABS: SALICYLATE LEVEL < 3.0 MG/DL (<30)
[2023-10-12 18:40] LABS: THYROID STIMULATING HORMONE 11.177 uIU/ML (0.55-4.78)
[2023-10-12 18:46] LABS: ALBUMIN 4.2 G/DL (3.2-5.2); ALKALINE PHOSPHATASE 133 U/L (46-116); ALT/SGPT 11 U/L (7.0-40); AST/SGOT 16 U/L (<34); BILIRUBIN,DIRECT 0.2 MG/DL (<0.4); BILIRUBIN,TOTAL 0.7 MG/DL (0.3-1.2); BLOOD UREA NITROGEN < 5 MG/DL (9-23); CALCIUM LEVEL 9.9 MG/DL (8.3-10.6); CARBON DIOXIDE LEVEL 29 MMOL/L (20-31); CHLORIDE LEVEL 102 MMOL/L (98-107); GLOMERULAR FILTRATION RATE > 60.0 (>45); GLUCOSE, FASTING 109 MG/DL (74-106); POTASSIUM SERUM 3.1 MMOL/L (3.5-5.1); SODIUM LEVEL 138 MMOL/L (136-145); TOTAL PROTEIN 7.5 G/DL (5.7-8.2)
[2023-10-12] MEDS: POTASSIUM CHLORIDE 10MEQ SR TABLET PO ONE (19:53)
[2023-10-12] MEDS ORDERED: HOME MED LIST COMPLETE! XX SCH (20:15)
[2023-10-12 21:18] LABS: APPEARANCE, URINE CLEAR (CLEAR); BACTERIA, URINE AUTO NEGATIVE (NEGATIVE); BILIRUBIN, URINE AUTO NEGATIVE (NEGATIVE); BLOOD, URINE BLOOD 1+ (NEGATIVE); COLOR, URINE YELLOW (YELLOW); GLUCOSE, URINE (UA) AUTO NEGATIVE (NEGATIVE); GRANULAR CAST, URINE AUTO 1 /LPF; KETONE, URINE AUTO NEGATIVE (NEGATIVE); LEUKOCYTE ESTERASE, URINE AUTO 2+ (NEGATIVE); MUCUS, URINE SMALL (NEGATIVE); NITRITE, URINE AUTO NEGATIVE (NEGATIVE); PROTEIN, URINE AUTO NEGATIVE (NEGATIVE); RBC, URINE AUTO 1 /HPF (0-3); SPECIFIC GRAVITY URINE AUTO 1.004 (1.002-1.035); SQUAMOUS EPITHELIAL CELL UR AU 1 /HPF (0-6); UROBILINOGEN, URINE AUTO 0.2 mg/dL (0.0-2.0); WBC, URINE AUTO 5 /HPF (0-3)
[2023-10-13] MEDS: MIRTAZAPINE 15 MG TAB PO STA (01:22)
[2023-10-13] MEDS: CEFDINIR 300 MG CAP (OMNICEF) PO SCH (22:24)
[2023-10-14] MEDS: LEVOTHYROXINE 25MCG TABLET (0.025MG) PO SCH (06:24)
[2023-10-15] MEDS: ENOXAPARIN 40MG/0.4ML SYRINGE (J1650 PER 10MG) SC SCH (09:00)
[2023-10-15] MEDS: NICOTINE 21MG/24HR 1 EA TRANSDERMAL TD ONE (12:24)
[2023-10-15 13:02] LABS: HEMATOCRIT 40.2 % (36.0-47.0); HEMOGLOBIN 13.3 g/dl (12.0-15.5); MEAN CORPUSCULAR HEMOGLOBIN 31.5 pg (27.0-33.0); MEAN CORPUSCULAR HGB CONC 33.1 g/dl (32.0-36.5); MEAN CORPUSCULAR VOLUME 95.3 fl (80.0-96.0); PLATELET COUNT, AUTOMATED 232 10^3/uL (150-450); RED BLOOD COUNT 4.22 10^6/uL (4.00-5.40); WHITE BLOOD COUNT 7.8 10^3/uL (4.0-10.0)
[2023-10-15 13:35] LABS: FOLATE 6.25 NG/ML (>5.4)
[2023-10-15 13:42] LABS: ALBUMIN 3.7 G/DL (3.2-5.2); ALKALINE PHOSPHATASE 118 U/L (46-116); ALT/SGPT 12 U/L (7.0-40); AST/SGOT 16 U/L (<34); BILIRUBIN,TOTAL 0.4 MG/DL (0.3-1.2); BLOOD UREA NITROGEN 13 MG/DL (9-23); CALCIUM LEVEL 9.4 MG/DL (8.3-10.6); CARBON DIOXIDE LEVEL 31 MMOL/L (20-31); CHLORIDE LEVEL 102 MMOL/L (98-107); CREATININE FOR GFR 0.62 MG/DL (0.55-1.30); GLOMERULAR FILTRATION RATE > 60.0 (>45); GLUCOSE, FASTING 90 MG/DL (74-106); POTASSIUM SERUM 4.5 MMOL/L (3.5-5.1); SODIUM LEVEL 138 MMOL/L (136-145); TOTAL PROTEIN 7.1 G/DL (5.7-8.2)
[2023-10-15 15:45] VITALS: BP 110/62; TEMP 97.9; O2SAT 98
[2023-10-16 04:19] VITALS: BP 117/50; TEMP 97.3; O2SAT 98
[2023-10-16 06:27] LABS: HEMOGLOBIN 11.7 g/dl (12.0-15.5); MEAN CORPUSCULAR HEMOGLOBIN 31.9 pg (27.0-33.0); MEAN CORPUSCULAR HGB CONC 33.4 g/dl (32.0-36.5); MEAN CORPUSCULAR VOLUME 95.4 fl (80.0-96.0); PLATELET COUNT, AUTOMATED 198 10^3/uL (150-450); RED BLOOD COUNT 3.67 10^6/uL (4.00-5.40); WHITE BLOOD COUNT 4.4 10^3/uL (4.0-10.0)
[2023-10-16 06:49] LABS: BLOOD UREA NITROGEN 12 MG/DL (9-23); CALCIUM LEVEL 9.2 MG/DL (8.3-10.6); CARBON DIOXIDE LEVEL 31 MMOL/L (20-31); CHLORIDE LEVEL 104 MMOL/L (98-107); CREATININE FOR GFR 0.65 MG/DL (0.55-1.30); GLOMERULAR FILTRATION RATE > 60.0 (>45); GLUCOSE, FASTING 87 MG/DL (74-106); MAGNESIUM LEVEL 1.7 MG/DL (1.8-2.4); POTASSIUM SERUM 4.3 MMOL/L (3.5-5.1); SODIUM LEVEL 138 MMOL/L (136-145)
[2023-10-16] MEDS: NICOTINE 21MG/24HR 1 EA TRANSDERMAL TD PRN (09:00)
[2023-10-16] MEDS: SENNA 8.6 MG TAB (SENOKOT) PO PRN (09:02)
[2023-10-16] MEDS: MAALOX 30 ML SUSP *UDC PO ONE (09:05)
[2023-10-16] MEDS ORDERED: ISOVUE-370 76% 100ML VIAL As Ordered ONE (09:28)
[2023-10-16] MEDS: MAG SULF 1GM/100ML (MAG RUN) 1 GM in IV 1 EA IV ONE (11:26)
[2023-10-16] MEDS ORDERED: NITROGLYCERIN 0.3MG SUBL TAB SL PRN (11:30)
[2023-10-16] MEDS: NITROGLYCERIN 0.4MG SUBL TABLET SL PRN (12:20)
[2023-10-16 12:31] VITALS: BP 113/60
[2023-10-16 12:33] VITALS: BP 113/60
[2023-10-16 12:47] VITALS: BP 110/60
[2023-10-16 14:00] VITALS: BP 114/59; TEMP 97.5; O2SAT 97
[2023-10-16] MEDS: ACETAMINOPHEN 500 MG TAB PO PRN (14:27)
[2023-10-17 05:36] VITALS: BP 106/64; TEMP 97.7; O2SAT 100
[2023-10-17 06:18] LABS: BASO # 0.1 10^3/uL (0.0-0.2); BASO % 1.1 % (0.0-1.0); EOS # 0.1 10^3/uL (0.0-0.5); EOS % 2.1 % (0.0-3.0); HEMATOCRIT 37.6 % (36.0-47.0); HEMOGLOBIN 12.4 g/dl (12.0-15.5); LYMPH # 1.8 10^3/uL (1.5-5.0); LYMPH % 38.5 % (24.0-44.0); MEAN CORPUSCULAR HEMOGLOBIN 31.5 pg (27.0-33.0); MEAN CORPUSCULAR VOLUME 95.4 fl (80.0-96.0); MONO # 0.4 10^3/uL (0.0-0.8); MONO % 8.9 % (2.0-8.0); NEUTROPHILS # 2.3 10^3/uL (1.5-8.5); PLATELET COUNT, AUTOMATED 208 10^3/uL (150-450); RED BLOOD COUNT 3.94 10^6/uL (4.00-5.40); WHITE BLOOD COUNT 4.7 10^3/uL (4.0-10.0)
[2023-10-17 06:31] LABS: BLOOD UREA NITROGEN 13 MG/DL (9-23); CALCIUM LEVEL 9.3 MG/DL (8.3-10.6); CARBON DIOXIDE LEVEL 32 MMOL/L (20-31); CHLORIDE LEVEL 104 MMOL/L (98-107); CREATININE FOR GFR 0.67 MG/DL (0.55-1.30); GLOMERULAR FILTRATION RATE > 60.0 (>45); GLUCOSE, FASTING 81 MG/DL (74-106); POTASSIUM SERUM 4.5 MMOL/L (3.5-5.1); SODIUM LEVEL 139 MMOL/L (136-145)
[2023-10-17 18:00] VITALS: BP 112/55; TEMP 97.7; O2SAT 99
[2023-10-17] MEDS: MIRALAX *UNIT DOSE* 17GM PACKET PO PRN (18:42)
[2023-10-17 19:30] VITALS: BP 115/55; TEMP 97.9; O2SAT 98
[2023-10-18 05:25] VITALS: BP 142/77; TEMP 98.9; O2SAT 96
[2023-10-18 05:49] VITALS: BP 121/51; TEMP 97.5; O2SAT 100
[2023-10-18] MEDS: NICOTINE 21MG/24HR 1 EA TRANSDERMAL TD SCH (08:44)
[2023-10-18 14:00] VITALS: BP 102/60; TEMP 97.9; O2SAT 96
[2023-10-18 21:25] VITALS: BP 108/38; TEMP 97.9; O2SAT 97
[2023-10-18 21:30] VITALS: BP 110/42
[2023-10-19 05:38] VITALS: BP 107/40; TEMP 97.5; O2SAT 98
[2023-10-19 14:00] VITALS: BP 147/60; TEMP 97.7; O2SAT 99
[2023-10-19 20:26] VITALS: BP 103/77; TEMP 97.5; O2SAT 99
[2023-10-20 05:15] VITALS: BP 110/64; TEMP 97.7; O2SAT 98
[2023-10-20 14:00] VITALS: BP 107/64; TEMP 97.9; O2SAT 98
[2023-10-21 05:44] VITALS: BP 104/64; TEMP 97.5; O2SAT 99
[2023-10-22 05:18] VITALS: BP 105/55; TEMP 97.9; O2SAT 97
[2023-10-23 05:23] VITALS: BP 114/68; TEMP 97.7; O2SAT 98
[2023-10-24 05:49] VITALS: BP 104/41; TEMP 98.1; O2SAT 99
[2023-10-25 05:19] VITALS: BP 122/74; TEMP 97.7; O2SAT 98
[2023-10-25] MEDS: LIDOCAINE 5% (LIDODERM) PATCH TD SCH (14:18)
[2023-10-26 04:40] VITALS: BP 126/68; TEMP 97.5; O2SAT 95
[2023-10-27 05:00] VITALS: BP 112/68; TEMP 97.5; O2SAT 96
[2023-10-28 06:00] VITALS: BP 104/59; TEMP 97.5; O2SAT 99
[2023-10-29 05:28] VITALS: BP 104/58; TEMP 98.4; O2SAT 98
[2023-10-29 14:00] VITALS: BP 140/80; TEMP 97.7; O2SAT 99
[2023-10-30 04:20] VITALS: BP 108/57; TEMP 97.7; O2SAT 99
[2023-10-31] VITALS (8 sets, daily range): BP systolic 73–126; BP diastolic 46–86; TEMP 97–99.5; O2SAT 94–98
[2023-10-31] MEDS: ONDANSETRON 4MG TAB PO PRN (15:36)
[2023-10-31 19:18] LABS: BASO % 0.2 % (0.0-1.0); EOS % 0.4 % (0.0-3.0); HEMOGLOBIN 13.3 g/dl (12.0-15.5); LYMPH # 0.5 10^3/uL (1.5-5.0); LYMPH % 4.9 % (24.0-44.0); MEAN CORPUSCULAR HEMOGLOBIN 31.9 pg (27.0-33.0); MEAN CORPUSCULAR HGB CONC 34.1 g/dl (32.0-36.5); MEAN CORPUSCULAR VOLUME 93.5 fl (80.0-96.0); MONO # 0.3 10^3/uL (0.0-0.8); MONO % 3.6 % (2.0-8.0); NEUTROPHILS # 8.6 10^3/uL (1.5-8.5); NEUTROPHILS % 90.6 % (36.0-66.0); PLATELET COUNT, AUTOMATED 268 10^3/uL (150-450); RED BLOOD COUNT 4.17 10^6/uL (4.00-5.40); WHITE BLOOD COUNT 9.5 10^3/uL (4.0-10.0)
[2023-10-31 19:47] LABS: BLOOD UREA NITROGEN 16 MG/DL (9-23); CALCIUM LEVEL 9.2 MG/DL (8.3-10.6); CARBON DIOXIDE LEVEL 27 MMOL/L (20-31); CHLORIDE LEVEL 105 MMOL/L (98-107); CHOLESTEROL LEVEL 242 MG/DL (<200); CHOLESTEROL RISK RATIO 3.82 (<5); CREATININE FOR GFR 0.64 MG/DL (0.55-1.30); GLOMERULAR FILTRATION RATE > 60.0 (>45); GLUCOSE, FASTING 114 MG/DL (74-106); HDL CHOLESTEROL 63.3 MG/DL (>40); LDL CHOLESTEROL 148.9 MG/DL (<100); NON-HDL-C 178.7 MG/DL; SODIUM LEVEL 136 MMOL/L (136-145); TRIGLYCERIDES LEVEL 149 MG/DL (<150)
[2023-10-31] MEDS: MAALOX 30 ML SUSP *UDC PO ONE (20:05)
[2023-11-01 06:00] VITALS: BP 110/64; TEMP 97.7; O2SAT 96
[2023-11-01 17:55] VITALS: BP 113/72; TEMP 97.7; O2SAT 98
[2023-11-02 06:00] VITALS: BP 106/65; TEMP 98.1; O2SAT 97
[2023-11-03 06:00] VITALS: BP 102/48; TEMP 97.5; O2SAT 100
[2023-11-04 05:06] VITALS: BP 104/48; TEMP 97.3; O2SAT 99
[2023-11-05 05:30] VITALS: BP 121/51; TEMP 97.7; O2SAT 92
[2023-11-06 06:00] VITALS: BP 117/53; TEMP 97.8; O2SAT 97
[2023-11-07 05:20] VITALS: BP 100/58; TEMP 96.6; O2SAT 100
[2023-11-07 06:17] LABS: BASO % 0.6 % (0.0-1.0); EOS # 0.1 10^3/uL (0.0-0.5); EOS % 1.9 % (0.0-3.0); HEMATOCRIT 35.2 % (36.0-47.0); LYMPH # 2.3 10^3/uL (1.5-5.0); LYMPH % 48.8 % (24.0-44.0); MEAN CORPUSCULAR HEMOGLOBIN 31.8 pg (27.0-33.0); MEAN CORPUSCULAR HGB CONC 34.1 g/dl (32.0-36.5); MEAN CORPUSCULAR VOLUME 93.4 fl (80.0-96.0); MONO # 0.4 10^3/uL (0.0-0.8); MONO % 7.7 % (2.0-8.0); NEUTROPHILS % 40.8 % (36.0-66.0); PLATELET COUNT, AUTOMATED 246 10^3/uL (150-450); RED BLOOD COUNT 3.77 10^6/uL (4.00-5.40); WHITE BLOOD COUNT 4.8 10^3/uL (4.0-10.0)
[2023-11-07 06:44] LABS: ALBUMIN 3.2 G/DL (3.2-5.2); ALKALINE PHOSPHATASE 103 U/L (46-116); ALT/SGPT 22 U/L (7.0-40); AST/SGOT 20 U/L (<34); BILIRUBIN,TOTAL 0.3 MG/DL (0.3-1.2); BLOOD UREA NITROGEN 11 MG/DL (9-23); CALCIUM LEVEL 9.1 MG/DL (8.3-10.6); CARBON DIOXIDE LEVEL 29 MMOL/L (20-31); CHLORIDE LEVEL 104 MMOL/L (98-107); CREATININE FOR GFR 0.59 MG/DL (0.55-1.30); GLOMERULAR FILTRATION RATE > 60.0 (>45); GLUCOSE, FASTING 96 MG/DL (74-106); MAGNESIUM LEVEL 1.6 MG/DL (1.8-2.4); POTASSIUM SERUM 3.7 MMOL/L (3.5-5.1); SODIUM LEVEL 138 MMOL/L (136-145)
[2023-11-07 06:46] LABS: FREE T4 0.81 NG/DL (0.89-1.76); THYROID STIMULATING HORMONE 8.055 uIU/ML (0.55-4.78)
[2023-11-07] MEDS: MAGNESIUM OXIDE 400MG TAB (MAG-OX) PO ONE (18:11)
[2023-11-08 05:08] VITALS: BP 109/50; TEMP 97.5; O2SAT 98
[2023-11-08] MEDS: LEVOTHYROXINE 37.5MCG PER 1/2TAB (0.0375MG) PO SCH (05:41)
[2023-11-08] MEDS: MAGNESIUM OXIDE 400MG TAB (MAG-OX) PO SCH (08:32)
[2023-11-09 15:34] VITALS: BP 127/69; TEMP 97.5; O2SAT 97
[2023-11-10 05:41] VITALS: BP 104/54; TEMP 98.1; O2SAT 97
[2023-11-10 05:50] VITALS: O2SAT 97
[2023-11-11 06:26] VITALS: BP 102/53; TEMP 97.9; O2SAT 97
[2023-11-12 05:56] VITALS: BP 106/57; TEMP 98.6; O2SAT 98
[2023-11-12] MEDS: PINK BISMUTH SUSP 524MG/30ML ORAL SYRINGE PO PRN (11:36)
[2023-11-13 06:21] VITALS: BP 94/48; TEMP 97.7; O2SAT 98
[2023-11-13 07:25] VITALS: BP 94/42
[2023-11-13 10:58] VITALS: BP 96/45
[2023-11-13 15:32] VITALS: BP 111/59
[2023-11-14 05:34] VITALS: BP 107/58; TEMP 98.6; O2SAT 98
[2023-11-15 06:01] VITALS: BP_SYST 96; BP_SYST 98; BP_DIAS 48; TEMP 97.7; O2SAT 99
[2023-11-15 08:30] VITALS: BP 108/57; TEMP 97.3; O2SAT 97
[2023-11-16 07:33] VITALS: BP 101/45; TEMP 97.3; O2SAT 97
[2023-11-17 05:09] VITALS: BP 102/48; TEMP 97.9; O2SAT 98
[2023-11-17] MEDS: MOM 30ML SUSPENSION UDC PO ONE (12:32)
[2023-11-17] MEDS: BISACODYL 10MG SUPP PR ONE (15:40)
[2023-11-17] MEDS: SENOKOT S TAB PO SCH (21:09)
[2023-11-18 06:25] VITALS: BP 107/48; TEMP 97.7; O2SAT 98
[2023-11-18] MEDS: MIRALAX *UNIT DOSE* 17GM PACKET PO SCH (08:45)
[2023-11-19 05:33] VITALS: BP 106/55; TEMP 97.9; O2SAT 99
[2023-11-20 05:31] VITALS: BP 112/73; TEMP 98.4; O2SAT 99
[2023-11-21 04:26] VITALS: BP 109/50; TEMP 97.2; O2SAT 97
[2023-11-22 05:14] VITALS: BP 105/48; TEMP 97.5; O2SAT 98
[2023-11-23 06:00] VITALS: BP 104/46; TEMP 98.4; O2SAT 43; O2SAT 98
[2023-11-24 04:55] VITALS: BP 122/62; TEMP 97.2; O2SAT 99
[2023-11-25 04:30] VITALS: BP 103/53; TEMP 97.5; O2SAT 98
[2023-11-25 06:54] LABS: FREE T4 0.88 NG/DL (0.89-1.76); THYROID STIMULATING HORMONE 9.106 uIU/ML (0.55-4.78)
[2023-11-26 06:08] VITALS: BP 104/64; TEMP 98.6; O2SAT 100
[2023-11-27 05:18] VITALS: BP 104/45; TEMP 98.1; O2SAT 97
[2023-11-28 06:00] VITALS: BP 112/60; TEMP 97.2; O2SAT 92
[2023-11-29 06:00] VITALS: BP 110/53; TEMP 97.7; O2SAT 92
[2023-11-29] MEDS: LEVOTHYROXINE 50MCG TABLET (0.05MG) PO SCH (06:54)
[2023-11-30 05:46] VITALS: BP 96/42; TEMP 97.5; O2SAT 95
[2023-12-01 05:29] VITALS: BP 108/56; TEMP 98.2; O2SAT 98
[2023-12-01] MEDS: VANICREAM MOISTURIZING SKIN CREAM 113GM TUBE TOP PRN (20:45)
[2023-12-02 06:45] VITALS: BP 127/89; TEMP 97.3; O2SAT 98
[2023-12-04 05:41] VITALS: BP 106/59; TEMP 98.1; O2SAT 96
[2023-12-05 05:36] VITALS: BP 108/53; TEMP 97.7; O2SAT 94
[2023-12-06 06:28] VITALS: BP 107/55; TEMP 97.5; O2SAT 97
[2023-12-06] MEDS: RIVAROXABAN 10MG TAB (XARELTO) PO SCH (17:29)
[2023-12-07 06:00] VITALS: BP 123/53; TEMP 97.5; O2SAT 98
[2023-12-08 06:00] VITALS: BP 105/53; TEMP 97.3; O2SAT 92
[2023-12-09 05:40] VITALS: BP 112/51; TEMP 97.5; O2SAT 97
[2023-12-10 05:48] VITALS: BP 144/75; TEMP 97.7; O2SAT 99
[2023-12-11 04:38] VITALS: BP 107/58; TEMP 97.9; O2SAT 98
[2023-12-12 05:34] VITALS: BP 114/72; TEMP 97.3; O2SAT 98
[2023-12-13 05:13] VITALS: BP 118/60; TEMP 97.3; O2SAT 99
[2023-12-13] MEDS: oxyCODONE 5MG TAB PO PRN (22:57)
[2023-12-14 06:30] VITALS: BP 137/67; TEMP 97.3; O2SAT 97
[2023-12-15 06:00] VITALS: BP 116/62; TEMP 97.5; O2SAT 98
[2023-12-16 05:15] VITALS: BP 134/67; TEMP 97.3; O2SAT 98
[2023-12-17 04:00] VITALS: BP 102/52; TEMP 97.5; O2SAT 98
[2023-12-17 07:43] VITALS: BP 121/63
[2023-12-18 03:50] VITALS: BP_SYST 116; BP_SYST 139; BP_DIAS 57; BP_DIAS 64; TEMP 97.5; O2SAT 97
[2023-12-19 04:07] VITALS: BP 116/59; TEMP 97.3; O2SAT 98
[2023-12-19] MEDS: NICOTINE 14 MG/24 HR TRANSDERMAL TD SCH (11:17)
[2023-12-20] MEDS: RAMELTEON 8 MG TAB (ROZEREM) PO PRN (02:26)
[2023-12-20 04:23] VITALS: BP 106/48; TEMP 97.9; O2SAT 98
[2023-12-20] MEDS: ACETAMINOPHEN 500 MG TAB PO PRN (20:10)
[2023-12-21 04:28] VITALS: BP 103/75; TEMP 97.5; O2SAT 97
[2023-12-22 06:00] VITALS: BP 122/58; TEMP 97.9; O2SAT 93
[2023-12-23 04:31] VITALS: BP 119/48; TEMP 97.9; O2SAT 93
[2023-12-24 06:00] VITALS: BP 114/48; TEMP 97.9; O2SAT 93
[2023-12-25 05:31] VITALS: BP 122/60; TEMP 97.5
[2023-12-25 21:05] VITALS: BP 127/89; TEMP 97.7; O2SAT 100
[2023-12-26 04:56] VITALS: BP 147/64; TEMP 97.2; O2SAT 99
[2023-12-26 06:14] VITALS: BP 106/58; TEMP 97.5; O2SAT 99
[2023-12-27 05:53] VITALS: BP 109/49; TEMP 97.5; O2SAT 98
[2023-12-27 06:04] VITALS: BP 121/59; TEMP 97.3; O2SAT 98
[2023-12-28 05:33] VITALS: BP 139/61; TEMP 97.3; O2SAT 100
[2023-12-28 14:00] VITALS: BP 91/54; TEMP 97.5; O2SAT 96
[2023-12-28] MEDS ORDERED: OLANZapine 5 MG TAB PO PRN (14:15)
[2023-12-28] MEDS: OLANZapine 2.5MG TABLET PO SCH (14:44)
[2023-12-29 05:42] VITALS: BP 117/55; TEMP 97.7; O2SAT 97
[2023-12-30 05:19] VITALS: BP 119/53; TEMP 97.3; O2SAT 98
[2023-12-31 05:39] VITALS: BP 124/56; TEMP 97.9; O2SAT 97
[2024-01-01 04:50] VITALS: BP 125/62; TEMP 97.7; O2SAT 98
[2024-01-02 05:16] VITALS: BP 112/59; TEMP 97.3; O2SAT 98
[2024-01-03 05:26] VITALS: BP 131/59; TEMP 98.1; O2SAT 97
[2024-01-04 05:52] VITALS: BP 105/42; TEMP 97.5; O2SAT 97
[2024-01-04] MEDS ORDERED: PILL CUTTER 1 EACH XX PRN (17:55)
[2024-01-04] MEDS: OLANZapine 5 MG TAB PO SCH (20:24)
[2024-01-05 05:20] VITALS: BP 92/56; TEMP 97.7; O2SAT 96
[2024-01-05] MEDS: OLANZapine 5 MG TAB PO SCH (08:03)
[2024-01-05 08:11] VITALS: BP 110/56; O2SAT 68
[2024-01-06 05:45] VITALS: BP 98/54; TEMP 98.4; O2SAT 98
[2024-01-07 06:00] VITALS: BP 115/56; TEMP 97.7; O2SAT 95
[2024-01-08 05:07] VITALS: BP 105/48; TEMP 97.2; O2SAT 97
[2024-01-08] MEDS ORDERED: ARTIFICIAL TEARS DROPS 15ML BTL (VISINE DRY RELIEF) OU PRN (08:45)
[2024-01-09 06:00] VITALS: BP 103/42; TEMP 97.7; O2SAT 93
[2024-01-10 06:00] VITALS: BP 110/58; TEMP 97.3; O2SAT 92
[2024-01-11 05:52] VITALS: BP 97/64; TEMP 98.1; O2SAT 97
[2024-01-12 05:39] VITALS: BP 111/60; TEMP 97.3; O2SAT 99
[2024-01-13 02:30] VITALS: TEMP 97
[2024-01-13 05:24] VITALS: BP 100/67; TEMP 97.7; O2SAT 96
[2024-01-13 14:51] LABS: FREE T4 0.85 NG/DL (0.89-1.76); THYROID STIMULATING HORMONE 4.917 uIU/ML (0.55-4.78)
[2024-01-13] MEDS ORDERED: CEPACOL LOZENGE PO PRN (19:50)
[2024-01-14 04:50] VITALS: BP 98/56; TEMP 97.3; O2SAT 94
[2024-01-14 06:07] VITALS: BP 107/51; TEMP 97.8; O2SAT 97
[2024-01-15 06:00] VITALS: BP 117/52; TEMP 98.1; O2SAT 93
[2024-01-16 05:40] VITALS: BP 107/48; TEMP 97.5; O2SAT 98
[2024-01-17 06:25] VITALS: BP 116/49; TEMP 97.5; O2SAT 98
[2024-01-18 05:49] VITALS: BP 101/59; TEMP 97.9; O2SAT 96
[2024-01-19 05:32] VITALS: BP 103/57; TEMP 97.3; O2SAT 96
[2024-01-20 06:06] VITALS: BP 119/62; TEMP 97.5; O2SAT 98
[2024-01-20] MEDS ORDERED: OXYC-517 PO (09:28)
[2024-01-20] MEDS ORDERED: ONDA-83 PO (09:28)
[2024-01-20] MEDS ORDERED: LIDO5TD TD (09:28)
[2024-01-20] MEDS ORDERED: LEVO50TA5 PO (09:28)
[2024-01-20] MEDS ORDERED: NITR4TASL SL (09:28)
[2024-01-20] MEDS ORDERED: MIRA33506 PO (09:28)
[2024-01-20] MEDS ORDERED: XARE10TA PO (09:28)
[2024-01-20] MEDS ORDERED: MAGN400T2 PO (09:28)
[2024-01-20] MEDS ORDERED: Peg 400/Hypromellose/Glycerin OU (09:28)
[2024-01-20] MEDS ORDERED: OLAN1TAB16 PO ×2 (09:28)
[2024-01-20] MEDS ORDERED: RAME8TAB2 PO (09:28)
[2024-01-20] MEDS ORDERED: SENN-52 PO (09:28)
[2024-01-20] MEDS ORDERED: ACET-683 PO (09:28)
[2024-01-20] MEDS ORDERED: NICO14PA TD (09:28)
== END 2024-01-20 13:18 ==
LOC: M ED 16:03 → M ED INP 16:04 → EDBEDREQSVC 10-15 11:39 → M ED INP 10-15 12:18 → UNDOADMOB 10-15 12:18 → INTOOBSV 10-15 12:18 → EDBEDREQ 10-15 12:36 → M MSPAV 10-15 15:36 → M ED INP 10-15 15:36 → M MSPAV 10-15 15:36
PROVIDERS: ADMIT Internal Medicine; ATTEND Internal Medicine
DX: R45.851 Suicidal ideations (principal); G93.41 Metabolic encephalopathy; F03.90 Unspecified dementia, unspecified severity, without behavioral disturbance, psychotic disturbance, mood disturbance, and anxiety; F06.70 Mild neurocognitive disorder due to known physiological condition without behavioral disturbance; F39 Unspecified mood [affective] disorder; F32.A Depression, unspecified; F41.9 Anxiety disorder, unspecified; E87.6 Hypokalemia; K59.04 Chronic idiopathic constipation; F17.218 Nicotine dependence, cigarettes, with other nicotine-induced disorders; Z88.8 Allergy status to other drugs, medicaments and biological substances; Z79.899 Other long term (current) drug therapy; Z79.01 Long term (current) use of anticoagulants; H10.9 Unspecified conjunctivitis; I10 Essential (primary) hypertension; R00.1 Bradycardia, unspecified; E03.9 Hypothyroidism, unspecified; R07.89 Other chest pain; K59.00 Constipation, unspecified